=== PATIENT | male | born 1960 | race Caucasian/White ===

== ENCOUNTER → 2023-01-11 | Outpatient (CLI) | payer OTHER, SELFPAY ==
[2023-01-11 10:18] LABS: Bacteria 0 SEEN /hpf (None Seen); Mucous, Urine 0 SEEN /hpf (<or=2+); Red Blood Cells-Urine 0 SEEN /hpf (0-5); White Blood Cells 0 SEEN /hpf (0-5)
[2023-01-11 12:16] LABS: Absolute Neutrophil Count 5.3 X10^3/uL (2.0-7.7); Basophil# 0.15 X10^3/uL; Eosinophil# 0.15 X10^3/uL; Hematocrit 44.3 % (40-54); Hemoglobin 15.2 g/dL (13.0-16.5); Lymphocyte % 12.2 % (19-41); Mean Corp Hgb Conc 34.3 g/dL (32-36); Mean Corpuscular Hgb 36.2 pg (27.0-32.0); Mean Corpuscular Volume 105.5 fL (80-94); Mean Platelet Vol. 10.6 fl (6.2-12.0); Monocyte# 0.78 X10^3/uL; Monocyte% 10.6 % (0-10); NRBC Flagged by Analyzer 0 % (0-5); Neutrophil # 5.29 X10^3/uL (2.7-7.7); Neutrophil % 71.6 % (47-70); Platelet Count 273 K/mm3 (150-450); RBC Distribution Width SD 58.9 fl (35.1-43.9); White Blood Count 7.4 K/mm3 (4.4-11.0)
[2023-01-11 12:22] LABS: Color, Urine Brown (Yellow); Glucose, Dipstick Normal (Normal); Ketone-Dipstick 15 mg/dl (Negative); Leukocyte Esterase-Dipstick 25 /ul (Negative); Nitrite-Dipstick Positive (Negative); Occult Blood-Urine 25 /ul (Negative); Protein-Dipstick 30 mg/dl (Negative); Specific Gravity, Urine 1.015 (1.002-1.030); Urine Clarity Sl. Cloudy (Clear); Urine Urobilinogen 12 mg/dl (Normal); Urine pH 6.5 (5.0 - 8.0)
[2023-01-11 12:25] LABS: International Normalized Ratio 1.1; Prothrombin Time (Protime)PT. 14.3 SECONDS (11.7-14.9)
[2023-01-11 12:27] LABS: Partial Thromboplast Time 33.9 Seconds (24.1-36.2); Urine Bilirubin Dipstick 6 mg/dL (Negative)
[2023-01-11 12:35] LABS: Coarse Granular Cast 0-5 SEEN /lpf (0-5 /lpf); Hemoglobin A1c 4.6 % (3.8-5.6)
[2023-01-11 12:36] LABS: Amorphous Sediment 1+; Renal Epithelial Cells 0-5 SEEN /hpf (0-5); Squamous Epithelial Cells - UA 0-5 SEEN /hpf (0-5)
[2023-01-11 13:45] LABS: ALB/GLOB Ratio 0.5 RATIO (0.9-2.4); AST(SGOT) 177 U/L (15-37); Alanine Aminotransfer ALT/SGPT 123 U/L (16-61); Albumin, Serum 2.1 g/dL (3.2-5.0); Alkaline Phosphatase 265 U/L (45-117); Anion Gap 9 (5-15); BUN 9 mg/dL (7-18); BUN/Creat Ratio 10.2 RATIO (10-20); Calcium,Total 8.3 mg/dL (8.5-10.1); Chloride 106 mmol/L (98-107); Cholesterol 182 mg/dL (200); Creatinine, Serum 0.89 mg/dL (0.70-1.30); EST Glomerular Filtration Rate 93 mL/min (>60); Est Glom Filt Rate - Afr Amer 112 mL/min (>60); Globulin 3.9 g/dL (2.2-4.2); Glucose 104 mg/dL (74-106); High Density Lipoprotein 10 mg/dL; Potassium 3.5 mmol/L (3.5-5.1); Sodium Level 135 mmol/L (136-145); Thyroid Stim Hormone (TSH) 2.75 uIU/mL (0.358-3.74); Triglycerides 544 mg/dL
== END | disposition home or self-care (01) ==
LOC: MTLAB 10:07
PROVIDERS: PCP Family Medicine; Referring Provider Family Medicine; Visit Provider Family Medicine
DX: R17 Unspecified jaundice (principal); R82.998 Other abnormal findings in urine; R23.3 Spontaneous ecchymoses
CPT/HCPCS: 36415; 80053; 80061; 81001; 83036; 84443; 85025; 85610; 85730; 87086; 87088

== ENCOUNTER → 2023-01-17 | Outpatient (CLI) | payer OTHER, SELFPAY ==
--- NOTE | 2023-01-17 08:35 | US_ITS ---
STUDY: ABDOMINAL ULTRASOUND - RIGHT UPPER QUADRANT REASON FOR VISIT: Male, 62 years old New onset jaundice, dark urine, easy bleeding, and alcohol abuse TECHNIQUE: Ultrasound evaluation of the right upper quadrant was performed with real-time and static lipscomb-scale imaging. TECHNICAL QUALITY: Adequate. COMPARISON: None. FINDINGS: Liver: The liver is enlarged and measures 22.9 cm. There is increased echogenicity consistent with fatty infiltration. The bile ducts are within normal limits. There is hepatic color flow. The direction of portal flow is hepatopetal. There is no demonstrated mass lesion. Gallbladder: Normal distended gallbladder. The gallbladder wall is thickened and measures 7.0 mm. Findings suggestive of adenomyomatosis of the gallbladder wall. There is a negative sonographic Osman''s sign. There is no pericholecystic fluid. There is a solitary echogenic gallstone within the neck of the gallbladder. It measures 1.1 cm x 1.3 cm x 0.6 cm. Common Bile Duct (C.B.D.): The common bile duct measures 5.2 mm. Pancreas: There is nonvisualization of the pancreas due to overlying bowel gas. There is normal echogenicity of the pancreas. There is no demonstrated pancreatic mass or cyst. Right Kidney: Normal size of the right kidney. The right kidney measures 11.5 cm x 5.3 cm x 4.2 cm. Normal renal cortex. The right cortex measures 1.1 cm. There is no demonstrated renal mass or cyst. There is no right hydronephrosis. US/Abdomen Limited IMPRESSION: Hepatomegaly. Fatty infiltration of the liver. Solitary gallstone in the neck of the gallbladder with a thickened gallbladder wall and adenomyomatosis. Electronically Signed: Dyllan Goyal MD at 14:38 EDT ,
[2023-01-17 11:30] LABS: International Normalized Ratio 1.1; Prothrombin Time (Protime)PT. 14.4 SECONDS (11.7-14.9)
== END | disposition home or self-care (01) ==
PROVIDERS: PCP Family Medicine; Referring Provider Family Medicine; Visit Provider Family Medicine
DX: R23.3 Spontaneous ecchymoses (principal); R17 Unspecified jaundice
CPT/HCPCS: 36415; 76705; 85610

== ENCOUNTER 2023-01-30 09:13 | Inpatient (IN) | payer OTHER, SELFPAY ==
[2023-01-30 09:14] VITALS: BP 151/90; PULSE 99; RESP 14; TEMP 36.6; O2SAT 100; BMI 30.7
--- NOTE | 2023-01-30 09:29 | US_ITS ---
STUDY: ABDOMINAL ULTRASOUND - RIGHT UPPER QUADRANT REASON FOR VISIT: Male, 62 years old jaundice TECHNIQUE: Ultrasound evaluation of the right upper quadrant was performed with real-time and static lipscomb-scale imaging. TECHNICAL QUALITY: Adequate. COMPARISON: None. FINDINGS: Liver: The liver is enlarged and measures 21.4 cm. There is increased echogenicity consistent with fatty infiltration. The bile ducts are within normal limits. There is hepatic color flow. The direction of portal flow is hepatopetal. There is no demonstrated mass lesion. Gallbladder: Normal distended gallbladder. The gallbladder wall is thickened and measures 5.2 mm. There is a negative sonographic Osman''s sign. There is no pericholecystic fluid. There is a solitary echogenic gallstone within the neck of the gallbladder. Common Bile Duct (C.B.D.): The common bile duct measures 8.7 mm. Pancreas: There is nonvisualization of the pancreas due to overlying bowel gas. Right Kidney: Normal size of the right kidney. The right kidney measures 11 cm x 5.1 cm by 4.2 cm. Normal renal cortex. The right cortex measures 1.0 cm. There is no demonstrated renal mass or cyst. There is no right hydronephrosis. US/Gallbladder IMPRESSION: Hepatomegaly and fatty infiltration of the liver. Solitary gallstone in the neck of the gallbladder. Thickened gallbladder wall. Electronically Signed: Dyllan Goyal MD at 11:55 EDT ,
--- NOTE | 2023-01-30 09:30 | EX.ED.DYSGE1 ---
HPI History of Present Illness Chief Complaint: Abd Pain Informant: patient Narrative Narrative: Patient presents at the urging of his PCP for evaluation of gallbladder disease. Patient states about a month ago he started noticing decreased energy and jaundice. He was seen by his PCP earlier in the month and had lab work which revealed a significantly elevated bilirubin level. An ultrasound revealed a stone in the neck of the gallbladder and adenomyomatosis of the gallbladder wall. Patient has been referred to surgery but has not yet been seen. He states that his PCP called this morning and told him he states to come to the emergency room because he needs to have his gallbladder taken out. Patient denies any abdominal pain. He denies nausea or vomiting. He states that over the past week he has started noticing some itching. [facility] Medical History (Updated 01/30/23 @ 14:[address] Ida Pizarro MD) Hypertension Home Medications gabapentin 600 mg tablet 600 mg PO TID NEUROPATHY 01/30/23 [History Last Taken 01/30/23] Allergy/AdvReac Type Severity Reaction Status Date / Time No Known Allergies Allergy Verified 01/30/23 09:15 Surgical History (Updated 01/30/23 @ 09:[address] Ida Pizarro MD) History of knee replacement Previous back surgery Social History Smoking Status: Never smoker ROS ROS ED Constitutional Constitutional ED: Denies chills or fever(s) Eyes Eyes: Denies change in vision or discharge from eye(s) ENT ENT ED: Denies discharge from eye(s), rhinorrhea or sore throat Cardiovascular Cardiovascular: Denies chest pain or palpitations Respiratory/Chest Respiratory/Chest: Denies cough or dyspnea Gastrointestinal Gastrointestinal: Denies abdominal pain, nausea or vomiting Genitourinary Genitourinary ED: Denies dysuria Musculoskeletal Musculoskeletal: Denies back pain or extremity pain Integumentary Reports Abrasions and other Details: Pruritus ; Denies rash Neurologic Neurologic: Denies headache(s) or weakness Psychiatric Psychiatric: Denies anxiety or depression Allergic/Immunologic Allergic/Immunologic ED: Denies lip swelling or urticaria EXAM Physical Exam Const Vital Signs: 01/30/23 09:14 01/30/23 12:12 Temperature 97.8 F Temperature Source Temporal Pulse Rate 99 92 Respiratory Rate 14 Blood Pressure 151/90 H 158/97 H Blood Pressure Mean 110 117 Pulse Ox 100 Oxygen Delivery Method Room Air Positive well nourished and well developed General Appearance ED: well developed HEENT Reports normocephalic and head/scalp atraumatic Eyes PERRL and EOMs intact bilaterally Eyes Narrative: Scleral icterus Neck supple Chest Wall inspection of chest normal and palpation of chest normal Resp normal respiratory effort and clear to auscultation bilaterally Cardio regular rate and regular rhythm GI GI Narrative: Abdomen soft and nontender. Ventral hernia palpated with no tenderness. Palpation: soft Back/Spine no CVA tenderness Extremity normal to inspection Neuro oriented x3 and no sensory deficits noted Sensorium / Orientation: alert Motor Exam: strength 5/5 throughout Psych mental status grossly normal Skin Skin Narrative: Superficial abrasions noted to the bilateral forearms from scratching. No sign of secondary infection. Mild jaundice noted. MDM MDM MDM Narrative Medical decision making narrative: Patient's lab work and ultrasound from earlier this month is reviewed. Repeat labs obtained at this time along with repeat ultrasound of the right upper quadrant. History & Record Review Discussion w/independent historian: Patient Additional record(s) reviewed:: Prior labs Lab Data Attestation: I reviewed the patient's lab results. Labs: Laboratory Results - last 24 hr 01/30/23 01/30/23 09:43 11:55 WBC 11.0 RBC 4.12 L Hgb 14.7 Hct 43.7 MCV 106.1 H MCH 35.7 H MCHC 33.6 RDW Std Deviation 59.6 H RDW Coeff of Aidan 15.0 H Plt Count 393 MPV 9.4 Immature Gran % (Auto) 2.600 H Neut % (Auto) 72.2 H Lymph % (Auto) 9.7 L [place] % (Auto) 11.9 H Eos % (Auto) 1.8 Baso % (Auto) 1.8 H Absolute Neuts (auto) 7.9 H Absolute Lymphs (auto) 1.06 Nucleated RBC % 0 Sodium 137 Potassium 3.7 Chloride 107 Carbon Dioxide 25.0 Anion Gap 5 BUN 5 L Creatinine 0.86 Estim Creat Clear Calc 96.07 Est GFR (MDRD) Af Amer 116 Est GFR (MDRD) Non-Af 96 BUN/Creatinine Ratio 5.8 L Glucose 104 Calcium 8.3 L Total Bilirubin 19.30 H* Direct Bilirubin 15.18 H AST 135 H ALT 91 H Alkaline Phosphatase 304 H Total Protein 6.0 L Albumin 1.6 L Globulin 4.4 H Lipase 26 Urine Color Sammie Urine Clarity Clear Urine pH 7.0 Ur Specific [place] 1.015 Urine Protein 15 H Urine Glucose (UA) Normal Urine Ketones Negative Urine Occult Blood Negative Urine Nitrite Negative Urine Bilirubin 6 H Urine Urobilinogen 8 H Ur Leukocyte Esterase 25 H Urine RBC 0 SEEN Urine WBC 0-5 SEEN Ur Squamous Epith Cells 0 SEEN Urine Bacteria 1+ Urine Mucus 0 SEEN Radiography Diagnostic Testing: Clinical Impression(s) from Imaging Studies Gallbladder Ultrasound 01/30/23 09:29 IMPRESSION: Hepatomegaly and fatty infiltration of the liver. Solitary gallstone in the neck of the gallbladder. Thickened gallbladder wall. Electronically Signed: Dyllan Goyal MD at 11:55 EDT , Abdomen/Pelvis CT 01/30/23 12:02 IMPRESSION: Hepatomegaly and diffuse fatty infiltration of the liver. Solitary gallstone with thickened gallbladder wall and small amount of pericholecystic fluid. Dilated common bile duct. Small umbilical hernia containing mesenteric fat. Inflammatory changes are seen in the ascending colon and proximal transverse colon with increased markings in the surrounding peritoneal fat in the right pararenal space. Sigmoid diverticulosis with mild inflammatory changes. Electronically Signed: Dyllan Goyal MD at 12:56 EDT , ADDENDUM: 01/30/23 1308 IMPRESSION: undefined ADDENDUM: 01/30/23 1404 IMPRESSION: undefined Treatment and Re-Evaluation :: BC is normal with a white count of 11 and hemoglobin of 14.7. No left shift noted. Chemistry studies largely unremarkable, however LFTs are abnormal. Total bili is 19.3, down from 24 earlier this month. AST is 135 and ALT is 91. These again are slightly improved when compared to prior. Alk phos is 304. Lipase is normal at 26. Urinalysis reveals urine urobilinogen, but no evidence of infection. Right upper quadrant ultrasound is obtained that shows solitary gallstone in the neck of the gallbladder. Slightly thickened gallbladder wall noted. No pericholecystic fluid. Case was discussed with surgery and they recommended a CT of the abdomen and pelvis to evaluate the pancreas. Initial CT reported solitary gallstone and a small amount of pericholecystic fluid. Dilated common bile duct noted. There is an addendum that was then performed that states there is a 2 x 2.7 cm hypodense mass in the pancreas. Correlation with ERCP recommended. I spoke with Dr. Rangel and he evaluated the patient's imaging. I will discuss case with hospitalist for admission and abdominal MRI. He will then need an ERCP. This has been discussed with the patient at bedside. Discharge Plan Triage Chief Complaint: Abd Pain ED Provider: Ida Pizarro Dx/Rx/DC Orders Clinical Impression: Hyperbilirubinemia Prescriptions: No Action gabapentin 600 mg tablet 600 mg PO TID Primary Care Provider: Melyssa Hollingsworth Referrals: Melyssa Hollingsworth, DO [Primary Care Provider] - Disposition Disposition: Acute Care Hospital [facility]
[2023-01-30 09:48] LABS: Absolute Lymphocyte Count 1.06 X10^3/uL (0.83-4.51); Absolute Neutrophil Count 7.9 X10^3/uL (2.0-7.7); Basophil% 1.8 % (0-1); Eosinophils% 1.8 % (0-5); Hematocrit 43.7 % (40-54); Hemoglobin 14.7 g/dL (13.0-16.5); Lymphocyte # 1.06 X10^3/ul (0.83-4.51); Lymphocyte % 9.7 % (19-41); Mean Corp Hgb Conc 33.6 g/dL (32-36); Mean Corpuscular Hgb 35.7 pg (27.0-32.0); Mean Corpuscular Volume 106.1 fL (80-94); Mean Platelet Vol. 9.4 fl (6.2-12.0); Monocyte# 1.31 X10^3/uL; Monocyte% 11.9 % (0-10); NRBC Flagged by Analyzer 0 % (0-5); Neutrophil # 7.93 X10^3/uL (2.7-7.7); Neutrophil % 72.2 % (47-70); Platelet Count 393 K/mm3 (150-450); RBC Distribution Width SD 59.6 fl (35.1-43.9); Red Blood Count 4.12 M/mm3 (4.6-6.2)
[2023-01-30 10:08] LABS: AST(SGOT) 135 U/L (15-37); Alanine Aminotransfer ALT/SGPT 91 U/L (16-61); Albumin, Serum 1.6 g/dL (3.2-5.0); Alkaline Phosphatase 304 U/L (45-117); Anion Gap 5 (5-15); BUN 5 mg/dL (7-18); BUN/Creat Ratio 5.8 RATIO (10-20); Bilirubin, Direct 15.18 mg/dL (0.00-0.30); Calcium,Total 8.3 mg/dL (8.5-10.1); Chloride 107 mmol/L (98-107); Creatinine, Serum 0.86 mg/dL (0.70-1.30); EST Glomerular Filtration Rate 96 mL/min (>60); Est Glom Filt Rate - Afr Amer 116 mL/min (>60); Estimated Creatinine Clearance 96.07 ml/min; Globulin 4.4 g/dL (2.2-4.2); Glucose 104 mg/dL (74-106); Lipase 26 U/L (13-75); Potassium 3.7 mmol/L (3.5-5.1); Sodium Level 137 mmol/L (136-145)
[2023-01-30] MEDS: 0.9% Normal Saline (1000mL) 1,000 ML 150 ML IV (10:15)
--- NOTE | 2023-01-30 12:02 | CT_ITS ---
STUDY: CT ABDOMEN AND PELVIS WITH CONTRAST REASON FOR EXAM: Male, 62 years old. abn labs, jaundice RADIATION DOSAGE (If Supplied By Facility): CTDIvol = ( 17.84 ) mGy, DLP = ( 1220.26 ) mGycm TECHNIQUE: Transaxial images were obtained from the dome of the diaphragm to the symphysis pubis without oral contrast. IV 100mL Isovue-300 was administered. Sagittal and coronal images were reconstructed. Individualized dose optimization techniques were used for this CT. COMPARISON: None. FINDINGS: The visualized lung bases are unremarkable. Coronary artery calcification. There is decreased attenuation of the liver consistent with steatosis. Hepatomegaly. There is a solitary gallstone. Gallbladder wall thickening. Small amount of pericholecystic fluid. The common bile duct is dilated measuring 21.5 mm. Normal spleen. Normal pancreas. Normal bilateral adrenal glands. Normal right kidney. Normal left kidney. Normal visualized stomach. Normal small intestine. There is evidence of a thickening of the ascending colon and proximal transverse colon. Colitis should be ruled out. Increased markings are seen in the right lower quadrant as well as thickening of the right pararenal space. Sigmoid diverticulosis. Mural thickening of the sigmoid colon. Mild inflammatory changes in the sigmoid mesentery. The appendix is visualized and appears normal. Normal abdominal aorta. Normal inferior vena cava. Normal retroperitoneum. Normal urinary bladder. Small umbilical hernia containing mesenteric fat from the anterior mesentery. Small bilateral inguinal hernias containing fat. Normal osseous structures. CT/Abdomen/Pelvis W IV Cont ONLY IMPRESSION: Hepatomegaly and diffuse fatty infiltration of the liver. Solitary gallstone with thickened gallbladder wall and small amount of pericholecystic fluid. Dilated common bile duct. Small umbilical hernia containing mesenteric fat. Inflammatory changes are seen in the ascending colon and proximal transverse colon with increased markings in the surrounding peritoneal fat in the right pararenal space. Sigmoid diverticulosis with mild inflammatory changes. Electronically Signed: Dyllan Goyal MD at 12:56 EDT ,
[2023-01-30 12:12] VITALS: BP 158/97; PULSE 92
[2023-01-30 12:29] LABS: Mucous, Urine 0 SEEN /hpf (<or=2+); Red Blood Cells-Urine 0 SEEN /hpf (0-5); Squamous Epithelial Cells - UA 0 SEEN /hpf (0-5)
[2023-01-30 12:39] LABS: Color, Urine Amber (Yellow); Glucose, Dipstick Normal (Normal); Ketone-Dipstick Negative (Negative); Leukocyte Esterase-Dipstick 25 /ul (Negative); Nitrite-Dipstick Negative (Negative); Occult Blood-Urine Negative /ul (Negative); Protein-Dipstick 15 mg/dl (Negative); Specific Gravity, Urine 1.015 (1.002-1.030); Urine Clarity Clear (Clear); Urine Urobilinogen 8 mg/dl (Normal)
[2023-01-30 12:47] LABS: Urine Bilirubin Dipstick 6 mg/dL (Negative)
[2023-01-30 13:21] LABS: Bacteria 1+ /hpf (None Seen); White Blood Cells 0-5 SEEN /hpf (0-5)
[2023-01-30] MEDS: LORazepam 2 MG/ML Syringe 1 MG IV (14:31)
[2023-01-30 14:32] VITALS: BP 133/89; PULSE 101; RESP 18; TEMP 37; O2SAT 97
--- NOTE | 2023-01-30 14:32 | MRI_ITS ---
EXAM: MR ABDOMEN WITHOUT INTRAVENOUS CONTRAST, MRCP PROTOCOL CLINICAL INDICATION: hyperbilirubinemia, leg swelling, jaundice TECHNIQUE: Multiplanar and multisequence MR images of the abdomen without intravenous contrast obtained with MRCP sequence. Three-dimensional post-processing reconstructions were performed. This report was created using [employer] report generation technology. COMPARISON: CT and ultrasound from today FINDINGS: LOWER THORAX: Unremarkable. No pleural effusion. LIVER: Diffusely diminished density throughout the liver compatible hepatic steatosis. GALLBLADDER AND BILE DUCTS: The gallbladder is not well-distended but there is relative wall thickening throughout the gallbladder. A gallstone is seen within the lumen of the gallbladder. There is slight pericholecystic fluid and induration. No intra- or extrahepatic biliary ductal dilation. No choledochal filling defect. PANCREAS: T2 bright round cystic lesion of the inferior pancreatic head on image 22 of series 3 measures 2.0 x 2.1 cm and correlates hypodense lesion on recent CT. Limited evaluation given lack of IV contrast. There appears to be communication with a small ductal branch (image 22 series 12). No pancreatic duct dilation. SPLEEN: Borderline splenomegaly. ADRENALS: Unremarkable. No nodules. KIDNEYS AND URETERS: Simple cyst of the upper right kidney. No required imaging follow-up needed given high likelihood of benign nature. Normal renal size and position. No hydronephrosis. INTRAPERITONEAL SPACE: Trace perihepatic ascites. VASCULATURE: Unremarkable. Abdominal aorta is non-dilated. LYMPH NODES: No enlarged lymph nodes. MRI/MRCP Abdomen without Contrast IMPRESSION: 1. Gallbladder wall thickening, cholelithiasis and pericholecystic inflammation/edema suggesting acute cholecystitis. 2. No choledocholithiasis. 3. 2.0 x 2.1 cm inferior pancreatic head cyst, correlating to CT findings. Limited evaluation given lack of IV contrast. Recommend a contrast-enhanced, pancreas-protocol abdominal CT or MR in 6 months or endoscopic ultrasound with fine needle aspiration, according to ACR guidelines. 4. Trace perihepatic ascites. 5. Hepatic steatosis. Electronically Signed: Jamal Thao MD ([place]) at 16:40 EDT Reading Location ID and State: / [place] , Service support ,
--- NOTE | 2023-01-30 14:33 | PCM.HP.STD ---
HPI - General General Date of Admission: 01/30/23 Date of Service: 01/30/23 Chief Complaint: Painless jaundice/pruritus HPI Narrative LAM SANCHEZ, is a 62 M who presented to the emergency department at [facility] on 01/30/2023 after being told by his primary care physician to be evaluated for gallbladder disease. Patient reports that about a month ago he started noticing some decreased energy and extreme fatigue along with jaundice. He also reported some lower extremity swelling has been persistent since that point in time. He states his appetite has been okay but he has had a 20 pound weight loss as well. He was seen by his outpatient primary care provider earlier this month and had lab work which revealed significant hyperbilirubinemia and mild transaminitis. An ultrasound was performed and revealed a stone in the neck of the gallbladder as well as adenomyomatosis of the gallbladder wall and the patient was referred to surgery to see Dr. Hernandez however Dr. Hernandez has been out of town he has not yet had an appointment. Patient reported that his primary care physician called this morning and told him to come to the emergency department because he had to have his gallbladder taken out. Patient has not had any abdominal pain, nausea, or vomiting. He only reports mild fatigue, lower extremity swelling, itching, and painless jaundice. Patient has remote history of alcohol abuse and states he drank heavily in his 30s to about 41 but does not drink much at all anymore. He states that he has remote history of tobacco abuse as well but quit 30 years ago. He denies any other substance abuse and reports the only medications he takes is gabapentin for his back and he was utilizing IM injections of testosterone for ED. Vital signs on presentation were overall unremarkable. CBC shows macrocytosis but was otherwise unremarkable. His chemistry panel showed normal electrolytes with normal renal function however his total bilirubin was 19.3 with a direct bilirubin of 15.18. AST was 135 and ALT was 91. His alk phos is 304. His UA is not suggestive of infection. No gallbladder ultrasound reiterates the presence of a stone in the gallbladder neck and a CT of the abdomen pelvis shows a pancreatic mass that is hypodense at 2 x 2.7 cm. [facility] Medical History (Updated 01/30/23 @ 15:[address] Faith Paulino, DO) Chronic low back pain Erectile dysfunction Hypertension Lower extremity neuropathy Osteoarthritis Ventral hernia Home Medications gabapentin 600 mg tablet 600 mg PO TID NEUROPATHY 01/30/23 [History Last Taken 01/30/23] Allergy/AdvReac Type Severity Reaction Status Date / Time No Known Allergies Allergy Verified 01/30/23 09:15 no significant family history Surgical History History of knee replacement Previous back surgery Social History (Updated 01/30/23 @ 15:[address] Faith Paulino DO) Smoking Status: Former smoker how long ago did patient quit smoking: Quit 30 years ago alcohol intake: former details: Patient reports he drank heavily until about 41 years of age substance use type: does not use ROS Constitutional Constitutional: Reports change in weight, fatigue and weakness; Denies anorexia, chills, fever(s), malaise, night sweats or other Eyes Eyes: Reports change in eye color; Denies blurry vision, change in vision, discharge from eye(s), double vision, erythema, eye pain, loss of vision or other ENT HEENT: Denies abnormal hearing, dysphagia, ear pain, epistaxis, headache(s), hearing loss, nasal congestion, nasal discharge, post nasal drip, sinus pressure, sore throat or other Cardiovascular Cardiovascular: Denies chest pain, claudication, dyspnea on exertion, edema, lightheadedness, orthopnea, palpitations, paroxysmal nocturnal dyspnea, rapid heart rate, syncope or other Respiratory/Chest Respiratory/Chest: Denies cough, dyspnea, excessive phlegm production, hemoptysis, productive cough, shortness of breath at rest, shortness of breath with exertion, wheezing or other Gastrointestinal Gastrointestinal: Denies abdominal pain, coffee ground emesis, constipation, diarrhea, dyspepsia, hematemesis, hematochezia, loose stools, melena, nausea, vomiting or other Genitourinary Genitourinary: Reports other Details: Dark-colored urine ; Denies burning urination, difficulty urinating, dysuria, hematuria, nocturia, urinary frequency, urinary hesitancy, urinary incontinence or urinary urgency Musculoskeletal Musculoskeletal: Reports back pain and joint pain Neurologic Neurologic: Denies abnormal gait, abnormal speech, confusion, disequilibrium, dizziness, focal weakness, headache(s), numbness, paresthesias, seizure-like activity, seizures, syncope, tingling, tremor(s) or other Hematologic/Lymphatic Hematologic/Lymphatic: Reports easy bruising; Denies anemia, easy bleeding, lymphadenopathy or other Allergic/Immunologic Allergic/Immunologic: Reports other Details: Diffuse itching ; Denies rhinitis, hives, eczemia or asthma Vital Signs Vital Signs Vital Signs: 01/30/23 09:14 01/30/23 12:12 Temperature 97.8 F Temperature Source Temporal Pulse Rate 99 92 Respiratory Rate 14 Blood Pressure 151/90 H 158/97 H Blood Pressure Mean 110 117 Pulse Ox 100 Oxygen Delivery Method Room Air Weight Weight: 99.79 kg Body Mass Index (BMI) 30.7 Physical Exam Const alert, oriented x3, no apparent distress and well nourished Constitutional Narrative: Obese, upper middle-aged, white male, sitting up in bed, mother at bedside, appears comfortable and nontoxic, no signs of distress whatsoever General Appearance: cooperative HEENT normocephalic, head/scalp atraumatic, hearing grossly normal bilaterally and moist oral mucous membranes HEENT Narrative: Mallampati is 2, no thrush Eyes PERRL, EOMs intact bilaterally and conjunctivae normal Eyes Narrative: Significant scleral icterus Neck no lymphadenopathy and supple Neck Narrative: Trachea pain, no thyroid enlargement Resp normal respiratory effort, no retractions, no use of accessory muscles and clear to auscultation bilaterally Auscultation: Negative for rales, rhonchi or wheezes Cardio regular rate, regular rhythm, S1 normal heart sound, S2 normal heart sound, no murmurs, no rub, no gallops and no clicks GI normal to inspection, nondistended, normoactive bowel sounds, soft to palpation and non-tender Extremity Extremity Narrative: Bilateral lower extremity pitting edema up to just above the knees-approximately 1-2+, no clubbing or sign Skin No no rashes or lesions noted, No no wounds, skin turgor normal, No no jaundice, no petechiae and no mottling Skin Narrative: Scattered bruising, few healing wounds on lower extremities with no signs of infection, severe jaundice Neuro oriented x3, CN's II-XII intact bilaterally, moves all extremities and no focal motor deficits Speech: speech normal Psych Psych Narrative: Very anxious, interacts appropriately, eye contact is good Mood & Affect: anxious Results Lab / Micro Data Attestation: I reviewed the patient's lab results. 01/30/23 09:43 01/30/23 09:43 Labs: Laboratory Results - last 24 hr 01/30/23 09:43: WBC 11.0, RBC 4.12 L, Hgb 14.7, Hct 43.7, MCV 106.1 H, MCH 35.7 H, MCHC 33.6, RDW Std Deviation 59.6 H, RDW Coeff of Aidan 15.0 H, Plt Count 393, MPV 9.4, Immature Gran % (Auto) 2.600 H, Neut % (Auto) 72.2 H, Lymph % (Auto) 9.7 L, Cooper % (Auto) 11.9 H, Eos % (Auto) 1.8, Baso % (Auto) 1.8 H, Absolute Neuts (auto) 7.9 H, Absolute Lymphs (auto) 1.06, Nucleated RBC % 0, Sodium 137, Potassium 3.7, Chloride 107, Carbon Dioxide 25.0, Anion Gap 5, BUN 5 L, Creatinine 0.86, Estim Creat Clear Calc 96.07, Est GFR (MDRD) Af Amer 116, Est GFR (MDRD) Non-Af 96, BUN/Creatinine Ratio 5.8 L, Glucose 104, Calcium 8.3 L, Total Bilirubin 19.30 H*, Direct Bilirubin 15.18 H, AST 135 H, ALT 91 H, Alkaline Phosphatase 304 H, Total Protein 6.0 L, Albumin 1.6 L, Globulin 4.4 H, Lipase 26 01/30/23 11:55: Urine Color Sammie, Urine Clarity Clear, Urine pH 7.0, Ur Specific Sterling 1.015, Urine Protein 15 H, Urine Glucose (UA) Normal, Urine Ketones Negative, Urine Occult Blood Negative, Urine Nitrite Negative, Urine Bilirubin 6 H, Urine Urobilinogen 8 H, Ur Leukocyte Esterase 25 H, Urine RBC 0 SEEN, Urine WBC 0-5 SEEN, Ur Squamous Epith Cells 0 SEEN, Urine Bacteria 1+, Urine Mucus 0 SEEN Radiology Impression Gallbladder Ultrasound 01/30/23 09:29 IMPRESSION: Hepatomegaly and fatty infiltration of the liver. Solitary gallstone in the neck of the gallbladder. Thickened gallbladder wall. Electronically Signed: Dyllan Goyal MD at 11:55 EDT , Abdomen/Pelvis CT 01/30/23 12:02 IMPRESSION: Hepatomegaly and diffuse fatty infiltration of the liver. Solitary gallstone with thickened gallbladder wall and small amount of pericholecystic fluid. Dilated common bile duct. Small umbilical hernia containing mesenteric fat. Inflammatory changes are seen in the ascending colon and proximal transverse colon with increased markings in the surrounding peritoneal fat in the right pararenal space. Sigmoid diverticulosis with mild inflammatory changes. Electronically Signed: Dyllan Goyal MD at 12:56 EDT , ADDENDUM: 01/30/23 1308 IMPRESSION: undefined ADDENDUM: 01/30/23 1404 IMPRESSION: undefined Assessment & Plan Assessment/Plan (1) Hyperbilirubinemia: (2) Transaminitis: (3) Cholelithiasis: (4) Pancreatic mass: (5) Painless jaundice: (6) Pruritus: (7) Lower extremity edema: PLAN: Plan Hyperbilirubinemia/transaminitis -Patient with painless jaundice and pruritus along with a 20 pound unintentional weight loss - abdominal ultrasound does show hepatomegaly with fatty infiltration of the liver as well as a solitary gallstone in the neck of the gallbladder with a thickened gallbladder wall but patient is asymptomatic so a highly doubt that this is the etiology for his above symptoms -CT of the abdomen pelvis shows a 2 cm x 2.7 cm hypodense mass in the pancreas as well as inflammatory changes in the ascending, proximal transverse: And sigmoid diverticulosis. -We will start low-dose Zoloft 25 mg daily for pruritus -Rifaximin 550 twice daily for pruritus -Cholestyramine at at bedtime for pruritus -As needed Benadryl for pruritus -MRCP ordered and is pending -Most likely will need ERCP -GI consultation--> Case discussed extensively with Dr. Rangel Pancreatic mass -CA 19-9 is pending -MRCP pending Lower extremity edema-bilateral -Check Dopplers -With the above I am concerned that he may have DVTs -If positive will start heparin drip Cholelithiasis -I doubt this is the etiology of the above findings -Patient is not having any abdominal pain, nausea, or vomiting -Tolerates p.o. intake without difficulty Ventral hernia -No current issues -Outpatient follow-up if needed History of hypertension -Patient is on no chronic medication -As needed hydralazine for systolic greater than 160 -Monitor Neuropathy secondary to chronic low back pain -We will hold gabapentin for now Erectile dysfunction -Patient has been getting IM injections of testosterone Remote history of alcohol and tobacco abuse -Encouraged ongoing cessation DVT prophylaxis -Lovenox 40 daily for now and await lower extremity Dopplers CODE STATUS -Full code Charges/Coding Visit Charges Inpatient E&M: 13558 Init Hosp L2
--- NOTE | 2023-01-30 14:55 | VDLE_ITS ---
Reason For Study: swelling RIGHT LEFT GSV is normal. GSV is normal. CFV is compressible, spontaneous, phasic, CFV is compressible, spontaneous, phasic, competent and demonstrates normal competent, and demonstrates normal augmentation. augmentation. FV is compressible, spontaneous, phasic, FV is compressible, spontaneous, phasic, competent and demonstrates normal competent and demonstrates normal augmentation. augmentation. POP V is compressible, spontaneous, phasic, POP V is compressible, spontaneous, phasic, competent and demonstrates normal competent and demonstrates normal augmentation. augmentation. T/P Trunk is compressible. T/P Trunk is compressible. PTV is compressible. PTV is compressible. RT PerV is compressible. LT PerV is compressible. Procedure This is a venous duplex using B-mode, color flow and spectral Doppler. Exam performed portable in patient room. The exam was diagnostic. A preliminary report was called and/or faxed to [place] RN and charge out clerk. VL/Venous Duplex US - Chase Extrem Interpretation Summary Deep veins of the bilateral lower extremities are patent and compressible segme ntally. There is no evidence of bilateral lower extremity deep vein thrombosis. The bilateral great saphenous veins appear patent and compressible segmentally. Ordering Physician: Faith Paulino Performed By: Avtar Hernandez, RVT
[2023-01-30 16:52] VITALS: BMI 31.4
[2023-01-30 17:15] VITALS: BP 150/87; PULSE 98; RESP 18; TEMP 36.4; O2SAT 100
[2023-01-30] MEDS: 0.9% Normal Saline (1000mL) 1,000 ML 75 ML IV (17:19)
[2023-01-30] MEDS: DiphenhydrAMINE 50 MG/ML Syringe 25 MG IV (17:33)
[2023-01-30] MEDS: 0.9% Saline Lock 10 ML Syringe IV (17:35)
[2023-01-30] MEDS: rifAXIMin 550 MG Tablet PO (21:20)
[2023-01-30] MEDS: Zolpidem Tartrate 5 MG Tablet PO (21:20)
[2023-01-30 21:23] VITALS: BP 142/95; PULSE 99; RESP 19; TEMP 36.9; O2SAT 97
[2023-01-30] MEDS: Cholestyramine/Sucrose 4 GM/PACKET PO (22:37)
[2023-01-30 22:54] VITALS: O2SAT 97
--- NOTE | 2023-01-30 23:00 | CON.PCM.GI_ITS ---
HPI Consult Data Date of Consult: 01/30/23 HPI Narrative Reason for Consultation: Obstructive jaundice HPI Narrative: LAM SANCHEZ, 62 M who presented to the emergency department at [facility] on 01/30/2023 after being told by his primary care physician to be evaluated for gallbladder disease. Patient reports that about a month ago he started noticing some decreased energy and extreme fatigue along with jaundice. He also reported some lower extremity swelling has been persistent since that point in time. He states his appetite has been okay but he has had a 20 pound weight loss as well. He was seen by his outpatient primary care provider earlier this month and had lab work which revealed significant hyperbilirubinemia and mild transaminitis. An ultrasound was performed and revealed a stone in the neck of the gallbladder as well as adenomyomatosis of the gallbladder wall and the patient was referred to surgery to see Dr. Hernandez however Dr. Hernandez has been out of town he has not yet had an appointment. Patient reported that his primary care physician called this morning and told him to come to the emergency department because he had to have his gallbladder taken out. Patient has not had any abdominal pain, nausea, or vomiting. He only reports mild fatigue, lower extremity swelling, itching, and painless jaundice. Patient has remote history of alcohol abuse and states he drank heavily in his 30s to about 41 but does not drink anymore. He states that he has remote history of tobacco abuse as well but quit 30 years ago. He denies any other substance abuse and reports the only medications he takes is gabapentin for his back and he was utilizing IM injections of testosterone for ED. Vital signs on presentation were overall unremarkable. CBC shows macrocytosis but was otherwise unremarkable. His chemistry panel showed normal electrolytes with normal renal function however his total bilirubin was 19.3 with a direct bilirubin of 15.18. AST was 135 and ALT was 91. His alk phos is 304. His UA is not suggestive of infection. No gallbladder ultrasound reiterates the presence of a stone in the gallbladder neck and a CT of the abdomen pelvis shows a pancreatic mass that is hypodense at 2 x 2.7 cm. [facility] Medical History (Updated 01/30/23 @ 15:[address] Faith Paulino, DO) Chronic low back pain Erectile dysfunction Hypertension Lower extremity neuropathy Osteoarthritis Ventral hernia Home Medications gabapentin 600 mg tablet 600 mg PO TID NEUROPATHY 01/30/23 [History Last Taken 01/30/23] Allergy/AdvReac Type Severity Reaction Status Date / Time No Known Allergies Allergy Verified 01/30/23 09:15 Family History no significant family his Surgical History History of knee replacement Previous back surgery Social History (Updated 01/30/23 @ 15:[address] Faith Paulino DO) Smoking Status: Former smoker how long ago did patient quit smoking: Quit 30 years ago alcohol intake: former details: Patient reports he drank heavily until about 41 years of age substance use type: does not use ROS Constitutional Constitutional: Reports change in weight, fatigue and weakness; Denies anorexia, chills, fever(s), malaise, night sweats or other Eyes Eyes: Reports change in eye color; Denies blurry vision, change in vision, discharge from eye(s), double vision, erythema, eye pain, loss of vision or other ENT HEENT: Denies abnormal hearing, dysphagia, ear pain, epistaxis, headache(s), hearing loss, nasal congestion, nasal discharge, post nasal drip, sinus pressure, sore throat or other Cardiovascular Cardiovascular: Denies chest pain, claudication, dyspnea on exertion, edema, lightheadedness, orthopnea, palpitations, paroxysmal nocturnal dyspnea, rapid heart rate, syncope or other Respiratory/Chest Respiratory/Chest: Denies cough, dyspnea, excessive phlegm production, hemoptysis, productive cough, shortness of breath at rest, shortness of breath with exertion, wheezing or other Gastrointestinal Gastrointestinal: Denies abdominal pain, coffee ground emesis, constipation, diarrhea, dyspepsia, hematemesis, hematochezia, loose stools, melena, nausea, vomiting or other Genitourinary Genitourinary: Reports other Details: Dark-colored urine ; Denies burning urination, difficulty urinating, dysuria, hematuria, nocturia, u rinary frequency, urinary hesitancy, urinary incontinence or urinary urgency Musculoskeletal Musculoskeletal: Reports back pain and joint pain Neurologic Neurologic: Denies abnormal gait, abnormal speech, confusion, disequilibrium, dizziness, focal weakness, headache(s), numbness, paresthesias, seizure-like activity, seizures, syncope, tingling, tremor(s) or other Hematologic/Lymphatic Hematologic/Lymphatic: Reports easy bruising; Denies anemia, easy bleeding, lymphadenopathy or other Allergic/Immunologic Allergic/Immunologic: Reports other Details: Diffuse itching ; Denies rhinitis, hives, eczemia or asthma Physical Exam Const Constitutional Narrative: Jaundiced. Afebrile. HEENT head/scalp atraumatic Eyes Eyes Narrative: Icterus Neuro Sensorium / Orientation: awake and alert Psych Mood & Affect: anxious Lab / Micro Data 01/31/23 05:03 01/31/23 05:03 Labs: Laboratory Results - last 24 hr 01/31/23 05:03: WBC 9.1, RBC 4.07 L, Hgb 14.8, Hct 43.3, MCV 106.4 H, MCH 36.4 H , MCHC 34.2, RDW Std Deviation 59.8 H, RDW Coeff of Aidan 15.1 H, Plt Count 410, MPV 9.4, Immature Gran % (Auto) 2.200 H, Neut % (Auto) 66.6, Lymph % (Auto) 16.5 L, Broome % (Auto) 10.5 H, Eos % (Auto) 2.6, Baso % (Auto) 1.6 H, Absolute Neuts (auto) 6.1, Absolute Lymphs (auto) 1.50, Nucleated RBC % 0, Sodium 138 01/31/23 05:03: Sodium Cancelled, Potassium 3.8 01/31/23 05:03: Potassium Cancelled, Chloride 109 H 01/31/23 05:03: Chloride Cancelled, Carbon Dioxide 23.0 01/31/23 05:03: Carbon Dioxide Cancelled, Anion Gap 6 01/31/23 05:03: Anion Gap Cancelled, BUN 7 01/31/23 05:03: BUN Cancelled, Creatinine 0.83 01/31/23 05:03: Creatinine Cancelled, Estim Creat Clear Calc 99.54 01/31/23 05:03: Estim Creat Clear Calc Cancelled, Est GFR (MDRD) Af Amer 120 01/31/23 05:03: Est GFR (MDRD) Af Amer Cancelled, Est GFR (MDRD) Non-Af 99 01/31/23 05:03: Est GFR (MDRD) Non-Af Cancelled, BUN/Creatinine Ratio 8.4 L 01/31/23 05:03: BUN/Creatinine Ratio Cancelled, Glucose 81 01/31/23 05:03: Glucose Cancelled, Calcium 7.9 L 01/31/23 05:03: Calcium Cancelled, Phosphorus 1.9 L, Magnesium 2.2, Total Bilirubin 19.90 H*, AST 146 H, ALT 91 H, Alkaline Phosphatase 284 H, Total Protein 6.1 L, Albumin 1.6 L, Globulin 4.5 H, Albumin/Globulin Ratio 0.4 L, TSH 6.55 H Radiology Impression MRCP 01/30/23 14:32 IMPRESSION: 1. Gallbladder wall thickening, cholelithiasis and pericholecystic inflammation/edema suggesting acute cholecystitis. 2. No choledocholithiasis. 3. 2.0 x 2.1 cm inferior pancreatic head cyst, correlating to CT findings. Limited evaluation given lack of IV contrast. Recommend a contrast-enhanced, pancreas-protocol abdominal CT or MR in 6 months or endoscopic ultrasound with fine needle aspiration, according to ACR guidelines. 4. Trace perihepatic ascites. 5. Hepatic steatosis. Electronically Signed: Jamal Thao MD ([place]) at 16:40 EDT Reading Location ID and State: [address] [place] [address] , Service support , Assessment & Plan Assessment/Plan (1) Hyperbilirubinemia: (2) Transaminitis: (3) Cholelithiasis: (4) Pancreatic mass: (5) Painless jaundice: (6) Pruritus: (7) Lower extremity edema: PLAN: Plan Hyperbilirubinemia/transaminitis -Patient with painless jaundice and pruritus along with a 20 pound unintentional weight loss - abdominal ultrasound does show hepatomegaly with fatty infiltration of the liver as well as a solitary gallstone in the neck of the gallbladder with a thickened gallbladder wall but patient is asymptomatic so a highly doubt that this is the etiology for his above symptoms -CT of the abdomen pelvis shows a 2 cm x 2.7 cm hypodense mass in the pancreas as well as inflammatory changes in the ascending, proximal transverse: And sigmoid diverticulosis. -We will start low-dose Zoloft 25 mg daily for pruritus -Rifaximin 550 twice daily for pruritus -Cholestyramine at at bedtime for pruritus -As needed Benadryl for pruritus -MRCP ordered and is pending -Most likely will need ERCP Pancreatic mass -CA 19-9 is pending -MRCP recommended ERCP. Charges/Coding Visit Charges Inpatient E&M: 94300 Init Hosp L3
[2023-01-31] VITALS (9 sets, daily range): BP systolic 147–157; BP diastolic 84–103; PULSE 83–97; RESP 16–18; TEMP 36.2–36.9; O2SAT 94–100; BMI 31.4
[2023-01-31] MEDS: 0.9% Normal Saline (1000mL) 1,000 ML 75 ML IV (04:57)
[2023-01-31 05:12] LABS: Absolute Neutrophil Count 6.1 X10^3/uL (2.0-7.7); Basophil# 0.15 X10^3/uL; Basophil% 1.6 % (0-1); Eosinophil# 0.24 X10^3/uL; Eosinophils% 2.6 % (0-5); Hematocrit 43.3 % (40-54); Hemoglobin 14.8 g/dL (13.0-16.5); Lymphocyte % 16.5 % (19-41); Mean Corp Hgb Conc 34.2 g/dL (32-36); Mean Corpuscular Hgb 36.4 pg (27.0-32.0); Mean Corpuscular Volume 106.4 fL (80-94); Mean Platelet Vol. 9.4 fl (6.2-12.0); Monocyte# 0.96 X10^3/uL; Monocyte% 10.5 % (0-10); NRBC Flagged by Analyzer 0 % (0-5); Neutrophil # 6.06 X10^3/uL (2.7-7.7); Neutrophil % 66.6 % (47-70); Platelet Count 410 K/mm3 (150-450); RBC Distribution Width CV 15.1 % (11.6-14.6); RBC Distribution Width SD 59.8 fl (35.1-43.9); Red Blood Count 4.07 M/mm3 (4.6-6.2); White Blood Count 9.1 K/mm3 (4.4-11.0)
[2023-01-31] MEDS: DiphenhydrAMINE 50 MG/ML Syringe 25 MG IV ×2 (05:26→07:54)
[2023-01-31 06:19] LABS: ALB/GLOB Ratio 0.4 RATIO (0.9-2.4); AST(SGOT) 146 U/L (15-37); Alanine Aminotransfer ALT/SGPT 91 U/L (16-61); Albumin, Serum 1.6 g/dL (3.2-5.0); Alkaline Phosphatase 284 U/L (45-117); Anion Gap 6 (5-15); BUN 7 mg/dL (7-18); BUN/Creat Ratio 8.4 RATIO (10-20); Calcium,Total 7.9 mg/dL (8.5-10.1); Chloride 109 mmol/L (98-107); Creatinine, Serum 0.83 mg/dL (0.70-1.30); EST Glomerular Filtration Rate 99 mL/min (>60); Est Glom Filt Rate - Afr Amer 120 mL/min (>60); Estimated Creatinine Clearance 99.54 ml/min; Globulin 4.5 g/dL (2.2-4.2); Glucose 81 mg/dL (74-106); Magnesium 2.2 mg/dL (1.6-2.6); Phosphorus 1.9 mg/dL (2.5-4.9); Potassium 3.8 mmol/L (3.5-5.1); Protein, Total 6.1 g/dL (6.4-8.2); Sodium Level 138 mmol/L (136-145); Thyroid Stim Hormone (TSH) 6.55 uIU/mL (0.358-3.74)
[2023-01-31] MEDS: 0.9% Saline Lock 10 ML Syringe IV (07:54)
--- NOTE | 2023-01-31 08:33 | PN.HOSP_ITS ---
Subjective Subjective Complains of pruritus not affected well with the diphenhydramine. Also goes off on concerns that he has over his insurance as he currently has care source and could no longer go to [facility] because of that. Was asking whether or not any of the providers are within his network, explains his discussed in regards to my not knowing the actual time of his ERCP, also expressing his discussed about the fact that he has not eaten yet today as he is waiting on his ERCP. He expressed that he does not like the ambiguity in regards to what the underlying potential diagnosis is and why we do not have a formal plan for what is going to be done next. Objective Data Objective Data Vital Signs: Vital Signs Temp Pulse Resp BP Pulse Ox O2 Del Method 36.6 C 85 16 151/89 H 96 Room Air 01/31/23 04:57 01/31/23 04:57 01/31/23 04:57 01/31/23 04:57 01/31/23 07:10 01/31/23 07:59 Oxygen Delivery Method Room Air Weight: 102.058 kg Body Mass Index (BMI) 31.4 Intake & Output: Intake and Output for Last 24 Hours 01/29/23 01/30/23 01/31/23 23:59 23:59 23:59 Intake Total 1000 / 1000 872.5 / 872.5 Balance 1000 / 1000 872.5 / 872.5 Lab / Micro Data 01/31/23 05:03 01/31/23 05:03 Labs: Laboratory Results - last 24 hr 01/30/23 09:43: WBC 11.0, RBC 4.12 L, Hgb 14.7, Hct 43.7, MCV 106.1 H, MCH 35.7 H, MCHC 33.6, RDW Std Deviation 59.6 H, RDW Coeff of Aidan 15.0 H, Plt Count 393, MPV 9.4, Immature Gran % (Auto) 2.600 H, Neut % (Auto) 72.2 H, Lymph % (Auto) 9.7 L, [place] % (Auto) 11.9 H, Eos % (Auto) 1.8, Baso % (Auto) 1.8 H, Absolute Neuts (auto) 7.9 H, Absolute Lymphs (auto) 1.06, Nucleated RBC % 0, Sodium 137, Potassium 3.7, Chloride 107, Carbon Dioxide 25.0, Anion Gap 5, BUN 5 L, Creatinine 0.86, Estim Creat Clear Calc 96.07, Est GFR (MDRD) Af Amer 116, Est GFR (MDRD) Non-Af 96, BUN/Creatinine Ratio 5.8 L, Glucose 104, Calcium 8.3 L, Total Bilirubin 19.30 H*, Direct Bilirubin 15.18 H, AST 135 H, ALT 91 H, Alkaline Phosphatase 304 H, Total Protein 6.0 L, Albumin 1.6 L, Globulin 4.4 H, Lipase 26 01/30/23 11:55: Urine Color Sammie, Urine Clarity Clear, Urine pH 7.0, Ur Specific [place] 1.015, Urine Protein 15 H, Urine Glucose (UA) Normal, Urine Ketones Negative, Urine Occult Blood Negative, Urine Nitrite Negative, Urine Bilirubin 6 H, Urine Urobilinogen 8 H, Ur Leukocyte Esterase 25 H, Urine RBC 0 SEEN, Urine WBC 0-5 SEEN, Ur Squamous Epith Cells 0 SEEN, Urine Bacteria 1+, Urine Mucus 0 SEEN 01/31/23 05:03: WBC 9.1, RBC 4.07 L, Hgb 14.8, Hct 43.3, MCV 106.4 H, MCH 36.4 H , MCHC 34.2, RDW Std Deviation 59.8 H, RDW Coeff of Aidan 15.1 H, Plt Count 410, MPV 9.4, Immature Gran % (Auto) 2.200 H, Neut % (Auto) 66.6, Lymph % (Auto) 16.5 L, [place] % (Auto) 10.5 H, Eos % (Auto) 2.6, Baso % (Auto) 1.6 H, Absolute Neuts (auto) 6.1, Absolute Lymphs (auto) 1.50, Nucleated RBC % 0, Sodium 138 01/31/23 05:03: Sodium Cancelled, Potassium 3.8 01/31/23 05:03: Potassium Cancelled, Chloride 109 H 01/31/23 05:03: Chloride Cancelled, Carbon Dioxide 23.0 01/31/23 05:03: Carbon Dioxide Cancelled, Anion Gap 6 01/31/23 05:03: Anion Gap Cancelled, BUN 7 01/31/23 05:03: BUN Cancelled, Creatinine 0.83 01/31/23 05:03: Creatinine Cancelled, Estim Creat Clear Calc 99.54 01/31/23 05:03: Estim Creat Clear Calc Cancelled, Est GFR (MDRD) Af Amer 120 01/31/23 05:03: Est GFR (MDRD) Af Amer Cancelled, Est GFR (MDRD) Non-Af 99 01/31/23 05:03: Est GFR (MDRD) Non-Af Cancelled, BUN/Creatinine Ratio 8.4 L 01/31/23 05:03: BUN/Creatinine Ratio Cancelled, Glucose 81 01/31/23 05:03: Glucose Cancelled, Calcium 7.9 L 01/31/23 05:03: Calcium Cancelled, Phosphorus 1.9 L, Magnesium 2.2, Total Bilirubin 19.90 H*, AST 146 H, ALT 91 H, Alkaline Phosphatase 284 H, Total Protein 6.1 L, Albumin 1.6 L, Globulin 4.5 H, Albumin/Globulin Ratio 0.4 L, TSH 6.55 H Radiography Diagnostic Testing: Radiology Impression Gallbladder Ultrasound 01/30/23 09:29 IMPRESSION: Hepatomegaly and fatty infiltration of the liver. Solitary gallstone in the neck of the gallbladder. Thickened gallbladder wall. Electronically Signed: Dyllan Goyal MD at 11:55 EDT , Abdomen/Pelvis CT 01/30/23 12:02 IMPRESSION: Hepatomegaly and diffuse fatty infiltration of the liver. Solitary gallstone with thickened gallbladder wall and small amount of pericholecystic fluid. Dilated common bile duct. Small umbilical hernia containing mesenteric fat. Inflammatory changes are seen in the ascending colon and proximal transverse colon with increased markings in the surrounding peritoneal fat in the right pararenal space. Sigmoid diverticulosis with mild inflammatory changes. Electronically Signed: Dyllan Goyal MD at 12:56 EDT , ADDENDUM: 01/30/23 1308 IMPRESSION: undefined ADDENDUM: 01/30/23 1404 IMPRESSION: undefined MRCP 01/30/23 14:32 IMPRESSION: 1. Gallbladder wall thickening, cholelithiasis and pericholecystic inflammation/edema suggesting acute cholecystitis. 2. No choledocholithiasis. 3. 2.0 x 2.1 cm inferior pancreatic head cyst, correlating to CT findings. Limited evaluation given lack of IV contrast. Recommend a contrast-enhanced, pancreas-protocol abdominal CT or MR in 6 months or endoscopic ultrasound with fine needle aspiration, according to ACR guidelines. 4. Trace perihepatic ascites. 5. Hepatic steatosis. Electronically Signed: Jamal Thao MD ([place]) at 16:40 EDT Reading Location ID and State: / [place] , Service support , Physical Exam Const Constitutional Narrative: Jaundiced. Afebrile. HEENT head/scalp atraumatic Eyes Eyes Narrative: Icterus Neuro Sensorium / Orientation: awake and alert Psych Mood & Affect: anxious Assessment & Plan Assessment/Plan (1) Pancreatic mass: PLAN: MRCP: 2x2.1 cm inferior pancreatic head cyst. GB wall thickening, cholelithiasis and pericholecystic inflammation/edema suggesting acute cholecystitis CT a/p: Hepatomegaly and diffuse fatty infiltration of the liver. Solitary GS with thickened gallbladder wall and small amount pericholecystic fluid. Dilated CBD. Inflammatory changes seen in the ascending colon and proximal transverse colon with increased markings in the surrounding peritoneal fat in the right pararenal space. GI on consult. ERCP planned Consider GS consult. CA 19-9 (2) Hyperbilirubinemia: PLAN: Ongoing Likely obstructive from pancreatic mass or choledocholithiasis ERCP planned. on cholestyramine Increase diphenhydramine from 25-50 every 6 hours as needed. (3) Lower extremity edema: PLAN: Duplex ordered PLAN: Plan Chronic conditions: * Ventral hernia: -No current issues-Outpatient follow-up if needed * hypertension-Patient is on no chronic medication-As needed hydralazine for systolic greater than 160-Monitor * Neuropathy secondary to chronic low back pain-We will hold gabapentin for now * Erectile dysfunction-Patient has been getting IM injections of testosterone * Remote history of alcohol and tobacco abuse-Encouraged ongoing cessation DVT prophylaxis-LMWH CODE STATUS-Full code Greater than 55 minutes of which greater than 50% of time was discussing the patient and managing expectations regards to testing but also listening and trying to help alleviate some of his concerns regards to the specialists were involved in his care that his concern was whether or not they would be in network, also listening to him listen to him expressed discussed over myriad of things including the fact that we do not have a specific time for his ERCP, that the testing will be determined by what some of the other studies show before we make further determination with a neck step will be and also expressing that he is medically not ready for discharge. Charges/Coding Visit Charges Inpatient E&M: 61298 Subs Hosp L3
[2023-01-31] MEDS: Lactated Ringers 1,000 ML 15 ML IV ×2 (13:50→15:30)
--- NOTE | 2023-01-31 14:30 | TISS_PTH ---
PATIENT: LAM SANCHEZ LOC: [facility] U#:[id number] AGE/SX: 62/M ROOM: [facility] RE01/30/[address]: Dr. Oswald Lance DO : 1960 BED: 1 DIS: 02/01/2023 SPEC #: [id number] RECD: 01/31/23 17:01 STATUS: NEWTON MULLEN #: [id number] CASSIDY: 01/31/23 14:[address]: Margarito Rangel DEPT: SURGICAL PATHOLOGY RECD BY: Beba Hyatt ENTERED: 02/01/23 08:01 SP TYPE: Tissue Bx SAWYER DR: DO Dr. Faith Garcia DO Kristin M Wenger, DO Tissues: Bile duct, NOS Procedures: Surgery Specimen Level III HEADER OPERATION: ERCP with Spy, dilation, stent placement, brushings, biopsy PRE-OP DIAGNOSIS: Hyperbilirubinemia, transaminitis, cholelithiasis, pancreatic mass TISSUE SUBMITTED: Biliary stricture biopsy - Spy Bite MICROSCOPIC DIAGNOSIS Biliary stricture, biopsy: No evidence of malignancy. See comment. AM:ginger 02/04/2023 COMMENT The specimen contains fibrous tissue and benign glandular epithelium. Focal minimal acute inflammation is present. Clinical correlation is suggested. Please correlate with corresponding cytology specimen [id number]. MICROSCOPIC DESCRIPTION Slides are reviewed. GROSS DESCRIPTION Received in fixative is one container labeled with the patient's name and designated biliary stricture biopsy - Spy bite. The specimen consists of two irregular fragments of underwood soft tissue that in aggregate measure 0.5 x 0.1 x <0.1 cm. The specimen is totally submitted in one cassette. / PHILLIP:ginger 02/01/2023 TC:5 CPT: 47703
--- NOTE | 2023-01-31 14:30 | BRUS_PTH ---
PATIENT: LAM SANCHEZ LOC: [facility] U#:[id number] AGE/SX: 62/M ROOM: [facility] RE01/30/[address]: Dr. Oswald Lance DO : 1960 BED: 1 DIS: 02/01/2023 SPEC #: [id number] RECD: 02/01/23 07:45 STATUS: NEWTON MULLEN #: [id number] CASSIDY: 01/31/23 14:[address]: Margarito Rangel DEPT: CYTOLOGY RECD BY: Beba Hyatt ENTERED: 02/01/23 07:47 SP TYPE: BRUSHING SAWYER DR: DO Dr. Faith Garcia DO Kristin M Wenger, DO Tissues: A - Biliary tract, NOS B - Biliary tract, NOS Procedures: Surgery Specimen Level IV Cytology Other HEADER OPERATION: ERCP with spy, dilation, stent placement, brushings, biopsy PRE-OP DIAGNOSIS: Hyperbilirubinemia, transaminitis, cholelithiasis, pancreatic mass TISSUE SUBMITTED: A - Biliary stricture brush tip, B - Biliary stricture brushings DIAGNOSIS CYTOLOGY A. Biliary stricture brush (cytospin and cell block): Negative for malignant cells. B. Biliary stricture brushings (smears): Negative for malignant cells. AM:ginger 02/04/2023 COMMENT Please correlate with corresponding surgical specimen [id number]. CYTOLOGY STUDY Slides are reviewed. CYTOLOGY GROSS A - Received is a metallic endoscopic cytobrush with adherent minute fragments of underwood-red tissue brush in 2 ml of clear red fluid and labeled with the patient's name and and designated per the requisition as brush tip. The material is dislodged from the brush and submitted for cytology preparation including cell block. B - Received are three smears labeled with the patient's name and designated per the requisition as biliary stricture brushings. Submitted for staining. / ginger 02/01/2023 TC:5 CPT: 24283, 02317, 53149
--- NOTE | 2023-01-31 15:30 | RAD_ITS ---
ERCP INDICATION: Abdominal pain TECHNIQUE: ERCP was performed in usual fashion by psychiatric arnp utilizing 109 seconds of fluoroscopic time FINDINGS:. 14 fluoroscopic guided images were obtained in the anterior projection during the procedure to document findings and procedures performed during the study.. For more complete information recommend correlation with psychiatric arnp procedural notes RAD/ERCP Biliary Only IMPRESSION: Fluoroscopic guided ERCP Electronically Signed: Norman Iyer MD at 17:27 EDT ,
--- NOTE | 2023-01-31 16:32 | CASEMGMT ---
RN CM NOTE: RN CM to room to complete initial assessment. Pt out of room at this time. Jenn LINNN RN CM
--- NOTE | 2023-01-31 16:54 | OP.ERCP_ITS ---
Patient Name: Og Starr Procedure Date: 01/31/2023 2:52 PM Date of : 1960 Age: 62 Procedure: ERCP Indications: Common bile duct stricture, Abnormal abdominal CT, Abnormal MRCP, Jaundice Providers: Margarito Rangel DO Medicines: Monitored Anesthesia Care Patient Profile: This is a 62 year old male. Refer to note in patient chart for documentation of history and physical. Patient has symptoms of chronic jaundice. This patient has no history of previous ERCP. Complications: No immediate complications. Procedure: Pre-Anesthesia Assessment: - Prior to the procedure, a History and Physical was performed, and patient medications and allergies were reviewed. The patient is competent. The risks and benefits of the procedure and the sedation options and risks were discussed with the patient. All questions were answered and informed consent was obtained. Patient identification and proposed procedure were verified by the physician in the pre-procedure area. Mental Status Examination: alert and oriented. Airway Examination: normal oropharyngeal airway and neck mobility. Respiratory Examination: clear to auscultation. CV Examination: normal. Prophylactic Antibiotics: The patient does not require prophylactic antibiotics. Prior Anticoagulants: The patient has taken no anticoagulant or antiplatelet agents. ASA Grade Assessment: III - A patient with severe systemic disease. After reviewing the risks and benefits, the patient was deemed in satisfactory condition to undergo the procedure. The anesthesia plan was to use monitored anesthesia care (MAC). Immediately prior to administration of medications, the patient was re-assessed for adequacy to receive sedatives. The heart rate, respiratory rate, oxygen saturations, blood pressure, adequacy of pulmonary ventilation, and response to care were monitored throughout the procedure. The physical status of the patient was re-assessed after the procedure. After obtaining informed consent, the scope was passed under direct vision. Throughout the procedure, the patient's blood pressure, pulse, and oxygen saturations were monitored continuously. The Duodenoscope was introduced through the mouth, and advanced to the duodenum and used to inject contrast into the bile duct. The ERCP was accomplished without difficulty. The patient tolerated the procedure well. Scope In: 3:17:05 PM Scope Out: 4:31:08 PM Total Procedure Duration Time 1 hour 14 minutes 3 seconds Findings: The finish specialist film was normal. The esophagus was successfully intubated under direct vision. The scope was advanced to a normal major papilla in the descending duodenum without detailed examination of the pharynx, larynx and associated structures, and upper GI tract. The upper GI tract was grossly normal. The bile duct was deeply cannulated with the short-nosed traction sphincterotome. Contrast was injected. I personally interpreted the bile duct images. There was brisk flow of contrast through the ducts. Image quality was excellent. Contrast extended to the entire biliary tree. Opacification of the entire opacified area was successful. The maximum diameter of the ducts was 6 mm. The lower third of the main bile duct contained a single localized stenosis 3 mm in length. The entire biliary tree except for the cystic duct and gallbladder and main bile duct were diffusely dilated, secondary to a stricture. The largest diameter was 7 mm. Placement of a 0.025 inch straight standard wire into the biliary tree was attempted. This passed successfully. A 5 mm biliary sphincterotomy was made with a braided traction (standard) sphincterotome using ERBE electrocautery. The sphincterotomy oozed blood. To discover objects, the biliary tree was swept with a 12 mm balloon starting at the bifurcation. Sludge was swept from the duct. All stones were removed. Dilation of the lower third of the main bile duct with 8-10 Fr catheter dilator was successful. The bile duct was explored endoscopically using the SpyGlass direct visualization system. The SpyScope was advanced to the upper third of the main bile duct. Visibility with the scope was good. The lower third of the main bile duct contained a single segmental stenosis 3 mm in length. The lumen of the lower third of the main bile duct was severely narrowed. The bile duct was explored endoscopically using the cholangioscope. The lower third of the main bile duct contained a single segmental stenosis 5 mm in length. The lower third of the main bile duct was biopsied with a cold forceps for histology. Cells for cytology were obtained by brushing in the lower third of the main bile duct. One 10 Fr by 5 cm temporary stent was placed 5 cm into the common bile duct. Bile flowed through the stent. The stent was in good position. Impression: - Severely narrowed lumen in the lower third of the main bile duct visualized via SpyGlass. - A single localized biliary stricture was found in the lower third of the main bile duct. The stricture was indeterminate. - A single segmental biliary stricture was found in the lower third of the main bile duct. The stricture was indeterminate. - A single segmental biliary stricture was found in the lower third of the main bile duct. The stricture was indeterminate. - The entire main bile duct was dilated, secondary to a stricture. - Choledocholithiasis was found. Complete removal was accomplished by biliary sphincterotomy and balloon extraction. - A biliary sphincterotomy was performed. - The biliary tree was swept. - The lower third of the main bile duct was successfully dilated. - Biopsy was performed in the lower third of the main duct. - Cells for cytology obtained in the lower third of the main duct. - One temporary stent was placed into the common bile duct. Procedure Code(s): --- Professional --- 32382, Endoscopic retrograde cholangiopancreatography (ERCP); with placement of endoscopic stent into biliary or pancreatic duct, including pre- and post-dilation and guide wire passage, when performed, including sphincterotomy, when performed, each stent 38641, 51, Endoscopic retrograde cholangiopancreatography (ERCP); with removal of calculi/debris from biliary/pancreatic duct(s) 53573, 59, Endoscopic retrograde cholangiopancreatography (ERCP); with biopsy, single or multiple 00589, Endoscopic cannulation of papilla with direct visualization of pancreatic/common bile duct(s) (List separately in addition to code(s) for primary procedure) 70575, 26, Endoscopic catheterization of the biliary ductal system, radiological supervision and interpretation CPT copyright 2021 [employer]. All rights reserved. The codes documented in this report are preliminary and upon artistic associate review may be revised to meet current compliance requirements. Margarito Rangel DO 01/31/2023 4:53:08 PM This report has been signed electronically. Number of Addenda: 0 Note Initiated On: 01/31/2023 2:52 PM
--- NOTE | 2023-01-31 16:54 | OP.CCLET_ITS ---
01/31/2023 Melyssa Hollingsworth Do Re : ERCP procedure for Og Starr Dear Edel This procedure was performed on January. My impressions and recommendations are as follows: Impressions : - Severely narrowed lumen in the lower third of the main bile duct visualized via SpyGlass. - A single localized biliary stricture was found in the lower third of the main bile duct. The stricture was indeterminate. - A single segmental biliary stricture was found in the lower third of the main bile duct. The stricture was indeterminate. - A single segmental biliary stricture was found in the lower third of the main bile duct. The stricture was indeterminate. - The entire main bile duct was dilated, secondary to a stricture. - Choledocholithiasis was found. Complete removal was accomplished by biliary sphincterotomy and balloon extraction. - A biliary sphincterotomy was performed. - The biliary tree was swept. - The lower third of the main bile duct was successfully dilated. - Biopsy was performed in the lower third of the main duct. - Cells for cytology obtained in the lower third of the main duct. - One temporary stent was placed into the common bile duct. Recommendations : My findings are described in the full procedure note, which is enclosed. If I can be of further assistance, please feel free to contact me at . Sincerely, Margarito Rangel DO 01/31/2023 4:53:08 PM This report has been signed electronically.
[2023-01-31] MEDS: Lactated Ringers 1,000 ML 250 ML IV ×2 (18:31→22:31)
[2023-01-31] MEDS: Enoxaparin 40 MG/0.4 ML Syringe SC (18:32)
[2023-01-31] MEDS: Zolpidem Tartrate 5 MG Tablet PO (20:48)
[2023-01-31] MEDS: Cholestyramine/Sucrose 4 GM/PACKET PO (20:49)
[2023-01-31] MEDS: rifAXIMin 550 MG Tablet PO (20:49)
[2023-01-31] MEDS: Mag Hydrox/Al Hydrox/Simeth 30 ML UDC PO (21:22)
[2023-02-01 02:30] VITALS: BP 143/91; PULSE 100; RESP 16; TEMP 36.6; O2SAT 92
--- NOTE | 2023-02-01 03:45 | NURSING ---
pt refusing fluids at this time. states I came in worse then I was. My stomach is worse and I just keep peeing.
[2023-02-01 04:07] LABS: Carbohydrate AG 19-9 50 U/mL (0-35)
[2023-02-01 05:14] LABS: Absolute Lymphocyte Count 0.38 X10^3/uL (0.83-4.51); Absolute Neutrophil Count 6.4 X10^3/uL (2.0-7.7); Basophil# 0.03 X10^3/uL; Basophil% 0.4 % (0-1); Hematocrit 42.8 % (40-54); Hemoglobin 14.7 g/dL (13.0-16.5); Lymphocyte # 0.38 X10^3/ul (0.83-4.51); Lymphocyte % 5.2 % (19-41); Mean Corp Hgb Conc 34.3 g/dL (32-36); Mean Corpuscular Hgb 36.8 pg (27.0-32.0); Mean Corpuscular Volume 107.3 fL (80-94); Mean Platelet Vol. 9.1 fl (6.2-12.0); Monocyte# 0.29 X10^3/uL; NRBC Flagged by Analyzer 0 % (0-5); Neutrophil # 6.42 X10^3/uL (2.7-7.7); Neutrophil % 88.5 % (47-70); POSITIVE DIFFERENTIAL YES; Platelet Count 405 K/mm3 (150-450); RBC Distribution Width CV 14.7 % (11.6-14.6); RBC Distribution Width SD 59.2 fl (35.1-43.9); Red Blood Count 3.99 M/mm3 (4.6-6.2); White Blood Count 7.3 K/mm3 (4.4-11.0)
[2023-02-01 05:21] LABS: Differential Indicated SCAN CRITERIA MET
[2023-02-01 05:51] LABS: ALB/GLOB Ratio 0.4 RATIO (0.9-2.4); AST(SGOT) 137 U/L (15-37); Alanine Aminotransfer ALT/SGPT 88 U/L (16-61); Albumin, Serum 1.6 g/dL (3.2-5.0); Alkaline Phosphatase 284 U/L (45-117); Anion Gap 4 (5-15); BUN 8 mg/dL (7-18); BUN/Creat Ratio 10.2 RATIO (10-20); Calcium,Total 8.2 mg/dL (8.5-10.1); Chloride 108 mmol/L (98-107); Creatinine, Serum 0.79 mg/dL (0.70-1.30); EST Glomerular Filtration Rate 106 mL/min (>60); Est Glom Filt Rate - Afr Amer 128 mL/min (>60); Estimated Creatinine Clearance 104.58 ml/min; Globulin 4.3 g/dL (2.2-4.2); Glucose 140 mg/dL (74-106); Potassium 4.7 mmol/L (3.5-5.1); Protein, Total 5.9 g/dL (6.4-8.2); Sodium Level 136 mmol/L (136-145)
[2023-02-01 06:15] LABS: Differential Comment SCANNED
[2023-02-01 07:25] VITALS: O2SAT 95
--- NOTE | 2023-02-01 08:49 | PN.HOSP_ITS ---
Reason for Visit Reason for Visit: Diagnoses Other disorders of bilirubin metabolism (01/30/23) Calculus of gallbladder without cholecystitis without obstruction (01/30/23) Other specified diseases of pancreas (01/30/23) Pruritus, unspecified (01/30/23) Unspecified jaundice (01/30/23) Localized edema (01/30/23) Elevation of levels of liver transaminase levels (01/30/23) Subjective Subjective No pain. Feels well. Wants go home. Objective Data Objective Data Vital Signs: Vital Signs Temp Pulse Resp BP Pulse Ox O2 Del Method 36.6 C 100 16 143/91 H 95 Room Air 02/01/23 02:30 02/01/23 02:30 02/01/23 02:30 02/01/23 02:30 02/01/23 07:25 02/01/23 07:25 Oxygen Delivery Method Room Air Weight: 102.058 kg Body Mass Index (BMI) 31.4 Intake & Output: Intake and Output for Last 24 Hours 01/30/23 01/31/23 02/01/23 23:59 23:59 23:59 Intake Total 1000 / 1000 3992.5 / 3992.5 1999 Balance 1000 / 1000 3992.5 / 3992.5 1999 Lab / Micro Data 02/01/23 04:45 02/01/23 04:45 Labs: Laboratory Results - last 24 hr 01/31/23 05:03: CA 19-9 Antigen 50 H 02/01/23 04:45: WBC 7.3, RBC 3.99 L, Hgb 14.7, Hct 42.8, MCV 107.3 H, MCH 36.8 H , MCHC 34.3, RDW Std Deviation 59.2 H, RDW Coeff of Aidan 14.7 H, Plt Count 405, MPV 9.1, Immature Gran % (Auto) 1.900 H, Neut % (Auto) 88.5 H, Lymph % (Auto) 5.2 L, [place] % (Auto) 4.0, Eos % (Auto) 0.0, Baso % (Auto) 0.4, Absolute Neuts (auto) 6.4, Absolute Lymphs (auto) 0.38 L, Nucleated RBC % 0, Differential Comment SCANNED, Sodium 136, Potassium 4.7, Chloride 108 H, Carbon Dioxide 24.0, Anion Gap 4 L, BUN 8, Creatinine 0.79, Estim Creat Clear Calc 104.58, Est GFR (MDRD) Af Amer 128, Est GFR (MDRD) Non-Af 106, BUN/Creatinine Ratio 10.2, Glucose 140 H, Calcium 8.2 L, Total Bilirubin 17.30 H*, AST 137 H, ALT 88 H, Alkaline Phosphatase 284 H, Total Protein 5.9 L, Albumin 1.6 L, Globulin 4.3 H, Albumin/Globulin Ratio 0.4 L Radiography Diagnostic Testing: Radiology Impression ERCP X-Ray 01/31/23 15:30 IMPRESSION: Fluoroscopic guided ERCP Electronically Signed: Norman Iyer MD at 17:27 EDT , Physical Exam Const alert and no apparent distress HEENT head/scalp atraumatic and moist oral mucous membranes Skin Skin Narrative: Jaundiced Assessment & Plan Assessment/Plan (1) Pancreatic mass: PLAN: MRCP: 2x2.1 cm inferior pancreatic head cyst. GB wall thickening, cholelithiasis and pericholecystic inflammation/edema suggesting acute c holecystitis CT a/p: Hepatomegaly and diffuse fatty infiltration of the liver. Solitary GS with thickened gallbladder wall and small amount pericholecystic fluid. Dilated CBD. Inflammatory changes seen in the ascending colon and proximal transverse colon with increased showed strictures and choledocholithiasis CA 19-9 ZACK Reyes Friend, pt will need outpt EUS w biopsy. (2) Hyperbilirubinemia: PLAN: Improving post ERCP Obstructive from biliary strictures and choledocholithiasis on cholestyramine Diphenhydramine from 50 every 6 hours as needed. Noted cholecystitis on CT and MRCP. CS general surgery for evaluation. ZACK Worley. Will discharge patient with Augmentin in case there is acute cholecystitis. Patient insist on going home and will have patient follow-up with general surgery as outpatient. (3) Lower extremity edema: PLAN: Duplex ordered PLAN: Plan Chronic conditions: * Ventral hernia: -No current issues-Outpatient follow-up if needed * hypertension-Patient is on no chronic medication-As needed hydralazine for systolic greater than 160-Monitor * Neuropathy secondary to chronic low back pain-We will hold gabapentin for now * Erectile dysfunction-Patient has been getting IM injections of testosterone * Remote history of alcohol and tobacco abuse-Encouraged ongoing cessation DVT prophylaxis-LMWH CODE STATUS-Full code Patient insist on going home as he has many things to do and he has sickly relatives including his mother and sister whom he takes care of.
--- NOTE | 2023-02-01 09:35 | PCM.DC.SUM ---
Providers Date of Admission: 01/30/23 Primary Care Physician: Melyssa Hollingsworth, Consultations 01/30/23 18:39 Consult: Gastroenterology Routine Consulting Provider: T[facility] Reason for Consult: painless jaundice EMERGENT Consult: No Notified: Yes Date Notified: 01/30/23 Time Notified: 18:39 Method of Notification: Verbal 02/01/23 08:59 Consult: General Surgery Routine Consulting Provider: Vanna Worley Reason for Consult: possible cholecystitis EMERGENT Consult: No Notified: Yes Date Notified: 02/01/23 Time Notified: 08:59 Method of Notification: Verbal Reason For Visit: HYPERBILIRUBINRMIA Diagnosis Discharge Diagnosis (1) Pancreatic mass: Status: Acute Code(s): K86.89 - Other specified diseases of pancreas Plan: MRCP: 2x2.1 cm inferior pancreatic head cyst. GB wall thickening, cholelithiasis and pericholecystic inflammation/edema suggesting acute cholecystitis CT a/p: Hepatomegaly and diffuse fatty infiltration of the liver. Solitary GS with thickened gallbladder wall and small amount pericholecystic fluid. Dilated CBD. Inflammatory changes seen in the ascending colon and proximal transverse colon with increased showed strictures and choledocholithiasis CA 19-9 ZACK Rangel, pt will need outpt EUS w biopsy. (2) Hyperbilirubinemia: Status: Acute Code(s): E80.6 - Other disorders of bilirubin metabolism Plan: Improving post ERCP Obstructive from biliary strictures and choledocholithiasis on cholestyramine Diphenhydramine from 50 every 6 hours as needed. Noted cholecystitis on CT and MRCP. CS general surgery for evaluation. ZACK Worley. Will discharge patient with Augmentin in case there is acute cholecystitis. Patient insist on going home and will have patient follow-up with general surgery as outpatient. (3) Lower extremity edema: Status: Acute Code(s): R60.0 - Localized edema Plan: Duplex ordered Plan Chronic conditions: Ventral hernia: -No current issues-Outpatient follow-up if needed hypertension-Patient is on no chronic medication-As needed hydralazine for systolic greater than 160-Monitor Neuropathy secondary to chronic low back pain-We will hold gabapentin for now Erectile dysfunction-Patient has been getting IM injections of testosterone Remote history of alcohol and tobacco abuse-Encouraged ongoing cessation DVT prophylaxis-LMWH CODE STATUS-Full code Patient insist on going home as he has many things to do and he has sickly relatives including his mother and sister whom he takes care of. Medications at Discharge Home Medications gabapentin 600 mg tablet 600 mg PO TID NEUROPATHY 01/30/23 cholestyramine (with sugar) 4 gram powder for susp in a packet 4 g PO DAILY@1999 #60 ea 02/01/23 diphenhydramine HCl 25 mg capsule 25 mg PO Q6H PRN itching #30 caps 02/01/23 Hospital Course Operations None Procedures - (ERCP) Summary of Care Provided Minutes Spent on Discharge: 32 Hospital Course: Patient presents with obstructive jaundice. Patient CAT scan is concerning for a pancreatic mass. MRCP showed a possible pancreatic cyst but difficult to ascertain given the absence of contrast. Patient's bilirubin was 24. Patient underwent ERCP that showed biliary strictures as well as choledocholithiasis. CAT scan MRI also was concerning for possible cholecystitis. Patient had significant pruritus when he presented given his very high bilirubin. Bilirubin is since improved. Patient is adamant about going home as he has things to attend to at home as well as care for family members. I did reach out to general surgery to see him but since patient was insistent on leaving I will have the patient follow-up as outpatient for concern for cholecystitis. Patient follow-up with general surgery as he will require an endoscopic ultrasound with biopsy of the pancreatic mass. Weight / BMI Weight Weight: 102.058 kg Body Mass Index (BMI) 31.4 ABG / Lab / Microbiology Data 02/01/23 04:45 02/01/23 04:45 Laboratory: Laboratory Results - last 24 hr 01/31/23 05:03: CA 19-9 Antigen 50 H 02/01/23 04:45: WBC 7.3, RBC 3.99 L, Hgb 14.7, Hct 42.8, MCV 107.3 H, MCH 36.8 H, MCHC 34.3, RDW Std Deviation 59.2 H, RDW Coeff of Aidan 14.7 H, Plt Count 405, MPV 9.1, Immature Gran % (Auto) 1.900 H, Neut % (Auto) 88.5 H, Lymph % (Auto) 5.2 L, Blair % (Auto) 4.0, Eos % (Auto) 0.0, Baso % (Auto) 0.4, Absolute Neuts (auto) 6.4, Absolute Lymphs (auto) 0.38 L, Nucleated RBC % 0, Differential Comment SCANNED, Sodium 136, Potassium 4.7, Chloride 108 H, Carbon Dioxide 24.0, Anion Gap 4 L, BUN 8, Creatinine 0.79, Estim Creat Clear Calc 104.58, Est GFR (MDRD) Af Amer 128, Est GFR (MDRD) Non-Af 106, BUN/Creatinine Ratio 10.2, Glucose 140 H, Calcium 8.2 L, Total Bilirubin 17.30 H*, AST 137 H, ALT 88 H, Alkaline Phosphatase 284 H, Total Protein 5.9 L, Albumin 1.6 L, Globulin 4.3 H, Albumin/Globulin Ratio 0.4 L Radiography Diagnostic Testing: Radiology Impression ERCP X-Ray 01/31/23 15:30 IMPRESSION: Fluoroscopic guided ERCP Electronically Signed: Norman Iyer MD at 17:27 EDT Reading Location ID and State: [facility] / [place] Tel , Service support , D/C Instructions Discharge Diet: No restrictions Call your doctor if you observe: - (Abdominal pain. Increasing jaundice (yellowing of the skin)) Meaningful Use Info Meaningful Use Diagnoses (Choose all that apply): None applicable Discharge Plan Admission Admit Date/Time: 01/30/23 14:23 Primary Reason for Your Visit: Jaundice Attending Provider: Oswald Lance Primary Care Provider: Melyssa Hollingsworth Consulting Providers: Faith Paulino; Vanna Worley Instructions Additional Instructions / Restrictions: You had jaundice due to strictures in your bile duct as well as stones. Dr. Rangel was able to fix that with the procedure on the . You have something on your pancreas that could be a cyst but also could be a mass. Strongly recommend that he follow-up with Dr. Rangel to have a ultrasound and biopsy performed of that. Also concerning that you may have inflammation of your gallbladder. I have you on antibiotics to take for that and I recommend that you follow-up with general surgery to see about having that removed at a later point. Discharge Orders/Prescriptions Prescriptions: New cholestyramine (with sugar) 4 gram Powder In Packet 4 g PO DAILY@1999 Qty: 60 0RF diphenhydramine HCl 25 mg capsule 25 mg PO Q6H PRN (Reason: itching) Qty: 30 0RF Continued gabapentin 600 mg tablet 600 mg PO TID Referrals / Follow Up: [facility] [Provider Group] - Within 1 Month Melyssa Hollingsworth DO [Primary Care Provider] - Within 2 Weeks Vanna Worley MD [Med Staff - Active Staff] - Within 1 Month Disposition Disposition (needs filled in before D/C Order can be placed): Home, Self Care Charges/Coding Visit Charges Inpatient E&M: 87676 Disch Hosp >30min
[2023-02-01 10:00] VITALS: BP 136/91; PULSE 105; RESP 18; TEMP 36.3; O2SAT 96
[2023-02-01] MEDS: Methylprednisolone Sod Succ 40 MG/ML VIAL IV (10:20)
[2023-02-01] MEDS: Sertraline 50 MG Tablet 25 MG PO (10:20)
--- NOTE | 2023-02-01 10:20 | CASEMGMT ---
RN?CM?EXTRACTOR OPERATOR HELPER?CM?to room to meet with patient for initial transition planning/care coordination?assessment.?RN?CM?introduced self and role at [facility].? Pt voices understanding and consents to?assessment?at this time.? Pt sitting on edge of bed in no distress at this time.? Pt is A/O at this time and answers all questions appropriately.?? Care providers, pharmacy, and demographics verified/updated at this time. PCP: Dr Hollingsworth Specialists: none Preferred Pharmacy: [facility], [place] Insurance: [employer] Living Will/HPOA:?States has LW and HCPOA and states LW was just brought in yesterday to be placed in his chart. JAMMIE HINOJOSA found LW on pt's chart to verify and noted it has not been signed by pt nor notarized. Pt made aware. He states he does have completed one that is signed, but states he must have copied the incomplete one. He states can bring in signed/notorized documents at a later time. He is aware HCPOA is not on file and states he can also bring this in. He states his sister, Angely, is his HCPAO. LNOK: sister/HCPOA, Angely. Mother, Fannie. Pt states he has a 32-yr-old dtr, but he is not in contact w/her. Living Arrangements: Pt lives alone in 2-story home w/3-4 steps to enter. Denies difficulty w/stairs. Independent w/ADL's and IADL's and manages his own medications. Transportation:?Pt states drives self and states no transportation concerns at this time.? DME: ? Denies using any DME and denies needs.? HHC/SNF: No hx of either. No needs identified. Pt wishes to return home and states has no concerns with going home. Pt voices no concerns/needs at this time. PLAN:??Home Jenn BSN?RN?CM
[2023-02-01] MEDS: 0.9% Saline Lock 10 ML Syringe IV (10:21)
[2023-02-01] MEDS: rifAXIMin 550 MG Tablet PO (10:23)
== END 2023-02-01 10:45 | disposition home or self-care (01) | DRG 445 ==
LOC: ED 14:16 → PCU 15:05
PROVIDERS: Internal Medicine Gastroenterology; Admitting Provider Internal Medicine; Emergency Provider Emergency Medicine; PCP Family Medicine
PROC: 0FC98ZZ Extirpation of Matter from Common Bile Duct, Via Natural or Artificial Opening Endoscopic (ICD-10-PCS; CPT 43260; principal; 2023-01-31 14:10)
DX: K80.63 Calculus of gallbladder and bile duct with acute cholecystitis with obstruction (principal); K86.2 Cyst of pancreas; I10 Essential (primary) hypertension; F10.11 Alcohol abuse, in remission; M54.50 Low back pain, unspecified; K43.9 Ventral hernia without obstruction or gangrene; G62.9 Polyneuropathy, unspecified; R63.4 Abnormal weight loss; E66.9 Obesity, unspecified; G89.29 Other chronic pain; R60.0 Localized edema; N52.9 Male erectile dysfunction, unspecified; Z79.899 Other long term (current) drug therapy; Z87.891 Personal history of nicotine dependence; Z68.30 Body mass index [BMI] 30.0-30.9, adult
CPT/HCPCS: 36415; 74177; 74181; 74328; 76000; 76705; 80048; 80053; 80076; 81001; 83690; 83735; 84100; 84443; 85025; 86301; 88161; 88304; 88305; 93005; 93970; 94668; 99284; J7030; J7120; Q9967; A4216; C1726; J2405

== ENCOUNTER 2024-05-11 14:03 | Emergency (ER) | payer OTHER, SELFPAY ==
--- NOTE | 2024-05-11 08:05 | RAD_ITS ---
STUDY: X-RAY - LUMBAR SPINE REASON FOR EXAM: Male, 64 years old. Pain radiating to left knee TECHNIQUE: 5 view(s) of the lumbar spine were obtained. COMPARISON: None FINDINGS: Normal lumbar lordosis. There is a levoscoliosis of the lumbar spine. There is multilevel endplate spondylosis of the lumbar vertebrae. There is multi-level degenerative disc disease with multi-level disc space narrowing. There is no demonstrated fracture. The soft tissue structures are unremarkable. RAD/L/S Spine Min 4 Views IMPRESSION: Scoliosis and degenerative change. Electronically Signed: Jaden Bundy MD at 19:54 EST ,
[2024-05-11 14:04] VITALS: BP 168/97; PULSE 110; RESP 18; TEMP 36.1; O2SAT 98
[2024-05-11 18:03] VITALS: BP 139/78
[2024-05-11] MEDS: Ketorolac 30 MG/ML Syringe IM (18:04)
--- NOTE | 2024-05-11 18:22 | EX.ED.DYSGE1 ---
HPI History of Present Illness Chief Complaint: Back Narrative Narrative: Patient is a 64-year-old male past medical history of pancreatic mass and jaundice status post stent placement, hernia, previous herniated disc several years ago who presents to the emergency department with a chief complaint of low back pain radiating down to his left knee. He states that about 4 days ago he was woken up in the middle the night with this pain. He states that he thought things would improve however they have not therefore he came here for the valuation management. Patient states that he called his primary care physician and they could not get him until July to be seen and therefore he came here for further evaluation management. Patient denies any trauma or injuries. Denies bending over picking anything up heavy. Patient states that has been urinating normally for himself and having normal bowel movements. Patient states that he does not have a history of IV drug use, denies any alcohol use. [facility] Medical History Lower extremity neuropathy Chronic low back pain Osteoarthritis Erectile dysfunction Ventral hernia Hypertension Home Medications ?Medication ?Instructions ?Recorded ?Last Taken ?Type gabapentin 600 mg tablet 600 mg PO TID NEUROPATHY 01/30/23 01/30/23 History cholestyramine (with sugar) 4 gram 4 g PO DAILY@1999 #60 ea 02/01/23 Unknown Rx powder for susp in a packet diphenhydramine HCl 25 mg capsule 25 mg PO Q6H PRN itching #30 caps 02/01/23 Unknown Rx lidocaine 5 % topical patch 1 patch topical DAILY #15 ea 05/11/24 Unknown Rx methylprednisolone 4 mg tablets in See Rx Instructions PO .COMPLEX 05/11/24 Unknown Rx a dose pack #21 tabs ondansetron 4 mg disintegrating 4 mg PO Q6H PRN nausea and 05/11/24 Unknown Rx tablet vomiting #30 tabs oxycodone-acetaminophen 5 mg-325 1 tab PO Q6H PRN pain 3 days #12 05/11/24 Unknown Rx mg tablet (Endocet) tabs Allergy/AdvReac Type Severity Reaction Status Date / Time No Known Allergies Allergy Verified 05/11/24 14:04 Surgical History History of knee replacement Previous back surgery Social History Smoking Status: Former smoker how long ago did patient quit smoking: Quit 30 years ago alcohol intake: former details: Patient reports he drank heavily until about 41 years of age substance use type: does not use ROS ROS ED ROS Narrative Constitutional: Denies any fevers, chills, headaches malaise, dizziness Eyes: Denies change in vision double vision blurry vision Cardiovascular: Denies chest pain palpitations Respiratory: Denies coughing wheezing shortness of breath Abdomen: Denies abdominal pain nausea vomiting diarrhea : Denies any urinary symptoms Neurological: Complains of shooting pain down his left leg into his knee as noted above denies numbness, weakness, tingling Musculoskeletal: Complains of back pain as noted above Skin: Denies rashes lesions EXAM Physical Exam Narrative Exam Narrative: General: Patient lying in bed rest comfortably did not appear to be in acute distress Head: Atraumatic, normocephalic Eyes: PERRL bilaterally, EOMI biotic no conjunctival injection noted Neck: Soft, supple, trach midline Cardiovascular: Patient tachycardic with a regular rate no murmurs gallops or rubs are noted Respiratory: Clear to auscultation bilaterally Abdomen: Soft, nondistended, nontender to palpation, bowel sounds present x 4 Musculoskeletal: No tenderness palpation midline of the thoracolumbar spine Extremities: +5/5 strength noted in the bilateral upper and lower extremities, DP pulses +2/4 in the bilateral lower extremities, no pedal edema noted on exam Neurological: Patient follow commands knew he was at [facility] year is 2024. Sensation grossly intact no saddle anesthesia noted Skin: Warm, dry, intact no rashes or lesions noted Const Vital Signs: 05/11/24 14:04 05/11/24 18:03 Temperature 97 F L Temperature Source Temporal Pulse Rate 110 H Respiratory Rate 18 Blood Pressure 168/97 H 139/78 H Blood Pressure Mean 120 98 Pulse Ox 98 Oxygen Delivery Method Room Air MDM MDM MDM Narrative Medical decision making narrative: Patient is a 64-year-old male who presents to the emergency department with a chief complaint of low back pain rating down his left leg into his knee. On the differential diagnosis includes but not limited to L4-L5 herniated disc, compression fracture, musculoskeletal strain. Once workup is obtained reviewed he will be reevaluated. Patient's x-ray lumbar spine reviewed and showed scoliosis and degenerative changes noted. Patient states that the Toradol helped with his pain. He was requesting more pain medication but states that he gets sick on Tylenol therefore he refuses. He states that he is taken Percocet in the past and notified him that it has Tylenol in it and he states that he tolerated this in the past. Patient was unable to be given narcotics as he was driving home tonight. Patient will be given prescriptions for cyclobenzaprine, Lidoderm patch, Percocet Zofran, Medrol Dosepak. He is encouraged to follow-up with his family physician in the outpatient setting and return with worsening symptoms or concerns. He is agreeable this plan he would like to go home at this point time all question concerns answered is discharged home in stable condition. Radiography Diagnostic Testing: Clinical Impression(s) from Imaging Studies Lumbar Spine X-Ray 05/11/24 08:05 IMPRESSION: Scoliosis and degenerative change. Electronically Signed: Jaden Bundy MD at 19:54 EST , Discharge Plan Triage Chief Complaint: Back ED Provider: Will Sr Dx/Rx/DC Orders Clinical Impression: Low back pain Prescriptions: New oxycodone-acetaminophen [Endocet] 5-325 mg tablet 1 tab PO Q6H PRN (Reason: pain) 3 Days Qty: 12 0RF ondansetron 4 mg tablet,disintegrating 4 mg PO Q6H PRN (Reason: nausea and vomiting) Qty: 30 0RF lidocaine 5 % adhesive patch,medicated 1 patch topical DAILY Qty: 15 0RF Rx Instructions: leave on most painful area for up to 12 hrs methylprednisolone 4 mg tablets,dose pack See Rx Instructions .ROUTE .COMPLEX Qty: 21 0RF Rx Instructions: for 6 days No Action gabapentin 600 mg tablet 600 mg PO TID cholestyramine (with sugar) 4 gram Powder In Packet 4 g PO DAILY@2000 Qty: 60 0RF diphenhydramine HCl 25 mg capsule 25 mg PO Q6H PRN (Reason: itching) Qty: 30 0RF Primary Care Provider: Bonilla Ryan Referrals: Bonilla Ryan MD [Primary Care Provider] - Activity Restrictions/Additional Instructions: Follow-up with your doctor in the outpatient setting. Used ibuprofen for mild to moderate pain and use the Percocet for severe pain. Use the other prescription as prescribed. Return with worsening symptoms or other concerns. Do not operate anything under the influence of these narcotics. Print Language: Italian Disposition Disposition: Home, Self Care
[2024-05-11 19:12] VITALS: BMI 31.6
== END 2024-05-11 21:02 | disposition home or self-care (01) ==
PROVIDERS: Emergency Provider Emergency Medicine; PCP Family Medicine; Visit Provider Emergency Medicine
DX: M54.50 Low back pain, unspecified (principal); Z87.891 Personal history of nicotine dependence
CPT/HCPCS: 72110; 96372; 99282

== ENCOUNTER 2024-09-01 10:00 | Outpatient (RCR) | payer OTHER, SELFPAY ==
--- NOTE | 2024-08-21 10:01 | HP.PTEVAL_ITS ---
Patient's Visit Information Visit Information Visit Information: LAM SANCHEZ is a 64 year old M referred to Physical Therapy by Dr. Sage Flores MD with a diagnosis of back and hip pain. Date of Evaluation: 08/21/24 Physical Therapist: SHANTA Calderon Visit Plan Frequency: 2x /Week Duration: 4 Weeks Plan: 2X/ week for 4 weeks for HEP for LE hip flexibility within pain tolerance, LTR, Core stability, L ankle DF strength, gait training with HEP HEP: LTR, SLR, Bridges Subjective Subjective: This started 6 months ago (he has B hip bone on bone but the R is painful but the L is worse). Pt needs an MRI but has to do PT. He needs a hip replacement but can not have it for 3 months due to having injections. He is getting tired of the pain because he has been dealing with it for 6 months. He feels like he has ruptured a disc as he has done that twice before. Pt can not walk unless he takes Tramadol and Gabapentin and that is starting to not work because he has been taking it for a year. He does work out but he does upper body only. He is able to sleep ok. If he moves wrong he might wake right up. He has pain on the upper thighs, groin, and side of his hips. Stairs: up and down with hand rail Pain back pain: Pain Intensity (Out of 10): 2 Pain Intensity Range: 5 Comment: with walking and meds R hip pain: Pain Intensity (Out of 10): 5 Comment: with meds L hip pain: Pain Intensity (Out of 10): 1 Comment: with meds Objective Objective: Gait: He walks with decrease stance time on the L and decreased stride length with WBOS and decreased trunk movement with gait and flexed posture. He almost has to drag his L LE and his speed of gait is decreased Pt is unable to raise his L foot into DF and has limited DF on the R LTR: increase tightness B Trunk AROM: flexion 75%, Ext 25%, Rot B 50%, SB B 50% Prone lying.. ADRIANA some tightness in his back LE MMT: R hip flex 15.9 and L 17.1 R knee ext 27.5 and L 28.2 R knee flex 15.2 and L 14.4 R hip abd 4-/5 and L 4-/5 Increase pain with R>L hip IR and ER and some pain with hip flexion Tight piriformis length B and decreased Quad flexibility Pt is able to bridge with decrease ROM and some increase pain and L HS cramping Balance/Special Test Scores Lower Extremity Functional Score: 26 Goals Goal 1:: I HEP Goal Time Frame: 4-6 Weeks Goal 2:: Decrease hip and back pain by 20% Goal Time Frame: 4-6 Weeks Goal 3:: Be able to walk with increase stride length and more equal stance time Goal Time Frame: 4-6 Weeks Rehabilitation Potential Rehabilitation Potential: Fair Anticipated Interventions Patient/Client Instruction: Educate patient on: Condition and Plan of Care For the Purpose of:: To decrease pain, To increase ROM, To improve nutrient delivery to tissue, To improve muscle performance and motor function, To improve ability to perform ADL's, To increase tolerance to activity/condition/position, To improve performance and independence with ADL's, To improve ability of physical actions for home/community/work/leisure, To improve gait and locomotor functions, To improve health of tissue, To decrease soft tissue restriction and To increase flexibility/ROM Therapeutic Exercise to Include: Strength training, Postural training, Flexibilty training, Gait and locomotor training, Neuromotor development, Passive ROM, Active ROM, Dynamic Lumbar Stabilization and Scapular Strength/Stabilization For the Purpose of:: To decrease pain, To increase ROM, To improve nutrient delivery to tissue, To improve muscle performance and motor function, To improve ability to perform ADL's, To increase tolerance to activity/condition/position, To improve performance and independence with ADL's, To decrease level of supervision to perform tasks, To improve ability of physical actions for home/community/work/leisure, To improve gait and locomotor functions, To improve health of tissue, To decrease soft tissue restriction, To increase flexibility/ROM, To improve endurance, To improve balance and To improve safety with gait Functional Training to Include: Gait training For the Purpose of:: To improve gait and locomotor functions Manual Therapy Techniques to Include: Passive ROM For the Purpose of:: To improve nutrient delivery to tissue, To improve muscle performance and motor function, To improve ability to perform ADL's, To improve health of tissue and To increase flexibility/ROM Text: Thank you for the opportunity to evaluate your patient. For Medicare and Medicare HMO plans, please review the plan of care and approve it. It will need to be FAXED BACK to us at [phone] for Medicare purposes. For Medicare only, by signing this I certify the plan of care. Please let me know if there are questions or concerns regarding this plan of care. Physician Signature: Dat e:
--- NOTE | 2024-09-01 10:31 | HP.PTDCSUM ---
Discharge Summary D/C summary: It has been my pleasure to treat LAM SANCHEZ referred by Dr. Sage Flores MD, with the diagnosis of back and hip pain for a total of 5 visit(s). Discharge Date: 09/01/24 Please see the following information for a summary of their discharge status. Subjective Subjective: Pt reports that he is in a lot of pain today and he said that the stretching (piriformis stretch) really flared him up. He is worse walking the last few times he has been here. He sees his Dr astrid. He does exercise on his own but has to be careful not to flare his hips up so he works out doing upper body. Even walking into the gym hurts. He reports that even his calves are tight. He wants to be able to walk normal again. Pain back pain: Pain Intensity (Out of 10): 3 R hip pain: Pain Intensity (Out of 10): 3 L hip pain: Pain Intensity (Out of 10): 6 Overall Improvement % Improvement: 0 Objective Objective/Function: Pt still walks with WBOS and shorter stride. Decrease stance time on the L LE today. He is walking very slow and stiff today. Goals Goal 1:: I HEP Goal Progress: Goal Met Goal 2:: Decrease hip and back pain by 20% Goal Progress: Not Progressing Goal 3:: Be able to walk with increase stride length and more equal stance time Goal Progress: Not Progressing Plan Plan: DC PT back to . as pt is not getting any better and actually feeling worse since starting PT. Pt is very frustrated as he feels he is not getting anywhere D/C Information Discharge Comments: DC PT back to d/c sentence: If there are questions or concerns regarding this patient's physical therapy, please feel free to call me at [phone]. Thank you for the referral of this patient. Sincerely, Marry Stapleton, MPT Balance/Gait/Functional tests Balance/Special Test Scores Lower Extremity Functional Score: 27 Improvement % Improvement: 0
--- NOTE | 2024-09-01 10:34 | HP.PTREVAL ---
Re-Evaluation Intro: Dr. Sage Flores MD, It has been my pleasure to treat LAM SANCHEZ over the last 5 visits for back and hip pain. Please see the progress note below for an update on the physical therapy plan of care! Subjective Subjective: Pt reports that he is in a lot of pain today and he said that the stretching (piriformis stretch) really flared him up. He is worse walking the last few times he has been here. He sees his Dr astrid. He does exercise on his own but has to be careful not to flare his hips up so he works out doing upper body. Even walking into the gym hurts. He reports that even his calves are tight. He wants to be able to walk normal again. Objective Objective/Function: Pt still walks with WBOS and shorter stride. Decrease stance time on the L LE today. He is walking very slow and stiff today. Plan Plan Plan: DC PT back to as pt is not getting any better and actually feeling worse since starting PT. Pt is very frustrated as he feels he is not getting anywhere Balance/Gait/Functional tests Balance/Special Test Scores Lower Extremity Functional Score: 27 Goals Goals Goal 1:: I HEP Goal Time Frame: 4-6 Weeks Goal Progress: Goal Met Goal 2:: Decrease hip and back pain by 20% Goal Time Frame: 4-6 Weeks Goal Progress: Not Progressing Goal 3:: Be able to walk with increase stride length and more equal stance time Goal Time Frame: 4-6 Weeks Goal Progress: Not Progressing Anticipated Interventions Anticipated Interventions Patient/Client Instruction: Educate patient on: Condition and Plan of Care For the Purpose of:: To decrease pain, To increase ROM, To improve nutrient delivery to tissue, To improve muscle performance and motor function, To improve ability to perform ADL's, To increase tolerance to activity/condition/position, To improve performance and independence with ADL's, To improve ability of physical actions for home/community/work/leisure, To improve gait and locomotor functions, To improve health of tissue, To decrease soft tissue restriction and To increase flexibility/ROM Therapeutic Exercise to Include: Strength training, Postural training, Flexibilty training, Gait and locomotor training, Neuromotor development, Passive ROM, Active ROM, Dynamic Lumbar Stabilization and Scapular Strength/Stabilization For the Purpose of:: To decrease pain, To increase ROM, To improve nutrient delivery to tissue, To improve muscle performance and motor function, To improve ability to perform ADL's, To increase tolerance to activity/condition/position, To improve performance and independence with ADL's, To decrease level of supervision to perform tasks, To improve ability of physical actions for home/community/work/leisure, To improve gait and locomotor functions, To improve health of tissue, To decrease soft tissue restriction, To increase flexibility/ROM, To improve endurance, To improve balance and To improve safety with gait Functional Training to Include: Gait training For the Purpose of:: To improve gait and locomotor functions Manual Therapy Techniques to Include: Passive ROM For the Purpose of:: To improve nutrient delivery to tissue, To improve muscle performance and motor function, To improve ability to perform ADL's, To improve health of tissue and To increase flexibility/ROM Re-Evaluation Ending Re-evaluation ending: Please do not hesitate to contact me at [phone] by phone or if you have questions or concerns regarding this new plan of care! Sincerely, Marry Stapleton, MPT
== END 2024-09-01 19:00 | disposition home or self-care (01) ==
LOC: PT 10:00
PROVIDERS: PCP Family Medicine; Referring Provider Anesthesiology Pain Medicine; Visit Provider Anesthesiology Pain Medicine
DX: M54.9 Dorsalgia, unspecified (principal); M25.559 Pain in unspecified hip
CPT/HCPCS: 97110; 97162; 97530

== ENCOUNTER → 2024-10-03 | Outpatient (CLI) | payer OTHER, SELFPAY ==
--- NOTE | 2024-10-03 09:15 | MRI_ITS ---
PROCEDURE: SPINE LUMBAR (ROUTINE) 10/03/2024 REASON FOR EXAM: PAIN TECHNIQUE: Multiplanar and multisequence images were obtained without IV contrast administration. FINDINGS: Normal lumbar vertebral body height. Normal conus. No compression deformity. No marrow edema. L1-2 demonstrates facet degeneration on both sides without spinal stenosis. At L2-3, degenerative disc space narrowing is seen with a minimal degree of canal narrowing and no nerve root impingement. At L3-4, there is a small central protrusion on axial image 17 with a mild degree of spinal stenosis but no nerve root compression. At L4-5, I suspect there could be a postsurgical defect present. Please correlate clinically. There is a left paracentral protrusion which could abut the left L5 nerve root sleeve as it exits the thecal sac. Correlate for left L5 radiculopathy. At L5-S1 there is a questionable surgical defect on the left side without recurrent central stenosis or foraminal impingement. MRI/Spine Lumbar (Routine) IMPRESSION: 1. Mild canal narrowing at L3-4 from small central protrusion. 2. Left paracentral protrusion at L4-5 with left lateral recess narrowing. Cor relate for left L5 radiculopathy. Reading Location: [facility]
== END | disposition home or self-care (01) ==
PROVIDERS: PCP Family Medicine; Referring Provider Student in an Organized Health Care Education/Training Program; Visit Provider Student in an Organized Health Care Education/Training Program
DX: M51.26 Other intervertebral disc displacement, lumbar region (principal); M48.061 Spinal stenosis, lumbar region without neurogenic claudication
CPT/HCPCS: 72148

== ENCOUNTER → 2024-11-25 | Outpatient (CLI) | payer OTHER, SELFPAY ==
[2024-11-25 13:00] LABS: Barbiturate Urine NEGATIVE (< 200 ng/mL); Benzodiazepine Urine NEGATIVE (< 200 ng/mL); PCP Urine NEGATIVE (< 25 ng/mL); THC Urine PRESUMPTIVE POSITIVE (< 50 ng/mL)
== END | disposition home or self-care (01) ==
LOC: LAB 11:40
PROVIDERS: PCP Family Medicine; Referring Provider Anesthesiology Pain Medicine; Visit Provider Anesthesiology Pain Medicine
DX: F11.20 Opioid dependence, uncomplicated (principal)
CPT/HCPCS: 80307

== ENCOUNTER → 2025-01-20 | Outpatient (CLI) | payer OTHER, SELFPAY ==
--- NOTE | 2025-01-20 15:20 | MRI_ITS ---
PROCEDURE: SPINE CERVICAL (ROUTINE) 01/20/2025 REASON FOR EXAM: CERVICAL MYELOPATHY TECHNIQUE: Procedure Code: MRISPC Modality: MR Procedure: SPINE CERVICAL (ROUTINE) Multiplanar and multisequence images were obtained without IV contrast administration. COMPARISON: None. FINDINGS: Vertebrae: Cervical vertebral body heights are preserved. Bone marrow signal is unremarkable. Alignment: Normal. No spondylolisthesis. Spinal Cord: Cervical spinal cord is of normal size and signal intensities. Structures at the foramen magnum are unremarkable. C2-3: Facet joint arthropathy. No foraminal or canal stenosis. C3-4: Retrolisthesis by 1 mm. Disc desiccation. Disc osteophyte complex. Uncovertebral hypertrophy. Facet joint arthropathy. Severe bilateral foramina stenosis. Moderate canal stenosis. C4-5: Disc desiccation. Disc osteophyte complex. Uncovertebral hypertrophy. Facet joint arthropathy. Severe bilateral foramina stenosis. Moderate canal stenosis. C5-6: Disc desiccation. Disc osteophyte complex. Uncovertebral hypertrophy. Facet joint arthropathy. Severe bilateral foramina stenosis. Moderate canal stenosis. C6-7: Disc desiccation. Disc osteophyte complex. Uncovertebral hypertrophy. Facet joint arthropathy. Severe bilateral foramina stenosis. Severe canal stenosis. C7-T1: Unremarkable MRI/Spine Cervical (Routine) IMPRESSION: Multilevel degenerate changes, predominantly at C6-C7 where there is severe can al stenosis and severe bilateral foramina stenosis. Moderate canal stenosis and severe bilateral foramina stenosis at C3-C4, C4-C5 and C5-C6. Reading Location: [id number]
== END | disposition home or self-care (01) ==
PROVIDERS: PCP Family Medicine; Referring Provider Orthopaedic Surgery Orthopaedic Surgery of the Spine; Visit Provider Orthopaedic Surgery Orthopaedic Surgery of the Spine
DX: G95.9 Disease of spinal cord, unspecified (principal)
CPT/HCPCS: 72141

== ENCOUNTER → 2025-03-02 | Outpatient (CLI) | payer OTHER, SELFPAY ==
--- NOTE | 2025-03-02 09:28 | CT_ITS ---
PROCEDURE: EXTREMITY LOWER WITHOUT CONTRA 03/02/2025 REASON FOR EXAM: TEMPLATING FOR LEFT LEISA TECHNIQUE: Procedure Code: CTELWO Modality: CT Procedure: EXTREMITY LOWER WITHOUT CONTRA Coronal and Sagittal reconstruction series were provided. CONTRAST: None One or more dose reduction techniques were used (e.g., Automated exposure control, adjustment of the mA and/or kV according to patient size, use of iterative reconstruction technique). RADIATION DOSE SUMMARY: DLP: 967 mGycm COMPARISON: None FINDINGS: There is severe osteoarthritis of the left hip with flattening of the joint space, subcortical cyst formation, and marginal osteophytes. There is no acute fracture or dislocation. Adjacent soft tissues are unremarkable. There is no mass or adenopathy. Vascular calcifications are noted. There is a 3 cm uncomplicated fat containing anterior abdominal wall hernia at the level of the umbilicus. CT/Extremity Lower without Contra IMPRESSION: There is severe osteoarthritis of the left hip with flattening of the joint spa ce, subcortical cyst formation, and marginal osteophytes. There is a 3 cm uncomplicated fat containing anterior abdominal wall hernia at the level of the umbilicus. Reading Location: [facility]
== END | disposition home or self-care (01) ==
PROVIDERS: PCP Family Medicine; Referring Provider Orthopaedic Surgery; Visit Provider Orthopaedic Surgery
DX: M16.12 Unilateral primary osteoarthritis, left hip (principal)
CPT/HCPCS: 73700

== ENCOUNTER 2025-03-30 05:58 | Day surgery (SDC) | payer OTHER, SELFPAY ==
--- NOTE | 2025-03-18 09:24 | EKG12_ITS ---
Test Reason : PRE OP Blood Pressure : */* mmHG Vent. Rate : 73 BPM Atrial Rate : 73 BPM P-R Int : 186 ms QRS Dur : 82 ms QT Int : 356 ms P-R-T Axes : 54 39 40 degrees QTcB Int : 392 ms Normal sinus rhythm Normal ECG Confirmed by MANFRED LUA, EMLISSA ([id number]), food expeditor BETSY NORWOOD ([id number]) on 03/18/2025 2:16:24 PM Referred By: Víctor Sherwood Confirmed By: MELISSA SHEARER MD
[2025-03-18 10:06] LABS: Hematocrit 44.3 % (40-54); Hemoglobin 15.2 g/dL (13.0-16.5); Immature Granulocytes Count 0.010 X10^3/uL (0.0-0.0); Mean Corp Hgb Conc 34.3 g/dL (32-36); Mean Corpuscular Volume 91.2 fL (80-94); Mean Platelet Vol. 9.1 fl (6.2-12.0); NRBC Flagged by Analyzer 0 % (0-5); Platelet Count 313 K/mm3 (150-450); RBC Distribution Width CV 12.8 % (11.6-14.6); RBC Distribution Width SD 42.6 fl (35.1-43.9); Red Blood Count 4.86 M/mm3 (4.6-6.2); White Blood Count 6.8 K/mm3 (4.4-11.0)
[2025-03-18 10:15] LABS: Prothrombin Time (Protime)PT. 14.5 SECONDS (11.7-14.9)
[2025-03-18 10:16] LABS: Partial Thromboplast Time 31.5 Seconds (24.1-36.2)
[2025-03-18 11:02] LABS: Anion Gap 11 (5-15); BUN 13 mg/dL (4-19); BUN/Creat Ratio 13.3 RATIO (10-20); Calcium,Total 9.2 mg/dL (7.6-11.0); Carbon Dioxide 22.1 mmol/L (21.0-32.0); Chloride 103 mmol/L (98-108); Glucose 96 mg/dL (70-99); Magnesium 1.9 mg/dL (1.5-2.2); Potassium 4.2 mmol/L (3.3-5.1)
[2025-03-30] VITALS (12 sets, daily range): BP systolic 115–146; BP diastolic 61–98; PULSE 63–100; RESP 16–18; TEMP 36.1–36.9; O2SAT 97–100; BMI 28.3
--- OUTSIDE RECORDS SUMMARY | 2025-03-30 06:01 | XMS RPT_ITS | CCD ---
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 Ida Pizarro Emergency Provider Dr. Faith Paulino Admit Provider Dr. Faith Paulino Attending Provider Dr. Faith Paulino Other Provider Dr. Oswald Lance Other Provider Claire, Dr. Pimentel Attending Provider Dr. Oswald Lance [facility] Other Provider Symone Estrada MD Unavailable Symone Estrada MD Primary Care Provider SYMONE ESTRADA Attending Unavailable SYMONE ESTRADA Primary Care Unavailable SYMONE ESTRADA Primary Care Unavailable KRISTEN SETH Attending Unavailable SYMONE ESTRADA Primary Care Unavailable KRISTEN SETH Referring Unavailable SYMONE ESTRADA Primary Care Unavailable ELLEN NORIEGA Attending Unavailable KRISTEN SETH Referring Unavailable SYMONE ESTRADA Primary Care Unavailable ELLEN NORIEGA Referring Unavailable SYMONE ESTRADA Primary Care Unavailable Bonilla Ryan MD Primary Care Provider Bonilla Ryan MD Referring Provider Zoraida nKox Attending Provider Melissa LUA, Dr. Good Attending Provider Dr. Víctor Sherwood DO Attending Provider Sandra LUA, Dr. Cazares Attending Provider Sandra LUA, Dr. Cazares Referring Provider Zoraida Knox Referring Provider Connor LUA, Chalon Primary Care Provider Connor LUA, Chalon Referring Provider Melissa LUA, Dr. Good Attending Provider Zoraida Knox Attending Provider Connor LUA, Chalon Primary Care Provider Connor LUA, Chalon Referring Provider [phone]([facility])[phone] Kaela DIALLO, Dr. Renee Attending Provider Sandra LUA, Dr. Cazares Attending Provider Sandra LUA, Dr. Cazares Referring Provider Dany LUA, Dr. De Jesus Attending Provider Connor LUA, Chalon Primary Care Physician Sandra LUA, Dr. Cazares Attending Physician Connor LUA, Chaljessica Referring Provider Dany LUA, Dr. De Jesus Attending Physician Dany LUA, Dr. De Jesus Referring Provider Zoraida Knox Attending Physician Melissa LUA, Dr. Good Attending Physician Dr. Víctor Sherwood DO Attending Physician Connor, Chalon Primary Care Unavailable Florentino Torres Attending Unavailable Connor, Chalon Primary Care Unavailable Connor, Chalon Referring Unavailable Víctor Sherwood Attending Unavailable Connor, Chalon Primary Care Unavailable Connor, Chalon Referring Unavailable Víctor Sherwood Attending Unavailable Connor, Chalon Primary Care Unavailable Connor, Chalon Referring Unavailable NellyZoraida Attending Unavailable Connor, Chalon Primary Care Unavailable Florentino Torres Attending Unavailable Connor, Chalon Primary Care Unavailable Connor, Chalon Referring Unavailable Nelly, Zoraida Attending Unavailable Connor, Chalon Primary Care Unavailable MelissaFlorentino shelton Attending Unavailable Connor, Chalon Primary Care Unavailable Connor, Chalon Referring Unavailable Borruso, Víctor Attending Unavailable Connor, Chalon Primary Care Unavailable Connor, Chalon Referring Unavailable Saenz, Neal Attending Unavailable Connor, Chalon Primary Care Unavailable Saenz, Neal Referring Unavailable Saenz, Neal Attending Unavailable Connor, Chalon Primary Care Unavailable Borruso, Víctor Referring Unavailable Borruso, Víctor Attending Unavailable Connor, Chalon Primary Care Unavailable Basali, Ayman Referring Unavailable Basali, Ayman Attending Unavailable Connor, Chalon Primary Care Unavailable Borruso, Víctor Attending Unavailable Connor, Chalon Primary Care Unavailable Sr, Will Attending Unavailable Connor, Chalon Primary Care Unavailable Nelly, Zoraida Referring Unavailable Nelly, Zoraida Attending Unavailable Connor, Chalon Primary Care Unavailable Borruso, Víctor Referring Unavailable Borruso, Víctor Attending Unavailable Connor, Chalon Attending Unavailable Connor, Chalon Primary Care Unavailable Connor, Chalon Referring Unavailable Connor, Chalon Primary Care Unavailable Basali, Ayman Referring Unavailable Basali, Ayman Attending Unavailable Allergies Allergy Classification Reported Allergen(s) Allergy Type Date of Onset Reaction(s) Facility (1 source) Acetaminophen / HYDROcodone; Translations: [HYDROCODONE-ACETA MINOPHEN] Drug Allergy 09-20-2015 [facility] Repository (8 sources) Acetaminophen Drug Allergy 09-09-2024 [facility] (1 source) Acetaminophen Drug Allergy 03-16-2025 [facility] Repository Medications Current Medications Medication Drug Class(es) Dates Sig (Normalized) Sig (Original) Creatine Monohydrate 5,000 mg powder in packet (8 sources) Start: 07-13-2024 Start: 07-13-2024 Creatine Monoh ydrate 5,000 mg powder in packet Active mg PO July 13, 2024 12:00am gabapentin 600 mg oral tablet (16 sources) Anti-epileptic Agent Start: 02-22-2025 take 1 tablet by mouth three times daily Start: 02-01-2025 End: 02-22-2025 take 1 tablet by mouth three times daily Gabapentin 600 mg tablet Discontinued 600 mg PO THREE TIMES A DAY 90 0 February 01, 2025 12:00am February 22, 2025 12:26pm Start: 01-30-2023 End: 09-09-2024 take 1 tablet by mouth three times daily Gabapentin 600 mg tablet Discontinued 600 mg PO THREE TIMES A DAY January 30, 2023 12:00am September 09, 2024 10:28am NEUROPATHY Testosterone 25 mg pellet (8 sources) Start: 07-13-2024 Start: 07-13-2024 Testosterone 2 5 mg pellet Active mg IMPLANT July 13, 2024 12:00am Completed/Discontinued Medications Medication Drug Class(es) Dates Sig (Normalized) Sig (Original) acetaminophen 325 mg / HYDROcodone bitartrate 7.5 mg oral tablet (5 sources) Opioid Agonist Start: 5 End: 5 Hydrocodone-Acetamino phen 7.5-325 mg tablet Discontinued 1 {tbl} PO TWICE A DAY 0 December 31, 2024 12:00am February 15, 2025 9:49am acetaminophen 325 mg / oxyCODONE hydrochloride 5 mg oral tablet (8 sources) Opioid Agonist Start: 5 End: 5 Oxycodone-Acetaminoph en (Endocet) 5-325 mg tablet Discontinued 1 {tbl} PO EVERY 6 HOURS as needed for pain 12 3 0 May 11, 2024 July 13, 2024 10:40am Low back pain Low back pain, unspecified amoxicillin 875 mg / clavulanate 125 mg oral tablet (8 sources) Penicillin-class Antibacterial Start: 3 End: 3 Amoxicillin-Pot Clavulanate 875-125 mg tablet Discontinued 1 {tbl} PO Q12H 14 0 February 01, 2023 12:00am February 18, 2023 9:25am 168 hr buprenorphine 0.005 mg/hr transdermal system (4 sources) Partial Opioid Agonist Start: 5 End: 5 apply 5 ug transdermal route every week Buprenorphine 5 mcg/hour patch weekly Discontinued 1 NMA TD EVERY WEEK February 01, 2025 12:00am February 15, 2025 9:49am cholestyramine resin 4000 mg powder for oral suspension (9 sources) Bile Acid Sequestrant Start: 3 End: 5 Cholestyramine (With Sugar) 4 gram Powder In Packet Discontinued 4 g PO DAILY@1999 60 0 February 01, 2023 12:00am July 13, 2024 10:39am diphenhydrAMINE hydrochloride 25 mg oral capsule (9 sources) Histamine-1 Receptor Antagonist Start: 3 End: 5 take 1 capsule by mouth every six hours as needed Diphenhydramine Hcl 25 mg capsule Discontinued 25 mg PO EVERY 6 HOURS as needed for itching 30 0 February 01, 2023 9:41am July 13, 2024 10:39am iohexol (OMNIPaque) 300 mg iodine/mL solution (1 source) Start: 3 End: 3 iohexol (OMNIPaque) 300 mg iodine/mL solution lidocaine 0.05 mg/mg medicated patch (8 sources) Antiarrhythmic, Amide Local Anesthetic Start: 5 End: Lidocaine 5 % adhesive patch,medicated Discontinued 1 NMA TOPICAL DAILY 15 May 11, 2024 1:00am July 13, 2024 10:39am leave on most painful area for up to 12 hrs methylPREDNISolone 4 mg oral tablet (8 sources) Corticosteroid Start: 5 End: 5 Methylprednisolone 4 mg tablets,dose pack Discontinued 0 PO .COMPLEX 21 May 11, 2024 1:00am July 13, 2024 10:39am for 6 days ondansetron 4 mg disintegrating oral tablet (8 sources) Serotonin-3 Receptor Antagonist Start: 5 End: 5 take 1 tablet by mouth every six hours as needed for nausea and vomiting Ondansetron 4 mg tablet,disintegrating Discontinued 4 mg PO EVERY 6 HOURS as needed for nausea and vomiting 30 May 11, 2024 1:00am July 13, 2024 10:40am traMADol hydrochloride 50 mg oral tablet (8 sources) Opioid Agonist Start: 5 End: 5 take 1 tablet by mouth twice daily as needed Tramadol 50 mg tablet Discontinued 50 mg PO TWICE A DAY as needed July 13, 2024 12:00am December 31, 2024 9:32am traZODone hydrochloride 100 mg oral tablet (16 sources) Serotonin Reuptake Inhibitor Start: 5 End: 5 take 1 tablet by mouth once daily Trazodone 100 mg tablet Discontinued 100 mg PO daily August 05, 2024 12:00am February 15, 2025 9:49am Problems Active Problems Problem Classification Problem Date Documented Date Episodic/Chronic Abdominal hernia (4 sources) Hernia of anterior abdominal wall; Translations: [Ventral hernia without obstruction or gangrene] Onset: 3 03-08-2023 Episodic Alcohol-related disorders (4 sources) History of alcohol abuse; Translations: [Alcohol abuse, in remission] Onset: 3 03-08-2023 Chronic Biliary tract disease (9 sources) Biliary stricture; Translations: [Obstruction of bile duct] Onset: 3 04-12-2023 Chronic Biliary tract disease (12 sources) Biliary calculus; Translations: [Calculus of gallbladder without cholecystitis without obstruction] Onset: 3 01-30-2023 Episodic Essential hypertension (4 sources) Essential hypertension; Translations: [Essential (primary) hypertension] Onset: 3 03-08-2023 Chronic Osteoarthritis (20 sources) Arthritis; Translations: [Unspecified osteoarthritis, unspecified site] Onset: 3 05-03-2023 Chronic Other inflammatory condition of skin (10 sources) Pruritus, unspecified; Translations: [Pruritus] 01-30-2023 Episodic Other liver diseases (15 sources) Jaundice; Translations: [Unspecified jaundice] Onset: 3 01-30-2023 Episodic Comment on above: This is a 62-year-ol d male with a complaint of cholelithiasis and gallbladder wall thickening but also has been found to have significant hyperbilirubinemia (ranging between 17 and 19) that is primarily direct and the likely explanation for his presentation of jaundice. Additionally he is noted to have a cystic lesion in the head of the pancreas adjacent to the second portion of the duodenum. Mr. Sanchez confesses that he knows he was supposed to follow-up for an endoscopic ultrasound biopsy, but has not been able to find in network provider to do this procedure. He remains adamant that he does not want any out of pocket costs as he has already met his deductible. He reports that he has spoken with his PCP, Dr. Hollingsworth, who continues to try to find a provider that might be able to help with continuing this work-up. I have stressed to Mr. Sanchez that this work-up is essential to better understanding his primary problem as I do not believe cholecystitis or gallbladder dysfunction is the primary cause of his presentation. I have shared with him both his laboratories as well as tried to walk him through his CT imaging so that he has a better understanding of his present problem. While he seems to express better understanding of this problem at the conclusion of this discussion, he reiterated that he is not interested in any increased [id number]-cu-heaadg costs.I remain concerned for possible pancreatic mass to include IPMN versus simple cyst of the pancreas with biliary cancer versus possible chronic hepatitis. Therefore, I am very much in agreement with pursuing both liver biopsy as well as potential EUS with FNA. I do also note the presence of a thickened transverse colon (which I showed to the patient) and at some point would recommend pursuing a up-to-date colonoscopy as he has not had a recent endoscopic exam (he estimates it has been 10 years). I have reached out to patient's primary care provider, who is out of office but have discussed these concerns directly with covering physician, Dr. Luz. I have offered assistance to Mr. Avilez should he find that he is not making progress with this work-up in the next couple of weeks. Other liver diseases (10 sources) Enzyme level - finding; Translations: [Elevated transaminase measurement] 01-30-2023 Episodic Other liver diseases (5 sources) Liver mass; Translations: [Hepatomegaly, not elsewhere classified] Onset: 3 02-28-2023 Episodic Other liver diseases (4 sources) Large liver; Translations: [Hepatomegaly, not elsewhere classified] Onset: 3 02-27-2023 Episodic Other liver diseases (4 sources) Scleral icterus; Translations: [Unspecified jaundice] Onset: 3 02-27-2023 Episodic Other liver diseases (2 sources) Abnormal levels of other serum enzymes; Translations: [Abnormal levels of other serum enzymes] Onset: 3 Episodic Other liver diseases (2 sources) Hepatomegaly, not elsewhere classified; Translations: [Hepatomegaly, not elsewhere classified] Onset: 3 Episodic Other nervous system disorders (4 sources) Mononeuropathy; Translations: [Mononeuropathy, unspecified] Onset: 3 03-08-2023 Chronic Other nervous system disorders (14 sources) Cervical myelopathy; Translations: [Disease of spinal cord, unspecified] 12-31-2024 Chronic Other nervous system disorders (1 source) Disease of spinal cord, unspecified; Translations: [Disease of spinal cord, unspecified] Onset: 5 Chronic Other non-traumatic joint disorders (15 sources) Hip pain; Translations: [Pain in right hip] 08-05-2024 Episodic Other nutritional; endocrine; and metabolic disorders (9 sources) Hyperbilirubinemia; Translations: [Other disorders of bilirubin metabolism] 01-30-2023 Chronic Other nutritional; endocrine; and metabolic disorders (1 source) Other disorders of bilirubin metabolism; Translations: [Jaundice, unspecified, not of ] 02-01-2023 Chronic Other nutritional; endocrine; and metabolic disorders (10 sources) Body mass index 30+ - obesity; Translations: [Obesity, unspecified] 12-31-2024 Chronic Pancreatic disorders (not diabetes) (20 sources) Mass of pancreas; Translations: [Other specified diseases of pancreas] Onset: 3 01-30-2023 Episodic Residual codes; unclassified (9 sources) Edema of lower extremity; Translations: [Localized edema] 01-30-2023 Episodic Residual codes; unclassified (1 source) Localized edema; Translations: [Edema] 02-01-2023 Episodic Screening and history of mental health and substance abuse codes (4 sources) Tobacco use and exposure - finding; Translations: [Personal history of nicotine dependence] Onset: 3 03-08-2023 Episodic Spondylosis; intervertebral disc disorders; other back problems (17 sources) Degeneration of lumbar intervertebral disc; Translations: [Degenerative disc disease, lumbar] Onset: 5 07-13-2024 Chronic Substance-related disorders (1 source) Opioid dependence, uncomplicated; Translations: [Opioid dependence, uncomplicated] Onset: 5 Chronic Unclassified (4 sources) Spinal stenosis of lumbar region with neurogenic claudication; Translations: [M48.062 - Spinal stenosis, lumbar region with neurogenic claudication] Unclassified (1 source) Low back pain, unspecified; Translations: [Low back pain, unspecified] Onset: Past or Other Problems Problem Classification Problem Date Documented Da te Episodic/Chronic Other liver diseases (5 sources) Unspecified jaundice; Translations: [Jaundice, unspecified, not of ] Onset: 02-27-2023 02-01-2023 Episodic Other non-traumatic joint disorders (1 source) Pain in right hip; Translations: [Pain in right hip] Onset: 08-05-2024 Episodic Other non-traumatic joint disorders (1 source) Pain in left hip; Translations: [Pain in left hip] Onset: 08-05-2024 Episodic Spondylosis; intervertebral disc disorders; other back problems (20 sources) Low back pain; Translations: [Low back pain] Onset: 06-01-2024 05-19-2024 Episodic Unclassified (4 sources) Onset: 02-28-2023 Resolved: 04-12-2023 02-28-2023 Results Test Name Value Interpretation Reference Range Facility Extremity Lower without Cont raon 03-02-2025 Extremity Lower without Contra [facility] [address] [place] [address] [id number] Extremity Lower without Contra MR#: [id number] Acct: [id number] Name: LAM SANCHEZ Rep #: [id number] : 1960 M 64 From: Davon White MD PCP: Dr. Bonilla Ryan MD Status: REG CLI Study: Extremity Lower without Contra Date of Exam: Exam# [id number] Ordering Dr: Víctor Sherwood DO PROCEDURE: EXTREMITY LOWER WITHOUT CONTRA 03/02/2025 REASON FOR EXAM: TEMPLATING FOR LEFT LEISA TECHNIQUE: Procedure Code: CTELWO Modality: CT Procedure: EXTREMITY LOWER WITHOUT CONTRA Coronal and Sagittal reconstruction series were provided. CONTRAST: None One or more dose reduction techniques were used (e.g., Automated exposure control, adjustment of the mA and/or kV according to patient size, use of iterative reconstruction technique). RADIATION DOSE SUMMARY: DLP: 967 mGycm COMPARISON: None FINDINGS: There is severe osteoarthritis of the left hip with flattening of the joint space, subcortical cyst formation, and marginal osteophytes. There is no acute fracture or dislocation. Adjacent soft tissues are unremarkable. There is no mass or adenopathy. Vascular calcifications are noted. There is a 3 cm uncomplicated fat containing anterior abdominal wall hernia at the level of the umbilicus. CT/Extremity Lower without Contra IMPRESSION: There is severe osteoarthritis of the left hip with flattening of the joint space, subcortical cyst formation, and marginal osteophytes. There is a 3 cm uncomplicated fat containing anterior abdominal wall hernia at the level of the umbilicus. Reading Location: [facility] CC: Dr. Bonilla Ryan MD; Dr. Víctor Sherwood DO Clinical Biochemical Geneticist: Signed Normal [facility] Orthopedic Visit Reporton Orthopedic Visit Report [facility] [address] [place] [address] OFFICE VISIT Date of Service: 02/15/25 MR#: [id number] Acct: [id number] Name: LAM SANCHEZ Rep #: [id number] : 1960 Provider: Dr. Víctor morrison DO Age/Sex: 64/M [place] [facility] [place] Status: Signed Intake Vital Signs 02/01/25 09:17 02/15/25 09:48 Height 5 ft 10 in 5 ft 10 in Weight: 210 lb 210 lb BMI 30.1 30.1 Intake Visit Reasons: LEFT HIP Chief Complaint: left hip Accompanied by: Mother Is patient in pain?: Yes (left hip ) Pain scale (1-10): 6 Allergies acetaminophen (From Tylenol) Allergy (Severe, Verified 02/15/25 09:49) Nausea Medications ???Medication ???Instructions ???Recorded ???Confirmed ???Type creatine monohydrate 5,000 mg oral mg PO 07/13/24 02/15/25 History powder packet testosterone 25 mg implant pellet mg implant 07/13/24 02/15/25 Hist ory gabapentin 600 mg tablet 600 mg PO TID #90 tabs 02/01/25 Rx PFSH Medical History DISH (diffuse idiopathic skeletal hyperostosis) Cervical myelopathy Obesity (BMI 30-39.9) Lower extremity neuropathy Chronic low back pain Osteoarthritis Erectile dysfunction Ventral hernia Hypertension Surgical History History of knee replacement Previous back surgery Social History Smoking Status: Former smoker how long ago did patient quit smoking: Quit 30 years ago alcohol intake: former details: Patient reports he drank heavily until about 41 years of age substance use type: does not use HPI LEFT HIP Details: This documentation accurately reflects the service provided and the decisions made by me, Dr. Víctor Sherwood, DO 02/15/25 08. Part of today???s visit was documented by Mara Parks RN, acting as scribe. LAM SANCHEZ is a 64 year old M here today for left hip pain. He complains of left hip pain that radiates down the lateral thigh to the knee. The hip pain also radiates into the groin. He states the pain is a constant 6/10. He has been seeing Dr. Flores in pain management. He had an injection in his low back three weeks ago he states it helped his pain for 3 days. He has had an injection in the groin he reports long ago and it did not provide any relief. progressively getting worse and he would like to discuss surgery for a hip replacement. 09/09/2024 visit:64 year old M here today for Bilateral hip pain. His left really is not giving him much problem his right is giving him more of an issue. The pain is mostly posterior lateral radiates into the glue and low back, he is starting to have occasional lesser degree groin pain. patient would like to get an MRI done on both hips, to see what the next step is. The right hip is a constant pain. He states that the pain is so bad, he is unable to walk. He did have an injection into both hips by Dr. Flores, and this did not provide him with even temporary relief of his symptoms. He did do physical therapy which made his pain worse. Patient did not have the lumbar spine MRI that was ordered by Cindy Villegas he says it was denied by insurance because he did not do physical therapy he has subsequently done physical therapy and it has not improved his symptoms. He has had x-rays of his lumbar spine demonstrating multilevel degenerative disc disease and severe lumbar spondylosis with symptoms radiating to his feet. Plan:Patient is here today for bilateral hip pain. His pain is mostly posterior lateral glutes and PSIS area and paraspinal musculature I believe this is most likely coming from his back. He does have x-rays demonstrating left hip arthrosis more significant but it is not really bothering him he has only mild right hip arthrosis on x-rays. His pain is not typical for true hip pathology although he does get some pain with hip range of motion it is not in the groin. He does have radiating pain and numbness however this is chronic and he does have a history of prior back surgeries. He does have significant lumbar spondylosis on imaging he does have decreased reflexes bilaterally Achilles and patellar he has good lower extremity strength. Patient would like an MRI of his hip I will go ahead and order this although I feel most likely his pain is coming from his lumbar spine and I will go ahead and reorder this as well as it was previously denied as he had not completed physical therapy but has subsequently completed and failed physical therapy of note patient did have injections in his hip with Dr. Flores and did not even get transient relief which again would point that the hip sockets are not the source of his pain. Patient had had a trial and failure of physical meteorologist (more content not included)... Normal [facility] Cerv Spine 4 or 5 Viewson Cerv Spine 4 or 5 Views [facility] [address] [place], [place] [id number] Cerv Spine 4 or 5 Views MR#: [id number] Acct: [id number] Name: LAM SANCHEZ Rep #: [id number] : 1960 M 64 From: Lam Quiroz MD PCP: Dr. Bonilla Ryan MD Status: DEP AMB Study: Cerv Spine 4 or 5 Views Date of Exam: 02/01/25 Exam# [id number] Ordering Dr: Zoraida Villegas PROCEDURE: CERV SPINE 4 OR 5 VIEWS 02/01/2025 REASON FOR EXAM: PAIN TECHNIQUE: [facility] Procedure: CERV SPINE 4 OR 5 VIEWS COMPARISON: Cervical spine MRI, 01/20/2025. FINDINGS: There is no evidence of fracture or subluxation. There is degenerative disc disease, C3-4 through C7-T1 with narrowing of the intervertebral disc spaces and marginal osteophytes. There is multilevel facet arthropathy. There is degenerative grade 1 anterolisthesis of C2 on C3, which increases in flexion, degenerative grade 1 retrolisthesis of C3 on C4, which decreases in flexion, and degenerative grade 1 anterolisthesis of C7 on T1, which is stable in flexion. RAD/Cerv Spine 4 or 5 Views IMPRESSION: Multilevel degenerative disc disease as described. There is multilevel spondylolisthesis with evidence of instability in flexion and extension. Reading Location: [place] [address] CC: DAVID Montero; Dr. Bonilla Ryan MD Clinical Biochemical Geneticist: Signed Normal [facility] Orthopedic Visit Reporton Orthopedic Visit Report [facility] [address] [place] [address] OFFICE VISIT Date of Service: 02/01/25 MR#: [id number] Acct: [id number] Name: LAM SANCHEZ Rep #: [id number] : 1960 Provider: DAVID Montero Age/Sex: 64/M [place] [facility] [place] Status: Signed Intake Vital Signs 09/09/24 10:25 02/01/25 09:17 Height 5 ft 10 in 5 ft 10 in Weight: 210 lb BMI 30.1 Intake Visit Reasons: LUMBAR SPINE Chief Complaint: Cervical spine MRI review Accompanied by: Mother Is patient in pain?: Yes Pain scale (1-10): 5 Allergies acetaminophen (From Tylenol) Allergy (Severe, Verified 02/01/25 09:21) Nausea Medications ???Medication ???Instructions ???Recorded ???Confirmed ???Type creatine monohydrate 5,000 mg oral mg PO 07/13/24 02/01/25 History powder packet testosterone 25 mg implant pellet mg implant 07/13/24 02/01/25 Hist ory trazodone 100 mg tablet 100 mg PO QDAY 08/05/24 02/01/25 H istory hydrocodone 7.5 mg-acetaminophen 1 tab PO BID 12/31/24 02/01/25 His tory 325 mg tablet buprenorphine 5 mcg/hour weekly 1 patch transdermal QWEEK 02/01/25 02/01/25 History transdermal patch gabapentin 600 mg tablet 600 mg PO TID #90 tabs 02/01/25 Rx Have you fallen in the past year?: No PFSH Medical History DISH (diffuse idiopathic skeletal hyperostosis) Cervical myelopathy Obesity (BMI 30-39.9) Lower extremity neuropathy Chronic low back pain Osteoarthritis Erectile dysfunction Ventral hernia Hypertension Surgical History History of knee replacement Previous back surgery Social History Smoking Status: Former smoker how long ago did patient quit smoking: Quit 30 years ago alcohol intake: former details: Patient reports he drank heavily until about 41 years of age substance use type: does not use HPI LUMBAR SPINE Details: This documentation accurately reflects the service provided and the decisions made by me, DAVID Montero 02/01/25 0917. Part of today???s visit was documented by Jae Mercado MA, acting as scribe. LAM SANCHEZ is a 64 year old M here today for cervical spine MRI review. Patient states that his pain is a 5 today. He would like to go over the MRI to discus what the next step would be. Patient states that he has tried injections in his back. He states that the injections didn't work for him. His last injection was about a couple months ago. Patient states that the injection lasted 1 day. He states that Dr. Flores wants to do more injections on him, but he doesn't think that the insurance will cover it. Patient states that he has tried physical therapy. He states that he did 6 weeks of physical therapy at [facility]. Patient states that the physical therapy didn't work for him. He states that the physical therapy made his pain worse. Patient states that he is taking pain medication. He states that the pain medication hasn't really been taking the edge off. The patient says he has no neck pain and says that he has no pain that extends down the arms. Says that he has noticed some mild right sided weakness. He does not feel like his balance is all too off. He denies any dexterity issues in his hands. For his low back pain and leg pain the patient says that he is on a pain patch as well as hydrocodone???acetaminoph en. Patient says that he was also taking gabapentin however he ended up taking 4- 600 mg pills at 1 time which he said did make the symptoms better. Patient says that he is out of his gabapentin. HPI from 12/31/24: LAM SANCHEZ is a 64 year old M here today for continued low back pain. He states that he has been having pain for 9 months and is ready for something to be done about it. He has had 2 previous surgeries on his lower back. He states that he has done PT and has had injections with Dr. Flores. He states that he had injection in his groin that didn't give him any relief and one in his lower back. The injection in his lower back only gave him 1 day of relief then the pain returned. He has had x-rays and an MRI of the lumbar spine. He states that his low back pain is equal on both side and at times will radiate into his hips, groin and anterior legs. He also has numbness in the last 3 toes of his left foot. Patient is very upset that nothing has been done for his lower back and wants something done nehemiah. Patient is on hydrocodone-acetaminophen 7.5-325 but notes that it does not touch his pain. He reports increased numbness into the left foot. He denies dexterity issues. He does have significant weakness in his right arm. He reports issues with his balance that he notices mor (more content not included)... Normal [facility] Magnetic resonance imaging r eportOrdered By: Herber Phelan on 01-20-2025 Study report [facility] Imaging Services [address] [place], [place] [id number] Spine Cervical (Routine) MR#: [id number] Acct: [id number] Name: LAM SANCHEZ Rep #: [id number] : 1960 M 64 From: Gabriel Phelan MD PCP: Dr. Bonilla Ryan MD Status: REG CL I Study:Spine Cervical (Routine) Date of Exam: 01/20/25 Exam# [id number] Ordering Dr: Anjali Saenz MD PROCEDURE: SPINE CERVICAL (ROUTINE) 01/20/2025 REASON FOR EXAM: CERVICAL MYELOPATHY TECHNIQUE: Procedure Code: MRISPC Modality: MR Procedure: SPINE CERVICAL (ROUTINE) Multiplanar and multisequence images were obtained without IV contrast administration. COMPARISON: None. FINDINGS: Vertebrae: Cervical vertebral body heights are preserved. Bone marrow signal is unremarkable. Alignment: Normal. No spondylolisthesis. Spinal Cord: Cervical spinal cord is of normal size and signal intensities. Structures at the foramen magnum are unremarkable. C2-3: Facet joint arthropathy. No foraminal or canal stenosis. C3-4: Retrolisthesis by 1 mm. Disc desiccation. Disc osteophyte complex. Uncovertebral hypertrophy. Facet joint arthropathy. Severe bilateral foramina stenosis. Moderate canal stenosis. C4-5: Disc desiccation. Disc osteophyte complex. Uncovertebral hypertrophy. Facet joint arthropathy. Severe bilateral foramina stenosis. Moderate canal stenosis. C5-6: Disc desiccation. Disc osteophyte complex. Uncovertebral hypertrophy. Facet joint arthropathy. Severe bilateral foramina stenosis. Moderate canal stenosis. C6-7: Disc desiccation. Disc osteophyte complex. Uncovertebral hypertrophy. Facet joint arthropathy. Severe bilateral foramina stenosis. Severe canal stenosis. C7-T1: Unremarkable MRI/Spine Cervical (Routine) IMPRESSION: Multilevel degenerate changes, predominantly at C6-C7 where there is severe canal stenosis and severe bilateral foramina stenosis. Moderate canal stenosis and severe bilateral foramina stenosis at C3-C4, C4-C5 and C5-C6. Reading Location: [facility] CC: Dr. Bonilla Ryan MD; Dr. Neal Saenz MD ~ Clinical Biochemical Geneticist: Signed [facility] Spine Cervical (Routine)on 0 01-20-2025 Spine Cervical (Routine) [facility] Imaging Services [address] [place] [id number] Spine Cervical (Routine) MR#: [id number] Acct: [id number] Name: LAM SANCHEZ Rep #: [id number] : 1960 M 64 From: Herber Phelan MD PCP: Dr. Bonilla Ryan MD Status: REG CLI Study: Spine Cervical (Routine) Date of Exam: Exam# [id number] Ordering Dr: Neal Saenz MD PROCEDURE: SPINE CERVICAL (ROUTINE) 01/20/2025 REASON FOR EXAM: CERVICAL MYELOPATHY TECHNIQUE: [facility] [place] Modality: MR Procedure: SPINE CERVICAL (ROUTINE) Multiplanar and multisequence images were obtained without IV contrast administration. COMPARISON: None. FINDINGS: Vertebrae: Cervical vertebral body heights are preserved. Bone marrow signal is unremarkable. Alignment: Normal. No spondylolisthesis. Spinal Cord: Cervical spinal cord is of normal size and signal intensities. Structures at the foramen magnum are unremarkable. C2-3: Facet joint arthropathy. No foraminal or canal stenosis. C3-4: Retrolisthesis by 1 mm. Disc desiccation. Disc osteophyte complex. Uncovertebral hypertrophy. Facet joint arthropathy. Severe bilateral foramina stenosis. Moderate canal stenosis. C4-5: Disc desiccation. Disc osteophyte complex. Uncovertebral hypertrophy. Facet joint arthropathy. Severe bilateral foramina stenosis. Moderate canal stenosis. C5-6: Disc desiccation. Disc osteophyte complex. Uncovertebral hypertrophy. Facet joint arthropathy. Severe bilateral foramina stenosis. Moderate canal stenosis. C6-7: Disc desiccation. Disc osteophyte complex. Uncovertebral hypertrophy. Facet joint arthropathy. Severe bilateral foramina stenosis. Severe canal stenosis. C7-T1: Unremarkable MRI/Spine Cervical (Routine) IMPRESSION: Multilevel degenerate changes, predominantly at C6-C7 where there is severe canal stenosis and severe bilateral foramina stenosis. Moderate canal stenosis and severe bilateral foramina stenosis at C3-C4, C4-C5 and C5-C6. Reading Location: [facility] CC: Dr. Bonilla Ryan MD; Dr. eNal Saenz MD Clinical Biochemical Geneticist: Signed Normal [facility] Orthopedic Visit Reporton Orthopedic Visit Report [facility] [address] [place] [address] OFFICE VISIT Date of Service: 12/31/24 MR#: [id number] Acct: [id number] Name: LAM SANCHEZ Rep #: [id number] : 1960 Provider: Dr. Neal Saenz MD Age/Sex: 64/M [place] [facility] [place] Status: Signed Intake Vital Signs 09/09/24 10:25 Height 5 ft 10 in Intake Visit Reasons: LUMBAR SPINE Allergies acetaminophen (From Tylenol) Allergy (Severe, Verified 12/31/24 09:31) Nausea Medications ???Medication ???Instructions ???Recorded ???Confirmed ???Type creatine monohydrate 5,000 mg oral mg PO 07/13/24 12/31/24 History powder packet testosterone 25 mg implant pellet mg implant 07/13/24 12/31/24 Hist ory trazodone 100 mg tablet 100 mg PO QDAY 08/05/24 12/31/24 H istory hydrocodone 7.5 mg-acetaminophen 1 tab PO BID 12/31/24 12/31/24 His tory 325 mg tablet PFSH Medical History (Updated 12/31/24 @ 10:15 by Mara Parks, JAMMIE) DISH (diffuse idiopathic skeletal hyperostosis) Cervical myelopathy Obesity (BMI 30-39.9) Lower extremity neuropathy Chronic low back pain Osteoarthritis Erectile dysfunction Ventral hernia Hypertension Surgical History History of knee replacement Previous back surgery Social History Smoking Status: Former smoker how long ago did patient quit smoking: Quit 30 years ago alcohol intake: former details: Patient reports he drank heavily until about 41 years of age substance use type: does not use HPI LUMBAR SPINE Details: This documentation accurately reflects the service provided and the decisions made by me, Dr. Neal Saenz MD 12/31/24927. Part of today???s visit was documented by Jyothi ABBASI and Mara Parks RN, acting as scribe. LAM SANCHEZ is a 64 year old M here today for continued low back pain. He states that he has been having pain for 9 months and is ready for something to be done about it. He has had 2 previous surgeries on his lower back. He states that he has done PT and has had injections with Dr. Flores. He states that he had injection in his groin that didn't give him any relief and one in his lower back. The injection in his lower back only gave him 1 day of relief then the pain returned. He has had x-rays and an MRI of the lumbar spine. He states that his low back pain is equal on both side and at times will radiate into his hips, groin and anterior legs. He also has numbness in the last 3 toes of his left foot. Patient is very upset that nothing has been done for his lower back and wants something done nehemiah. Patient is on hydrocodone-acetaminophen 7.5-325 but notes that it does not touch his pain. He reports increased numbness into the left foot. He denies dexterity issues. He does have significant weakness in his right arm. He reports issues with his balance that he notices more when his eyes are closed. He states in the morning the pain is horrible and he is very stiff and it takes him twenty minutes to get out of bed. The pain is worse when he bends forward. He used a walker a few weeks ago due to the pain. He denies diabetes. He denies previous strokes. The patient is a 64-year-old male presenting with severe pain and functional limitations due to multiple musculoskeletal issues, including hip and back problems. The patient reports severe osteoarthritis in the left hip, causing significant groin pain and stiffness, particularly when weight-bearing or standing up. The condition has been progressively worsening, and although hip replacement has been suggested, the patient feels other issues are more pressing. The patient has a history of degenerative disc disease with two previous lumbar surgeries approximately 37 years ago for ruptured discs at L2. He experiences chronic back pain, numbness in the toes, and balance issues, which have not improved with physical therapy or epidural injections. The patient also has degenerative scoliosis and diffuse idiopathic skeletal hyperostosis (DISH), contributing to his back pain and limited mobility. Despite various interventions, including physical therapy and injections, his symptoms persist. Additionally, cervical spinal stenosis with spinal cord compression has been identified, which is causing weakness in the right arm and significant balance issues. The patient is concerned about the progression of these symptoms and the potential impact on his mobility. Peripheral neuropathy is also present, with numbness primarily in the feet, further complicating his balance and mobility. - Musculoskeletal: Reports severe pain in the left hip, chronic back pain, and stiffness. Denies improvement with physical therapy or injections. - N (more content not included)... Normal [facility] L3410.9992on 12-03-2024 [facility] Misc. COMMENT Normal . [facility] Comment on above: Order Comment: [id number] MEDTOX RT Result Comment: Test Ordered: [id number] Amphetamines Screen, Urine Negative ng/mL UI Reference Range: Yiuzrr=279 Amphetamine test includes Amphetamine and Methamphetamine. Barbiturates Negative ng/mL UI Reference Range: Nlyvfi=554 Benzodiazepines Negative ng/mL UI Reference Range: Nrpxdf=139 Cocaine (Metab.), Urine Negative ng/mL UI Reference Range: Higcmz=688 Opiates Negative ng/mL UI Reference Range: Wkjjoq=662 Opiate test includes Codeine, Morphine, Hydromorphone, Hydrocodone. 6-Acetylmorphine, Urine Negative ng/mL UI Reference Range: Cutoff=10 Oxycodone/Oxymorphone, Urine Negative ng/mL UI Reference Range: Taydco=618 Test includes Oxycodone and Oxymorphone PCP, Urine Negative ng/mL UI Reference Range: Cutoff=25 Methadone Screen, Urine Negative ng/mL UI Reference Range: Gldgzf=135 Propoxyphene, Urine Negative ng/mL UI Reference Range: Zwmjwn=752 Fentanyl, Urine Negative ng/mL UI Reference Range: Cutoff=2.0 Test includes Fentanyl and Norfentanyl This test was developed and its performance characteristics determined by [facility]. It has not been cleared or approved by the Food and Drug Administration. Tramadol Note: ng/mL UI See Final Results Reference Range: Nksbuk=518 Tramadol Positive [A ] UI Reference Range: Qgcntv=087 Tramadol Conf, MS, UR >[address] ng/mL UI Reference Range: Kjglcc=675 Buprenorphine, Urine Negative ng/mL UI Reference Range: Cutoff=10 Creatinine, Urine 207.5 mg/dL UI Reference Range: 20.0-300.0 pH, Urine 5.2 UI Reference Range: 4.5-8.9 Performed at: UI - [facility] [place] [address] [facility], [place], [place] [id number] [employer] [place]: Beverly Arnett PhD, Phone: [phone] Performed at: [address] [id number] [employer] [place]: Missael Romero PhD, Phone: [phone] Performed By: #### L 3410.9992, L505.5000 #### [facility] [address] [facility] [id number] Amphetamine detection with 1 000 ng/mL as cutoffOrdered By: Sage Flores on 11-25-2024 Amphetamines Screen method >1000 ng/mL Ql (U) Negative < 200 ng/mL [facility] No Panel InformationOrdered By: Sage Flores on 11-25-2024 Urine Buprenorphine Qualitative Negative < 200 ng/mL [facility] Urine Oxycodone Screen Negative < 100 ng/mL [facility] Quantitative urine opiates m easurementOrdered By: Sage Flores on 11-25-2024 Opiates Ql (U) Negative < 300 ng/mL [facility] Screening urine fentanyl gege surementOrdered By: Sage Flores on 11-25-2024 fentaNYL Screen Ql (U) Negative [facility] Urine Drug Screen (VISTA)on 11-25-2024 AMPHETAMINES Negative Normal <1000 ng/mL [facility] Comment on above: Order Comment: MEDTO X MEDTOX Performed By: #### L 3410.9992, L505.5000 #### [facility] [address] [place], [place], [id number] BARBITIURATES Negative Normal < 200 ng/mL [facility] Comment on above: Order Comment: MEDTO X MEDTOX Performed By: #### L 3410.9992, L505.5000 #### [facility] [address], [place], [id number] BENZODIAZIPINE Negative Normal < 200 ng/mL [facility] Comment on above: Order Comment: MEDTO X MEDTOX Performed By: #### L 3410.9992, L505.5000 #### [facility] [address] [place], [address] BUP Ur Drug Scr Negative Normal < 200 ng/mL [facility] Comment on above: Order Comment: MEDTO X MEDTOX Performed By: #### L 3410.9992, L505.5000 #### [facility] [address] [place], [address] COCAINE Negative Normal < 300 ng/mL [facility] Comment on above: Order Comment: MEDTO X MEDTOX Performed By: #### L 3410.9992, L505.5000 #### [facility] [address] [place], [address] Fentanyl Negative Normal [facility] Comment on above: Order Comment: MEDTO X MEDTOX Performed By: #### L 3410.9992, L505.5000 #### [facility] [address] [place], [address] METHADONE Negative Normal < 300 ng/mL [facility] Comment on above: Order Comment: MEDTO X MEDTOX Performed By: #### L 3410.9992, L505.5000 #### [facility] [address] [place], [address] OPIATES Negative Normal < 300 ng/mL [facility] Comment on above: Order Comment: MEDTO X MEDTOX Performed By: #### L 3410.9992, L505.5000 #### [facility] [address] [place], [address] OXYCODONE Negative Normal < 100 ng/mL [facility] Comment on above: Order Comment: MEDTO X MEDTOX Performed By: #### L 3410.9992, L505.5000 #### [facility] [address] [place], [address] PCP Negative Normal < 25 ng/mL [facility] Comment on above: Order Comment: MEDTO X MEDTOX Performed By: #### L 3410.9992, L505.5000 #### [facility] [address] [place], [address] THC Positive Normal < 50 ng/mL [facility] Comment on above: Order Comment: MEDTO X MEDTOX Result Comment: If c onfirmation testing is needed, a separate order will be required to send out testing to the reference laboratory. Performed By: #### L 3410.9992, L505.5000 #### [facility] [address] [place], [address] Urine benzodiazepine levelOr dered By: Sage Flores on 11-25-2024 Benzodiazepines Ql (U) Negative < 200 ng/mL [facility] Urine cocaine levelOrdered B y: Sage Flores on 11-25-2024 Cocaine Ql (U) Negative < 300 ng/mL [facility] Urine exqwb-1-nyyuezcxbahmnl abinol (THC) measurementOrdered By: Sage Flores on 11-25-2024 Cannabinoids Screen Ql (U) Positive < 50 ng/mL [facility] Comment on above: If confirmation test ing is needed, a separate order will be required to send out testing to the reference laboratory. Urine phencyclidine (PCP) de tectionOrdered By: Sage Flores on 11-25-2024 Phencyclidine Ql (U) Negative < 25 ng/mL [facility] Magnetic resonance imaging r eportOrdered By: Stephen Urrutia on 10-03-2024 Study report [facility] [address] [place] [place] [address] Spine Lumbar (Routine) MR#: [id number] Acct: [id number] Name: LAM SANCHEZ Rep #: [id number] : 1960 M 64 From: Shoshana Urrutia MD PCP: Dr. Bonilla Ryan MD Status: REG CL I Study:Spine Lumbar (Routine) Date of Exam: 10/03/24 Exam# [id number] Ordering Dr: Deep Villegas PA PROCEDURE: SPINE LUMBAR (ROUTINE) 10/03/2024 REASON FOR EXAM: PAIN TECHNIQUE: Multiplanar and multisequence images were obtained without IV contrast administration. FINDINGS: Normal lumbar vertebral body height. Normal conus. No compression deformity. No marrow edema. L1-2 demonstrates facet degeneration on both sides without spinal stenosis. At L2-3, degenerative disc space narrowing is seen with a minimal degree of canal narrowing and no nerve root impingement. At L3-4, there is a small central protrusion on axial image 17 with a mild degree of spinal stenosis but no nerve root compression. At L4-5, I suspect there could be a postsurgical defect present. Please correlate clinically. There is a left paracentral protrusion which could abut the left L5 nerve root sleeve as it exits the thecalsac. Correlate for left L5 radiculopathy. At L5-S1 there is a questionable surgical defect on the left side without recurrent central stenosis or foraminal impingement. MRI/Spine Lumbar (Routine) IMPRESSION: 1. Mild canal narrowing at L3-4 from small central protrusion. 2. Left paracentral protrusion at L4-5 with left lateral recess narrowing. Correlate for left L5 radiculopathy. Reading Location[facility] CC: DAVID Montero; Dr. 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 Geneticist: Signed [facility] Spine Lumbar (Routine)on Spine Lumbar (Routine) [facility] [address] [place], [place] [id number] Spine Lumbar (Routine) MR#: [id number] Acct: [id number] Name: LAM SANCHEZ Rep #: [id number] : 1960 M 64 From: Stephen Urrutia MD PCP: Dr. Bonilla Ryan MD Status: REG CLI Study: Spine Lumbar (Routine) Date of Exam: 10/03/24 Exam# [id number] Ordering Dr: Zoraida Villegas PROCEDURE: SPINE LUMBAR (ROUTINE) 10/03/2024 REASON FOR EXAM: PAIN TECHNIQUE: Multiplanar and multisequence images were obtained without IV contrast administration. FINDINGS: Normal lumbar vertebral body height. Normal conus. No compression deformity. No marrow edema. L1-2 demonstrates facet degeneration on both sides without spinal stenosis. At L2-3, degenerative disc space narrowing is seen with a minimal degree of canal narrowing and no nerve root impingement. At L3-4, there is a small central protrusion on axial image 17 with a mild degree of spinal stenosis but no nerve root compression. At L4-5, I suspect there could be a postsurgical defect present. Please correlate clinically. There is a left paracentral protrusion which could abut the left L5 nerve root sleeve as it exits the thecal sac. Correlate for left L5 radiculopathy. At L5-S1 there is a questionable surgical defect on the left side without recurrent central stenosis or foraminal impingement. MRI/Spine Lumbar (Routine) IMPRESSION: 1. Mild canal narrowing at L3-4 from small central protrusion. 2. Left paracentral protrusion at L4-5 with left lateral recess narrowing. Correlate for left L5 radiculopathy. Reading Location: [facility] CC: DAVID Montero; Dr. Bonilla Ryan MD Clinical Biochemical Geneticist: Signed Normal [facility] Orthopedic Visit Reporton Orthopedic Visit Report [facility] [address] [place] [address] OFFICE VISIT Date of Service: 09/09/24 MR#: [id number] Acct: [id number] Name: LAM SANCHEZ Rep #: [id number] : 1960 Provider: Dr. Víctor morrison DO Age/Sex: 64/M [place] [facility] [place] Status: Signed Intake Vital Signs 08/05/24 08:58 09/02/24 11:44 09/09/24 10:25 Height 5 ft 10 in 5 ft 10 in 5 ft 10 in Weight: 230 lb 230 lb BMI 33.0 33.0 Intake Visit Reasons: BILATERAL HIPS Chief Complaint: BL hip pain Accompanied by: Mother Is patient in pain?: Yes Pain scale (1-10): 5 Allergies acetaminophen (From Tylenol) Allergy (Severe, Verified 09/09/24 10:27) Nausea Medications ???Medication ???Instructions ???Recorded ???Confirmed ???Type creatine monohydrate 5,000 mg oral mg PO 07/13/24 09/09/24 History powder packet testosterone 25 mg implant pellet mg implant 07/13/24 09/09/24 Hist ory tramadol 50 mg tablet 50 mg PO BID PRN 07/13/24 09/09/24 History trazodone 100 mg tablet 100 mg PO QDAY 08/05/24 09/09/24 H istory Have you fallen in the past year?: No PFSH Medical History Lower extremity neuropathy Chronic low back pain Osteoarthritis Erectile dysfunction Ventral hernia Hypertension Surgical History History of knee replacement Previous back surgery Social History Smoking Status: Former smoker how long ago did patient quit smoking: Quit 30 years ago alcohol intake: former details: Patient reports he drank heavily until about 41 years of age substance use type: does not use HPI BILATERAL HIPS Details: This documentation accurately reflects the service provided and the decisions made by me, Dr. Víctor Sherwood, DO 09/09/2415. Part of today???s visit was documented by Jae Mercado MA, acting as scribe. LAM SANCHEZ is a 64 year old M here today for Bilateral hip pain. His left really is not giving him much problem his right is giving him more of an issue. The pain is mostly posterior lateral radiates into the glue and low back, he is starting to have occasional lesser degree groin pain. patient would like to get an MRI done on both hips, to see what the next step is. The right hip is a constant pain. He states that the pain is so bad, he is unable to walk. He did have an injection into both hips by Dr. Flores, and this did not provide him with even temporary relief of his symptoms. He did do physical therapy which made his pain worse. Patient did not have the lumbar spine MRI that was ordered by Cindy Villegas he says it was denied by insurance because he did not do physical therapy he has subsequently done physical therapy and it has not improved his symptoms. He has had x-rays of his lumbar spine demonstrating multilevel degenerative disc disease and severe lumbar spondylosis with symptoms radiating to his feet. 08/05/2024 visit: LAM SANCHEZ is a 64 year old M with medical history significant for but not limited to lumbar stenosis with neurogenic claudication awaiting MRI , pancreatic mass, cholelithiasis, transaminitis, hyperbilirubinemia, on gabapentin, tramadol, trazodone here today for Bilateral hip pain right worse then left. This has been going on since May 2024. He went to the ER 05/11/2024, they did xrays on his back. He got a shot in the butt to help the pain. Patient states he has an appointment tomorrow with Dr. Flores to do an epidural. Denies any hip surgery or prior physical therapy for her back or hips. he does have pain mostly on the lateral side of his hip into the groin as well also radiating into the gluteal low back. Patient has had numbness and tingling going down the legs and the feet and the toes. Sometimes his toes turn purple and then they go away. The hips hurt worse when walking. Pain has progressively gotten worse. History of bilateral TKA. Patient complains of pain that goes down into the feet. Numbness/tingling in the legs. Patient has had 2 prior back surgeries. . Plan:Obtained and reviewed hip imaging with the patient today I think he does have some confusion about his medical treatment. I explained to him the MRI that was ordered was an MRI of his lumbar spine by Cindy Villegas. explained that the left hip does show significant arthritis however his right hip does not and it is right hip that is the most symptomatic. He does have significant lumbar spondylosis and MRI was recommended recently ordered for his radicular symptoms , unfortunately was denied since he not do physical therapy. I do recommend he does physical therapy for his back and hips; if after therapy he is not much improved would r (more content not included)... Normal [facility] PT D/C Summary (1)on 025 PT D/C Summary (1) [facility] Physical Therapy [facility] [address] [place] [address]. [address] [place] [address] / REHABILITATION SERVICES DISCHARGE SUMMARY MR#: [id number] Acct: [id number] Name: LAM SANCHEZ Rep #: [id number] : 1960 64 From: Marry WOMACK Referring Dr.: Dr. Sage Flores MD Status: REG RCR [facility] JUST FOR ME SELF PAY INSURANCE Discharge Summary D/C summary: It has been my pleasure to treat LAM SANCHEZ referred by Dr. Sage Flores MD, with the diagnosis of back and hip pain for a total of 5 visit(s). Discharge Date: 09/01/24 Please see the following information for a summary of their discharge status. Subjective Subjective: Pt reports that he is in a lot of pain today and he said that the stretching (piriformis stretch) really flared him up. He is worse walking the last few times he has been here. He sees his Dr resendiz. He does exercise on his own but has to be careful not to flare his hips up so he works out doing upper body. Even walking into the gym hurts. He reports that even his calves are tight. He wants to be able to walk normal again. Pain back pain: Pain Intensity (Out of 10): 3 R hip pain: Pain Intensity (Out of 10): 3 L hip pain: Pain Intensity (Out of 10): 6 Overall Improvement % Improvement: 0 Objective Objective/Function: Pt still walks with WBOS and shorter stride. Decrease stance time on the L LE today. He is walking very slow and stiff today. Goals Goal 1:: I HEP Goal Progress: Goal Met Goal 2:: Decrease hip and back pain by 20% Goal Progress: Not Progressing Goal 3:: Be able to walk with increase stride length and more equal stance time Goal Progress: Not Progressing Plan Plan: DC PT back to as pt is not getting any better and actually feeling worse since starting PT. Pt is very frustrated as he feels he is not getting anywhere D/C Information Discharge Comments: DC PT back to d/c sentence: If there are questions or concerns regarding this patient's physical therapy, please feel free to call me at [phone]. Thank you for the referral of this patient. Sincerely, Marry Stoner, MPT Balance/Gait/Functional tests Balance/Special Test Scores Lower Extremity Functional Score: 27 Improvement % Improvement: 0 09/01/24 1031 CC: Dr. Sage Flores MD; Dr. Bonilla Ryan MD Signed Normal [facility] Re-Evaluation - PT (1)on Re-Evaluation - PT (1) [facility] Physical Therapy [facility] [address] [place] [address] / REEVALUATION / MEDICARE RECERTIFICATION PHYSICAL THERAPY MR#: [id number] Acct: [id number] Name: LAM SANCHEZ Rep #: [id number] : 1960 64 From: Marry WOMACK Referring Dr.: Dr. Sage Flores MD Status:REG RCR Insurance: [facility] JUST FOR ME SELF PAY INSURANCE Re-Evaluation Intro: Dr. Sage Flores MD, It has been my pleasure to treat LAM SANCHEZ over the last 5 visits for back and hip pain. Please see the progress note below for an update on the physical therapy plan of care! Subjective Subjective: Pt reports that he is in a lot of pain today and he said that the stretching (piriformis stretch) really flared him up. He is worse walking the last few times he has been here. He sees his Dr astrid. He does exercise on his own but has to be careful not to flare his hips up so he works out doing upper body. Even walking into the gym hurts. He reports that even his calves are tight. He wants to be able to walk normal again. Objective Objective/Function: Pt still walks with WBOS and shorter stride. Decrease stance time on the L LE today. He is walking very slow and stiff today. Plan Plan Plan: DC PT back to as pt is not getting any better and actually feeling worse since starting PT. Pt is very frustrated as he feels he is not getting anywhere Balance/Gait/Functional tests Balance/Special Test Scores Lower Extremity Functional Score: 27 Goals Goals Goal 1:: I HEP Goal Time Frame: 4-6 Weeks Goal Progress: Goal Met Goal 2:: Decrease hip and back pain by 20% Goal Time Frame: 4-6 Weeks Goal Progress: Not Progressing Goal 3:: Be able to walk with increase stride length and more equal stance time Goal Time Frame: 4-6 Weeks Goal Progress: Not Progressing Anticipated Interventions Anticipated Interventions Patient/Client Instruction: Educate patient on: Condition and Plan of Care For the Purpose of:: To decrease pain, To increase ROM, To improve nutrient delivery to tissue, To improve muscle performance and motor function, To improve ability to perform ADL's, To increase tolerance to activity/condition/positi on, To improve performance and independence with ADL's, To improve ability of physical actions for home/community/work/leisu re, To improve gait and locomotor functions, To improve health of tissue, To decrease soft tissue restriction and To increase flexibility/ROM Therapeutic Exercise to Include: Strength training, Postural training, Flexibilty training, Gait and locomotor training, Neuromotor development, Passive ROM, Active ROM, Dynamic Lumbar Stabilization and Scapular Strength/Stabilization For the Purpose of:: To decrease pain, To increase ROM, To improve nutrient delivery to tissue, To improve muscle performance and motor function, To improve ability to perform ADL's, To increase tolerance to activity/condition/positi on, To improve performance and independence with ADL's, To decrease level of supervision to perform tasks, To improve ability of physical actions for home/community/work/leisu re, To improve gait and locomotor functions, To improve health of tissue, To decrease soft tissue restriction, To increase flexibility/ROM, To improve endurance, To improve balance and To improve safety with gait Functional Training to Include: Gait training For the Purpose of:: To improve gait and locomotor functions Manual Therapy Techniques to Include: Passive ROM For the Purpose of:: To improve nutrient delivery to tissue, To improve muscle performance and motor function, To improve ability to perform ADL's, To improve health of tissue and To increase flexi bility/ROM Re-Evaluation Ending Re-evaluation ending: Please do not hesitate to contact me at [phone] by phone or if you have questions or concerns regarding this new plan of care! Sincerely, Marry Stapleton, SHANTA 09/01/24 1034 CC: Dr. Sage Flores MD; Dr. Bonilla Ryan MD Signed For Medicare only, by signing this I certify the plan of care. ___ Physicians Signature Date Normal [facility] Inital Evaluation (1) - PTon 08-21-2024 Inital Evaluation (1) - PT [facility] Physical Therapy [facility] [address] [place] [address] / REHABILITATION SERVICES INITIAL EVALUATION MR#: [id number] Acct: [id number] Name: LAM SANCHEZ Rep #: [id number] : 1960 64 From: Marry WOMACK Referring Dr.: Dr. Sage Flores MD Status: REG R Insurance: [facility] JUST FOR ME SELF PAY INSURANCE Patient's Visit Information Visit Information Visit Information: LAM SANCHEZ is a 64 year old M referred to Physical Therapy by Dr. Sage Flores MD with a diagnosis of back and hip pain. Date of Evaluation: 08/21/24 Physical Therapist: SHANTA Calderon Visit Plan Frequency: 2x /Week Duration: 4 Weeks Plan: 2X/ week for 4 weeks for HEP for LE hip flexibility within pain tolerance, LTR, Core stability, L ankle DF strength, gait training with HEP HEP: LTR, SLR, Bridges Subjective Subjective: This started 6 months ago (he has B hip bone on bone but the R is painful but the L is worse). Pt needs an MRI but has to do PT. He needs a hip replacement but can not have it for 3 months due to having injections. He is getting tired of the pain because he has been dealing with it for 6 months. He feels like he has ruptured a disc as he has done that twice before. Pt can not walk unless he takes Tramadol and Gabapentin and that is starting to not work because he has been taking it for a year. He does work out but he does upper body only. He is able to sleep ok. If he moves wrong he might wake right up. He has pain on the upper thighs, groin, and side of his hips. Stairs: up and down with hand rail Pain back pain: Pain Intensity (Out of 10): 2 Pain Intensity Range: 5 Comment: with walking and meds R hip pain: Pain Intensity (Out of 10): 5 Comment: with meds L hip pain: Pain Intensity (Out of 10): 1 Comment: with meds Objective Objective: Gait: He walks with decrease stance time on the L and decreased stride length with WBOS and decreased trunk movement with gait and flexed posture. He almost has to drag his L LE and his speed of gait is decreased Pt is unable to raise his L foot into DF and has limited DF on the R LTR: increase tightness B Trunk AROM: flexion 75%, Ext 25%, Rot B 50%, SB B 50% Prone lying.. ADRIANA some tightness in his back LE MMT: R hip flex 15.9 and L 17.1 R knee ext 27.5 and L 28.2 R knee flex 15.2 and L 14.4 R hip abd 4-/5 and L 4-/5 Increase pain with R>L hip IR and ER and some pain with hip flexion Tight piriformis length B and decreased Quad flexibility Pt is able to bridge with decrease ROM and some increase pain and L HS cramping Balance/Special Test Scores Lower Extremity Functional Score: 26 Goals Goal 1:: I HEP Goal Time Frame: 4-6 Weeks Goal 2:: Decrease hip and back pain by 20% Goal Time Frame: 4-6 Weeks Goal 3:: Be able to walk with increase stride length and more equal stance time Goal Time Frame: 4-6 Weeks Rehabilitation Potential Rehabilitation Potential: Fair Anticipated Interventions Patient/Client Instruction: Educate patient on: Condition and Plan of Care For the Purpose of:: To decrease pain, To increase ROM, To improve nutrient delivery to tissue, To improve muscle performance and motor function, To improve ability to perform ADL's, To increase tolerance to activity/condition/positi on, To improve performance and independence with ADL's, To improve ability of physical actions for home/community/work/leisu re, To improve gait and locomotor functions, To improve health of tissue, To decrease soft tissue restriction and To increase flexibility/ROM Therapeutic Exercise to Include: Strength training, Postural training, Flexibilty training, Gait and locomotor training, Neuromotor development, Passive ROM, Active ROM, Dynamic Lumbar Stabilization and Scapular Strength/Stabilization For the Purpose of:: To decrease pain, To increase ROM, To improve nutrient delivery to tissue, To improve muscle performance and motor function, To improve ability to perform ADL's, To increase tolerance to activity/condition/positi on, To improve performance and independence with ADL's, To decrease level of supervision to perform tasks, To improve ability of physical actions for home/community/work/leisu re, To improve gait and locomotor functions, To improve health of tissue, To decrease soft tissue restriction, To increase flexibility/ROM, To improve endurance, To improve balance and To improve safety with gait Functional Training to Include: Gait training For the Purpose of:: To improve gait and locomotor functions Manual Therapy Techniques to Include: Passive ROM For the Purpose of:: To improve nutrient delivery to tissue, To improve muscle performance and motor function, To improve ability to perform ADL's, To improve health of tissue and To increase flexibility/ROM Text: Than (more content not included)... Normal [facility] Hips B/L min 2 views w/ Pelv bhupinder 08-05-2024 Hips B/L min 2 views w/ Pelvis [facility] [address] [place], [place] [address] Hips B/L min 2 views w/ Pelvis MR#: [id number] Acct: [id number] Name: LAM SANCHEZ Rep #: [id number] : 1960 M 64 From: Nithin Hou MD PCP: Dr. Bonilla Ryan MD Status: DEP AMB Study: Hips B/L min 2 views w/ Pelvis Date of Exam: 0 08/05/24 Exam# [id number] Ordering Dr: Víctor Sherwood DO EXAM: XR Bilateral Hips With Pelvis When Performed, 2 or 3 Views CLINICAL INDICATION: BL HIP PAIN, CHRONIC TECHNIQUE: Three or four views of the bilateral hips with pelvis when performed. COMPARISON: No relevant prior studies available. FINDINGS: BONES/JOINTS: Mild right and moderate left degenerative changes of the hip joints. No acute fracture. No dislocation. SOFT TISSUES: Unremarkable. RAD/Hips B/L min 2 views w/ Pelvis IMPRESSION: Degenerative changes as above. Reading Location: [facility] CC: Dr. Bonilla Ryan MD; Dr. Víctor Sherwood DO Clinical Biochemical Geneticist: Signed Normal [facility] Orthopedic Visit Reporton Orthopedic Visit Report [facility] [address] [place] [address] [address] [place] [address] OFFICE VISIT Date of Service: 08/05/24 MR#: [id number] Acct: [id number] Name: LAM SANCHEZ Rep #: [id number] : 1960 Provider: Dr. Víctor morrison DO Age/Sex: 64/M [place] [facility] Status: Signed Intake Vital Signs 07/13/24 10:37 08/04/24 15:10 08/05/24 08:58 Height 5 ft 10 in 5 ft 10 in 5 ft 10 in Weight: 241 lb 8 oz 230 lb BMI 34.6 33.0 Intake Visit Reasons: BL HIP Chief Complaint: BL hip pain Accompanied by: Mother Is patient in pain?: Yes Pain scale (1-10): 5 Allergies acetaminophen (From Tylenol) Allergy (Severe, Verified 08/05/24 09:03) Nausea Medications ???Medication ???Instructions ???Recorded ???Confirmed ???Type gabapentin 600 mg tablet 600 mg PO TID NEUROPATHY 01/30/23 08/05/24 History creatine monohydrate 5,000 mg oral mg PO 07/13/24 08/05/24 History powder packet testosterone 25 mg implant pellet mg implant 07/13/24 08/05/24 Hist ory tramadol 50 mg tablet 50 mg PO BID PRN 07/13/24 08/05/24 History trazodone 100 mg tablet 100 mg PO QDAY 08/05/24 08/05/24 H istory Have you fallen in the past year?: No PFSH Medical History Lower extremity neuropathy Chronic low back pain Osteoarthritis Erectile dysfunction Ventral hernia Hypertension Surgical History History of knee replacement Previous back surgery Social History Smoking Status: Former smoker how long ago did patient quit smoking: Quit 30 years ago alcohol intake: former details: Patient reports he drank heavily until about 41 years of age substance use type: does not use HPI BL HIP Details: This documentation accurately reflects the service provided and the decisions made by me, Dr. Víctor Sherwood, DO 08/05/24 0758. Part of today???s visit was documented by Jae Izquierdo MA, acting as scribe. LAM SANCHEZ is a 64 year old M with a medical history of known lumbar stenosis with neurogenic claudication currently waiting on MRI of lumbar spine ,on gabapentin tramadol and trazodone here today for Bilateral hip pain, right worse then left. This has been going on since May 2024. He went to the ER 05/11/2024, they did xrays on his back. He got a shot in the butt to help the pain. Patient states he has an appointment tomorrow with Dr. Flores to do an epidural. Denies any hip surgery or prior physical therapy for her back or hips. he does have pain mostly on the lateral side of his hip into the groin as well also radiating into the gluteal low back. Patient has had numbness and tingling going down the legs and the feet and the toes. Sometimes his toes turn purple and then they go away. The hips hurt worse when walking. Pain has progressively gotten worse. History of bilateral TKA. Patient complains of pain that goes down into the feet. Numbness/tingling in the legs. Patient has had 2 prior back surgeries. . Ortho Exam General General: Yes no acute distress and Yes well groomed Neurologic: Yes alert and Yes oriented x3 Right Hip Skin: Yes CDI, No Ecchymosis, No soft tissue swelling and No Erythema Special Tests: No iliopsoas snap and No IT band snap HIP: tenderness in gluteus medius + seated root IR 5 with lateral sided hip pain no groin pain ER 20 with lateral sided hip pain no groin pain pain in the glute up to the lumbar spine Left Hip Skin/Wound: Yes CDI, No Ecchymosis, No soft tissue swelling and No Erythema Hip: Absent eccymosis, soft tissue swelling or erythema Homans Sign: No HIP: tenderness in gluteus medius + seated root IR 5 with lateral sided hip pain no groin pain ER 20 with lateral sided hip pain no groin pain pain in the glute up to the lumbar spine Supplemental Info 08/05/2024 x-ray bilateral hips: Left hip does show severe superior joint space narrowing there is mild subchondral cystic changes of the femoral head and mild subchondral sclerosis. The right hip shows only mild joint space narrowing of note there is degenerative changes noted of the lower lumbar spine. 07/13/2024 x-ray lumbar spine: Multilevel endplate spondylosis multilevel degenerative disc disease with multilevel disc space narrowing. Coding Level of Care Code Off vis,est,level 3 Diagnoses Lumbar stenosis with neurogenic claudication M48.062 Primary osteoarthritis of left hip M16.12 Osteoarthritis type: primary Right hip pain M25.551 Assessment and Plan Assessment and Plan (1) Lumbar stenosis with neurogenic claudication: Status: Acute (2) Degenerative joint disease of left hip: Status: Acute Qualifiers: Osteoar (more content not included)... Normal [facility] L/S Spine Bending Flex/Emerado 07-13-2024 L/S Spine Bending Flex/Ext [facility] [address] [place] [address] L/S Spine Bending Flex/Ext MR#: [id number] Acct: [id number] Name: LAM SANCHEZ Rep #: [id number] : 1960 M 64 From: Nithin Phillips MD PCP: Dr. Bonilla Ryan MD Status: DEP AMB Study: L/S Spine Bending Flex/Ext Date of Exam: 07/13 Exam# [id number] Ordering Dr: Zoraida Villegas PROCEDURE: L/S SPINE BENDING FLEX/EXT ([id number]), 07/13/2024 REASON FOR EXAM: Chronic pain TECHNIQUE: Lateral views of the lumbar spine were obtained in flexion and extension. COMPARISON: None FINDINGS: Fracture/dislocation: None visible on single projection. Vertebral body heights: Preserved. Alignment: Note evaluation is limited in the absence of an AP view. Suspect trace likely degenerative anterolisthesis at L5-S1. Trace likely degenerative retrolisthesis at L2-L3. No abnormal motion with flexion or extension, however decreased motion is noted. Disc spaces: Variable disc height loss up to moderate from L3-S1 with osteophytes with an including possible ankylosis anteriorly. Facets: Facet arthropathy greatest from L3-S1. Soft tissues: Atherosclerosis Foreign bodies: None visible. Bone mineralization: Grossly unremarkable. RAD/L/S Spine Bending Flex/Ext IMPRESSION: 1. No visible acute abnormality in the absence of an AP view. 2. Multilevel spondylosis as above greatest from L3-S1. 3. Additional description as above. Reading Location: [id number] CC: DAVID Montero; Dr. Bonilla Ryan MD Clinical Biochemical Geneticist: Signed Normal [facility] Orthopedic Visit Reporton Orthopedic Visit Report [facility] [address] [place] [address] OFFICE VISIT Date of Service: 07/13/24 MR#: [id number] Acct: [id number] Name: LAM SANCHEZ Rep #: [id number] : 1960 Provider: DAVID Montero Age/Sex: 64/M [place] [facility] Status: Signed Intake Vital Signs 05/11/24 14:04 07/13/24 10:37 Height 5 ft 10 in 5 ft 10 in Weight: 241 lb 8 oz BMI 34.6 Intake Visit Reasons: LUMBAR SPINE Chief Complaint: Lumbar spine pain Accompanied by: Mother Is patient in pain?: Yes Pain scale (1-10): 4 Allergies No Known Allergies Allergy (Verified 07/13/24 10:38) Medications ???Medication ???Instructions ???Recorded ???Confirmed ???Type gabapentin 600 mg tablet 600 mg PO TID NEUROPATHY 01/30/23 07/13/24 History creatine monohydrate 5,000 mg oral mg PO 07/13/24 07/13/24 History powder packet testosterone 25 mg implant pellet mg implant 07/13/24 07/13/24 Hist ory tramadol 50 mg tablet 50 mg PO BID PRN 07/13/24 07/13/24 History trazodone 100 mg tablet 100 mg PO QHS 07/13/24 07/13/24 Hi story Have you fallen in the past year?: No PFSH Medical History Lower extremity neuropathy Chronic low back pain Osteoarthritis Erectile dysfunction Ventral hernia Hypertension Surgical History History of knee replacement Previous back surgery Social History Smoking Status: Former smoker how long ago did patient quit smoking: Quit 30 years ago alcohol intake: former details: Patient reports he drank heavily until about 41 years of age substance use type: does not use HPI LUMBAR SPINE Details: This documentation accurately reflects the service provided and the decisions made by me, DAVID Montero 07/13/24 1037. Part of today???s visit was documented by Jae Izquierdo MA, acting as scribe. LAM SANCHEZ is a 64 year old M here today for lumbar spine pain. This started on . Went to the ER 05/11/2024. They took xrays of the back. Dr. Ryan stated the xrays showed scar tissue and arthritis. Says that the pain extends down both legs with pain in the hips and anterior thighs he also reports that he gets numb feet bilaterally and swollen ankles. Says that walking increases the pain and he can only walk about 200 to 300 feet before he needs to sit down and lean forward which relieves his pain. He says that he relies on a shopping cart to lean on when grocery shopping. Patient denies physical therapy on the back. He got shots in his back 37 years ago at [facility]. Heat and ice doesn't work. He sates that walking is the worst. It hurts so bad that the pain goes down to the hips and then to the groin, and then goes all the way down to the knees. He sometimes gets numbness in his feet. The pain is mainly above L4. Patient has to take a sleeping pill to get to bed because the pain is so bad. He would like to have an MRI done. Discectomy in the past at [facility] from L4-S1 which is about 37 years ago. He has been taking tramadol from Dr. Ryan for his back pain. He has continued to workout since the onset of his symptoms however he primarily only works out his upper arm since that he has the low back pain. No diabetes, no heart or lung issues, no blood thinners. Ortho Exam General General: Yes no acute distress Neurologic: Yes alert and Yes oriented x3 Spine SPINE TESTING CERVICAL THORACIC LUMBAR Musculoskeletal Strength 0=absent - 5=normal Details: Neurological exam of the lower extremities shows 5x5 power. Normal sensations across all dermatomes. No hyperreflexia. No midline or paraspinal tenderness. Internal and external rotation range of motion of the left hip causes significant pain. Physical examination of the back shows a well- healed midline incision. Coding Level of Care Code Off vis,new,level 4 Diagnoses Lumbar stenosis with neurogenic claudication M48.062 Degeneration of intervertebral disc of lumbar region with discogenic back pain and lower extremity pain M51.362 Disc-related pain type: discogenic back pain and lower extremity pain Primary osteoarthritis of left hip M16.12 Osteoarthritis type: primary Assessment and Plan Assessment and Plan (1) Lumbar stenosis with neurogenic claudication: Status: Acute (2) Degenerative disc disease, lumbar: Qualifiers: Disc-related pain type: discogenic back pain and lower extremity pain Qualified Code(s): M51.362 - Other intervertebral disc degeneration, lumbar region with discogenic back pain and lower extremity pain (3) Osteoarthritis of left hip: Qualifiers: Osteoarthritis type: primary Qualified Cod (more content not included)... Normal [facility] Emergency Department Summary on 05-11-2024 Emergency Department Summary [facility] Medical Records Department [address] [place] [id number] Emergency Department Summary 05/11/24 MR#: [id number] Acct: [id number] Name: LAM SANCHEZ Rep #: [id number] : 1960 64 From: Will Sr DO PCP: Dr. Bonilla Ryan MD Status:REG ER Location: ED HPI History of Present Illness Chief Complaint: Back Narrative Narrative: Patient is a 64-year-old male past medical history of pancreatic mass and jaundice status post stent placement, hernia, previous herniated disc several years ago who presents to the emergency department with a chief complaint of low back pain radiating down to his left knee. He states that about 4 days ago he was woken up in the middle the night with this pain. He states that he thought things would improve however they have not therefore he came here for the valuation management. Patient states that he called his primary care physician and they could not get him until July to be seen and therefore he came here for further evaluation management. Patient denies any trauma or injuries. Denies bending over picking anything up heavy. Patient states that has been urinating normally for himself and having normal bowel movements. Patient states that he does not have a history of IV drug use, denies any alcohol use. [facility] Medical History Lower extremity neuropathy Chronic low back pain Osteoarthritis Erectile dysfunction Ventral hernia Hypertension Home Medications ???Medication ???Instructions ???Recorded ???Last Taken ???Type gabapentin 600 mg tablet 600 mg PO TID NEUROPATHY 01/30/23 01/30/23 History cholestyramine (with sugar) 4 gram 4 g PO DAILY@1999 #60 ea 02/01/23 Unknown Rx powder for susp in a packet diphenhydramine HCl 25 mg capsule 25 mg PO Q6H PRN itching #30 caps 02/01/23 Unknown Rx lidocaine 5 % topical patch 1 patch topical DAILY #15 ea 05/11/24 Unknown Rx methylprednisolone 4 mg tablets in See Rx Instructions PO .COMPLEX 05/11/24 Unknown Rx a dose pack #21 tabs ondansetron 4 mg disintegrating 4 mg PO Q6H PRN nausea and 05/11/24 Unknown Rx tablet vomiting #30 tabs oxycodone-acetaminophen 5 mg-325 1 tab PO Q6H PRN pain 3 days #12 05/11/24 Unknown Rx mg tablet (Endocet) tabs Allergy/AdvReac Type Severity Reaction Status Date / Time No Known Allergies Allergy Verified 05/11/24 14:04 Surgical History History of knee replacement Previous back surgery Social History Smoking Status: Former smoker how long ago did patient quit smoking: Quit 30 years ago alcohol intake: former details: Patient reports he drank heavily until about 41 years of age substance use type: does not use ROS ROS ED ROS Narrative Constitutional: Denies any fevers, chills, headaches malaise, dizziness Eyes: Denies change in vision double vision blurry vision Cardiovascular: Denies chest pain palpitations Respiratory: Denies coughing wheezing shortness of breath Abdomen: Denies abdominal pain nausea vomiting diarrhea : Denies any urinary symptoms Neurological: Complains of shooting pain down his left leg into his knee as noted above denies numbness, weakness, tingling Musculoskeletal: Complains of back pain as noted above Skin: Denies rashes lesions EXAM Physical Exam Narrative Exam Narrative: General: Patient lying in bed rest comfortably did not appear to be in acute distress Head: Atraumatic, normocephalic Eyes: PERRL bilaterally, EOMI biotic no conjunctival injection noted Neck: Soft, supple, trach midline Cardiovascular: Patient tachycardic with a regular rate no murmurs gallops or rubs are noted Respiratory: Clear to auscultation bilaterally Abdomen: Soft, nondistended, nontender to palpation, bowel sounds present x 4 Musculoskeletal: No tenderness palpation midline of the thoracolumbar spine Extremities: +5/5 strength noted in the bilateral upper and lower extremities, DP pulses +2/4 in the bilateral lower extremities, no pedal edema noted on exam Neurological: Patient follow commands knew he was at [facility] year is 2024. Sensation grossly intact no saddle anesthesia noted Skin: Warm, dry, intact no rashes or lesions noted Const Vital Signs: 05/11/24 14:04 05/11/24 18:03 Temperature 97 F L Temperature Source Temporal Pulse Rate 110 H Respiratory Rate 18 Blood Pressure 168/97 H 139/78 H Blood Pressure Mean 120 98 Pulse Ox 98 Oxygen Delivery Method Room Air MDM MDM MDM Narrative Medical decision making narrative: Patient is a 64-year-old male who presents to the emergency department with a chief complaint of low back pain rating down his left leg into his knee. O (more content not included)... Normal [facility] L/S Spine Min 4 Viewson L/S Spine Min 4 Views [facility] [address] [place], [place] [address] (564) L/S Spine Min 4 Views MR#: [id number] Acct: [id number] Name: LAURALAM QUESADA Rep #: [id number] : 1960 M 64 From: Jaden Bundy MD PCP: Dr. Bonilla Ryan MD Status: REG ER Study: L/S Spine Min 4 Views Date of Exam: 05/11/24 Exam# [id number] Ordering Dr: Will Sr DO [id number] STUDY: X-RAY - LUMBAR SPINE REASON FOR EXAM: Male, 64 years old. Pain radiating to left knee TECHNIQUE: 5 view(s) of the lumbar spine were obtained. COMPARISON: None FINDINGS: Normal lumbar lordosis. There is a levoscoliosis of the lumbar spine. There is multilevel endplate spondylosis of the lumbar vertebrae. There is multi-level degenerative disc disease with multi-level disc space narrowing. There is no demonstrated fracture. The soft tissue structures are unremarkable. RAD/L/S Spine Min 4 Views IMPRESSION: Scoliosis and degenerative change. Electronically Signed: Jaden Bundy MD at 19:54 EST , CC: Dr. Bonilla Ryan MD; Dr. Will Sr DO Clinical Biochemical Geneticist: Signed Normal [facility] Amylaseon 05-03-2023 Amylase (Body fld) [Catalytic activity/Vol] >6000 Normal Not established. [facility] Comment on above: Order Comment: The p erformance characteristics of this test have been validated on peritoneal/ascites,pleural, pericardial, drain, and liver/pancreatic cyst fluid by the [facility] laboratory. This test has not been approved by the FDA; however, such approval is not necessary. Performed By: #### 1 795-4 #### KANDACE Newell ([id number]) [facility] ([facility]) [address] [place] [address] Amylase (Body fld) [Catalyti c activity/Vol]on 05-03-2023 The performance characteristics of this test have been validated on peritoneal/ascites,pleura l, pericardial, drain, and liver/pancreatic cyst fluid by the performing [facility] laboratory. This test has not been approved by the FDA; however, such approval is not necessary. [facility] Amylase, Fluidon 05-03-2023 Amylase (Body fld) [Catalytic activity/Vol] U/L Not established. U/L [facility] Carcinoembryonic Agon 2022 Carcinoembryonic Ag (Body fld) [Mass/Vol] 488.0 ug/L [facility] Comment on above: Order Comment: The p erformance characteristics of this test have been validated on peritoneal/ascites,pleural,pericardial, and liver/pancreatic cyst fluid by the performing [facility] laboratory. This test has not been approved by the FDA; however, such approval is not necessary. CEA testing is performed by chemiluminescent immunoassay using the [employer]. Values obtained with different analytic methods cannot be used interchangeably. Performed By: #### 1 2515-3 #### KANDACE Newell ([id number]) [facility] ([facility]) [address] [place] [address] Carcinoembryonic Ag (Body fl d) [Mass/Vol]on 05-03-2023 The performance characteristics of this test have been validated on peritoneal/ascites,pleura l,pericardial, and liver/pancreatic cyst fluid by the performing [facility] laboratory. This test has not been approved by the FDA; however, such approval is not necessary. CEA testing is performed by chemiluminescent immunoassay using the Siem[employer]ell[employer]. Values obtained with different analytic methods cannot be used interchangeably. [facility] Carcinoembryonic Antigen, Fl uidon 05-03-2023 Carcinoembryonic Ag (Body fld) [Mass/Vol] 488.0 ug/L [facility] ENDOSCOPIC ULTRASOUND (UPPER )on 05-03-2023 ENDOSCOPIC ULTRASOUND (UPPER) Table formatting from the original result was not included. [facility] ERCPon 12-29-2023 ERCP Table formatting fro m the original result was not included. [facility] ERCP Study observation Idalmis lerma 05-03-2023 Table formatting fro m the original result was not included. Impression Moderately redundant overlying duodenal folds. Complete biliary sphincterotomy was performed. Multiple sweeps were performed in the common bile duct. No stones or sludge. No evidence of stricture. Cystic duct was patent, stone in GB was seen. Findings The major papilla was lytton. The major papilla had a normal appearance, but moderately redundant overlying duodenal folds. The common bile duct was cannulated using a traction sphincterotome with guidewire. Contrast was injected. Complete 7 mm biliary sphincterotomy was performed using a sphincterotome. No bleeding was noted at the procedure site. Multiple sweeps were performed in the common bile duct. No stones, sludge or stricture was noted. Cystic duct was patent with stone noted in GB lumen. Recommendation Follow up with primary binder operator Evaluation for cholecystectomy. - Patient has a contact number available for emergencies. The signs and symptoms of potential delayed complications were discussed with the patient. Return to normal activities tomorrow. Written discharge instructions were provided to the patient. - Resume previous diet. - Continue present medications. - The findings and recommendations were discussed with the patient. Indication Jaundice Staff Staff Role Ellen Noriega MD Proceduralist Medications See Anesthesia Record. Preprocedure A history and physical has been performed, and patient medication allergies have been reviewed. The patient's tolerance of previous anesthesia has been reviewed. The risks and benefits of the procedure and the sedation options and risks were discussed with the patient. All questions were answered and informed consent obtained. Rectal Indomethacin was not administered. Details of the Procedure The patient underwent general anesthesia, which was administered by an anesthesia professional. The patient's blood pressure, heart rate, level of consciousness, oxygen, respirations, ECG and ETCO2 were monitored throughout the procedure. The scope was introduced through the mouth and advanced to the second part of the duodenum. The patient experienced no blood loss. The procedure was not difficult. The patient tolerated the procedure well. There were no apparent adverse events. Events Procedure Events Event Event Time ENDO SCOPE IN TIME 05/03/2023 3:15 PM ENDO SCOPE OUT TIME 05/03/2023 3:46 PM Specimens ID Type Source Tests Collected by Time 1 : Uncinate Process Non-Gynecologic Cytology PANCREAS CYST FINE NEEDLE ASPIRATION CYTOLOGY CONSULTATION (NON-GYNECOLOGIC) Ellen Noriega MD 05/03/2023 1525 A : Uncinate Process Liver/Pancreatic Cyst Cyst, Pancreas AMYLASE, FLUID, CARCINOEMBRYONIC ANTIGEN, FLUID, GLUCOSE, FLUID Ellen Noriega MD 05/03/2023 1536 Procedure Location [facility] [address] [facility] [id number] Referring Provider Kristen Seth [place] [address] [address] Department Of Surgery-[place] [address] Procedure Provider Ellen Noriega MD [facility] Work Phone: [facility] Work Phone: These images are not reportable by radiology and will not be interpreted by Radiologists. IMAGING Endoscopic Ultrasound (Upper ) w FNAon 05-03-2023 Table formatting fro m the original result was not included. Impression EGD: The esophagus, stomach and duodenum appeared normal. Prior reported biliary stent was not visualized. EUS: The gallbladder was visualized. The gallbladder contained large stone. Mild wall thickness was noted. The bile duct appeared normal. Stent was not seen. The pancreatic parenchyma was visualized in the entire pancreas. The parenchyma had generalized hyperechoic strands and scattered lobularity. One cyst measuring 18 mm x 12 mm with well-defined and smooth margins. Fine needle aspiration passes were taken. A sample of clear and thick-appearing aspirate was obtained. The sample was sent for fluid analysis (CEA, glucose and amylase) as well as cytology analysis. The parenchyma was visualized in the left lobe of the liver. Findings EGD: The esophagus, stomach and duodenum appeared normal. Prior reported biliary stent was not visualized. EUS: The gallbladder was visualized. The gallbladder contained large stone. Mild wall thickness was noted. The bile duct appeared normal. Stent was not seen. The pancreatic parenchyma was visualized in the entire pancreas. The parenchyma had generalized hyperechoic strands and scattered lobularity.The pancreatic duct measured 3 mm at the head and 2 mm at the body. One cyst measuring 18 mm x 12 mm with well-defined and smooth margins. Fine needle aspiration passes were taken with a 22 gauge needle using a transduodenal approach. A sample of clear and thick-appearing aspirate was obtained. The sample was sent for fluid analysis and cytology analysis. The parenchyma was visualized in the left lobe of the liver. Recommendation Await pathology results Proceed with ERCP. Indication Jaundice, Biliary stricture, Mass of head of pancreas Staff Staff Role Ellen Noriega MD Proceduralist Medications See Anesthesia Record. Preprocedure A history and physical has been performed, and patient medication allergies have been reviewed. The patient's tolerance of previous anesthesia has been reviewed. The risks and benefits of the procedure and the sedation options and risks were discussed with the patient. All questions were answered and informed consent obtained. Details of the Procedure The patient underwent general anesthesia, which was administered by an anesthesia professional. The patient's blood pressure, heart rate, level of consciousness, oxygen, respirations, ECG and ETCO2 were monitored throughout the procedure. The gastroscope and linear scope were introduced through the mouth and advanced to the second part of the duodenum. Retroflexion was performed in the cardia. The patient experienced no blood loss. The procedure was not difficult. The patient tolerated the procedure well. There were no apparent adverse events. Events Procedure Events Event Event Time ENDO SCOPE IN TIME 05/03/2023 3:15 PM ENDO SCOPE OUT TIME 05/03/2023 3:46 PM Specimens ID Type Source Tests Collected by Time 1 : Uncinate Process Non-Gynecologic Cytology PANCREAS CYST FINE NEEDLE ASPIRATION CYTOLOGY CONSULTATION (NON-GYNECOLOGIC) Ellen Noriega MD 05/03/2023 1525 A : Uncinate Process Liver/Pancreatic Cyst Cyst, Pancreas AMYLASE, FLUID, CARCINOEMBRYONIC ANTIGEN, FLUID, GLUCOSE, FLUID Ellen Noriega MD 05/03/2023 1536 Procedure Location [address] [address] Referring Provider Kristen Seth Pa-c [address] [address] Department Of Surgery-[place] [address] Procedure Provider Ellen Noriega MD [facility] Work Phone: [facility] Work Phone: [place] [facility] ERCPon 05-03-2023 [place] [facility] ERCP These images are not reportable by radiology and will not be interpreted by Radiologists. Normal [facility] Glucoseon 05-03-2023 Glucose (Body fld) [Mass/Vol] <10 Normal Not established [facility] Comment on above: Order Comment: The p erformance characteristics of this test have been validated on peritoneal/ascites, pleural, pericardial, drain, dialysate and liver/pancreatic cyst fluid by the performing [facility]. This test has not been approved by the FDA; however, such approval is not necessary. Performed By: #### 2 344-0 #### KANDACE Newell ([id number]) [facility] ([facility]) [address] [place] [address] Glucose (Body fld) [Mass/Vol ]on 05-03-2023 The performance characteristics of this test have been validated on peritoneal/ascites, pleural, pericardial, drain, dialysate and liver/pancreatic cyst fluid by the performing [facility]. This test has not been approved by the FDA; however, such approval is not necessary. 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 Received: 05/03/2023 1627 Pathologist: Marielena Yates DO Specimen: PANCREAS CYST FINE NEEDLE ASPIRATION, Uncinate Process Path report.final diagnosis SEE COMMENT A. PANCREAS CYST FINE NEEDLE ASPIRATION - Uncinate Process Nondiagnostic specimen due to insufficient cellularity The specimen consists of debris only Laboratory comment SEE COMMENT Slide(s) initially screened by LETITIA Zavala at [address] [id number] By the signature on this report, the individual or group listed as making the Final Interpretation/Diagnosis certifies that they have reviewed this case. Path report.gross observation SEE COMMENT A. PANCREAS CYST FINE NEEDLE ASPIRATION. Received 30 ml colorless clear needle rinse in Cytolyt with particles. The specimen has been sent for cytological analysis to the cytology department at [facility]. Cellblock not processed due to QNS. Laboratory comment SEE COMMENT [id number] Only (No Block) A1-1Pap Stain NGYN ThinPrep Normal [facility] Alpha 1 antitrypsinon 2022 Alpha 1 antitrypsin Nephelometry [Mass/Vol] 189 mg/dL Normal 84-218 [facility] Comment on above: Performed By: #### 2 4323-8 #### REBECA DIAMOND ([id number]) [facility] ([facility]) [address] [place] [address] Cancer Ag 19-9on 04-12-2023 Cancer Ag 19-9 Qn 19.35 [arb'U]/mL Normal <35.00 U [facility] Comment on above: Order Comment: CA 19 -9 testing is performed by chemiluminescent immunoassay using the [employer]. Values obtained with different analytic methods cannot be used interchangeably. Serum CA 19-9 measurement is indicated for the serial measurement of CA 19-9 to aid in the management of patients diagnosed with cancers of the exocrine pancreas. This assay is not intended for screening or diagnosis of cancer in the general population. The results must not be used as the sole means for clinical diagnosis or patient management decisions. Patients known to be genotypically negative for the Jose blood group antigens will be unable to produce CA 19-9 antigen, even in malignant tissue. Phenotyping for the presence of the Jose antigen may be insufficient to detect true Jose antigen negative individuals. The results must not be used as the sole means for clinical diagnosis or patient management decisions. Performed By: #### 2 4108-3 #### KANDACE Newell ([id number]) [facility] ([facility]) [address] [place] [address] Ceruloplasminon 04-12-2023 Ceruloplasmin [Mass/Vol] 33.0 mg/dL Normal 20.0-60.0 [facility] Comment on above: Performed By: #### 2 4323-8 #### REBECA DIAMOND ([id number]) [facility] ([facility]) [address] [place] [address] Ferritinon 04-12-2023 Ferritin [Mass/Vol] 73 ng/mL Normal 20-300 [facility] Comment on above: Performed By: #### 2 4323-8 #### REBECA DIAMOND ([id number]) [facility] ([facility]) [address] [place] [address] Hepatic function 2000 panelo n 04-12-2023 Albumin BCP dye [Mass/Vol] 4.2 g/dL Normal 3.4-5.0 [facility] Comment on above: Performed By: #### 2 4323-8 #### REBECA DIAMOND ([id number]) [facility] ([facility]) [address] [place] [address] ALP [Catalytic activity/Vol] 112 U/L Normal 33-136 [facility] Comment on above: Performed By: #### 2 4323-8 #### REBECA DIAMOND ([id number]) [facility] ([facility]) [address] [place] [address] ALT With P-5'-P [Catalytic activity/Vol] 38 U/L Normal 10-52 [facility] Comment on above: Result Comment: Estefani ents treated with Sulfasalazine may generate falsely decreased results for ALT. Performed By: #### 2 4323-8 #### REBECA DIAMOND ([id number]) [facility] ([facility]) [address] [place] [address] AST With P-5'-P [Catalytic activity/Vol] 31 U/L Normal 9-39 [facility] Comment on above: Performed By: #### 2 4323-8 #### REBECA DIAMOND ([id number]) [facility]) [address] [place] [address] Bilirubin [Mass/Vol] 0.9 mg/dL Normal 0.0-1.2 [facility] Comment on above: Performed By: #### 2 4323-8 #### REBECA DIAMOND ([id number]) [facility] ([facility]) [address] [place] [address] Bilirubin.direct [Mass/Vol] 0.2 mg/dL Normal 0.0-0.3 [facility] Comment on above: Performed By: #### 2 4323-8 #### REBECA DIAMOND ([id number]) [facility] ([facility]) [address] [place] [address] Protein [Mass/Vol] 7.6 g/dL Normal 6.4-8.2 [facility] Comment on above: Performed By: #### 2 4323-8 #### REBECA DIAMOND ([id number]) [facility] ([facility]) [address] [place] [address] Hepatitis A virus Abon 04-12 HAV Ab IA Ql (S) Reactive Abnormal Nonreactive [facility] Comment on above: Order Comment: Bioti n interference may cause falsely elevated results. Patients taking a Biotin dose of up to 5 mg/day should refrain from taking Biotin for 24 hours before sample collection. Providers may contact their local laboratory for further information. Performed By: #### 1 3951-9 #### KANDACE Newell ([id number]) [facility] ([facility]) [address] [place], [place] [id number] Hepatitis B virus core Abon 04-12-2023 HBV core Ab Ql (S) Non-Reactive Normal Nonreactive [facility] Comment on above: Order Comment: Resul ts from patients taking biotin supplements or receiving high-dose biotin therapy should be interpreted with caution due to possible interference with this test. Providers may contact their local laboratory for further information. Performed By: #### 1 6933-4 #### KANDACE Newell ([id number]) [facility] ([facility]) [id number] [place] [address] Hepatitis B virus surface Ab on 04-12-2023 HBV surface Ab Qn (S) <3.1 Normal <10.0 [facility] Comment on above: Result Comment: Inte rpretive Criteria: <10 mIU/mL Nonreactive >=10 mIU/mL Reactive Biotin interference may cause falsely decreased results. Patients taking a Biotin dose of up to 5 mg/day should refrain from taking Biotin for 24 hours before sample collection. Providers may contact their local laboratory for further information. Performed By: #### 1 6935-9 #### KANDACE Newell ([id number]) [facility] ([facility]) [address] [place] [address] Hepatitis B virus surface Ag on 04-12-2023 HBV surface Ag IA Ql Non-Reactive Normal Nonreactive [facility] Comment on above: Result Comment: Biot in interference may cause falsely decreased results. Patients taking a Biotin dose of up to 5 mg/day should refrain from taking Biotin for 24 hours before sample collection. Providers may contact their local laboratory for further information. Performed By: #### 5 196-1 #### KANDACE Newell ([id number]) [facility] ([facility]) [address] [place] [address] Hepatitis C virus Abon 04-12 HCV Ab Ql (S) Non-Reactive Normal Nonreactive [facility] Comment on above: Result Comment: Resu lts from patients taking biotin supplements or receiving high-dose biotin therapy should be interpreted with caution due to possible interference with this test. Providers may contact their local laboratory for further information. Performed By: #### 1 6128-1 #### KANDACE Newell ([id number]) [facility] ([facility]) [address] [place] [address] Iron and Iron binding capaci ty panelon 04-12-2023 Iron [Mass/Vol] 69 ug/dL Normal 35-150 [facility] Comment on above: Performed By: #### 2 4323-8 #### REBECA DIAMOND ([id number]) [facility]) [address] [place] [address] Iron binding capacity [Mass/Vol] 353 ug/dL Normal 240-445 [facility] Comment on above: Performed By: #### 2 4323-8 #### REBECA DIAMOND ([id number]) [facility]) [address] [place] [address] Iron binding capacity.unsaturated [Mass/Vol] 284 ug/dL Normal 110-370 [facility] Comment on above: Performed By: #### 2 4323-8 #### REBECA DIAMOND ([id number]) [facility]) [address] [place] [address] Iron saturation [Mass fraction] 20 % Low 25-45 [facility] Comment on above: Performed By: #### 2 4323-8 #### REBECA DIAMOND ([id number]) [facility]) [address] [place] [address] Mitochondria Abon 04-12-2023 Mitochondria Ab IF Ql (S) Negative Normal Negative [facility] Comment on above: Performed By: #### 2 4323-8 #### REBECA DIAMOND ([id number]) [facility] ([place]) [address] [place] [address] Smooth muscle Abon Smooth muscle Ab IF Ql (S) Negative Normal Negative [facility] Comment on above: Performed By: #### 2 4323-8 #### REBECA DIAMOND ([id number]) [facility]) [address] [place] [address] Tissue transglutaminase Ab.I gAon 04-12-2023 tTG IgA IA Qn (S) <1.0 Normal <15.0 [facility] Comment on above: Result Comment: Genevieve ac disease is unlikely. False negative Tissue Transglutaminase Antibody, IgA results can occur in approximately 10% of patients with celiac disease, patients already adhering to a gluten-free diet, or patients with IgA deficiency. Performed By: #### 2 4323-8 #### REBECA DIAMOND ([id number]) [facility]) [address] [place] [address] CBC W Auto Differential pane l (Bld)on 02-28-2023 Basophils (Bld) [#/Vol] 0.14 x10*3/uL High 0.00-0.10 [facility] Comment on above: Performed By: #### 5 7021-8 #### REBECA DIAMOND ([id number]) [facility]) [address] [place] [address] Basophils/100 WBC (Bld) 1.5 % Normal 0.0-2.0 [facility] Comment on above: Performed By: #### 5 7021-8 #### REBECA DIAMOND ([id number]) [facility]) [address] [place] [address] Eosinophils (Bld) [#/Vol] 0.39 x10*3/uL Normal 0.00-0.70 [facility] Comment on above: Performed By: #### 5 7021-8 #### REBECA DIAMOND ([id number]) [facility] ([facility]) [address] [place] [address] Eosinophils/100 WBC (Bld) 4.2 % Normal 0.0-6.0 [facility] Comment on above: Performed By: #### 5 7021-8 #### REBECA DIAMOND ([id number]) [facility] ([facility]) [address] [place] [address] Erythrocyte distribution width (RBC) [Ratio] 13.2 % Normal 11.5-14.5 [facility] Comment on above: Performed By: #### 5 7021-8 #### REBECA DIAMOND ([id number]) [facility] ([facility]) [address] [place] [address] Hematocrit (Bld) [Volume fraction] 43.1 % Normal 41.0-52.0 [facility] Comment on above: Performed By: #### 5 7021-8 #### REBECA DIAMOND ([id number]) [facility]) [address] [place] [address] Hemoglobin (Bld) [Mass/Vol] 15.3 g/dL Normal 13.5-17.5 [facility] Comment on above: Performed By: #### 5 7021-8 #### REBECA DIAMOND ([id number]) [facility]) [address] [place] [address] Immature granulocytes (Bld) [#/Vol] 0.03 x10*3/uL Normal 0.00-0.70 [facility] Comment on above: Performed By: #### 5 7021-8 #### REBECA Sanchez'SUZI ([id number]) [facility]) [address] [place] [address] Immature granulocytes/100 WBC (Bld) 0.3 % Normal 0.0-0.9 [facility] Comment on above: Result Comment: Yanely ture Granulocyte Count (IG) includes promyelocytes, myelocytes and metamyelocytes but does not include bands. Percent differential counts (%) should be interpreted in the context of the absolute cell counts (cells/UL). Performed By: #### 5 7021-8 #### REBECA DIAMOND ([id number]) [facility]) [address] [place] [address] Lymphocytes (Bld) [#/Vol] 2.17 x10*3/uL Normal 1.20-4.80 [facility] Comment on above: Performed By: #### 5 7021-8 #### REBECA DIAMOND ([id number]) [facility]) [address] [place] [address] Lymphocytes/100 WBC (Bld) 23.3 % Normal 13.0-44.0 [facility] Comment on above: Performed By: #### 5 7021-8 #### REBECA DIAMOND ([id number]) [facility]) [address] [place] [address] MCH (RBC) [Entitic mass] 35.2 pg High 26.0-34.0 [facility] Comment on above: Performed By: #### 5 7021-8 #### REBECA DIAMOND ([id number]) [facility]) [address] [place] [address] MCHC (RBC) [Mass/Vol] 35.5 g/dL Normal 32.0-36.0 [facility] Comment on above: Performed By: #### 5 7021-8 #### REBECA DIAMOND ([id number]) [facility] ([place]) [address] [place] [address] MCV (RBC) [Entitic vol] 99 fL Normal 80-100 [facility] Comment on above: Performed By: #### 5 7021-8 #### REBECA DIAMOND ([id number]) [facility] ([place]) [address] [place] [address] Monocytes (Bld) [#/Vol] 0.73 x10*3/uL Normal 0.10-1.00 [facility] Comment on above: Performed By: #### 5 7021-8 #### REBECA DIAMOND ([id number]) [facility] ([facility]) [address] [place] [address] Monocytes/100 WBC (Bld) 7.8 % Normal 2.0-10.0 [facility] Comment on above: Performed By: #### 5 7021-8 #### REBECA DIAMOND ([id number]) [facility] ([facility]) [address] [place] [address] Neutrophils (Bld) [#/Vol] 5.84 x10*3/uL Normal 1.20-7.70 [facility] Comment on above: Result Comment: Perc ent differential counts (%) should be interpreted in the context of the absolute cell counts (cells/uL). Performed By: #### 5 7021-8 #### REBECA DIAMOND ([id number]) [facility] ([facility]) [address] [place] [address] Neutrophils/100 WBC (Bld) 62.9 % Normal 40.0-80.0 [facility] Comment on above: Performed By: #### 5 7021-8 #### REBECA DIAMOND ([id number]) [facility] ([facility]) [address] [place] [address] Nucleated RBC/100 WBC (Bld) [Ratio] 0.0 /100 WBCs Normal 0.0-0.0 [facility] Comment on above: Performed By: #### 5 7021-8 #### REBECA DIAMOND ([id number]) [facility]) [address] [place] [address] Platelet mean volume (Bld) [Entitic vol] 9.0 fL Normal 7.5-11.5 [facility] Comment on above: Performed By: #### 5 7021-8 #### REBECA DIAMOND ([id number]) [facility]) [address] [place] [address] Platelets (Bld) [#/Vol] 445 x10*3/uL Normal 150-450 [facility] Comment on above: Performed By: #### 5 7021-8 #### REBECA DIMAOND ([id number]) [facility]) [address] [place] [address] RBC (Bld) [#/Vol] 4.35 x10*6/uL Low 4.50-5.90 [facility] Comment on above: Performed By: #### 5 7021-8 #### REBECA DIAMOND ([id number]) [facility]) [address] [place] [address] WBC (Bld) [#/Vol] 9.3 x10*3/uL Normal 4.4-11.3 [facility] Comment on above: Performed By: #### 5 7021-8 #### REBECA DIAMOND ([id number]) [facility] ([place]) [address] [place] [address] Basophils (Bld) [#/Vol] 0.14 10*3/uL High [facility] Basophils/100 WBC (Bld) 1.5 % 0.0 - 2.0 % [facility] Eosinophils (Bld) [#/Vol] 0.39 10*3/uL [facility] Eosinophils/100 WBC (Bld) 4.2 % 0.0 - 6.0 % [facility] Erythrocyte distribution width (RBC) [Ratio] 13.2 % 11.5 - 14.5 % [facility] Hematocrit (Bld) [Volume fraction] 43.1 % 41.0 - 52.0 % [facility] Hemoglobin (Bld) [Mass/Vol] 15.3 g/dL 13.5 - 17.5 g/dL [facility] Immature granulocytes (Bld) [#/Vol] 0.03 10*3/uL [facility] Immature granulocytes/100 WBC (Bld) 0.3 % 0.0 - 0.9 % [facility] Comment on above: Immature Granulocyte Count (IG) includes promyelocytes, myelocytes and metamyelocytes but does not include bands. Percent differential counts (%) should be interpreted in the context of the absolute cell counts (cells/UL). Interpretation and review of laboratory results Abnormal [facility] Lymphocytes (Bld) [#/Vol] 2.17 10*3/uL [facility] Lymphocytes/100 WBC (Bld) 23.3 % 13.0 - 44.0 % [facility] MCH (RBC) [Entitic mass] 35.2 pg High 26.0 - 34.0 pg [facility] MCHC (RBC) [Mass/Vol] 35.5 g/dL 32.0 - 36.0 g/dL [facility] MCV (RBC) [Entitic vol] 99 fL 80 - 100 fL [facility] Monocytes (Bld) [#/Vol] 0.73 10*3/uL [facility] Monocytes/100 WBC (Bld) 7.8 % 2.0 - 10.0 % [facility] Neutrophils (Bld) [#/Vol] 5.84 10*3/uL [facility] Comment on above: Percent differential counts (%) should be interpreted in the context of the absolute cell counts (cells/uL). Neutrophils/100 WBC (Bld) 62.9 % 40.0 - 80.0 % [facility] Nucleated RBC/100 WBC (Bld) [Ratio] 0.0 % [facility] Platelet mean volume (Bld) [Entitic vol] 9.0 fL 7.5 - 11.5 fL [facility] Platelets (Bld) [#/Vol] 445 10*3/uL [facility] RBC (Bld) [#/Vol] 4.35 10*6/uL Low [facility] WBC (Bld) [#/Vol] 9.3 10*3/uL [facility] Cancer Ag 19-9on 02-28-2023 Cancer Ag 19-9 Qn 25.54 [arb'U]/mL Normal <35.00 U [facility] Comment on above: Order Comment: CA 19 -9 testing is performed by chemiluminescent immunoassay using the Siemens Correlix. Values obtained with different analytic methods cannot be used interchangeably. Serum CA 19-9 measurement is indicated for the serial measurement of CA 19-9 to aid in the management of patients diagnosed with cancers of the exocrine pancreas. This assay is not intended for screening or diagnosis of cancer in the general population. The results must not be used as the sole means for clinical diagnosis or patient management decisions. Patients known to be genotypically negative for the Jose blood group antigens will be unable to produce CA 19-9 antigen, even in malignant tissue. Phenotyping for the presence of the Jose antigen may be insufficient to detect true Jose antigen negative individuals. The results must not be used as the sole means for clinical diagnosis or patient management decisions. Performed By: #### 2 4108-3 #### KANDACE Newell ([id number]) [facility] ([facility]) [address] [place] [address] Cancer Ag 19-9 Qnon 02-29-20 Interpretation and review of laboratory results Normal [facility] CA 19-9 testing is performed by chemiluminescent immunoassay using the [employer]. Values obtained with different analytic methods cannot be used interchangeably. Serum CA 19-9 measurement is indicated for the serial measurement of CA 19-9 to aid in the management of patients diagnosed with cancers of the exocrine pancreas. This assay is not intended for screening or diagnosis of cancer in the general population. The results must not be used as the sole means for clinical diagnosis or patient management decisions. Patients known to be genotypically negative for the Jose blood group antigens will be unable to produce CA 19-9 antigen, even in malignant tissue. Phenotyping for the presence of the Jose antigen may be insufficient to detect true Jose antigen negative individuals. The results must not be used as the sole means for clinical diagnosis or patient management decisions. [facility] Cancer Antigen 19-9on 2022 Cancer Ag 19-9 Qn 25.54 [arb'U]/mL NINF - 35.00 U/mL [facility] Coagulation tissue factor in ducedon 02-28-2023 PT Coag (PPP) [Time] 12.7 s Normal 9.8-12.8 [facility] Comment on above: Performed By: #### 5 902-2 #### KANDACE Newell ([id number]) [facility] ([facility]) [address] [place] [address] Comprehensive metabolic 2000 panelon 02-28-2023 Albumin BCP dye [Mass/Vol] 3.9 g/dL Normal 3.4-5.0 [facility] Comment on above: Performed By: #### 2 4323-8 #### REBECA DIAMOND ([id number]) [facility] ([facility]) [address] [place] [address] ALP [Catalytic activity/Vol] 149 U/L High 33-136 [facility] Comment on above: Performed By: #### 2 4323-8 #### REBECA DIAMOND ([id number]) [facility] ([facility]) [address] [place] [address] ALT With P-5'-P [Catalytic activity/Vol] 109 U/L High 10-52 [facility] Comment on above: Result Comment: Estefani ents treated with Sulfasalazine may generate falsely decreased results for ALT. Performed By: #### 2 4323-8 #### REBECA Sanchez'SUZI ([id number]) [facility] ([facility]) [address] [place] [address] Anion gap [Moles/Vol] 15 mmol/L Normal 10-20 [facility] Comment on above: Performed By: #### 2 4323-8 #### REBECA Sanchez'SUZI ([id number]) [facility] ([place]) [address] [place] [address] AST With P-5'-P [Catalytic activity/Vol] 110 U/L High 9-39 [facility] Comment on above: Performed By: #### 2 4323-8 #### REBECA Sanchez'SUZI ([id number]) [facility] ([facility]) [address] [place] [address] Bilirubin [Mass/Vol] 4.6 mg/dL High 0.0-1.2 [facility] Comment on above: Performed By: #### 2 4323-8 #### REBECA Sanchez'SUZI ([id number]) [facility]) [address] [place] [address] Calcium [Mass/Vol] 9.5 mg/dL Normal 8.6-10.3 [facility] Comment on above: Performed By: #### 2 4323-8 #### REBECA Sanchez'SUZI ([id number]) [facility]) [address] [place] [address] Chloride [Moles/Vol] 106 mmol/L Normal 98-107 [facility] Comment on above: Performed By: #### 2 4323-8 #### REBECA DonaldsonSUZI ([id number]) [facility] ([facility]) [address] [place] [address] CO2 [Moles/Vol] 21 mmol/L Normal 21-32 [facility] Comment on above: Performed By: #### 2 4323-8 #### REBECA Sanchez'SUZI ([id number]) [facility] ([facility]) [address] [place] [address] Creatinine [Mass/Vol] 0.76 mg/dL Normal 0.50-1.30 [facility] Comment on above: Performed By: #### 2 4323-8 #### REBECA Sanchez'SUZI ([id number]) [facility] ([facility]) [address] [place] [address] GFR/1.73 sq M.predicted MDRD (S/P/Bld) [Vol rate/Area] mL/min/{1.73_m2} Normal >60 [facility] Comment on above: Result Comment: Calc ulations of estimated GFR are performed using the 2020 CKD-EPI Study Refit equation without the race variable for the IDMS-Traceable creatinine methods. https://jasn.asnjournals.org/content/early//ASN.48961 03772 Performed By: #### 2 4323-8 #### REBECA Sanchez'SUZI ([id number]) [facility] ([facility]) [address] [place] [address] Glucose [Mass/Vol] 104 mg/dL High 74-99 [facility] Comment on above: Performed By: #### 2 4323-8 #### REBECA Sanchez'SUZI ([id number]) [facility]) [address] [place] [address] Potassium [Moles/Vol] 4.0 mmol/L Normal 3.5-5.3 [facility] Comment on above: Performed By: #### 2 4323-8 #### REBECA DIAMOND ([id number]) [facility] ([facility]) [address] [place] [address] Protein [Mass/Vol] 7.8 g/dL Normal 6.4-8.2 [facility] Comment on above: Performed By: #### 2 4323-8 #### REBECA DIAMOND ([id number]) [facility] ([facility]) [address] [place] [address] Sodium [Moles/Vol] 138 mmol/L Normal 136-145 [facility] Comment on above: Performed By: #### 2 4323-8 #### REBECA DIAMOND ([id number]) [facility] ([facility]) [address] [place] [address] Urea nitrogen [Mass/Vol] 15 mg/dL Normal 6-23 [facility] Comment on above: Performed By: #### 2 4323-8 #### REBECA DIAMOND ([id number]) [facility] ([facility]) [address] [place] [address] Albumin BCP dye [Mass/Vol] 3.9 g/dL 3.4 - 5.0 g/dL [facility] ALP [Catalytic activity/Vol] 149 U/L High 33 - 136 U/L [facility] ALT With P-5'-P [Catalytic activity/Vol] 109 U/L High 10 - 52 U/L [facility] Comment on above: Patients treated wit h Sulfasalazine may generate falsely decreased results for ALT. Anion gap [Moles/Vol] 15 mmol/L 10 - 2 0 mmol/L [facility] AST With P-5'-P [Catalytic activity/Vol] 110 U/L High 9 - 39 U/L [facility] Bilirubin [Mass/Vol] 4.6 mg/dL High 0.0 - 1 .2 mg/dL [facility] Calcium [Mass/Vol] 9.5 mg/dL 8.6 - 10. 3 mg/dL [facility] Chloride [Moles/Vol] 106 mmol/L 98 - 10 7 mmol/L [facility] CO2 [Moles/Vol] 21 mmol/L 21 - 32 mmol/L [facility] Creatinine [Mass/Vol] 0.76 mg/dL 0.50 - 1.30 mg/dL [facility] GFR/1.73 sq M.predicted MDRD (S/P/Bld) [Vol rate/Area] - PINF [facility] Comment on above: Calculations of cha mated GFR are performed using the 2020 CKD-EPI Study Refit equation without the race variable for the IDMS-Traceable creatinine methods. https://jasn.asnjournals.org/content/early/ASN.41700 46481 Glucose [Mass/Vol] 104 mg/dL High 74 - 99 mg/dL [facility] Interpretation and review of laboratory results Abnormal [facility] Potassium [Moles/Vol] 4.0 mmol/L 3.5 - 5.3 mmol/L [facility] Protein [Mass/Vol] 7.8 g/dL 6.4 - 8.2 g/dL [facility] Sodium [Moles/Vol] 138 mmol/L 136 - 145 mmol/L [facility] Urea nitrogen [Mass/Vol] 15 mg/dL 6 - 23 mg/dL [facility] PT Coag (PPP) [Time]on 02-28 INR Coag (PPP) [Relative time] 1.1 Normal 0.9-1.1 [facility] Comment on above: Performed By: #### 5 902-2 #### KANDACE Newell ([id number]) [facility] ([facility]) [address] [place] [address] INR Coag (PPP) [Relative time] 1.1 {INR} 0.9 - 1.1 [facility] Interpretation and review of laboratory results Normal [facility] Protime-INRon 02-28-2023 PT Coag (PPP) [Time] 12.7 s [facility] Absolute lymphocyte countOrd ered By: Oswald Lance on 02-01-2023 Lymphocytes Auto (Unsp spec) [#/Vol] 0.38 10*3/uL 0.83-4.51 [facility] Basophil percentageOrdered B y: Oswald Lance on 02-01-2023 Basophils/100 WBC (Bld) 0.4 % 0-1 [facility] Bilirubin [Mass/Vol] 17.30 mg/dL 0.20-1.00 [facility] Comment on above: Critical Result(s) C alled at: 05:50:09 02/01/2023 by: Nhan Meza. OLAF MACK (RN) (PCU) Results read back by same. For patients on eltrombopag therapy, use of Dimension [place] TBIL is not recommended. Chloride [Moles/Vol] 108 mmol/L 98-107 [facility] System Eosinophils/100 WBC (Bld) 0.0 % 0-5 [facility] Glucose [Mass/Vol] 140 mg/dL 74-106 [facility] Comment on above: Fasting Glucose resu lt greater than or equal to 126 mg/dL suggests DIABETES MELLITUS per A.D.A. criteria. Neutrophils (Bld) [#/Vol] 6.4 10*3/uL 2.0-7.7 [facility] Neutrophils/100 WBC (Bld) 88.5 % 47-70 [facility] Potassium [Moles/Vol] 4.7 mmol/L 3.5-5.1 [facility] Protein [Mass/Vol] 5.9 g/dL 6.4-8.2 [facility] Comment on above: Moderate Icterus, Re sult may be falsely decreased. Sodium [Moles/Vol] 136 mmol/L 136-145 [facility] WBC (Bld) [#/Vol] 7.3 10*3/uL 4.4-11.0 [facility] Blood erythrocytes count (nu mber/volume)Ordered By: Oswald Lance on 02-01-2023 RBC (Bld) [#/Vol] 3.99 10*6/uL 4.6-6.2 [facility] Blood hemoglobin measurement (mass/volume)Ordered By: Oswald Lance on 02-01-2023 Hemoglobin (Bld) [Mass/Vol] 14.7 g/dL 13.0-16.5 [facility] Blood lymphocytes/100 leukoc ytesOrdered By: Oswald Lance on 02-01-2023 Lymphocytes/100 WBC (Bld) 5.2 % 19-41 [facility] Blood manual differential co mment interpretation (narrative result)Ordered By: Oswald Lance on 02-01-2023 Manual differential comment Lopez (Bld) [Interp] SCANNED [facility] Comment on above: LYMPHOPENIA NOTED Blood monocytes/100 leukocyt esOrdered By: Oswald Lance on 02-01-2023 Monocytes/100 WBC (Bld) 4.0 % 0-10 [facility] Blood platelet mean volumeOr dered By: Oswald Lance on 02-01-2023 Platelet mean volume (Bld) [Entitic vol] 9.1 fL 6.2-12.0 [facility] Determination of erythrocyte mean corpuscular volume (MCV)Ordered By: Oswald Lance on 02-01-2023 MCV (RBC) [Entitic vol] 107.3 fL 80-94 [facility] Hematocrit Auto (Bld) [Volum e fraction]Ordered By: Oswald Lance on 02-01-2023 Hematocrit (Bld) [Volume fraction] 42.8 % 40-54 [facility] Laboratory - Chemistry and C hemistry - challengeOrdered By: Oswald Lance on 02-01-2023 ALP [Catalytic activity/Vol] 284 U/L 45-117 [facility] ALT [Catalytic activity/Vol] 88 U/L 16-61 [facility] CO2 [Moles/Vol] 24.0 mmol/L 21.0-32.0 [facility] Globulin (S) [Mass/Vol] 4.3 g/dL 2.2-4.2 [facility] Urea nitrogen/Creatinine [Mass ratio] 10.2 mg/mg 10-20 [facility] Laboratory - Hematology and Cell countsOrdered By: Oswald Lance on 02-01-2023 Erythrocyte distribution width (RBC) [Entitic vol] 59.2 fL 35.1-43.9 [facility] Erythrocyte distribution width (RBC) [Ratio] 14.7 % 11.6-14.6 [facility] Immature granulocytes/100 WBC (Bld) 1.900 % 0.0-0.9 [facility] Comment on above: IG% - Immature Granu locytes (promyelocytes, myelocytes and metamyelocytes) > 1% indicates that a LEFT SHIFT is Present. MCH (RBC) [Entitic mass] 36.8 pg 27.0-32.0 [facility] Nucleated RBC/100 WBC (Bld) [Ratio] 0 % 0-5 [facility] MCHC Auto (RBC) [Mass/Vol]Or dered By: Oswald Lance on 02-01-2023 MCHC (RBC) [Mass/Vol] 34.3 g/dL 32-36 [facility] No Panel InformationOrdered By: Oswald Lance on 02-01-2023 Estimated Creatinine Clearance Calc 104.58 ml/min [facility] Estimated GFR (MDRD) Amer 128 mL/min >60 [facility] Comment on above: GFR Calc Estimated GFR (MDRD) Non-Af Amer 106 mL/min >60 [facility] Comment on above: Non- GFR Calc Platelets bldOrdered By: Moraima Lance on 02-01-2023 Platelets (Bld) [#/Vol] 405 10*3/uL 150-450 [facility] Serum or plasma albumin david urement (mass/volume)Ordered By: Oswald Lance on 02-01-2023 Albumin [Mass/Vol] 1.6 g/dL 3.2-5.0 [facility] Serum or plasma albumin/glob ulin mass ratioOrdered By: Oswald Lance on 02-01-2023 Albumin/Globulin [Mass ratio] 0.4 {ratio} 0.9-2.4 [facility] Serum or plasma calcium david urement (mass/volume)Ordered By: Oswald Lance on 02-01-2023 Calcium [Mass/Vol] 8.2 mg/dL 8.5-10.1 [facility] Serum or plasma creatinine m easurement (mass/volume)Ordered By: Oswald Lance on 02-01-2023 Creatinine [Mass/Vol] 0.79 mg/dL 0.70-1.30 [facility] Comment on above: Moderate Icterus, Re sult may be falsely decreased.The validity of the calculated GFR & GFRAA in patients over 70 years has not been determined. Clinical correlation is essential. Serum or plasma urea nitroge n measurement (mass/volume)Ordered By: Oswald Lance on 02-01-2023 Urea nitrogen [Mass/Vol] 8 mg/dL 7-18 [facility] Thin prep Papanicolaou smear with manual screeningOrdered By: Oswald Lance on 02-01-2023 Thin prep Papanicolaou smear with manual screening 137 U/L 15-37 [facility] Thin prep Papanicolaou smear with manual screening 4 5-15 [facility] Basophil percentageOrdered B y: Faith Paulino on 01-31-2023 Basophil percentage 1.9 mg/dL 2.5-4.9 [facility] Laboratory - Chemistry and C hemistry - challengeOrdered By: Faith Paulino on 01-31-2023 Magnesium [Mass/Vol] 2.2 mg/dL 1.6-2.6 [facility] No Panel InformationOrdered By: Faith Paulino on 01-31-2023 CA 19-9 Antigen 50 U/mL 0-35 [facility] Comment on above: [employer] El ectrochemiluminescence Immunoassay(ECLIA)Values obtained with different assay methods or kits cannotbe used interchangeably. Results cannot be interpreted asabsolute evidence of the presence or absence of malignantdisease.Performed at: [facility] [address] [id number] Director: Missael Romero PhD, Phone: [phone] Thyroid Stimulating Hormone (TSH) 6.55 uIU/mL 0.358-3.74 [facility] Basophil percentageOrdered B y: Ida Pizarro on 01-30-2023 Basophil percentage 0-5 SEEN /hpf 0-5 [facility] Bilirubin Test strip Ql (U)O rdered By: Ida Pizarro on 01-30-2023 Bilirubin Ql (U) 6 mg/dL Negative [facility] Comment on above: COLOR OF URINE MAY A FFECT DIPSTICK RESULTS. Direct bilirubinOrdered By: Ida Pizarro on 01-30-2023 Bilirubin.direct [Mass/Vol] 15.18 mg/dL 0.00-0.30 [facility] Ketones Test strip Ql (U)Ord ered By: Ida Pizarro on 01-30-2023 Ketones Ql (U) Negative Negative [facility] Laboratory - Chemistry and C hemistry - challengeOrdered By: Ida Pizarro on 01-30-2023 Lipase [Catalytic activity/Vol] 26 U/L 13-75 [facility] Comment on above: Please note:LIPASE r evised reference range effective 22. New Lipase methodology. Expected to produce lower values than the previous assay method. NEW Reference Range: 13 - 75 U/L Mucus LM Ql (Urine sed)Order ed By: Ida Pizarro on 01-30-2023 Mucus Ql (Urine sed) 0 SEEN /hpf [facility] Nitrite Test strip Ql (U)Ord ered By: Ida Pizarro on 01-30-2023 Nitrite Ql (U) Negative Negative [facility] Protein Test strip Ql (U)Ord ered By: Ida Pizarro on 01-30-2023 Protein Ql (U) 15 mg/dl Negative [facility] Squamous epithelial cells de tection in urine sediment by light microscopyOrdered By: Ida Pizarro on 01-30-2023 Epithelial cells.squamous LM Ql (Urine sed) 0 SEEN /hpf 0-5 [facility] Urine blood detectionOrdered By: Ida Pizarro on 01-30-2023 RBC Ql (U) Negative Negative [facility] RBC Ql (U) 0 SEEN /hpf 0-5 [facility] Urine clarityOrdered By: Lsahae Pizarro on 01-30-2023 Clarity (U) Clear Clear [facility] Urine color determinationOrd ered By: Ida Pizarro on 01-30-2023 Color (U) Sammie Yellow [facility] Urine glucose detectionOrder ed By: Ida Pizarro on 01-30-2023 Glucose Ql (U) Normal mg/dl Normal [facility] Urine leukocyte esterase det ection by dipstickOrdered By: Ida Pizarro on 01-30-2023 Leukocyte esterase Test strip Ql (U) 25 /ul Negative [facility] Urine pHOrdered By: Ida Pizarro on 01-30-2023 pH (U) 7.0 [pH] 5.0 - 8.0 [facility] Urine sediment bacteria coun t by microscopy (number/high power field)Ordered By: Ida Pizarro on 01-30-2023 Bacteria LM.HPF (Urine sed) [#/Area] 1 /[HPF] None Seen [facility] Urine specific gravity measu rementOrdered By: Ida Pizarro on 01-30-2023 Specific gravity (U) [Rel density] 1.015 1.002-1.030 [facility] Urobilinogen Auto test strip Ql (U)Ordered By: Iad Pizarro on 01-30-2023 Urobilinogen Ql (U) 8 mg/dl Normal [facility] INR in Blood by Coagulation assayOrdered By: Melyssa Hollingsworth on 01-17-2023 INR Coag (Bld) [Relative time] 1.1 {INR} [facility] Laboratory - CoagulationOrde red By: Melyssa Hollingsworth on 01-17-2023 PT Coag (PPP) [Time] 14.4 s 11.7-14.9 [facility] Absolute lymphocyte countOrd ered By: Melyssa Hollingsworth on 01-11-2023 Lymphocytes Auto (Unsp spec) [#/Vol] 0.90 10*3/uL 0.83-4.51 [facility] Amorphous sediment detection in urine sediment by light microscopyOrdered By: Melyssa Hollingsworth on 01-11-2023 Amorphous sediment LM Ql (Urine sed) 1+ [facility] Basophil percentageOrdered B y: Melyssa Hollingsworth on 01-11-2023 Basophil percentage 0 SEEN /hpf 0-5 [facility] Basophils/100 WBC (Bld) 2.0 % 0-1 [facility] Bilirubin [Mass/Vol] 24.80 mg/dL 0.20-1.00 [facility] Comment on above: For patients on eltr ombopag therapy, use of Dimension [place] TBIL is not recommended. Chloride [Moles/Vol] 106 mmol/L 98-107 [facility] Cholesterol [Mass/Vol] 182 mg/dL <200 [facility] Comment on above: Moderate Icterus, Re sult may be falsely decreased. <200 mg/dL Desirable 200-240 mg/dL Borderline >240 mg/dL High Risk Eosinophils/100 WBC (Bld) 2.0 % 0-5 [facility] Glucose [Mass/Vol] 104 mg/dL 74-106 [facility] Comment on above: Fasting Glucose resu lt from 100 to 125 mg/dL suggests IMPAIRED HOMEOSTASIS per A.D.A. criteria. Neutrophils (Bld) [#/Vol] 5.3 10*3/uL 2.0-7.7 [facility] Neutrophils/100 WBC (Bld) 71.6 % 47-70 [facility] Potassium [Moles/Vol] 3.5 mmol/L 3.5-5.1 [facility] Protein [Mass/Vol] 6.0 g/dL 6.4-8.2 [facility] Comment on above: Moderate Icterus, Re sult may be falsely decreased. Sodium [Moles/Vol] 135 mmol/L 136-145 [facility] Comment on above: Critical Result(s) C alled at: 13:44:33 01/11/2023 by: Sarai Monroe to Sophy Mckeon. Results read back by same. Triglyceride [Mass/Vol] 544 mg/dL <199 [facility] Comment on above: The drugs N-Acetylcy steine and Metamizole may falsely depress this assay. Moderate Icterus, Result may be falsely increased. TRIGLYCERIDE IS GREATER THAN 400 mg/dL. LDL RESULT IS INVALID AND WILL NOT BE REPORTED.Serum Triglycerides Reference Interval Normal <150 mg/dL Borderline high 150 - 199 mg/dL High 200 - 499 mg/dL Very High > or = 500 mg/dL WBC (Bld) [#/Vol] 7.4 10*3/uL 4.4-11.0 [facility] Bilirubin Test strip Ql (U)O rdered By: Melyssa Hollingsworth on 01-11-2023 Bilirubin Ql (U) 6 mg/dL Negative [facility] Comment on above: COLOR OF URINE MAY A FFECT DIPSTICK RESULTS. Blood erythrocytes count (nu mber/volume)Ordered By: Melyssa Hollingsworth on 01-11-2023 RBC (Bld) [#/Vol] 4.20 10*6/uL 4.6-6.2 [facility] Blood hemoglobin measurement (mass/volume)Ordered By: Melyssa Hollingsworth on 01-11-2023 Hemoglobin (Bld) [Mass/Vol] 15.2 g/dL 13.0-16.5 [facility] Blood lymphocytes/100 leukoc ytesOrdered By: Melyssa Hollingsworth on 01-11-2023 Lymphocytes/100 WBC (Bld) 12.2 % 19-41 [facility] Blood monocytes/100 leukocyt esOrdered By: Melyssa Hollingsworth on 01-11-2023 Monocytes/100 WBC (Bld) 10.6 % 0-10 [facility] Blood platelet mean volumeOr dered By: Melyssa Hollingsworth on 01-11-2023 Platelet mean volume (Bld) [Entitic vol] 10.6 fL 6.2-12.0 [facility] Culture, urineOrdered By: Huber Hollingsworth on 01-11-2023 Bacteria identified Cx Nom (U) GPC Poss Enterococcus sp [facility] Determination of erythrocyte mean corpuscular volume (MCV)Ordered By: Melyssa Hollingsworth on 01-11-2023 MCV (RBC) [Entitic vol] 105.5 fL 80-94 [facility] Hematocrit Auto (Bld) [Volum e fraction]Ordered By: Melyssa Hollingsworth on 01-11-2023 Hematocrit (Bld) [Volume fraction] 44.3 % 40-54 [facility] INR in Blood by Coagulation assayOrdered By: Melyssa Hollingsworth on 01-11-2023 INR Coag (Bld) [Relative time] 1.1 {INR} [facility] Ketones Test strip Ql (U)Ord ered By: Melyssa Hollingsworth on 01-11-2023 Ketones Ql (U) 15 mg/dl Negative [facility] Laboratory - Chemistry and C hemistry - challengeOrdered By: Melyssa Hollingsworth on 01-11-2023 ALP [Catalytic activity/Vol] 265 U/L 45-117 [facility] ALT [Catalytic activity/Vol] 123 U/L 16-61 [facility] CO2 [Moles/Vol] 20.0 mmol/L 21.0-32.0 [facility] Globulin (S) [Mass/Vol] 3.9 g/dL 2.2-4.2 [facility] Urea nitrogen/Creatinine [Mass ratio] 10.2 mg/mg 10-20 [facility] Laboratory - CoagulationOrde red By: Melyssa Hollingsworth on 01-11-2023 aPTT Coag (Bld) [Time] 33.9 s 24.1-36.2 [facility] PT Coag (PPP) [Time] 14.3 s 11.7-14.9 [facility] Laboratory - Hematology and Cell countsOrdered By: Melyssa Hollingsworth on 01-11-2023 Erythrocyte distribution width (RBC) [Entitic vol] 58.9 fL 35.1-43.9 [facility] Erythrocyte distribution width (RBC) [Ratio] 15.0 % 11.6-14.6 [facility] Immature granulocytes/100 WBC (Bld) 1.600 % 0.0-0.9 [facility] Comment on above: IG% - Immature Granu locytes (promyelocytes, myelocytes and metamyelocytes) > 1% indicates that a LEFT SHIFT is Present. MCH (RBC) [Entitic mass] 36.2 pg 27.0-32.0 [facility] Nucleated RBC/100 WBC (Bld) [Ratio] 0 % 0-5 [facility] MCHC Auto (RBC) [Mass/Vol]Or dered By: Melyssa Hollingsworth on 01-11-2023 MCHC (RBC) [Mass/Vol] 34.3 g/dL 32-36 [facility] Mucus LM Ql (Urine sed)Order ed By: Melyssa Hollingsworth on 01-11-2023 Mucus Ql (Urine sed) 0 SEEN /hpf [facility] Nitrite Test strip Ql (U)Ord ered By: Melyssa Hollingsworth on 01-11-2023 Nitrite Ql (U) Positive Negative [facility] No Panel InformationOrdered By: Melyssa Hollingsworth on 01-11-2023 Estimated GFR (MDRD) Amer 112 mL/min >60 [facility] Comment on above: GFR Calc Estimated GFR (MDRD) Non-Af Amer 93 mL/min >60 [facility] Comment on above: Non- GFR Calc Thyroid Stimulating Hormone (TSH) 2.75 uIU/mL 0.358-3.74 [facility] Platelets bldOrdered By: Nicole Hollingsworth on 01-11-2023 Platelets (Bld) [#/Vol] 273 10*3/uL 150-450 [facility] Protein Test strip Ql (U)Ord ered By: Melyssa Hollingsworth on 01-11-2023 Protein Ql (U) 30 mg/dl Negative [facility] Serum or plasma albumin david urement (mass/volume)Ordered By: Melyssa Hollingsworth on 01-11-2023 Albumin [Mass/Vol] 2.1 g/dL 3.2-5.0 [facility] Serum or plasma albumin/glob ulin mass ratioOrdered By: Melyssa Hollingsworth on 01-11-2023 Albumin/Globulin [Mass ratio] 0.5 {ratio} 0.9-2.4 [facility] Serum or plasma calcium david urement (mass/volume)Ordered By: Melyssa Hollingsworth on 01-11-2023 Calcium [Mass/Vol] 8.3 mg/dL 8.5-10.1 [facility] Serum or plasma cholesterol in HDL measurement (mass/volume)Ordered By: Melyssa Hollingsworth on 01-11-2023 Cholesterol in HDL [Mass/Vol] 10 mg/dL >40 [facility] Comment on above: The drugs N-Acetylcy steine and Metamizole may falsely depress this assay. Reference Range HDL <40 mg/dL Low HDL Cholesterol HDL >or= 60 mg/dL High HDL Cholesterol Serum or plasma cholesterol in VLDL measurement (mass/volume)Ordered By: Melyssa Hollingsworth on 01-11-2023 Cholesterol in VLDL [Mass/Vol] TNP [facility] Comment on above: Test not performed Serum or plasma creatinine m easurement (mass/volume)Ordered By: Melyssa Hollingsworth on 01-11-2023 Creatinine [Mass/Vol] 0.89 mg/dL 0.70-1.30 [facility] Comment on above: Moderate Icterus, Re sult may be falsely decreased.The validity of the calculated GFR & GFRAA in patients over 70 years has not been determined. Clinical correlation is essential. Serum or plasma low density lipoprotein (LDL) cholesterol measurement (mass/volume)Ordered By: Melyssa Hollingsworth on 01-11-2023 Cholesterol in LDL [Mass/Vol] TNP [facility] Comment on above: Test not performed Serum or plasma urea nitroge n measurement (mass/volume)Ordered By: Melyssa Hollingsworth on 01-11-2023 Urea nitrogen [Mass/Vol] 9 mg/dL 7-18 [facility] Squamous epithelial cells de tection in urine sediment by light microscopyOrdered By: Melyssa Hollingsworth on 01-11-2023 Epithelial cells.squamous LM Ql (Urine sed) 0-5 SEEN /hpf 0-5 [facility] Thin prep Papanicolaou smear with manual screeningOrdered By: Melyssa Hollingsworth on 01-11-2023 Thin prep Papanicolaou smear with manual screening 177 U/L 15-37 [facility] Thin prep Papanicolaou smear with manual screening 9 5-15 [facility] Urine blood detectionOrdered By: Melyssa Hollingsworth on 01-11-2023 RBC Ql (U) 25 /ul Negative [facility] RBC Ql (U) 0 SEEN /hpf 0-5 [facility] Urine clarityOrdered By: Nicole Hollingsworth on 01-11-2023 Clarity (U) Sl. Cloudy Clear [facility] Urine coarse granular cast d etectionOrdered By: Melyssa Hollingsworth on 01-11-2023 Coarse Granular Casts LM Ql (Urine sed) 0-5 SEEN /lpf 0-5 /lpf [facility] Urine color determinationOrd ered By: Melyssa Hollingsworth on 01-11-2023 Color (U) Brown Yellow [facility] Urine glucose detectionOrder ed By: Melyssa Hollingsworth on 01-11-2023 Glucose Ql (U) Normal mg/dl Normal [facility] Urine leukocyte esterase det ection by dipstickOrdered By: Melyssa Hollingsworth on 01-11-2023 Leukocyte esterase Test strip Ql (U) 25 /ul Negative [facility] Urine pHOrdered By: Melyssa Hollingsworth on 01-11-2023 pH (U) 6.5 [pH] 5.0 - 8.0 [facility] Urine sediment bacteria coun t by microscopy (number/high power field)Ordered By: Melyssa Hollingsworth on 01-11-2023 Bacteria LM.HPF (Urine sed) [#/Area] 0 /[HPF] None Seen [facility] Urine sediment renal epithel ial cell count by microscopy (number/high power field)Ordered By: Melyssa Hollingsworth on 01-11-2023 Epithelial cells.renal LM.HPF (Urine sed) [#/Area] 0 /[HPF] 0-5 [facility] Urine specific gravity measu rementOrdered By: Melyssa Hollingsworth on 01-11-2023 Specific gravity (U) [Rel density] 1.015 1.002-1.030 [facility] Urobilinogen Auto test strip Ql (U)Ordered By: Melyssa Hollingsworth on 01-11-2023 Urobilinogen Ql (U) 12 mg/dl Normal [facility] Whole blood hemoglobin A1c/t otal hemoglobin ratio (mass fraction)Ordered By: Melyssa Hollingsworth on 01-11-2023 HbA1c (Bld) [Mass fraction] 4.6 % 3.8-5.6 [facility] Comment on above: Normal < 5.7 % Predi abetic 5.7 - 6.4 % Diabetic >or= 6.5 % Please note range changes. CNCOon 03-17-2020 CNCO Letter Text Normal [facility] CNPNon 03-17-2020 CNPN Telephone ([id number]) ----- LAM SANCHEZ ([id number]) 1960 M Date Time Provider Department 03/17/20 MARIO CUEVAS HWW1 During your visit today, we recorded the following information about you: Monse Pickett 03/17/2020 1:21 PM Signed No Show Documentation Lam Sanchez no showed for an appointment on 03/17/2020 with Mario Cuevas MD at [facility]. He was scheduled for an established patient appointment. I called to speak with the patient regarding his missed appointment, but had to leaved a voicemail. No show determined to be fault of patient: Yes This is the patients first no show in the last 12 months. Letter mailed : Yes Is this the Third or Fourth No Show? No Monse Pickett March 17, 2020 1:04 PM Allergies As of Date: 03/17/2020 Noted Allergy Reaction HYDROCODONE-ACETAMINOPHEN 09/20/2015 8 - GI Upset Date Reviewed: 12/28/2019 Reviewed by: Cindy Delarosa ([facility]) - Fully Assessed Reason for Visit: Missed Appointment [1304] Cmt: No Show Prescriptions as of 03/17/2020 Sig: ASPIRIN 81 MG TABLET,DELAYED * Take 1 tablet by mouth twice * Patient not taking: Reported on 12/28/2019 DIPHENHYDRAMINE 25 MG CAPSULE Take 50 mg by mouth at bedtim* Problem List As Of Date 03/17/2020 Noted Resolved Family hx of alcoholism [Z81.1] 05/02/2016 Family history of coronary arteriosclerosis [Z8*05/02/2016 Primary osteoarthritis of left knee [M17.12] 05/02/2016 Alcoholism (HCC) [F10.20] 08/27/2016 Malaise and fatigue [R53.81, R53.83] 08/27/2016 Fatty (change of) liver, not elsewhere classifi*10/04/2015 Obesity, Class I, BMI 30-34.9 [E66.9] 02/17/2019 Former smoker [Z87.891] 02/17/2019 Wears dentures [Z97.2] 02/17/2019 History of alcohol abuse [F10.11] 02/17/2019 Bilateral primary osteoarthritis of knee [M17.0]03/18/2019 Encounter Status:Closed by MONSE PICKETT on 03/17/20 [facility] CNPMaryjo 12-29-2019 CNPN Telephone ([id number]) ----- LAM SANCHEZ ([id number]) 1960 M Date Time Provider Department 12/29/19 [facility] During your visit today, we recorded the following information about you: Regi Munguia 01/08/2020 9:08 AM Addendum Referral entered into [facility] Confirmation #[id number] Per Pain Management patient declined to schedule. Allergies As of Date: 12/29/2019 Noted Allergy Reaction HYDROCODONE-ACETAMINOPHEN 09/20/2015 8 - GI Upset Date Reviewed: 12/28/2019 Reviewed by: Cindy Delarosa ([facility]) - Fully Assessed Reason for Visit: Internal Referrals/resources [908] Cmt: Pain Management - [facility] - Declined to Schedule Reason For Visit History Recorded Prescriptions as of 12/29/2019 Sig: ASPIRIN 81 MG TABLET,DELAYED * Take 1 tablet by mouth twice * Patient not taking: Reported on 12/28/2019 DIPHENHYDRAMINE 25 MG CAPSULE Take 50 mg by mouth at bedtim* Problem List As Of Date 12/29/2019 Noted Resolved Family hx of alcoholism [Z81.1] 05/02/2016 Family history of coronary arteriosclerosis [Z8*05/02/2016 Primary osteoarthritis of left knee [M17.12] 05/02/2016 Alcoholism (HCC) [F10.20] 08/27/2016 Malaise and fatigue [R53.81, R53.83] 08/27/2016 Fatty (change of) liver, not elsewhere classifi*10/04/2015 Obesity, Class I, BMI 30-34.9 [E66.9] 02/17/2019 Former smoker [Z87.891] 02/17/2019 Wears dentures [Z97.2] 02/17/2019 History of alcohol abuse [F10.11] 02/17/2019 Bilateral primary osteoarthritis of knee [M17.0]03/18/2019 Encounter Status:Closed by REGI MUNGUIA on 12/29/19 [facility] Jorge 12-28-2019 CNOV Office Visit (INTBMG ) ----- LAM SANCHEZ ([id number]) 1960 M Date Time Provider Department 12/28/19 11:40 AM YOBANI ORTIZ During your visit today, we recorded the following information about you: Temperature Pulse Respiration Blood pressure 97.8 degrees 98/minute 12/minute 152/90 Weight Height 102.2 kg 1.803 m Yobani Ortiz MD 12/28/2019 11:57 AM Signed Lam Sanchez returns for the medically necessary reevaluation of the following concern(s): Hip pain - noting bilateral with inability to sleep. Tylenol with no benefit. Feels effecting quality of life. Did take an individual at gym gabapentin 600 mg x 1 dose with a benefit. Requesting gabapentin this AM. Hx of alcohol abuse in past. PAST MEDICAL HISTORY Diagnosis Date - History of meniscal tear Left Knee - Lumbar herniated disc - Osteoarthritis PAST SURGICAL HISTORY Procedure Laterality Date - PAST SURGICAL HISTORY OF Left 2014 L Knee - PAST SURGICAL HISTORY OF Left Early L Knee - PAST SURGICAL HISTORY OF 1985 and 1987 Lumbar Disc Repair No Fusion - PAST SURGICAL HISTORY OF L hand surgery - PAST SURGICAL HISTORY OF Bilateral 03/18/2019 B Knee Sx Social History Tobacco Use - Smoking status: Former Smoker Types: Cigarettes - Smokeless tobacco: Never Used - Tobacco comment: Substance Use Topics - Alcohol use: Not Currently Comment: Off for 3 years - Drug use: No Current Outpatient Medications on File Prior to Visit Medication Sig - aspirin, enteric coated (ASPIRIN, ENTERIC COATED) 81 mg EC tablet Take 1 tablet by mouth twice daily for 21 days. (Patient not taking: Reported on 12/28/2019 ) - diphenhydrAMINE (SLEEP AID, DIPHENHYDRAMINE,) 25 mg capsule Take 50 mg by mouth at bedtime as needed for Sedation (prn for sleep). No current facility-administered medications on file prior to visit. Review of Systems Constitutional: Negative for chills, diaphoresis, fever, malaise/fatigue and weight loss. Eyes: Negative for blurred vision, double vision and photophobia. Respiratory: Negative for cough, sputum production and shortness of breath. Cardiovascular: Negative for chest pain, palpitations and leg swelling. Gastrointestinal: Negative for abdominal pain, constipation, diarrhea, nausea and vomiting. Musculoskeletal: Positive for back pain and joint pain. Skin: Negative for itching and rash. Neurological: Negative for dizziness and weakness. Psychiatric/Behavioral: Positive for substance abuse. BP 152/90 (BP Site: Right Arm, BP Position: Sitting, BP Cuff Size: Large Adult) Pulse 98 Temp 36.6 ?C (97.8 ?F) (Temporal) Resp 12 Ht 180.3 cm (5' 11) Wt 102.2 kg (225 lb 6.4 oz) SpO2 97% BMI 31.44 kg/m? Physical Exam Constitutional: He is well-developed, well-nourished, and in no distress. No distress. HENT: Head: Normocephalic and atraumatic. Right Ear: External ear normal. Left Ear: External ear normal. Nose: Nose normal. Eyes: Pupils are equal, round, and reactive to light. Conjunctivae and EOM are normal. Right eye exhibits no discharge. Left eye exhibits no discharge. No scleral icterus. Neck: Normal range of motion. Neck supple. Pulmonary/Chest: Effort normal. No respiratory distress. Neurological: Gait normal. Skin: Skin is warm and dry. He is not diaphoretic. No cyanosis. No pallor. Nails show no clubbing. Psychiatric: Mood, memory, affect and judgment normal. Nursing note and vitals reviewed. ASSESSMENT/PLAN: 1. Other chronic pain - ICD9: 338.29, ICD10: G89.29 (primary diagnosis) Hx noted. Concern present given patient took a prescription medication from another individual in past month. Explained not comfortable given this medication has abuse potential along with hx of alcohol use in past. Opinion of pain management recommended at this time. Patient became irate and upset that he was not able to receive medication and cost would be increased for other visit. PDMP website checked and validated. All prescriptions have been APPROPRIATELY filled. No suspicious activity was identified. 12/28/2019 by Yobani Ortiz MD - CONSULT TO PAIN MGT 2. Alcoholism (HCC) - ICD9: 303.90, ICD10: F10.20 Per hx in chart 3. Drug-seeking behavior - ICD9: 305.90, ICD10: Z76.5 Very aggressive with order and patient was rationalizing that gabpentin is not a narcotic. I did explain it is a controlled subastance with potential for abuse and offered alternative way for him to receive. Yobani Ortiz MD Referring Provider: SELF [[id number]] Allergies As of Date: 12/28/2019 Noted Allergy Reaction HYDROCODONE-ACETAMINOPHEN 09/20/2015 8 - GI Upset Date Reviewed: 12/28/2019 Reviewed by: Cindy Delarosa ([facility]) - Fully Assessed Reason for Visit: Left Hip Pain [1555] Cmt: requesting gabapentin 600mg today Primary Visit Diagnosis:Other chronic pain [G89.29] Other Visit Diagnoses:Alcoholism (HCC) [F10.20] Drug-seeking behavior [Z76.5] Order(s):CONSULT TO PAIN MGT [[id number]] Order #: [id number]: 1 FUTURE Prescriptions as of 12/28/2019 Sig: ASPIRIN 81 MG TABLET,DELAYED * Take 1 tablet by mouth twice * Patient not taking: Reported on 12/28/2019 DIPHENHYDRAMINE 25 MG CAPSULE Take 50 mg by mouth at bedtim* Problem List As Of Date 12/28/2019 Noted Resolved Family hx of alcoholism [Z81.1] 05/02/2016 Family history of coronary arteriosclerosis [Z8*05/02/2016 Primary osteoarthritis of left knee [M17.12] 05/02/2016 Alcoholism (HCC) [F10.20] 08/27/2016 Malaise and fatigue [R53.81, R53.83] 08/27/2016 Fatty (change of) liver, not elsewhere classifi*10/04/2015 Obesity, Class I, BMI 30-34.9 [E66.9] 02/17/2019 Former smoker [Z87.891] 02/17/2019 Wears dentures [Z97.2] 02/17/2019 History of alcohol abuse [F10.11] 02/17/2019 Bilateral primary osteoarthritis of knee [M17.0]03/18/2019 Disposition: Return if symptoms worsen or fail to improve. Follow-up and Disposition History Recorded Encounter Status:Closed by YOBANI ORTIZ MD on 12/28/19 [facility] PROGRESSon 12-28-2019 PROGRESS HNO ID: [id number] Author: Yobani Ortiz Service: ? Author Type: Physician Type: Progress Notes Filed: 12/28/2019 11:57 AM Note Text: Lam Sanchez returns for the medically necessary reevaluation of the following concern(s): Hip pain - noting bilateral with inability to sleep. Tylenol with no benefit. Feels effecting quality of life. Did take an individual at gym gabapentin 600 mg x 1 dose with a benefit. Requesting gabapentin this AM. Hx of alcohol abuse in past. PAST MEDICAL HISTORY Diagnosis Date - History of meniscal tear Left Knee - Lumbar herniated disc - Osteoarthritis PAST SURGICAL HISTORY Procedure Laterality Date - PAST SURGICAL HISTORY OF Left 2014 L Knee - PAST SURGICAL HISTORY OF Left Early L Knee - PAST SURGICAL HISTORY OF 1985 and 1987 Lumbar Disc Repair No Fusion - PAST SURGICAL HISTORY OF L hand surgery - PAST SURGICAL HISTORY OF Bilateral 03/18/2019 B Knee Sx Social History Tobacco Use - Smoking status: Former Smoker Types: Cigarettes - Smokeless tobacco: Never Used - Tobacco comment: Substance Use Topics - Alcohol use: Not Currently Comment: Off for 3 years - Drug use: No Current Outpatient Medications on File Prior to Visit Medication Sig - aspirin, enteric coated (ASPIRIN, ENTERIC COATED) 81 mg EC tablet Take 1 tablet by mouth twice daily for 21 days. (Patient not taking: Reported on 12/28/2019 ) - diphenhydrAMINE (SLEEP AID, DIPHENHYDRAMINE,) 25 mg capsule Take 50 mg by mouth at bedtime as needed for Sedation (prn for sleep). No current facility-administered medications on file prior to visit. Review of Systems Constitutional: Negative for chills, diaphoresis, fever, malaise/fatigue and weight loss. Eyes: Negative for blurred vision, double vision and photophobia. Respiratory: Negative for cough, sputum production and shortness of breath. Cardiovascular: Negative for chest pain, palpitations and leg swelling. Gastrointestinal: Negative for abdominal pain, constipation, diarrhea, nausea and vomiting. Musculoskeletal: Positive for back pain and joint pain. Skin: Negative for itching and rash. Neurological: Negative for dizziness and weakness. Psychiatric/Behavioral: Positive for substance abuse. BP 152/90 (BP Site: Right Arm, BP Position: Sitting, BP Cuff Size: Large Adult) Pulse 98 Temp 36.6 ?C (97.8 ?F) (Temporal) Resp 12 Ht 180.3 cm (5' 11) Wt 102.2 kg (225 lb 6.4 oz) SpO2 97% BMI 31.44 kg/m? Physical Exam Constitutional: He is well-developed, well-nourished, and in no distress. No distress. HENT: Head: Normocephalic and atraumatic. Right Ear: External ear normal. Left Ear: External ear normal. Nose: Nose normal. Eyes: Pupils are equal, round, and reactive to light. Conjunctivae and EOM are normal. Right eye exhibits no discharge. Left eye exhibits no discharge. No scleral icterus. Neck: Normal range of motion. Neck supple. Pulmonary/Chest: Effort normal. No respiratory distress. Neurological: Gait normal. Skin: Skin is warm and dry. He is not diaphoretic. No cyanosis. No pallor. Nails show no clubbing. Psychiatric: Mood, memory, affect and judgment normal. Nursing note and vitals reviewed. ASSESSMENT/PLAN: 1. Other chronic pain - ICD9: 338.29, ICD10: G89.29 (primary diagnosis) Hx noted. Concern present given patient took a prescription medication from another individual in past month. Explained not comfortable given this medication has abuse potential along with hx of alcohol use in past. Opinion of pain management recommended at this time. Patient became irate and upset that he was not able to receive medication and cost would be increased for other visit. PDMP website checked and validated. All prescriptions have been APPROPRIATELY filled. No suspicious activity was identified. 12/28/2019 by Yobani Ortiz MD - CONSULT TO PAIN MGT 2. Alcoholism (HCC) - ICD9: 303.90, ICD10: F10.20 Per hx in chart 3. Drug-seeking behavior - ICD9: 305.90, ICD10: Z76.5 Very aggressive with order and patient was rationalizing that gabpentin is not a narcotic. I did explain it is a controlled subastance with potential for abuse and offered alternative way for him to receive. Yobani Ortiz MD Normal [facility] CNOVon 05-14-2019 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 - diphenhydrAMINE (SLEEP AID, DIPHENHYDRAMINE,) 25 mg capsule Take 50 mg by mouth at bedtime as needed for Sedation (prn for sleep). No current facility-administered medications for this visit. Allergies: ALLERGIES Allergen Reactions - Hydrocodone-Acetami* GI Upset Physical Examination: Resp 17 Ht 5' 11 (1.80m) Wt 215 lb (97.5kg) BMI 30.00 kg/(m2). Ortho Exam Normal gait Incisions well healed Moderate effusion ROM 0-120 NVI Images: no images today Procedures [place] Score: see report Assessment and Plan: 1. 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 The risks and complications of these medications were discussed. The patient understands that if they are currently taking a NSAIDs or are prescribed one in the future they should not take Advil, Aleve, ibuprofen, naproxen or other OTC NSAIDs. ? They were also told that if any unusual symptoms develop, that the medication should be stopped immediately and that their primary care physician as well as our office should be notified. If they take this medication care home, they understand the need for medication monitoring through their primary care physician. They are aware of the potential risks and side effects of this medication as well as the expected benefits, and wishes to proceed with its use. FU in 1 year from surgery No follow-ups on file. 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, bilateral [Z96.653] Prescriptions as of 05/14/2019 Sig: ASPIRIN 81 MG TABLET,DELAYED * Take 1 tablet by mouth twice * DIPHENHYDRAMINE 25 MG CAPSULE Take 50 mg by mouth at bedtim* Problem List As Of Date 05/14/2019 Noted Resolved Family hx of alcoholism [Z81.1] 05/02/2016 Family history of coronary arteriosclerosis [Z8*05/02/2016 Primary osteoarthritis of left knee [M17.12] 05/02/2016 Alcoholism (HCC) [F10.20] 08/27/2016 Malaise and fatigue [R53.81, R53.83] 08/27/2016 Fatty (change of) liver, not elsewhere classifi*10/04/2015 Obesity, Class I, BMI 30-34.9 [E66.9] 02/17/2019 Former smoker [Z87.891] 02/17/2019 Wears dentures [Z97.2] 02/17/2019 History of alcohol abuse [F10.11] 02/17/2019 Bilateral primary osteoarthritis of knee [M17.0]03/18/2019 Encounter Status:Closed by MARIO CUEVAS MD on 05/14/19 [facility] PROGRESSon 05-14-2019 PROGRESS HNO ID: [id number] Author: Mario Cuevas Service: ? 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 - diphenhydrAMINE (SLEEP AID, DIPHENHYDRAMINE,) 25 mg capsule Take 50 mg by mouth at bedtime as needed for Sedation (prn for sleep). No current facility-administered medications for this visit. Allergies: ALLERGIES Allergen Reactions - Hydrocodone-Acetami* GI Upset Physical Examination: Resp 17 Ht 5' 11 (1.80m) Wt 215 lb (97.5kg) BMI 30.00 kg/(m2). Ortho Exam Normal gait Incisions well healed Moderate effusion ROM 0-120 NVI Images: no images today Procedures [place] Score: see report Assessment and Plan: 1. 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 The risks and complications of these medications were discussed. The patient understands that if they are currently taking a NSAIDs or are prescribed one in the future they should not take Advil, Aleve, ibuprofen, naproxen or other OTC NSAIDs. ? They were also told that if any unusual symptoms develop, that the medication should be stopped immediately and that their primary care physician as well as our office should be notified. If they take this medication technician terminal and repeater, they understand the need for medication monitoring through their primary care physician. They are aware of the potential risks and side effects of this medication as well as the expected benefits, and wishes to proceed with its use. FU in 1 year from surgery No follow-ups on file. Mario Cuevas MD [facility] CNOVon 04-16-2019 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 - traMADol (ULTRAM) 50 mg tablet 1 to 2 tab(s) every 8 hours as needed for pain. - diphenhydrAMINE (SLEEP AID, DIPHENHYDRAMINE,) 25 mg capsule Take 50 mg by mouth at bedtime as needed for Sedation (prn for sleep). No current facility-administered medications for this visit. Allergies: ALLERGIES Allergen Reactions - Hydrocodone-Acetami* GI Upset Physical Examination: Resp 18 Ht 5' 11 (1.80m) Wt 215 lb (97.5kg) BMI 30.00 kg/(m2). Ortho Exam Ambulating without assistance Right knee ROM 0-100 Left knee ROM 0-110 Mild effusion Incisions well healed Images: 3 views bilateral knees taken today and reviewed by myself shows stable bilateral TKA Procedures [place] Score: see report Assessment and Plan: 1. 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 The risks and complications of these medications were discussed. The patient understands that if they are currently taking a NSAIDs or are prescribed one in the future they should not take Advil, Aleve, ibuprofen, naproxen or other OTC NSAIDs. ? They were also told that if any unusual symptoms develop, that the medication should be stopped immediately and that their primary care physician as well as our office should be notified. If they take this medication care home, they understand the need for medication monitoring through their primary care physician. They are aware of the potential risks and side effects of this medication as well as the expected benefits, and wishes to proceed with its use. FU in 4 weeks No follow-ups on file. 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, bilateral [Z96.653] Order(s):XR KNEE POST OP 3V AP/LAT/MERCHANT LT [[id number]] Order #: [id number] XR KNEE POST OP 3V AP/LAT/MERCHANT RT [[id number]] Order #: [id number] CONSULT TO PHYSICAL THERAPY (AG) [[id number]] Order #: [id number]: 1 traMADol (ULTRAM) 50 mg tablet1 to 2 tab(s) every 8 hours as needed for pain.Disp: 28 tabletRfl: 0 Prescriptions as of 04/16/2019 Sig: ASPIRIN 81 MG TABLET,DELAYED * Take 1 tablet by mouth twice * TRAMADOL 50 MG TABLET 1 to 2 tab(s) every 8 hours a* DIPHENHYDRAMINE 25 MG CAPSULE Take 50 mg by mouth at bedtim* Medication notes this encounter DIPHENHYDRAMINE 25 MG CAPSULE >> Brisa Carrasco, Tech 04/16/2019 11:40 AM >> POORNIMA SERRATO [facility] Apr 16, 2019 11:40 AM Not taking Problem List As Of Date 04/16/2019 Noted Resolved Family hx of alcoholism [Z81.1] 05/02/2016 Family history of coronary arteriosclerosis [Z8*05/02/2016 Primary osteoarthritis of left knee [M17.12] 05/02/2016 Alcoholism (HCC) [F10.20] 08/27/2016 Malaise and fatigue [R53.81, R53.83] 08/27/2016 Fatty (change of) liver, not elsewhere classifi*10/04/2015 Obesity, Class I, BMI 30-34.9 [E66.9] 02/17/2019 Former smoker [Z87.891] 02/17/2019 Wears dentures [Z97.2] 02/17/2019 History of alcohol abuse [F10.11] 02/17/2019 Bilateral primary osteoarthritis of knee [M17.0]03/18/2019 Prescriptions ordered this encounter Disp Refills Start End TRAMADOL 50 MG TABLET 28 t* 0 04/16/2019 04/23/2019 Class: Print RX Si to 2 tab(s) every 8 hours as needed for pain. Encounter Status:Closed by MARIO CUEVAS MD on 04/16/19 [facility] PROGRESSon 04-16-2019 PROGRESS HNO ID: [id number] Author: Mario Cuevas Service: ? 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 - traMADol (ULTRAM) 50 mg tablet 1 to 2 tab(s) every 8 hours as needed for pain. - diphenhydrAMINE (SLEEP AID, DIPHENHYDRAMINE,) 25 mg capsule Take 50 mg by mouth at bedtime as needed for Sedation (prn for sleep). No current facility-administered medications for this visit. Allergies: ALLERGIES Allergen Reactions - Hydrocodone-Acetami* GI Upset Physical Examination: Resp 18 Ht 5' 11 (1.80m) Wt 215 lb (97.5kg) BMI 30.00 kg/(m2). Ortho Exam Ambulating without assistance Right knee ROM 0-100 Left knee ROM 0-110 Mild effusion Incisions well healed Images: 3 views bilateral knees taken today and reviewed by myself shows stable bilateral TKA Procedures [place] Score: see report Assessment and Plan: 1. 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 The risks and complications of these medications were discussed. The patient understands that if they are currently taking a NSAIDs or are prescribed one in the future they should not take Advil, Aleve, ibuprofen, naproxen or other OTC NSAIDs. ? They were also told that if any unusual symptoms develop, that the medication should be stopped immediately and that their primary care physician as well as our office should be notified. If they take this medication care home, they understand the need for medication monitoring through their primary care physician. They are aware of the potential risks and side effects of this medication as well as the expected benefits, and wishes to proceed with its use. FU in 4 weeks No follow-ups on file. Mario Cuevas MD [facility] OBSOLETEon 04-07-2019 OBSOLETE Refill (AGPOB1) ----- LAM SANCHEZ ([id number]) 1960 M Date Time Provider Department 04/07/19 MARIO CUEVAS AGPOB1 During your visit today, we recorded the following information about you: Allergies As of Date: 04/07/2019 Noted Allergy Reaction HYDROCODONE-ACETAMINOPHEN 09/20/2015 8 - GI Upset Date Reviewed: 03/23/2019 Reviewed by: Nitin (Pt) REGINA Edwards - Fully Assessed Reason for Visit: Refill Request [94] Primary Visit Diagnosis:Status post revision of total knee replacement, bilateral [Z96.653] Order(s):oxyCODONE IR (ROXICODONE) 5 mg immediate release tablet1 to 2 by mouth every 6 hours as needed for pain.Disp: 28 tabletRfl: 0 Prescriptions as of 04/07/2019 Sig: OXYCODONE 5 MG TABLET Take 1 tablet by mouth every * OXYCODONE 5 MG TABLET 1 to 2 by mouth every 6 hours* ASPIRIN 81 MG TABLET,DELAYED * Take 1 tablet by mouth twice * DIPHENHYDRAMINE 25 MG CAPSULE Take 50 mg by mouth at bedtim* Problem List As Of Date 04/07/2019 Noted Resolved Family hx of alcoholism [Z81.1] 05/02/2016 Family history of coronary arteriosclerosis [Z8*05/02/2016 Primary osteoarthritis of left knee [M17.12] 05/02/2016 Alcoholism (HCC) [F10.20] 08/27/2016 Malaise and fatigue [R53.81, R53.83] 08/27/2016 Fatty (change of) liver, not elsewhere classifi*10/04/2015 Obesity, Class I, BMI 30-34.9 [E66.9] 02/17/2019 Former smoker [Z87.891] 02/17/2019 Wears dentures [Z97.2] 02/17/2019 History of alcohol abuse [F10.11] 02/17/2019 Bilateral primary osteoarthritis of knee [M17.0]03/18/2019 Prescriptions ordered this encounter Disp Refills Start End OXYCODONE 5 MG TABLET 28 t* 0 04/07/2019 04/14/2019 Class: Print RX Si to 2 by mouth every 6 hours as needed for pain. Encounter Status:Closed by MARIO CUEVAS MD on 04/07/19 [facility] OBSOLETEon 04-06-2019 OBSOLETE Refill ([id number]) ----- LAM SANCHEZ ([id number]) 1960 M Date Time Provider Department 04/06/19 MARIO CUEVAS [id number] During your visit today, we recorded the following information about you: Cindi Raza 04/06/2019 3:17 PM Signed POB will be fine tomorrow if that works. Cindi Raza April 06, 2019 3:17 PM Allergies As of Date: 04/06/2019 Noted Allergy Reaction HYDROCODONE-ACETAMINOPHEN 09/20/2015 8 - GI Upset Date Reviewed: 03/23/2019 Reviewed by: Nitin (Pt) REGINA Edwards - Fully Assessed Reason for Visit: Refill Request [94] Primary Visit Diagnosis:Status post total bilateral knee replacement [Z96.653] Order(s):oxyCODONE IR (ROXICODONE) 5 mg immediate release tabletTake 1 tablet by mouth every 6 hours as needed for up to 7 days. for pain.Disp: 28 tabletRfl: 0 Prescriptions as of 04/06/2019 Sig: OXYCODONE 5 MG TABLET Take 1 tablet by mouth every * ASPIRIN 81 MG TABLET,DELAYED * Take 1 tablet by mouth twice * DIPHENHYDRAMINE 25 MG CAPSULE Take 50 mg by mouth at bedtim* Problem List As Of Date 04/06/2019 Noted Resolved Family hx of alcoholism [Z81.1] 05/02/2016 Family history of coronary arteriosclerosis [Z8*05/02/2016 Primary osteoarthritis of left knee [M17.12] 05/02/2016 Alcoholism (HCC) [F10.20] 08/27/2016 Malaise and fatigue [R53.81, R53.83] 08/27/2016 Fatty (change of) liver, not elsewhere classifi*10/04/2015 Obesity, Class I, BMI 30-34.9 [E66.9] 02/17/2019 Former smoker [Z87.891] 02/17/2019 Wears dentures [Z97.2] 02/17/2019 History of alcohol abuse [F10.11] 02/17/2019 Bilateral primary osteoarthritis of knee [M17.0]03/18/2019 Prescriptions ordered this encounter Disp Refills Start End OXYCODONE 5 MG TABLET 28 t* 0 04/07/2019 04/14/2019 Class: Print RX Route: ORAL Sig: Take 1 tablet by mouth every 6 hours as needed for up to 7 days. for pain. Encounter Status:Closed by CINDI RAZA on 04/07/19 [facility] Rebeca 03-31-2019 CNPN Telephone ([id number]) ----- LAM SANCHEZ ([id number]) 1960 M Date Time Provider Department 03/31/19 MARIO CUEVASPOB1 During your visit today, we recorded the following information about you: Mario Cuevas MD 03/31/2019 10:15 AM Signed PATIENT NAME: Lam Sanchez : 1960 SURGEON: Mario Cuevas MD O/S DATE: CO-SURGEON: ADMIT DATE: PRIMARY DIAGNOSIS: Right Knee DJD SECONDARY DIAGNOSIS: LOCATION: [facility] DISPOSITION: INPATIENT SURGERY DATE: 03/18/19 MSR # PRIMARY INSURANCE: SECONDARY INSURANCE: CPT CODE DESCRIPTION CHARGE 29420 Right Total Knee Arthroplasty Allergies As of Date: 03/31/2019 Noted Allergy Reaction HYDROCODONE-ACETAMINOPHEN 09/20/2015 8 - GI Upset Date Reviewed: 03/23/2019 Reviewed by: Nitin (Pt) REGINA Edwards - Fully Assessed Reason for Visit: Billing [8042] Prescriptions as of 03/31/2019 Sig: ASPIRIN 81 MG TABLET,DELAYED * Take 1 tablet by mouth twice * DIPHENHYDRAMINE 25 MG CAPSULE Take 50 mg by mouth at bedtim* Problem List As Of Date 03/31/2019 Noted Resolved Family hx of alcoholism [Z81.1] 05/02/2016 Family history of coronary arteriosclerosis [Z8*05/02/2016 Primary osteoarthritis of left knee [M17.12] 05/02/2016 Alcoholism (HCC) [F10.20] 08/27/2016 Malaise and fatigue [R53.81, R53.83] 08/27/2016 Fatty (change of) liver, not elsewhere classifi*10/04/2015 Obesity, Class I, BMI 30-34.9 [E66.9] 02/17/2019 Former smoker [Z87.891] 02/17/2019 Wears dentures [Z97.2] 02/17/2019 History of alcohol abuse [F10.11] 02/17/2019 Bilateral primary osteoarthritis of knee [M17.0]03/18/2019 Encounter Status:Closed by MARIO CUEVAS MD on 03/31/19 [facility] ALLIED HEALTHon 03-20-2019 ALLIED HEALTH HNO ID: [id number] Author: Nithin Matos (Chaplain), Student Service: Spiritual Care Author Type: Type: Allied Health Filed: 03/20/2019 4:45 PM Note Text: SPIRITUAL CARE PROGRESS NOTE SERVICE DATE: 03/20/2019 SERVICE TIME: 2:36 To contact the Spiritual Care Department: Please call [phone] SIGNATURE: Chaplain Kristin Integrated Circuits Inspector PATIENT NAME: Lam Sanchez DATE: March 20, 2019 TIME: 4:42 PM PAGER/CONTACT #: [phone] introduced himself to Pt and made S/C available. Pt declined care. [facility] CASE MANAGEMon 03-20-2019 CASE MANAGEM HNO ID: [id number] Author: Alka (Rn) JAMMIE Oreilly Service: Care Management Author Type: Registered Nurse Type: Care Mgt Progress Note Filed: 03/20/2019 3:11 PM Note Text: CARE MANAGEMENT PROGRESS NOTE SERVICE DATE: 03/20/2019 SERVICE TIME: 1120 LOS: 1 day Needs Prior to Discharge: Facility or Agency Choices Met with patient and plan remains for home with home PT [facility] accepted SIGNATURE: Alka Oreilly RN PATIENT NAME: Lam Sanchez DATE: March 20, 2019 TIME: 3:10 PM PAGER/CONTACT #: [phone] [facility] PLAN OF CAREon 03-20-2019 PLAN OF CARE HNO ID: [id number] Author: Janeth Pond ([facility]) Service: Pharmacy Author Type: ? Type: Plan of Care Filed: 03/20/2019 10:49 AM Note Text: MUSEUM PREPARATOR BEDSIDE DELIVERY SURVEY 1. Patient to use [facility] Bedside Delivery - NO prefer own pharmacy Insurance Information as follows: 2. Insurance card on file - YES 3. Credit card for payment - N/A Patient declined per CM Assessment on 03/19 Janeth Pond (Reshipping Clerk) Extension [phone], or [phone] [facility] PROGRESSon 03-20-2019 PROGRESS HNO ID: [id number] Author: Zechariah Gomez Service: Orthopaedic Surgery Author Type: Resident Type: Progress Notes Filed: 03/20/2019 6:20 AM Note Text: ----- Attestation signed by Mario Cuevas at 03/20/2019 9:25 AM Attending Note I evaluated the patient and personally participated in the walker components. I agree with the resident's findings and plan as documented and have discussed the case and management of the patient's care with the resident. Plan of care discussed with: Provider, RN, Patient. Signature: Mario Cuevas MD Date: March 20, 2019 Time: 9:24 AM ----- Orthopaedic Surgery Inpatient Progress Note Assessment and Plan Lam Sanchez is a 58 year old male who is POD #2 status-post bilateral TKA. - Pain control. - Weight-bearing status: WBAT BLE. - DVT PPx: SCDs. ASA 81 mg BID for 21 days total. - Antibiotic PPx: Ancef 2 g Q8H for two doses - complete. - Dressing: Aquacel - maintain for 7 days. - PT/OT: Evaluation AND recommendations - SNF. - Acute blood loss anemia: Asymptomatic - monitor. - Discontinue Trevino catheter today after ambulatory with PT. - Disposition: SNF vs home - PT recommending SNF, but patient adamant on discharge to home today. - Plan of care discussed with patient who is in agreement. Subjective No acute events overnight. Pain well controlled. No fevers, chills, chest pain, or shortness of breath. No new complaints. Physical Examination Vitals BP 116/67 Pulse 78 Temp 36.8 ?C (98.2 ?F) (Oral) Resp 18 Ht 176.5 cm (5' 9.49) Wt 97.5 kg (215 lb) SpO2 98% BMI 31.31 kg/m? General Alert and oriented. No acute distress. Cooperative with interview. Bilateral Lower Extremities Aquacel dressings clean, dry, and intact. SILT Smart/Sa/DP/SP/T. Motor intact EHL/DF/PF. DP/PT pulses palpable; BCR all digits. Labs Recent Labs 03/19/19 0245 NA 138 K 3.9 CHLOR 107 CO2 25 BUN 9 CREAT 0.68 GLUC 117* ANION 10 CA 8.0* WBC 8.67 HB 12.6* HCT 37.6* PLT 259 Imaging No new orthopaedic imaging. Zechariah Gomez MD Orthopaedic Surgery, PGY-3 Pager: [phone] Ortho Pager: [phone] Normal [facility] THERAPY NTon 03-20-2019 THERAPY NT HNO ID: [id number] Author: Marta Hoffman Service: Physical Therapy Author Type: Pick Up Worker Type: Therapy (PT/OT/Speech/Resp) Filed: 03/20/2019 3:51 PM Note Text: ----- Attestation signed by Ludy Hoffman at 03/20/2019 4:11 PM I reviewed and agree with the documentation corresponding to this therapy visit. Patient has progressed toward goals in order to safely return home with assistance from family for stairs and exercises. Patient appropriate for home with home PT when medically appropriate for discharge. SIGNATURE: Ludy Hoffman PT DATE: March 20, 2019 TIME: 4:10 PM ----- Physical Therapy Treatment SERVICE DATE: 03/20/2019 SERVICE TIME: 1345 to 1415 ROOM: [place] [id number] Recommended Discharge Disposition: Home with Home PT and assist as needed from family with exercises and to enter his home/stairs. Anticipated Discharge Needs: Physical Assist at Home Physical Assist at Home for: Shopping;Transportation;L aundry;Cleaning PT Recommendations to Nursing: Ambulate with device;To bathroom;In halls;Transfer to/from chair;OOB for Meals;With assist of 1 person Device: Wheeled Walker PT 6 Clicks Score: 21 Precautions/Activity Restrictions: Total Knee Replacement;Weight Bearing Restrictions Isolation Type: None Extremity With Weight Bearing Restricted: Left Lower Extremity;Right Lower Extremity Left Lower Extremity Weight Bearing Status: WBAT Right Lower Extremity Weight Bearing Status: WBAT ASSESSMENT : Patient Disposition at Start of Session: Seen in therapy department;Family Present(parents) Patient Disposition at End of Session: (returned to room via w/c by electrostatic powder coating technician) Tolerated Full Session Patient progressing toward goals with improvement with control of his legs with bed mobility. Patient met goals for bed mobility and management of stairs. Patient will need assist with his exercises and management of his walker on stairs. Patient and his parents were present and voiced good understanding of exercises, use of cold pack, and safety with mobility. Patient reports that he plans on sleeping in his recliner initially to minimize stairs. Anticipate discharge to home later today. Physical Therapy Problem List: Pain;Safety Deficits;Decreased Activity Tolerance;Decreased Range Of Motion;Decreased Strength;Functional Mobility Impairment;Balance Impaired Patient /Caregiver Goals: Go Home Goals for Plan of Care: Rolling with: Stand By Assistance Transfer supine to/from sit with: Stand By Assistance Transfer sit to/from stand with: Stand By Assistance Ambulate with: Stand By Assistance Distance: 40ft Device: Wheeled Walker Ambulate up and down steps with: Contact Guard Assistance Number of steps: 4 Device: Cane;Crutch(es);Rail Progress Toward Goals: Progressing as expected Rehab Potential: Good PLAN: Treatment Frequency (times per week): BID Current admission Treatment Interventions: Education;Strengthening;F unctional Mobility Training;Balance Training;Neuromuscular Re-education Plan of Care developed with: Patient TREATMENT INTERVENTIONS: Therapy Diagnosis: Difficulty walking-musculoskeletal Interventions Provided: Therapeutic Exercise (38166);Therapeutic Activity (19289);Gait Training (20629) Therapeutic Exercise (00318) Treatment Minutes: 13 1 unit Skilled Intervention(s): Instruction in therapeutic exercise Patient completed bilateral total knee arthroplasty protocol (ankle pump, quad set, gluteal set, heel slide, hip abd/add, straight leg raise, short arc quad, long arc quad) x 12 reps with min amount of assist. Patient demonstrated fair- quad control with exercises. Patient demonstrates 12 to 50 degrees of supine AAROM to both knee. Patient reports no change in pain. Verbal and tactile cuing provided to breathe, greater eccentric quad control, and to maintain proper alignment. Therapeutic Activity (58424) Treatment Minutes: 5 0 units Skilled Intervention(s): Instructed patient in supine to and from sit pushing with upper extremities to sit up from flat bed. Patient completed 2 trials without need to assist with his legs. Reports that he plans on sleeping in a recliner initially. Education with use of cold pack and positioning for pain/edema management. Recommend patient limit sitting/standing with his feet on the floor to increments of 15 minutes to minimize swelling. Gait Training (28175) Treatment Minutes: 12 1 unit Skilled Intervention(s): Instruction in sit to stand technique with proper hand placement and body positioning at edge of bed/chair, Instruction in stand to sit technique with LE's touching chair/bed and reaching back for surface. Instruction in correction of gait deviations. Patient ambulates with wide base of support, cues to just roll walker, look up, increase foot clearance, and to avoid getting too close to front of walker. Instruction in stair negotiation using one rail and straight cane (4 steps) and then one rail (4 steps) with sideway approach with contact guard assist. Patient voiced greater comfort with sideway approach on stairs. Total Timed Code Treatment Minutes: 30 Total Treatment Time (minutes): 30 SUBJECTIVE: Current Hospital Course: Chart reviewed and no significant medical updates relevant to therapy were noted Reason for Physical Therapy Consult : eval and treat Relevant Past Medical History: hx of alchol abuse, obesity, hx lumbar disc repair, hx L knee surgery Patient Report: Voiced no new complaints. Home Environment Patient Lives With: Self/Alone Assistance Available: PRN Entry To Home: With Rail;Stairs Number Of Stairs Into Home: 3 Number Of Stairs To Bed/Bath: 0(patient has arranged first floor set up ) Tub/Shower Type: tub/shower Laundry: basement (can have assistance) Equipment Owned: Cane;Wheeled Walker Prior Functional Level: Within Functional Limits Prior Functional Level Comments: Patient reports independence with ADL/IADL no devices used OBJECTIVE: CURRENT FUNCTIONAL STATUS: Current Functional Mobility Assist Level Additional Information Rolling Supine to Sit Stand By Assistance Sit to Supine Stand By Assistance Scooting Sit to Stand Contact Guard Assistance Stand to Sit Contact Guard Assistance Bed to Chair Contact Guard Assistance Bed To Chair Transfer Type: Stand Pivot Bed To Chair Transfer Equipment: Wheeled Walker Toilet/Commode Gait Stand By Assistance Gait Device: Wheeled Walker Gait Distance (feet): 2 x 20ft Stairs Contact Guard Assistance Stairs Device: Rail Number of Stairs: 8 Curb Step Car Transfer Gait Deviations Right Lower Extremity: Weight bearing decreased;Stance time decreased;Heel strike during initial stance decreased;Push-off during terminal stance decreased;Knee flexion during stance increased;Step length decreased Gait Deviations Left Lower Extremity: Weight bearing decreased;Stance time decreased;Heel strike during initial stance decreased;Push-off during terminal stance decreased;Knee flexion during stance increased;Step length decreased General Gait Deviations: Antalgic gait pattern;Adalgisa decreased;Step length decreased;Flexed trunk posture;Wide base of support;Non-functional gait speed JH-HLM: 6: Walk 10 steps or more Please see discipline specific clinical documentation flowsheet for complete details for this therapy evaluation/treatment. SIGNATURE: Marta Hoffman PTA PATIENT NAME: Lam Sanchez DATE: March 20, 2019 TIME: 2:47 PM Normal [facility] THERAPY NT HNO ID: [id number] Author: Faith Mera/Meera Paulino Service: Occupational Therapy Author Type: Occupational Therapist Type: Therapy (PT/OT/Speech/Resp) Filed: 03/20/2019 3:05 PM Note Text: Occupational Therapy Treatment SERVICE DATE: 03/20/2019 SERVICE TIME: 1306 to 1340 ROOM: [id number] Recommended Discharge Disposition: Home OT Recommended Discharge Disposition Comments: Patient reports strong family/friend support for assistance with IADL Justification For Post Acute Needs: Motivated;Willing to participate;Living the community premorbidly;Anticipate that patient will require daily (5x/wk) skilled therapy in a post-acute facility setting at the time of acute hospital discharge Anticipated Discharge Needs: Physical Assist at Home Physical Assist at Home for: Shopping;Transportation;L aundry;Cleaning OT Recommendations to Nursing: To Bathroom for ADL?s /and or Toileting;OOB for meals;With assist of 1 person Equipment: Wheeled Walker;Grab Bars-Toilet OT 6 Clicks Score: 21 Precautions/Activity Restrictions: Total Knee Replacement;Weight Bearing Restrictions Isolation Type: None Extremity With Weight Bearing Restricted: Left Lower Extremity;Right Lower Extremity Left Lower Extremity Weight Bearing Status: WBAT Right Lower Extremity Weight Bearing Status: WBAT ASSESSMENT: Patient demonstrates good progress towards OT goals completing ADL and associated mobility with supervision to CGA. Patient continues to require assistance for safety with car and tub transfers and would benefit from continued skilled OT services via home health OT to ensure safety in home environment upon discharge to private residence. Patient Disposition at Start of Session: OOB in Chair;Call Menendez in Reach;Family Present Patient Disposition at End of Session: Family Present;Seen in Therapy Department(patient transition to PT ) Tolerated Full Session Occupational Therapy Problem List: Functional Mobility Impairment;Decreased Range Of Motion;Impaired Self Care Patient /Caregiver Goals: Go Home Goals for Plan of Care: Grooming with: Supervision(standing at sink ) Upper Body Bathing with: Supervision Upper Body Dressing with: Independent Lower Body Bathing with: Minimal Assistance Lower Body Dressing with: Modified Independent Toilet Hygiene with: Independent Toilet Transfer with: Stand By Assistance Progress Toward Goals: Progressing as expected Rehab Potential: Excellent PLAN: Treatment Frequency (times per week): 3(1-3x/week ) Current admission Treatment Interventions: Education;Self Care / Home Management;Functional Mobility Training Plan of Care developed with: Patient TREATMENT INTERVENTIONS: Therapy Diagnosis: Reduced mobility-other;Decreased activities of daily living (ADL);Unsteadiness on feet Interventions Provided: Self Penitentiary Management (62371);Therapeutic Activity (50311) Therapeutic Activity (06408) Treatment Minutes: 19 1 unit Skilled Intervention(s): Provided instruction, cuing and facilitation for safe transfer techniques. Provision of verbal cues for walker management in bathroom and hand placement during toilet transfers. Provision of physical demonstration along with step by step verbal instructions for transfer techniques for tub and car transfer. Time provided for patient to demonstrate carryover. Provision of guiding assistance for safety when transferring to shower chair for tub transfer and simulated car transfer. Provision of verbal cues for proper hand placement and management of walker. OT provides Min A lifting assistance to stand from shower chair. OT recommends assistance initially with tub transfers. Self Penitentiary Management (07101) Treatment Minutes: 15 1 unit Skilled Intervention(s): Provided instruction, cuing and facilitation for lower body dressing. Provision of physical demonstration with verbal instructions in use of can pusher, sock aid, and long handled shoe horn for increased independence with LB dressing due to limited ROM following B TKR. Time provided for patient to demonstrate carryover. Provision of verbal cues for proper technique. Provided instruction, cuing and facilitation for bathing. OT educated patient in recommendations for completion of bathing tasks in seated to decrease risk of falls. OT discussed use of long handled sponge for feet/lower legs. 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 Patient is agreeable to OT treatment session despite reported soreness in bilateral hamstrings 07/13. Home Environment Patient Lives With: Self/Alone Assistance Available: PRN Entry To Home: With Rail;Stairs Number Of Stairs Into Home: 3 Number Of Stairs To Bed/Bath: 0(patient has arranged first floor set up ) Tub/Shower Type: tub/shower Laundry: basement (can have assistance) Equipment Owned: Cane;Wheeled Walker Prior Functional Level: Within Functional Limits Prior Functional Level Comments: Patient reports independence with ADL/IADL no devices used OBJECTIVE: Cognition/Communication Deficits Responsiveness: Awake;Alert Follows Commands: 3-step Commands CURRENT FUNCTIONAL STATUS: Current Activities of Daily Living Assist Level Feeding Independent Grooming Supervision Bathing Upper Body Stand By Assistance Bathing Lower Body Contact Guard Assistance Dressing Upper Body Set Up Dressing Lower Body Contact Guard Assistance Toileting Contact Guard Assistance Functional Mobility Assist Level Rolling Supine to Sit Sit to Supine Scooting Sit to Stand Contact Guard Assistance Stand to Sit Contact Guard Assistance Bed to Chair Toilet/Commode Contact Guard Assistance Functional Mobility Stand By Assistance Wheeled Walker Functional Mobility Comments: household distances Tub Transfer: Minimal Assistance Car Transfer: Minimal Assistance Balance: Static Standing Static Standing Balance: Fair- Requires Min A or UE support in order to stand without LOB Please see discipline specific clinical documentation flowsheet for complete details for this therapy evaluation/treatment. SIGNATURE: LEROY Bunch PATIENT NAME: Lam Sanchez DATE: March 20, 2019 TIME: 2:16 PM Normal [facility] THERAPY NT HNO ID: [id number] Author: Marta Hoffman Service: Physical Therapy Author Type: Pick Up Worker Type: Therapy (PT/OT/Speech/Resp) Filed: 03/20/2019 11:43 AM Note Text: ----- Attestation signed by Ludy Hoffman at 03/20/2019 12:15 PM I reviewed and agree with the documentation corresponding to this therapy visit. SIGNATURE: Ludy Hoffman, PT DATE: March 20, 2019 TIME: 12:15 PM ----- Physical Therapy Treatment SERVICE DATE: 03/20/2019 SERVICE TIME: 1010 to 1034 ROOM: [id number] Recommended Discharge Disposition: Subacute/SNF Recommended Discharge Disposition Comments: SNF vs. Home with PT. Patient demonstrates good functional mobiltiy during initially evaluation, but patient reports that he lives alone and has a few stairs to enter the house. Patient will not have someone at home with him all the time. Will attempt stairs during next PT session and see how patient's safety is. Justification For Post Acute Needs: Anticipate that patient will require daily (5x/wk) skilled therapy in a post-acute facility setting at the time of acute hospital discharge;Willing to participate;Medically complex;Motivated;Living the community premorbidly;Good premorbid functional status PT Recommendations to Nursing: Ambulate with device;To bathroom;In halls;Transfer to/from chair;OOB for Meals;With assist of 1 person Device: Wheeled Walker PT 6 Clicks Score: 18 Precautions/Activity Restrictions: Total Knee Replacement;Weight Bearing Restrictions Isolation Type: None Extremity With Weight Bearing Restricted: Left Lower Extremity;Right Lower Extremity Left Lower Extremity Weight Bearing Status: WBAT Right Lower Extremity Weight Bearing Status: WBAT ASSESSMENT : Patient Disposition at Start of Session: Supine in Bed;Call Menendez in Reach Patient Disposition at End of Session: OOB in Chair;Call Menendez in Reach Tolerated Full Session Patient making progress toward goals, met goals for bed mobility this session. Patient requires cues/assist to complete exercises properly, for posture and safety with walker. Anticipate family training in therapy department this afternoon. Physical Therapy Problem List: Pain;Safety Deficits;Decreased Activity Tolerance;Decreased Range Of Motion;Decreased Strength;Functional Mobility Impairment;Balance Impaired Patient /Caregiver Goals: Go Home Goals for Plan of Care: Rolling with: Stand By Assistance Transfer supine to/from sit with: Stand By Assistance Transfer sit to/from stand with: Stand By Assistance Ambulate with: Stand By Assistance Distance: 40ft Device: Wheeled Walker Ambulate up and down steps with: Contact Guard Assistance Number of steps: 4 Device: Cane;Crutch(es);Rail Progress Toward Goals: Progressing as expected Rehab Potential: Good PLAN: Treatment Frequency (times per week): BID Current admission Treatment Interventions: Education;Strengthening;F unctional Mobility Training;Balance Training;Neuromuscular Re-education Plan of Care developed with: Patient TREATMENT INTERVENTIONS: Therapy Diagnosis: Difficulty walking-musculoskeletal Interventions Provided: Therapeutic Exercise (06999);Therapeutic Activity (47274);Gait Training (87968) Therapeutic Exercise (00121) Treatment Minutes: 14 1 unit Skilled Intervention(s): Instruction in therapeutic exercise Patient completed bilateral total knee arthroplasty protocol (ankle pump, quad set, gluteal set, heel slide, hip abd/add, straight leg raise, short arc quad, long arc quad) x 12 reps with min amount of assist. Patient demonstrated fair- quad control with exercises. Patient demonstrates 8 to 48 degrees of supine AAROM to both knee. Patient reports no change in pain. Ice applied to surgical knee and elevated on pillow in recliner chair. Verbal and tactile cuing provided to breathe and for greater eccentric quad control. Therapeutic Activity (87841) Treatment Minutes: 2 0 units Skilled Intervention(s): Instructed patient in supine to and from sit pushing with upper extremities to sit up from flat bed. Patient able to manage control of both legs in/out of bed. Education with use of cold pack and positioning for pain/edema management. Recommend he limit sitting/standing with his feet on the floor to increments of 15 minutes to minimize swelling. Gait Training (76563) Treatment Minutes: 8 1 unit Skilled Intervention(s): Instruction in sit to stand technique with proper hand placement and body positioning at edge of bed/chair, Instruction in stand to sit technique with LE's touching chair/bed and reaching back for surface. Instruction in sequencing, gait pattern and Instruction in correction of gait deviations. Patient ambulates with slow, antalgic, step to pattern. Cues to avoid getting too close to front of walker, more erect posture, just roll walker, and navigate obstacles. Total Timed Code Treatment Minutes: 24 Total Treatment Time (minutes): 24 SUBJECTIVE: Current Hospital Course: Chart reviewed and no significant medical updates relevant to therapy were noted Reason for Physical Therapy Consult : eval and treat Relevant Past Medical History: hx of alchol abuse, obesity, hx lumbar disc repair, hx L knee surgery Patient Report: Voiced no new complaints. Home Environment Patient Lives With: Self/Alone Assistance Available: PRN Entry To Home: With Rail;Stairs Number Of Stairs Into Home: 3 Number Of Stairs To Bed/Bath: 0(patient has arranged first floor set up ) Tub/Shower Type: tub/shower Laundry: basement (can have assistance) Equipment Owned: Cane;Wheeled Walker Prior Functional Level: Within Functional Limits Prior Functional Level Comments: Patient reports independence with ADL/IADL no devices used OBJECTIVE: CURRENT FUNCTIONAL STATUS: Current Functional Mobility Assist Level Additional Information Rolling Supine to Sit Stand By Assistance Sit to Supine Stand By Assistance Scooting Sit to Stand Contact Guard Assistance Stand to Sit Contact Guard Assistance Bed to Chair Contact Guard Assistance Bed To Chair Transfer Type: Stand Pivot Bed To Chair Transfer Equipment: Wheeled Walker Toilet/Commode Gait Contact Guard Assistance Gait Device: Wheeled Walker Gait Distance (feet): 2 x 20ft Stairs Curb Step Car Transfer Gait Deviations Right Lower Extremity: Weight bearing decreased;Stance time decreased;Heel strike during initial stance decreased;Push-off during terminal stance decreased;Knee flexion during stance increased;Step length decreased Gait Deviations Left Lower Extremity: Weight bearing decreased;Stance time decreased;Heel strike during initial stance decreased;Push-off during terminal stance decreased;Knee flexion during stance increased;Step length decreased General Gait Deviations: Antalgic gait pattern;Adalgisa decreased;Step length decreased;Flexed trunk posture;Wide base of support;Non-functional gait speed -M: 6: Walk 10 steps or more Please see discipline specific clinical documentation flowsheet for complete details for this therapy evaluation/treatment. SIGNATURE: Marta Hoffman PTA PATIENT NAME: Lam Sanchez DATE: March 20, 2019 TIME: 11:37 AM Normal [facility] Basic Panelon 03-19-2019 Creatinine [Mass/Vol] 0.68 mg/dL Normal 0.67-1.17 [facility] Comment on above: Performed By: #### P 8 #### [address] [address] Urea nitrogen [Mass/Vol] 9 mg/dL Normal 7-18 [facility] Comment on above: Performed By: #### P 8 #### [address] [address] Anion gap [Moles/Vol] 10 mmol/L Normal 8-16 [facility] Comment on above: Performed By: #### P 8 #### [address] [address] Calcium [Mass/Vol] 8.0 mg/dL Low 8.5-10.1 [facility] Comment on above: Performed By: #### P 8 #### [facility] [address] [place], [place] [address] CO2 [Moles/Vol] 25 mmol/L Normal 21-32 [facility] Comment on above: Performed By: #### P 8 #### [address] [address] Glucose [Mass/Vol] 117 mg/dL High 70-99 [facility] Comment on above: Performed By: #### P 8 #### [address], [place] [address] Chloride [Moles/Vol] 107 mmol/L Normal 98-107 [facility] Comment on above: Performed By: #### P 8 #### [facility] [address] [place], [place] [address] Potassium [Moles/Vol] 3.9 mmol/L Normal 3.5-5.1 [facility] Comment on above: Performed By: #### P 8 #### [facility] [address] [place], [place] [address] Sodium [Moles/Vol] 138 mmol/L Normal 136-145 [facility] Comment on above: Performed By: #### P 8 #### 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 No Advance Directive: Current Advance Directive: Health Care Power of Senior Etl Developer In Chart: Yes Up To Date and Valid: Yes Health Literacy: 1. How often do you need to have someone help you when you read instructions, pamphlets, or other written material from your doctor or pharmacy? Never - 1 2. How confident are you filling out medical forms by yourself? Extremely - 1 If Patient scores > 3 on either question, the following interventions were put into place: Patient did not score > 3 FUNCTIONAL AND COGNITIVE/BEHAVIORAL PRIOR TO ADMISSION: Baseline Mental Status: Alert AND Oriented, Person, Place , Time and Situation Functional Status: Independent Does Patient Currently Receive Any Community Services or Home Care? None Equipment Prior to Admission: Cane - Straight Walker Has the Patient Been in a [facility] Facility in the Past 30 days? No SOCIAL: Living Arrangement: Home Lives With: Alone Financial Resources: Retired Primary Contact: Extended Emergency Contact Information Primary Emergency Contact: DOMINGA SANCHEZ Relation: Parent Supportive: Yes Other Important Patient Contacts: None Caregiver Assessment: Caregiver is ready, willing and able to meet the patient's needs as recommended by the inter-professional team? Yes Patient's transition needs and plan for meeting these needs: home physical therapy Does the patient have an acute stroke diagnosis, or has the patient had a stroke during this admission? No Medication Adherence: I am convinced of the importance of my prescription medication: Agree completely - 0 I worry that my prescription medication will do more harm than good to me Disagree completely - 0 I feel financially burdened by my [id number] expenses for my prescription medication: Disagree completely - 0 Patient is categorized as low risk < 2 Are you interested in bedside delivery of your medications? No Is the Patient Psychosocially Complex? No ASSESSMENT AND PLAN: Medical Needs: 2 or more chronic diseases Psychosocial Needs: None FREEDOM OF CHOICE EXPLAINED: Financial Disclosure Provided Provider List: Home Care POTENTIAL TRANSITION PLANS [facility] Met with patient. Lives alone, has bedroom and bathroom on 1st floor. He has made arrangements with friends and family to assist once home. He has pre-made his meals. Has a wheeled walker and cane. Plan is home with home physical therapy. Provider list provided and financial disclosure discussed. [facility] is agency of choice. SIGNATURE: Alka Oreilly RN PATIENT NAME: Lam Sanchez DATE: March 19, 2019 TIME: 3:06 PM PAGER/CONTACT #: [phone] Normal [facility] Hemogramon 03-19-2019 Erythrocyte distribution width (RBC) [Ratio] 12.2 % Normal 11.6-14.4 [facility] Comment on above: Performed By: #### C BC1 #### [address] [address] Hematocrit (Bld) [Volume fraction] 37.6 % Low 40.1-51.0 [facility] Comment on above: Performed By: #### C BC1 #### [facility] [address] [place] [address] Hemoglobin (Bld) [Mass/Vol] 12.6 g/dL Low 13.7-17.5 [facility] Comment on above: Performed By: #### Irineo BC1 #### [facility] [address] [place] [address] MCH (RBC) [Entitic mass] 31.4 pg Normal 25.7-32.2 [facility] Comment on above: Performed By: #### C BC1 #### [facility] [address] [place] [address] MCHC (RBC) [Mass/Vol] 33.5 % Normal 32.3-36.5 [facility] Comment on above: Performed By: #### Irineo BC1 #### [facility] [address] [place] [address] MCV (RBC) [Entitic vol] 93.8 fL Normal 83.2-95.6 [facility] Comment on above: Performed By: #### C BC1 #### [facility] [address] [place] [address] Platelet mean volume (Bld) [Entitic vol] 9.6 fL Normal 8.7-12.0 [facility] Comment on above: Performed By: #### Irineo BC1 #### [facility] [address] [place] [address] Platelets (Bld) [#/Vol] 259 thou/cmm Normal 141-365 [facility] Comment on above: Performed By: #### C BC1 #### [facility] [address] [place] [address] RBC (Bld) [#/Vol] 4.01 mil/cmm Low 4.63-6.08 [facility] Comment on above: Performed By: #### C BC1 #### [facility] [address] [place] [address] RDW SD 42.3 fl Normal 36.1-45.8 [facility] Comment on above: Performed By: #### Irineo BC1 #### [facility] [address] [place] [address] WBC (Bld) [#/Vol] 8.67 thou/cmm Normal 4.23-9.07 [facility] Comment on above: Performed By: #### C BC1 #### [place] [id number] MDRD GFRon 03-19-2019 GFR/1.73 sq M predicted among non-blacks MDRD (S/P/Bld) [Vol rate/Area] mL/min/{1.73_m2} Normal >60mL/min/1. 73m2 [facility] Comment on above: Result Comment: If t he patient is , multiply the result by 1.210. Performed By: #### G FR #### [place] [id number] NURSING PROGon 03-19-2019 NURSING PROG HNO ID: [id number] Author: Jose Almaraz) JAMMIE Reed Service: Nursing Author Type: Registered Nurse Type: Nursing Progress Note Filed: 03/19/2019 9:54 AM Note Text: Nursing Progress Note Patient Name: Lam Sanchez Patient Location: [place] [id number] 1 Daily Note: Notified TECHNICAL SALES ADVISOR Chava Sorto of Pt reporting lightheadedness/dizziness /nausea and cold sweats and acid reflux and that Pt states his nausea started after taking his morning tramadol/tylenol on an empty stomach. Notified of VS taken and that Pt denies SOB or chest pain. Notified of Mag al and zofran given. Roxana in on the unit and will go see the Pt shortly. No orders received. This note was completed by: Jose Reed RN Normal [facility] PROGRESSon 03-19-2019 PROGRESS HNO ID: [id number] Author: Zechariah Gomez Service: Orthopaedic Surgery Author Type: Resident Type: Progress Notes Filed: 03/19/2019 6:17 AM Note Text: Orthopaedic Surgery Inpatient Progress Note Assessment and Plan Lam Sanchez is a 58 year old male who is POD #1 status-post bilateral TKA. - Pain control. - Weight-bearing status: WBAT BLE. - DVT PPx: SCDs. ASA 81 mg BID for 21 days total. - Antibiotic PPx: Ancef 2 g Q8H for two doses - complete. - Dressing: Aquacel - maintain for 7 days. - PT/OT: Evaluation AND recommendations - pending. - Acute blood loss anemia: Asymptomatic - monitor. - Discontinue Trevino catheter today after ambulatory with PT. - Disposition: Anticipate home with [facility]. - Plan of care discussed with patient who is in agreement. Subjective No acute events overnight. Pain well controlled. No fevers, chills, chest pain, or shortness of breath. No new complaints. Physical Examination Vitals BP 139/74 Pulse 82 Temp 36.7 ?C (98.1 ?F) (Oral) Resp 18 Ht 176.5 cm (5' 9.49) Wt 97.5 kg (215 lb) SpO2 98% BMI 31.31 kg/m? General Alert and oriented. No acute distress. Cooperative with interview. Bilateral Lower Extremities Aquacel dressings clean, dry, and intact. SILT Smart/Sa/DP/SP/T. Motor intact EHL/DF/PF. DP/PT pulses palpable; BCR all digits. Labs Recent Labs 03/19/19 0245 NA 138 K 3.9 CHLOR 107 CO2 25 BUN 9 CREAT 0.68 GLUC 117* ANION 10 CA 8.0* WBC 8.67 HB 12.6* HCT 37.6* PLT 259 Imaging No new orthopaedic imaging. Zechariah Gomez MD Orthopaedic Surgery, PGY-3 Pager: [phone] Ortho Pager: [phone] Normal [facility] THERAPY NTon 03-19-2019 THERAPY NT HNO ID: [id number] Author: Monik Roberts Service: Physical Therapy Author Type: Pick Up Worker Type: Therapy (PT/OT/Speech/Resp) Filed: 03/19/2019 2:50 PM Note Text: ----- Attestation signed by Ludy ChaviraPt) Yasmin at 03/19/2019 3:05 PM I reviewed and agree with the documentation corresponding to this therapy visit. SIGNATURE: Ludy Hoffman PT DATE: March 19, 2019 TIME: 3:05 PM ----- Physical Therapy Treatment SERVICE DATE: 03/19/2019 SERVICE TIME: 1405 to 1430 ROOM: [place] [address] Recommended Discharge Disposition: Subacute/SNF Recommended Discharge Disposition Comments: SNF vs. Home with PT. Patient demonstrates good functional mobiltiy during initially evaluation, but patient reports that he lives alone and has a few stairs to enter the house. Patient will not have someone at home with him all the time. Will attempt stairs during next PT session and see how patient's safety is. Justification For Post Acute Needs: Anticipate that patient will require daily (5x/wk) skilled therapy in a post-acute facility setting at the time of acute hospital discharge;Willing to participate;Medically complex;Motivated;Living the community premorbidly;Good premorbid functional status PT Recommendations to Nursing: Ambulate with device;To bathroom;In halls;Transfer to/from chair;OOB for Meals;With assist of 1 person Device: Wheeled Walker PT 6 Clicks Score: 17 Precautions/Activity Restrictions: Total Knee Replacement;Weight Bearing Restrictions Isolation Type: None Extremity With Weight Bearing Restricted: Left Lower Extremity;Right Lower Extremity Left Lower Extremity Weight Bearing Status: WBAT Right Lower Extremity Weight Bearing Status: WBAT ASSESSMENT : Patient progressing towards goals , patient tolerated increased ambulation distance , with minimal c/o pain Without knee buckling., steady gait , decreased assistance with bed mobility and ambulation . Family training tomorrow to see if patient able to perform steps to enter /exit home SNF vs home pending progress with transfers , and stairs.Barriers to return home steps and lives alone. Patient Disposition at Start of Session: OOB in Chair;Call Menendez in Reach Patient Disposition at End of Session: Supine in Bed;Call Menendez in Reach Tolerated Full Session Physical Therapy Problem List: Pain;Safety Deficits;Decreased Activity Tolerance;Decreased Range Of Motion;Decreased Strength;Functional Mobility Impairment;Balance Impaired Patient /Caregiver Goals: Go Home Goals for Plan of Care: Rolling with: Stand By Assistance Transfer supine to/from sit with: Stand By Assistance Transfer sit to/from stand with: Stand By Assistance Ambulate with: Stand By Assistance Distance: 40ft Device: Wheeled Walker Ambulate up and down steps with: Contact Guard Assistance Number of steps: 4 Device: Cane;Crutch(es);Rail Progress Toward Goals: Progressing as expected Rehab Potential: Good PLAN: Treatment Frequency (times per week): BID Current admission Treatment Interventions: Education;Strengthening;F unctional Mobility Training;Balance Training;Neuromuscular Re-education Plan of Care developed with: Patient TREATMENT INTERVENTIONS: Therapy Diagnosis: Difficulty walking-musculoskeletal Interventions Provided: Therapeutic Exercise (29866);Therapeutic Activity (23987);Gait Training (85271) Therapeutic Exercise (54522) Treatment Minutes: 10 1 unit Skilled Intervention(s): Instruction in therapeutic exercise for ROM and strengthening Patient completed bilateral total knee arthroplasty protocol (ankle pump, quad set, gluteal set, heel slide, hip abd/add, straight leg raise, short arc quad, long arc quad) x 10 - 12 reps with minimal amount of assist. Patient demonstrated fair - quad control with exercises. . Patient reports 0-3/10 pain. Ice applied to surgical knee and elevated on pillow and/or with foot of bed elevated. Therapeutic Activity (10077) Treatment Minutes: 5 0 units Skilled Intervention(s): Instructed patient in sit to supine using safe, effective technique with bed flat with STAND BY Assistance Instruction in sit to and from stand technique with proper hand placement and body positioning at edge of bed/chair with verbal cues for safety and positioning of LOWEREXTREMITY 's Gait Training (19592) Treatment Minutes: 8 1 unit Skilled Intervention(s): Instruction in use of equipment, cues for sequence and pattern with ambulation with wheeled walker , tolerated increased ambulation distance without knee buckling, verbal cues for walker placement and gait sequence. Total Timed Code Treatment Minutes: 23 Total Treatment Time (minutes): 23 SUBJECTIVE: Current Hospital Course: Chart reviewed and no significant medical updates relevant to therapy were noted Reason for Physical Therapy Consult : eval and treat Relevant Past Medical History: hx of alchol abuse, obesity, hx lumbar disc repair, hx L knee surgery Patient Report: patient up in chair and agreeable to PT session , c/o pain 0/10 . Home Environment Patient Lives With: Self/Alone Assistance Available: PRN Entry To Home: With Rail;Stairs Number Of Stairs Into Home: 3 Number Of Stairs To Bed/Bath: 0(patient has arranged first floor set up ) Tub/Shower Type: tub/shower Laundry: basement (can have assistance) Equipment Owned: Cane;Wheeled Walker Prior Functional Level: Within Functional Limits Prior Functional Level Comments: Patient reports independence with ADL/IADL no devices used OBJECTIVE: CURRENT FUNCTIONAL STATUS: Current Functional Mobility Assist Level Additional Information Rolling Supine to Sit Sit to Supine Stand By Assistance Scooting Sit to Stand Minimal Assistance Stand to Sit Minimal Assistance Bed to Chair Toilet/Commode Gait Contact Guard Assistance Gait Device: Wheeled Walker Gait Distance (feet): 20 x2 Stairs Curb Step Car Transfer Gait Deviations Right Lower Extremity: Weight bearing decreased;Stance time decreased;Heel strike during initial stance decreased;Push-off during terminal stance decreased;Knee flexion during stance increased;Step length decreased Gait Deviations Left Lower Extremity: Weight bearing decreased;Stance time decreased;Heel strike during initial stance decreased;Push-off during terminal stance decreased;Knee flexion during stance increased;Step length decreased General Gait Deviations: Adalgisa decreased;Step length decreased;Non-functional gait speed;Wide base of support -M: 7: Walk 25 feet or more Please see discipline specific clinical documentation flowsheet for complete details for this therapy evaluation/treatment. SIGNATURE: Monik Roberts PTA PATIENT NAME: Lam Sanchez DATE: March 19, 2019 TIME: 2:44 PM Normal [facility] THERAPY NT HNO ID: [id number] Author: Ludy Hoffman Service: Physical Therapy Author Type: Physical Therapist Type: Therapy (PT/OT/Speech/Resp) Filed: 03/19/2019 10:34 AM Note Text: Physical Therapy Evaluation SERVICE DATE: 03/19/2019 SERVICE TIME: 917 ds 4811 ROOM: [id number] Recommended Discharge Disposition: Subacute/SNF Recommended Discharge Disposition Comments: SNF vs. Home with PT. Patient demonstrates good functional mobiltiy during initially evaluation, but patient reports that he lives alone and has a few stairs to enter the house. Patient will not have someone at home with him all the time. Will attempt stairs during next PT session and see how patient's safety is. Justification For Post Acute Needs: Anticipate that patient will require daily (5x/wk) skilled therapy in a post-acute facility setting at the time of acute hospital discharge;Willing to participate;Medically complex;Motivated;Living the community premorbidly;Good premorbid functional status PT Recommendations to Nursing: Ambulate with device;To bathroom;In halls;Transfer to/from chair;OOB for Meals;With assist of 1 person Device: Wheeled Walker PT 6 Clicks Score: 16 Precautions/Activity Restrictions: Total Knee Replacement;Weight Bearing Restrictions Extremity With Weight Bearing Restricted: Left Lower Extremity;Right Lower Extremity Left Lower Extremity Weight Bearing Status: WBAT Right Lower Extremity Weight Bearing Status: WBAT ASSESSMENT : This patient was admitted for B TKA, has the past medical history of alcohol abuse, obesity, Spinal surgery, L knee surgery impacting current functional level, as well as the social factors complicating the discharge of lives alone, limited assistance. This patient is below baseline functioning of completely independent with functional mobility and will benefit from continued skilled therapy in the hospital for treatment of the following body systems/impairments: musculoskeletal (gait, transfers, bed mobility, balance, safety and strengthening). Will see how patient progresses during next PT session in order to determine home going. Patient Disposition at Start of Session: Supine in Bed;Call Menendez in Reach Patient Disposition at End of Session: OOB in Chair;Call Menendez in Reach Tolerated Full Session Physical Therapy Problem List: Pain;Safety Deficits;Decreased Activity Tolerance;Decreased Range Of Motion;Decreased Strength;Functional Mobility Impairment;Balance Impaired Patient /Caregiver Goals: Go Home Goals for Plan of Care: Rolling with: Stand By Assistance Transfer supine to/from sit with: Stand By Assistance Transfer sit to/from stand with: Stand By Assistance Ambulate with: Stand By Assistance Distance: 40ft Device: Wheeled Walker Ambulate up and down steps with: Contact Guard Assistance Number of steps: 4 Device: Cane;Crutch(es);Rail Rehab Potential: Good PLAN: Treatment Frequency (times per week): BID Current admission Treatment Interventions: Education;Strengthening;F unctional Mobility Training;Balance Training;Neuromuscular Re-education Plan of Care developed with: Patient TREATMENT INTERVENTIONS: Therapy Diagnosis: Difficulty walking-musculoskeletal Interventions Provided: Evaluation;Therapeutic Activity (90373) $ Evaluation-Low (27306) Billed Units: 1 unit History and examination of body systems see assessment section above. This patient?s clinical presentation is stable. The patient required a low complexity evaluation. Therapeutic Activity (88801) Treatment Minutes: 6 0 units Skilled Intervention(s): Education with WBAT BLE. Instructed patient in supine to sit pushing with upper extremities to sit up, assisted patient with B legs to get off bed, but patient only required little assist and did not complain of much pain when knees were bent. Instruction in sit to stand technique with proper hand placement and body positioning at edge of bed/chair, after pushing up from chair instructed patient to walk legs back in order to get legs under him and then reach for walker in order to push up. Patient able to complete bed to chair safely. Instructed patient to try walking to the door and back and patient able to complete safely. When returning to chair, instruction in stand to sit technique with lower extremities touching chair/bed and reaching back for surface, once hands were on the chair, instructed patient to walk legs out to prevent bend and decrease pain. Total Timed Code Treatment Minutes: 6 Total Treatment Time (minutes): 21 SUBJECTIVE: Current Hospital Course: Chart reviewed; Patient presents to hospital due to B TKA on 03/18/19. Reason for Physical Therapy Consult : eval and treat Relevant Past Medical History: hx of alchol abuse, obesity, hx lumbar disc repair, hx L knee surgery Patient Report: Patient without complaints during PT session. Home Environment Patient Lives With: Self/Alone Assistance Available: PRN Entry To Home: With Rail;Stairs Number Of Stairs Into Home: 3 Number Of Stairs To Bed/Bath: 0(patient has arranged first floor set up ) Tub/Shower Type: tub/shower Laundry: basement (can have assistance) Equipment Owned: Cane;Wheeled Walker Prior Functional Level: Within Functional Limits Prior Functional Level Comments: Patient reports independence with ADL/IADL no devices used OBJECTIVE: Range of Motion: ROM Limitation Comments;WFL Except ROM Limitation Comments: B knee limitations due to apin Strength: Strength Limitation Comments;Right LE Measurement;Left LE Measurement Right Hip Flexion Strength: 3 Right Knee Flexion Strength: 2 Right Knee Extension Strength: 3 Right Ankle Dorsiflexion Strength: 5 Left Hip Flexion Strength: 3 Left Knee Flexion Strength: 3 Left Knee Extension Strength: 2 Left Ankle Dorsiflexion Strength: 5 CURRENT FUNCTIONAL STATUS: Current Functional Mobility Assist Level Additional Information Supine to Sit Minimal Assistance Sit to Supine Minimal Assistance Sit to Stand Minimal Assistance Stand to Sit Minimal Assistance Bed to Chair Minimal Assistance Bed To Chair Transfer Type: (side steps to chair) Bed To Chair Transfer Equipment: Gait Belt;Wheeled Walker Gait Minimal Assistance(LLE buckling, did not continue to attempt) Gait Device: Wheeled Walker Gait Distance (feet): 2x10ft General Gait Deviations: Antalgic gait pattern;Step length decreased;Wide base of support JH-HLM: 6: Walk 10 steps or more Please see discipline specific clinical documentation flowsheet for complete details for this therapy evaluation/treatment. SIGNATURE: Ludy Hoffman PT PATIENT NAME: Lam Sanchez DATE: March 19, 2019 TIME: 10:28 AM Normal [facility] THERAPY NT HNO ID: [id number] Author: Faith Mera/Meera Paulino Service: Occupational Therapy Author Type: Occupational Therapist Type: Therapy (PT/OT/Speech/Resp) Filed: 03/19/2019 1:15 PM Note Text: Occupational Therapy Evaluation SERVICE DATE: 03/19/2019 SERVICE TIME: 30 to 54 ROOM: [place] [address] Recommended Discharge Disposition: Subacute/SNF Justification For Post Acute Needs: Motivated;Willing to participate;Living the community premorbidly;Anticipate that patient will require daily (5x/wk) skilled therapy in a post-acute facility setting at the time of acute hospital discharge OT Recommendations to Nursing: To Bathroom for ADL?s /and or Toileting;OOB for meals;With assist of 1 person Equipment: Wheeled Walker;Grab Bars-Toilet OT 6 Clicks Score: 16 Precautions/Activity Restrictions: Total Knee Replacement;Weight Bearing Restrictions Extremity With Weight Bearing Restricted: Left Lower Extremity;Right Lower Extremity Left Lower Extremity Weight Bearing Status: WBAT Right Lower Extremity Weight Bearing Status: WBAT ASSESSMENT: Patient presents with pain, decreased B knee ROM following B TKR, and decreased activity tolerance limiting safety and independence with ADL and associated mobility/transfers. Patient barriers to home include 3 steps to enter and assistance required for ADL and associated mobility/transfers. Patient presents below his baseline functional level and would benefit from skilled OT services to address deficits to ensure safety and maximize independence with ADL and associated mobility/transfers upon discharge. Patient Disposition at Start of Session: Other: See Comment;Sitting on Edge of Bed(Patient with PT ) Patient Disposition at End of Session: OOB in Chair;Call Menendez in Reach Tolerated Full Session Occupational Therapy Problem List: Pain;Impaired Self Care;Decreased Activity Tolerance;Decreased Range Of Motion;Functional Mobility Impairment;Balance Impaired Patient /Caregiver Goals: Go Home Goals for Plan of Care: Grooming with: Supervision(standing at sink ) Upper Body Bathing with: Supervision Upper Body Dressing with: Independent Lower Body Bathing with: Minimal Assistance Lower Body Dressing with: Modified Independent Toilet Hygiene with: Independent Toilet Transfer with: Stand By Assistance Rehab Potential: Excellent PLAN: Treatment Frequency (times per week): 3(1-3x/week ) Current admission Treatment Interventions: Education;Self Care / Home Management;Functional Mobility Training Plan of Care developed with: Patient TREATMENT INTERVENTIONS: Therapy Diagnosis: Reduced mobility-other;Decreased activities of daily living (ADL);Unsteadiness on feet Interventions Provided: Evaluation;Self Penitentiary Management (85450) $ Evaluation-Low (73214) Billed Units: 1 unit OT Evaluation Low Complexity: Occupational Profile - Brief review of patient's medical record completed (please see current hospital course of evaluation). Occupational Performance - Pt presents with deficits in feeding, grooming, UE bathing/dressing, LE bathing/dressing, functional transfers, functional mobility, decreased safety awareness, decreased insight into deficits Complexity in Clinical Decision Making - The extent of clinical reasoning was low, number of treatment options limited, no need for modifications during the evaluation process, no comorbidities present to affect patient's occupational performance. Self Penitentiary Management (66129) Treatment Minutes: 9 1 unit Skilled Intervention(s): Provision of verbal cues for proper hand and foot placement for safe transfer techniques to prepare for ADL. Provision of verbal cues for use of safe walker management techniques during functional transfers. Provision of increased time to doff/don socks due to limited functional reach to feet following B TKR. Education in use of can pusher and sock aid to complete task due to reported increase in pain. OT educated patient in necessary abilities to return home such and managing home entry and self care tasks. Total Timed Code Treatment Minutes: 9 Total Treatment Time (minutes): 24 SUBJECTIVE: Current Hospital Course: Chart reviewed; Patient is a 58 year old male s/p B KR 03/18/19. 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 Patient is agreeable to OT session. Patient reports B hamstring pain with activity. Home Environment Patient Lives With: Self/Alone Assistance Available: PRN Entry To Home: With Rail;Stairs Number Of Stairs Into Home: 3 Number Of Stairs To Bed/Bath: 0(patient has arranged first floor set up ) Tub/Shower Type: tub/shower Laundry: basement (can have assistance) Equipment Owned: Cane;Wheeled Walker Prior Functional Level: Within Functional Limits Prior Functional Level Comments: Patient reports independence with ADL/IADL no devices used OBJECTIVE: Cognition/Communication Deficits Responsiveness: Awake;Alert Follows Commands: 3-step Commands CURRENT FUNCTIONAL STATUS: Current Activities of Daily Living Assist Level Feeding Independent Grooming Minimal Assistance Bathing Upper Body Stand By Assistance Bathing Lower Body Moderate Assistance Dressing Upper Body Supervision Dressing Lower Body Moderate Assistance Toileting Total Assistance Functional Mobility Assist Level Rolling Supine to Sit Sit to Supine Scooting Sit to Stand Moderate Assistance Stand to Sit Minimal Assistance Bed to Chair Minimal Assistance Stand Pivot Wheeled Walker Toilet/Commode Functional Mobility Minimal Assistance Wheeled Walker Functional Mobility Comments: to bathroom Hand Dominance: Right Range of Motion: WFL Strength: WFL Balance: Static Standing Static Standing Balance: Fair- Requires Min A or UE support in order to stand without LOB Please see discipline specific clinical documentation flowsheet for complete details for this therapy evaluation/treatment. SIGNATURE: MARY Bunch/L PATIENT NAME: Lam Sanchez DATE: March 19, 2019 TIME: 10:15 AM Normal [facility] ABO/Rh Confirmationon 2018 ABO group Nom (Bld) B Normal [facility] Comment on above: Performed By: #### A CAROL #### [facility] [address] [place], [place] [address] RH Type Negative Normal [facility] Comment on above: Performed By: #### A CAROL #### [facility] [address] [place], [place] [address] ANES Kirby 03-18-2019 ANES POST HNO ID: [id number] Author: Mara Esparza Service: Anesthesiology Author Type: Anesthesiologist Type: Anesthesia PostOp Filed: 03/18/2019 5:18 PM Note Text: POST ANESTHESIA EVALUATION NOTE SERVICE DATE: 03/18/2019 SERVICE TIME: 5:18 PM : 1960 Vitals: 03/18/19 1004 03/18/19 1308 03/18/19 1415 03/18/19 1520 Temp: 36 ?C (96.8 ?F) 36.2 ?C (97.2 ?F) 36 ?C (96.8 ?F) (!) 35.9 ?C (96.6 ?F) 03/18/19 1400 03/18/19 1415 03/18/19 1500 03/18/19 1520 BP: 120/88 111/70 129/75 132/67 03/18/19 1400 03/18/19 1415 03/18/19 1500 03/18/19 1520 Pulse: 62 (!) 54 63 60 03/18/19 1400 03/18/19 1415 03/18/19 1500 03/18/19 1520 Resp: 12 16 18 16 03/18/19 1400 03/18/19 1415 03/18/19 1500 03/18/19 1520 SpO2: 97% 97% 97% 100% Validated Vital Signs: Yes POST ANES STATUS: No apparent anesthetic complications. The patient is appropriately hydrated with stable respiratory and cardiovascular status. Patient has safe and adequate airway control. The patient has appropriate pain relief and no significant post operative nausea or vomiting. The patient has achieved baseline mental status. Intra-Operative Events: No Significant Anesthesia Events Further assessment by Anesthesia Service: None Other Remarks: SIGNATURE: Mara Esparza MD PATIENT NAME: Lam Sanchez DATE: March 18, 2019 TIME: 5:18 PM PAGER/CONTACT #: [place] [facility] ANES PREOPon 03-18-2019 ANES PREOP HNO ID: [id number] Author: Mara Esparza Service: Anesthesiology Author Type: Anesthesiologist Type: Anesthesia PreOp Filed: 03/18/2019 10:03 AM Note Text: ANESTHESIOLOGY DAY OF SURGERY NOTE SERVICE DATE: 03/18/2019 SERVICE TIME: 9:40 AM : 1960 Procedure(s) (LRB): ARTHROPLASTY REPLACE JOINT TOTAL KNEE (Bilateral) ARTHROPLASTY REPLACE JOINT TOTAL KNEE 2ND OF BILATERAL (Left) Surgeon(s): Mario Beyer (Res) Ha Estimated body mass index is 31.29 kg/m? as calculated from the following: Height as of 03/05/19: 176.5 cm (5' 9.5). Weight as of 03/05/19: 97.5 kg (215 lb). Most recent hematocrit and potassium results: Hematocrit 45.9 03/05/2019 Potassium 4.3 03/05/2019 ANES DOS/PREOP NOTE: Vitals: There were no vitals filed for this visit. ACTIVE PROBLEM LIST Family Hx of Alcoholism Family History of Coronary Arteriosclerosis Primary Osteoarthritis of Left Knee Alcoholism (Hcc) Malaise and Fatigue Fatty (Change Of) Liver, Not Elsewhere Classified Obesity, Class I, Bmi 30-34.9 Former Smoker Wears Dentures History of Alcohol Abuse PAST MEDICAL HISTORY Diagnosis Date - History of meniscal tear Left Knee - Lumbar herniated disc - Osteoarthritis PAST SURGICAL HISTORY Procedure Laterality Date - PAST SURGICAL HISTORY OF Left 2015 L Knee - PAST SURGICAL HISTORY OF Left Early L Knee - PAST SURGICAL HISTORY OF 1985 and 1987 Lumbar Disc Repair No Fusion - PAST SURGICAL HISTORY OF L hand surgery No family history on file. Social History: Social History Tobacco Use - Smoking status: Former Smoker Types: Cigarettes - Smokeless tobacco: Never Used - Tobacco comment: 1990s Substance Use Topics - Alcohol use: Not Currently Comment: Off for 3 years - Drug use: No No current facility-administered medications on file prior to encounter. diphenhydrAMINE (SLEEP AID, DIPHENHYDRAMINE,) 25 mg capsule, Take 50 mg by mouth at bedtime as needed. No current facility-administered medications for this encounter. Allergies: ALLERGIES Allergen Reactions - Hydrocodone-Acetami* GI Upset DOS EXAM: Adequate NPO status: Yes Anesthetic risks, benefits, alternatives, personnel and consent discussed: Yes Patient agrees to proceed: Yes Previous Anesthesia: No history of adverse event. Airway Assessment: MP 2; Neck ROM: Full ROM without neurologic symptoms; Airway Evaluation: Short Thyromental Distance and Tariq Present Symptoms of Sleep Apnea: Age over 50 (58 year old) and Male gender Dentition: Dentures: both Additional Physical Exam: Lungs: Patient health status unchanged since recent history and physical. See history and physical for exam findings. Cardiac: Patient health status unchanged since recent history and physical. See history and physical for exam findings. Additional Pertinent Findings: N/A Blood Products: Not anticipated for this procedure. Anesthetic Plan: Spinal and Block with Sedation Pain Management Plan: Parenteral or Oral and Peripheral Nerve Block ASA Class: 2 Other Medical Problems: 58M with OA, no other medical issues, h/o discectomies around L2 per patient Chronic Beta Jolynn medication administered within 24 hours: N/A I have interviewed and examined the patient. I have reviewed the medical record and/or the pre-anesthesia evaluation, pertinent labs, and test results. Significant changes in the patient's condition since the History and Physical, not otherwise documented in primary service progress notes: No This contains updated information obtained within 48 hours of Surgery/Procedure. SIGNATURE: Mara Esparza MD PATIENT NAME: Lam Sanchez DATE: March 18, 2019 TIME: 9:40 AM CSN: [id number] Normal [facility] NURSING PROGon 03-18-2019 NURSING PROG HNO ID: [id number] Author: Linsey (Rn) JAMMIE Duong Service: Nursing Author Type: Registered Nurse Type: Nursing Progress Note Filed: 03/19/2019 12:03 AM Note Text: Pt is post-op check void as of 2129, but unable to void despite several attempts; bladder scanned for 590, and nurse noted that order was entered for intermittent trevino cath, with note to leave catheter in if residual per scan was 350+. Inserted coude catheter and paged ortho to clarify order. Pt has also had previous surgeries with difficulty voiding afterward, and has had to be discharged with a trevino before. Difficulty inserting cath despite use of coude, although insertion was successful. - Per Dr. Osman (ortho on-call) okay to leave trevino inserted at this time, will consider further options in AM. Normal [facility] Surgical Tissue Examon 03-18 Surgical Tissue Exam Test performed at [place] [address] NAME: LAM SANCHEZ REQUESTING: MARIO CUEVAS FINAL DIAGNOSIS: A) RIGHT TOTAL KNEE REPLACEMENT - DEGENERATIVE OSTEOARTHRITIS. B) LEFT TOTAL KNEE REPLACEMENT - DEGENERATIVE OSTEOARTHRITIS. OPERATIVE PROCEDURE: Arthroplasty replace joint total knee CLINICAL INFORMATION: Primary osteoarthritis of both knee GROSS DESCRIPTION: A) Right knee bone Received in formalin labeled right knee bone are multiple segments of bone with articulating surfaces aggregating to 10.0 x 11.5 x 1.7 cm. Sections consistent with tibial plateau and femoral condyle are present. The articulating surfaces demonstrate areas of eburnation and osteophyte formation. Upon sectioning, subchondral cysts and necrosis are not present. Also received in the same container are multiple yellow, fatty and white rubbery segments of tissue aggregating to 8.7 x 5.5 x 2.1 cm. [employer] sections are submitted as follows: A1 - soft tissue; A2 - bone following a period of decalcification. B) Left knee bone Received in formalin labeled left knee bone are multiple segments of bone with articulating surfaces aggregating to 14.0 x 8.5 x 2.1 cm. Sections consistent with tibial plateau and femoral condyle are present. The articulating surface demonstrates areas of eburnation and osteophyte formation. Upon sectioning, subchondral cysts and necrosis are not present. Soft tissue is not received with the specimen. [employer] sections are submitted in formalin in one cassette following a period of decalcification. KVB:nila FULLER M.D. (Electronic signature on file) Signed out: 03/25/2019 09:27 PRINTED: 03/25/[address] [facility] Comment on above: Performed By: #### S URG #### [place] [address] Vital Signs Date Time Vital Sign Value Performing Clinician Facility 02-15-2025 09:48-0400 Body height 177.8 cm Bonilla Ryan MD Work Phone: 7([phone] [place] [address] 02-15-2025 09:48-0400 Body mass index (BMI) [Ratio] 30.1 kg/m2 Bonilla Ryan MD Work Phone: 9(909)641-582512 [place] [address] 02-15-2025 09:48-0400 Body weight 95.25 kg Bonilla Ryan MD Work Phone: 7(454)989-817112 [place] [address] 02-01-2025 09:17-0400 Body height 177.8 cm Bonilla Ryan MD Work Phone: 8(785)207-896112 [place] [address] 02-01-2025 09:17-0400 Body mass index (BMI) [Ratio] 30.1 kg/m2 Bonilla Ryan MD Work Phone: 7(082)539-445812 [place] [address] 02-01-2025 09:17-0400 Body weight 95.25 kg Bonilla Ryan MD Work Phone: 5(805)874-600112 [place] [address] 09-09-2024 10:25-0400 Body height 177.8 cm Bonilla Ryan MD Work Phone: 6(162)046-796612 [place] [address] 09-09-2024 10:25-0400 Body mass index (BMI) [Ratio] 33 kg/m2 Bonilla Ryan MD Work Phone: 8(457)940-216312 [place] [address] 09-09-2024 10:25-0400 Body weight 104.32 kg Bonilla Ryan MD Work Phone: 5(424)554-817412 [place] [address] 08-05-2024 08:58-0400 Body mass index (BMI) [Ratio] 33 kg/m2 Bonilla Ryan MD Work Phone: 7(086)859-890312 [place] [address] 08-05-2024 08:58-0400 Body weight 104.32 kg Bonilla Ryan MD Work Phone: 8([phone])492-854912 [place] [address] 07-13-2024 10:37-0400 Body mass index (BMI) [Ratio] 34.6 kg/m2 Bonilla Ryan MD Work Phone: 1([phone])755-533712 [place] [address] 07-13-2024 10:37-0400 Body weight 109.54 kg Bonilla Ryan MD Work Phone: [facility] 05-03-2023 16:30-0500 Body temperature 97.7 [degF] Ellen Noriega MD Work Phone: [facility] 05-03-2023 16:30-0500 Diastolic blood pressure 88 mm[Hg] Ellen Noriega MD Work Phone: [facility] 05-03-2023 16:30-0500 Heart rate 81 /min Ellen Noriega MD Work Phone: [facility] 05-03-2023 16:30-0500 Respiratory rate 13 /min Ellen Noriega MD Work Phone: [facility] 05-03-2023 16:30-0500 SaO2% (BldA) [Mass fraction] 96 % Ellen Noriega MD Work Phone: [facility] 05-03-2023 16:30-0500 Systolic blood pressure 123 mm[Hg] Ellen Noriega MD Work Phone: [facility] 05-03-2023 13:35-0500 Body height 175.2 cm Ellen Noriega MD Work Phone: [facility] 05-03-2023 13:35-0500 Body mass index (BMI) [Ratio] 32.32 kg/m2 Ellen Noriega MD Work Phone: [facility] 05-03-2023 13:35-0500 Body weight 99.2 kg Ellen Noriega MD Work Phone: [facility] 04-12-2023 09:41-0500 Body mass index (BMI) [Ratio] 32.03 kg/m2 Kristen Seth PA-C Work Phone: [facility] 04-12-2023 09:41-0500 Body temperature 97.7 [degF] Kristen Seth PA-C Work Phone: [facility] 04-12-2023 09:41-0500 Body weight 98.3 kg Kristen Seth PA-C Work Phone: [facility] 04-12-2023 09:41-0500 Diastolic blood pressure 97 mm[Hg] Kristen Luciow PA-C Work Phone: [facility] 04-12-2023 09:41-0500 Heart rate 88 /min Kristen Luciow PA-C Work Phone: [facility] 04-12-2023 09:41-0500 Respiratory rate 18 /min Kristen Luciow PA-C Work Phone: [facility] 04-12-2023 09:41-0500 SaO2% (BldA) [Mass fraction] 96 % Kristen Luciow PA-C Work Phone: [facility] 04-12-2023 09:41-0500 Systolic blood pressure 164 mm[Hg] Kristen Seth PA-C Work Phone: [facility] 02-28-2023 14:29-0400 Body height 175.2 cm Symone Estrada MD Work Phone: [facility] 02-28-2023 14:29-0400 Body mass index (BMI) [Ratio] 29.78 kg/m2 Symone Estrada MD Work Phone: [facility] 02-28-2023 14:29-0400 Body temperature 97 [degF] Symone Estrada MD Work Phone: [facility] 02-28-2023 14:29-0400 Body weight 91.4 kg Symone Estrada MD Work Phone: [facility] 02-28-2023 14:29-0400 Diastolic blood pressure 93 mm[Hg] Symone Estrada MD Work Phone: [facility] 02-28-2023 14:29-0400 Heart rate 103 /min Symone Estrada MD Work Phone: [facility] 02-28-2023 14:29-0400 Respiratory rate 20 /min Symone Estrada MD Work Phone: [facility] 02-28-2023 14:29-0400 SaO2% (BldA) [Mass fraction] 98 % Symone Estrada MD Work Phone: [facility] 02-28-2023 14:29-0400 Systolic blood pressure 153 mm[Hg] Symone Estrada MD Work Phone: [facility] 02-01-2023 10:00-0400 Body temperature 97.4 [degF] DO Melyssafacundo Sharpnger Work Phone: [facility] 02-01-2023 10:00-0400 Diastolic blood pressure 91 mm[Hg] DO Melyssa Edel Work Phone: [facility] 02-01-2023 10:00-0400 Heart rate 105 /min DO Melyssa Edel Work Phone: [facility] 02-01-2023 10:00-0400 Respiratory rate 18 /min DO Melyssafacundo Sharpnger Work Phone: [facility] 02-01-2023 10:00-0400 SaO2% (BldA) [Mass fraction] 96 % DO Melyssa Edel Work Phone: [facility] 02-01-2023 10:00-0400 Systolic blood pressure 136 mm[Hg] DO Melyssa Edel Work Phone: [facility] 01-31-2023 02:29-0400 Body height 180.34 cm DO Melyssa Edel Work Phone: [facility] 01-31-2023 02:29-0400 Body mass index (BMI) [Ratio] 31.4 kg/m2 DO Melyssa Edel Work Phone: [facility] 01-31-2023 02:29-0400 Body weight 102.05 kg DO Melyssafacundo Sharpnger Work Phone: [facility] Encounters Encounter Date Encounter Type Care Provider Facility Start: 03-02-2025 End: 03-02-2025 ambulatory Chalon Connor Facility:[facility] Start: 02-15-2025 End: 02-15-[address] Víctor Sherwood DO -[facility] Work Phone: Start: 02-15-2025 End: 02-15-2025 ambulatory Bonilla Ryan MD Work Phone: -[place] [facility] Start: 02-01-2025 End: 02-01-2025 Patient encounter procedure Zoraida HERNANDEZ -[facility] Work Phone: Start: 02-01-2025 End: 02-01-2025 ambulatory Bonilla Ryan MD Work Phone: -[facility] Start: 01-20-2025 End: 01-20-2025 ambulatory Bonilla Ryan MD Work Phone: -[facility] Start: 01-20-2025 End: 01-20-[address] Neal Saenz MD -[facility] Work Phone: Start: 01-20-2025 End: 01-20-2025 ambulatory Chalon Connor Facility:[facility] Start: 12-31-2024 End: 12-31-[address] Neal Saenz MD -[facility] Work Phone: Start: 12-31-2024 End: 12-31-2024 ambulatory Bonilla Ryan MD Work Phone: -[facility] Start: 11-25-2024 End: 11-25-2024 ambulatory Bonilla Ryan MD Work Phone: -Laboratory Start: 11-25-2024 End: 11-25-[address] Sage Flores MD -Laboratory Work Phone: Start: 11-25-2024 End: 11-25-2024 ambulatory Chalon Connor Facility:[facility] Start: 10-03-2024 End: 10-03-2024 ambulatory Bonilla Ryan MD Work Phone: [facility] Work Phone: Start: 10-03-2024 End: 10-03-2024 Patient encounter procedure Zoraida HERNANDEZ -[facility] Work Phone: Start: 10-03-2024 End: 10-03-2024 ambulatory Chalon Connor Facility:[facility] Start: 09-09-2024 End: 09-09-[address] Víctor Sherwood DO [facility] Work Phone: Start: 09-09-2024 End: 09-09-2024 ambulatory Chalon Connor Facility:[facility] Start: 09-01-2024 End: 09-01-2024 glenny Ryan MD Work Phone: [facility] Work Phone: Start: 09-01-2024 End: 09-01-[address] Sage Flores MD -Physical Therapy Work Phone: Start: 08-05-2024 End: 08-05-[address] [facility]: Start: 08-05-2024 End: 08-05-2024 ambulatory Chalon Connor Facility:[facility] Start: 07-13-2024 End: 07-13-2024 Patient encounter [facility] Start: 07-13-2024 End: 07-13-2024 ambulatory Chalon Connor Facility:[facility] Start: 06-06-2024 ambulatory Chalon Connor Facility:[facility] Start: 05-11-2024 End: 05-11-2024 Emergency department patient visit Chalon Connor Facility:[facility] Start: 05-03-2023 End: 05-03-2023 ambulatory [facility] Start: 05-03-2023 End: 05-03-2023 Subsequent hospital visit by physician Mal [facility] Comment on above: Obstruction of bile duct Start: 05-03-2023 End: 05-03-2023 ambulatory ELLEN NORIEGA [facility] Start: 05-03-2023 End: 05-03-2023 Subsequent hospital visit by physician Ellen Noriega MD Work Phone: [facility] Comment on above: Jaundice (Primary Dx ); Mass of head of pancreas; Biliary stricture Start: 04-12-2023 End: 04-13-2023 ambulatory SYMONE Newell BAFelecia [facility] Start: 04-12-2023 End: 04-13-2023 ambulatory KRISTEN SETH [facility] Start: 04-12-2023 End: 04-12-2023 Office outpatient new 60 minutes Kristen Seth PA-C Work Phone: [facility] Comment on above: Jaundice; Mass of head of pancreas; Biliary stricture Start: 02-28-2023 End: 03-01-2023 ambulatory SYMONE Newell [facility] Start: 02-28-2023 End: 02-28-2023 ambulatory [facility] Start: 02-28-2023 End: 02-28-2023 Office outpatient new 60 minutes Symone Estrada MD Work Phone: [facility] Comment on above: Mass of head of panc reas (Primary Dx); Liver mass Start: 02-01-2023 Non-patient / Non-visit DO Kri stin Edel Work Phone: [facility] Work Phone: Start: 01-31-2023 Non-patient / Non-visit DO Kri stin Edel Work Phone: [facility] Start: 01-31-2023 Non-patient / Non-visit DO Kri stin Edel Work Phone: [facility] Work Phone: Start: 01-30-2023 Non-patient / Non-visit DO Kri stin Edel Work Phone: [facility] Start: 01-30-2023 End: 02-01-2023 Evaluation and management of inpatient DO Melyssa Sharpnger Work Phone: [facility]-Progressive Care Unit Work Phone: Start: 01-17-2023 End: 01-17-2023 ambulatory [facility] Work Phone: Start: 01-17-2023 End: 01-17-2023 Patient encounter procedure [facility]-Ultrasound, [facility] Work Phone: Start: 01-11-2023 End: 01-11-2023 ambulatory [facility] Work Phone: Start: 01-11-2023 End: 01-11-2023 Patient encounter procedure [facility]-Laboratory, [place] Work Phone: Start: 01-26-2022 End: 01-26-2022 ambulatory YOBANI ORTIZ Facility:[facility] Procedures Date Procedure Procedure Detail Performing Clinician Start: 02-01-2025 X-ray of cervical spine Bonilla Ryan MD Work Phone: Start: 01-20-2025 MRI of cervical spine Bonilla Ryan MD Work Phone: Start: 11-25-2024 Methadone measurement, urine Bonilla Ryan MD Work Phone: Start: 11-25-2024 Procedure Bonilla Ryan MD Work Phone: Comment on above: Test Ordered: [id number] D64-Qzzczv+S K7Syfomkgdxpdq Screen, Urine Negative ng/mL UI Reference Range: Omgiph=142Xosuswhybeo test includes Amphetamine and Methamphetamine.Barbiturates Negative ng/mL UI Reference Range: Yqmwai=661Hbtgprmdtzrmdus Negative ng/mL UI Reference Range: Ogoxba=738Zwmthxz (Metab.), Urine Negative ng/mL UI Reference Range: Holkct=064Yzafpgt Negative ng/mL UI Reference Range: Pqyqgs=820Qibvnx test includes Codeine, Morphine, Hydromorphone, Hydrocodone.6-Acetylmorphine, Urine Negative ng/mL UI Reference Range: Cutoff=10Oxycodone/Oxymorphone, Urine Negative ng/mL UI Reference Range: Ypndum=977Bsjh includes Oxycodone and OxymorphonePCP, Urine Negative ng/mL UI Reference Range: Cutoff=25Methadone Screen, Urine Negative ng/mL UI Reference Range: Troyer=967Jquaejwrvlmu, Urine Negative ng/mL UI Reference Range: Jcedzb=783Bssyvolr, Urine Negative ng/mL UI Reference Range: Cutoff=2.0Test includes Fentanyl and NorfentanylThis test was developed and its performance characteristicsdetermined by [facility]. It has not been cleared orapproved by the Food and Drug Administration.Tramadol Note: ng/mL UI See Final Results Reference Range: Ihfxjg=083Fqubrtei Positive [A ] UI Reference Range: Kjscls=822Igkatxqh Conf, MS, UR >[address]142 ng/mL UI Reference Range: Wasvrd=680Eakuzmpnzybis, Urine Negative ng/mL UI Reference Range: Cutoff=10Creatinine, Urine 207.5 mg/dL UI Reference Range: 20.0-300.0pH, Urine 5.2 UI Reference Range: 4.5-8.9Performed at: [facility] [address] [place], [place] [id number] Director: Beverly Arnett PhD, Phone: [phone] at: [address] [id number] Director: Missael Romero PhD, Phone: [phone] Start: 10-03-2024 MRI of lumbar spine Bonilla Ryan MD Work Phone: Start: 08-05-2024 Plain x-ray of pelvis and lower extremity Bonilla Ryan MD Work Phone: Start: 07-13-2024 X-ray of lumbosacral spine Bonilla Hernandez Work Phone: Start: 05-03-2023 DISCHARGE PATIENT ELLEN NORIEGA Start: 05-03-2023 FL GI ERCP ELLEN NORIEGA Start: 05-03-2023 ENDOSCOPIC ULTRASOUND (UPPER) ELLEN NORIEGA Start: 05-03-2023 ERCP ELLEN NORIEGA Start: 05-03-2023 AMYLASE, FLUID ELLEN NORIEGA Start: 05-03-2023 CARCINOEMBRYONIC ANTIGEN, FLUID ELLEN ELYRebecca BLACK Start: 05-03-2023 GLUCOSE, FLUID ELLEN GRAVESMER Start: 05-03-2023 CYTOLOGY CONSULTATION (NON-GYNECOLOGIC) ELLEN NORIEGA Start: 05-03-2023 ERCP Study observation Narrative Ellen hazel MD Work Phone: Start: 05-03-2023 Egd intrmural needle aspir/biop altered anatomy Kristen Seth PA-C Work Phone: Start: 05-03-2023 Ercp w/sphincterotomy/papillotomy Kristen Seth PA-C Work Phone: Start: 05-03-2023 Amylase [Enzymatic activity/volume] in Body fluid Ellen Noriega MD Work Phone: Start: 05-03-2023 Assay of amylase Ellen Noriega MD Work Phone: Start: 05-03-2023 Carcinoembryonic Ag [Mass/volume] in Body fluid Ellen Noriega MD Work Phone: Start: 05-03-2023 Glucose [Mass/volume] in Body fluid Ellen Noriega MD Work Phone: Start: 04-12-2023 VNHYJ-6-DVMCEUJSIPW SYMONE ESTRADA Start: 04-12-2023 ANTI-MITOCHONDRIAL ANTIBODY SYMONE ESTRADA Start: 04-12-2023 ANTI-SMOOTH MUSCLE ANTIBODY SYMONE ESTRADA Start: 04-12-2023 CANCER ANTIGEN 19-9 SYMONE ESTRADA Start: 04-12-2023 CERULOPLASMIN SYMONE ESTRADA Start: 04-12-2023 Ferritin [Mass/volume] in Serum or Plasma SYMONE ESTRADA Start: 04-12-2023 Hepatic function 2000 panel - Serum or Plasma SYMONE ESTRADA Start: 04-12-2023 HEPATITIS A ANTIBODY, TOTAL SYMONE ESTRADA Start: 04-12-2023 HEPATITIS B CORE ANTIBODY, TOTAL SYMONE DUMAS Start: 04-12-2023 HEPATITIS B SURFACE ANTIBODY SYMONE ESTRADA Start: 04-12-2023 HEPATITIS B SURFACE ANTIGEN SYMONE ESTRADA Start: 04-12-2023 HEPATITIS C ANTIBODY SYMONE ESTRADA Start: 04-12-2023 IRON AND TIBC SYMONE ESTRADA Start: 04-12-2023 TISSUE TRANSGLUTAMINASE, IGA SYMONE ESTRADA Start: 04-12-2023 ERCP SYMONE ESTRADA Start: 02-28-2023 CANCER ANTIGEN 19-9 SYMONE ESTRADA Start: 02-28-2023 CBC W Auto Differential panel - Blood SYMONE ESTRADA Start: 02-28-2023 Comprehensive metabolic 2000 panel - Serum or Plasma SYMONE TELLEZLYRIC Start: 02-28-2023 PROTIME-INR SYMONE ESTRADA Start: 01-31-2023 End: 01-31-2023 Endoscopic retrograde cholangiopancreatography DO Melyssa Hollingsworth Work Phone: Start: 01-31-2023 Fluoroscopic guidance DO Melyssa Hollingsworth Work Phone: Start: 01-30-2023 Magnetic resonance cholangiopancreatography DO Melyssa Hollingsworth Work Phone: Start: 01-30-2023 Computed tomography of abdomen and pelvis with intravenous contrast DO Melyssa Hollingsworth Work Phone: Start: 01-30-2023 US scan of gallbladder DO Melyssa Hollingsworth Work Phone: Start: 01-17-2023 Ultrasonography of abdomen Start: 01-11-2023 Bacteria identified in Urine by Culture Start: 01-11-2023 Urine culture Plan of Treatment Date Care Activity Detail Author Start: 04-02-2025 ambulatory Ambulatory Facility:[facility] Start: 03-30-2025 ambulatory Ambulatory Facility:[facility] Start: 11-25-2024 Procedure [facility] Start: 07-13-2024 Patient referral [facility] Work Phone: Start: 05-03-2023 End: 05-03-2023 Patient encounter procedure 05/03/2023 2:00 PM EST Appointment [facility] [address] [place] [address] [place] [address] [facility], [place] [address] [facility] Start: 04-10-2023 COVID-19 Vaccine (5 - Moderna series) COVID-19 Vaccine (5 - Moderna series) [facility] Start: 03-21-2023 End: 02-29-2024 Cancer Ag 19-9 [Units/volume] in Serum or Plasma Cancer Antigen 19-9 Lab Routine Mass of head of pancreas Expected: 03/21/2023, Expires: 02/29/2024 [facility] Work Phone: Comment on above: Expected: 03/21/2023 , Expires: 02/29/2024 Start: 03-21-2023 End: 02-29-2024 CBC W Auto Differential panel - Blood CBC and Auto Differential Lab Routine Mass of head of pancreas Expected: 03/21/2023, Expires: 02/29/2024 [facility] Work Phone: Comment on above: Expected: 03/21/2023 , Expires: 02/29/2024 Start: 03-21-2023 End: 02-29-2024 Comprehensive metabolic 2000 panel - Serum or Plasma Comprehensive Metabolic Panel Lab Routine Mass of head of pancreas Expected: 03/21/2023, Expires: 02/29/2024 [facility] Work Phone: Comment on above: Expected: 03/21/2023 , Expires: 02/29/2024 Start: 02-28-2023 End: 02-29-2024 Endoscopic Ultrasound (Upper) Endoscopic Ultrasound (Upper) Endoscopy Routine Mass of head of pancreas Expected: 02/28/2023, Expires: 02/29/2024 [facility] Service Area Work Phone: Comment on above: Expected: 02/28/2023 , Expires: 02/29/2024 Start: 02-28-2023 End: 02-29-2024 Guidance for percutaneous biopsy of Liver IR biopsy abdomen liver Imaging Routine Liver mass Expected: 02/28/2023, Expires: 02/29/2024 [facility] Work Phone: Comment on above: Expected: 02/28/2023 , Expires: 02/29/2024 Start: 02-02-2023 [facility] Start: 02-01-2023 Patient discharge [facility] Start: 02-01-2023 Referral to general surgeon [facility] Start: 01-30-2023 Referral to gastroenterology service [facility] Start: 01-30-2023 Following clinical p athway protocol [facility] Start: 01-30-2023 Ambulation without limitation [facility] Start: 01-30-2023 Assessment of risk o f venous thromboembolism [facility] Start: 01-30-2023 Incentive spirometry [facility] Start: 01-30-2023 Insertion of cathete r into peripheral vein [facility] Start: 01-30-2023 Oxygen therapy [facility] Start: 01-30-2023 Providing care accor ding to standard [facility] Start: 01-30-2023 Referral to service [facility] Start: 01-30-2023 [facility] Start: 01-30-2023 Verification routine [facility] Start: 01-30-2023 Admission procedure [facility] Start: 2021 Hepatitis B Vaccines (1 of 3 - Risk 3-dose series) Hepatitis B Vaccines (1 of 3 - Risk 3-dose series) [facility] Start: 09-01-2019 Zoster Vaccines (2 of 2) Zoste r Vaccines (2 of 2) [facility] Start: 1983 DTaP/Tdap/Td Vaccine s (1 - Tdap) DTaP/Tdap/Td Vaccines (1 - Tdap) [facility] Start: 1980 Hepatitis A Vaccines (1 of 2 - Risk 2-dose series) Hepatitis A Vaccines (1 of 2 - Risk 2-dose series) [facility] Start: 1979 Diabetes mellitus screening Diabetes Screening [facility] Start: 1979 Hepatitis C screening Hepatitis C [facility] Start: 1967 Pneumococcal Vaccine : Pediatrics (0 to 5 Years) and At-Risk Patients (6 to 64 Years) (1 - PCV) Pneumococcal Vaccine: Pediatrics (0 to 5 Years) and At-Risk Patients (6 to 64 Years) (1 - PCV) [facility] Start: 1962 MMR Vaccines (1 of 1 - Standard series) MMR Vaccines (1 of 1 - Standard series) [facility] Start: 1961 HIV screening HIV Screening [facility] Start: 1961 Lipid panel Lipid Panel [facility] Start: 1961 Screening for malign ant neoplasm of colon [facility] Start: 1961 Yearly Adult Physical Yearly Adult P hysical [facility] MR Cervical spine [facility] MR Lower Extremity Joint [facility] MR Lumbar spine [facility] Non-gynecological cy tology method study Cytology Consultation (Non-Gynecologic) Pathology and Cytology Timed Jaundice Mass of head of pancreas Biliary stricture Release Upon Ordering for 1 Occurrences starting 05/03/2023 [facility] Service Area Work Phone: Comment on above: Release Upon Orderin g for 1 Occurrences starting 05/03/2023 Patient referral [facility] Work Phone: Immunizations Immunization Date Immunization Notes Care Provider Anabel tai 02-13-2023 Pfizer COVID-19 vaccine, Fall 2022, 12 years and older, (30mcg/0.3mL) Symone Estrada MD Work Phone: [facility] Work Phone: 01-24-2023 influenza, injectabl e, quadrivalent, preservative free Symone Estrada MD Work Phone: [facility] Work Phone: 05-12-2022 influenza, injectabl e, quadrivalent, preservative free Symone Estrada MD Work Phone: [facility] Work Phone: 05-12-2022 Moderna COVID-19 vaccine, bivalent, blue cap/lipscomb label *Check age/dose* Symone Estrada MD Work Phone: [facility] Work Phone: 01-30-2021 influenza, injectabl e, quadrivalent, preservative free Symone Estrada MD Work Phone: [facility] Work Phone: 02-26-2020 Seasonal, quadrivale nt, recombinant, injectable influenza vaccine, preservative free Symone Estrada MD Work Phone: [facility] Work Phone: 07-07-2019 zoster vaccine recombinant Symone Estrada MD Work Phone: [facility] Work Phone: Payers Date Payer Category Payer Self-pay 2022 Unknown DERREK MYERS MERGED WITH [facility] [employer] [id number] 2022-Present [address] [place] [address] [id number] 2021 Unknown [id number] 1960 Unknown [id number] [id number] 5 1960 Unknown [id number] 2.16.840.1.818757.3.579.2.124 5 1961 Unknown [id number] 2.16.840.1.553336.3.579.2.124 5 1960 Unknown [id number] 2.16.840.1.872891.3.579.2.124 5 1960 Unknown [id number] 2.16.840.1.942490.3.579.2.124 2 1960 Unknown [id number] 2.16.840.1.240444.3.579.2.124 2 Unknown [facility] PACKAGE PLAN [id number] Unknown [id number] [id number] Unknown [id number] 2.16.840.1.628344.3.579.2.462 Unknown [id number] 2.16.840.1.728741.3.579.2.462 Unknown [id number] 2.16.840.1.241222.3.579.2.462 Unknown [id number] 2.16.840.1.821970.3.579.2.462 Unknown [id number] 2.16.840.1.635367.3.579.2.462 Unknown [id number] 2.16.840.1.056098.3.579.2.462 Unknown [id number] 2.16.840.1.286866.3.579.2.462 Unknown [id number] 2.16.840.1.720510.3.579.2.462 Unknown [id number] 2.840.1.482119.3.579.2.462 Unknown [id number] 2.840.1.414503.3.579.2.462 Unknown [id number] 2.840.1.075142.3.579.2.462 Unknown [id number] 2.16.840.1.068365.3.579.2.462 Unknown [id number] 2.840.1.025490.3.579.2.462 Unknown [id number] 2.840.1.025878.3.579.2.462 Unknown [id number] 2.840.1.641211.3.579.2.462 Unknown [id number] 2.16840.1.397514.3.579.2.462 Unknown [id number] 2.840.1.868882.3.579.2.462 Social History Date Type Detail Facility Tobacco smoking status NMIS Unknown if ever smoked [facility] Work Phone: Start: 1960 Sex Assigned At Male [facility] Start: 01-30-2023 Tobacco smoking status NMIS Unknown if ever smoked [facility] Start: 02-28-2023 Tobacco smoking status NHIS Never smoked tobacco [facility] Work Phone: Start: 02-28-2023 Tobacco use and exposure Smokeless tobacco non-user [facility] Work Phone: Start: 02-28-2023 End: 05-03-2023 Alcohol intake Ex-drinker (finding) [facility] Work Phone: Start: 02-28-2023 End: 05-03-2023 History of Social function [facility] Work Phone: Start: 02-28-2023 End: 05-03-2023 Tobacco use panel [facility] Work Phone: Start: 1960 Sex Assigned At Not on file [facility] Work Phone: Start: 02-18-2023 End: 05-03-2023 Exposure to SARS-CoV-2 (event) Not sure [facility] Start: 09-02-2024 Tobacco smoking status NHIS Ex-smoker (finding) [facility] NEGATED: Highlighted rowStart: NINF History of tobacco use Passive smoker [facility] Work Phone: Medical Equipment Procedure Code Equipment Code Equipment Origin al Text Equipment Identifier Dates ERCP (endoscopic retrograde cholangiopancreatog clark) RX STENT/10 X 5CM FDA Start: 01-31-2023 ERCP (endoscopic retrograde cholangiopancreatog clark) RX STENT/10 X 5CM FDA Start: 01-31-2023 ERCP (endoscopic retrograde cholangiopancreatog clark) RX STENT/10 X 5CM FDA Start: 01-31-2023 ERCP (endoscopic retrograde cholangiopancreatog clark) RX STENT/10 X 5CM FDA Start: 01-31-2023 ERCP (endoscopic retrograde cholangiopancreatog clark) RX STENT/10 X 5CM FDA Start: 01-31-2023 ERCP (endoscopic retrograde cholangiopancreatog clark) RX STENT/10 X 5CM FDA Start: 01-31-2023 ERCP (endoscopic retrograde cholangiopancreatog lcark) RX STENT/10 X 5CM FDA Start: 01-31-2023 ERCP (endoscopic retrograde cholangiopancreatog clark) RX STENT/10 X 5CM FDA Start: 01-31-2023 ERCP (endoscopic retrograde cholangiopancreatog clark) RX STENT/10 X 5CM FDA Start: 01-31-2023 Goals Date Patient Goal Desired Activity /State Functional Status Date Assessment Result Facility 02-01-2023 Functional status Ambulates [facility] Work Phone: 01-31-2023 Functional status None [facility] Work Phone: Mental Status Date Assessment Result Facility 01-31-2023 Cognitive function Voice/Name [facility] Work Phone: Clinical Notes 01-30-2023 to 02-15-2025 Note Date & Type Note Facility 02-15-2025 Progress note [facility] 02-01-2025 Progress note [facility] 02-01-2025 Radiology Diagnostic study note [facility] [address] [place], [place] [address] Cerv Spine 4 or 5 Views MR#: [id number] Acct: [id number] Name: LAM SANCHEZ Rep #: [id number] : 1960 M 64 From: Avtar Quiroz MD PCP: Dr. Bonilla Ryan MD Status: DEP AM B Study:Cerv Spine 4 or 5 Views Date of Exam: 02/01/25 Exam# [id number] Ordering Dr: Deep Villegas PROCEDURE: CERV SPINE 4 OR 5 VIEWS 02/01/2025 REASON FOR EXAM: PAIN TECHNIQUE: Procedure Code: RADSPC Modality: DX Procedure: CERV SPINE 4 OR 5 VIEWS COMPARISON: Cervical spine MRI, 01/20/2025. FINDINGS: There is no evidence of fracture or subluxation. There is degenerative disc disease, C3-4 through C7-T1 with narrowing of the intervertebral disc spaces and marginal osteophytes. There is multilevel facet arthropathy. There is degenerative grade 1 anterolisthesis of C2 on C3, which increases in flexion, degenerative grade 1 retrolisthesis of C3 on C4, which decreases in flexion, and degenerative grade 1 anterolisthesis of C7 on T1, which is stable in flexion. RAD/Cerv Spine 4 or 5 Views IMPRESSION: Multilevel degenerative disc disease as described. There is multilevel spondylolisthesis with evidence of instability in flexion and extension. Reading Location: [place] [address] CC: DAVID Montero; Dr. 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 Geneticist: Signed [facility] Work Phone: 12-31-2024 Evaluation note Diagnosis Onset Date Resolution Cervical myelopathy acute 2024 9:06am Degenerative joint disease of left hip acute December 31, 2024 9:06am DISH (diffuse idiopathic skeletal hyperostosis) acute December 31 9:06am Lumbar stenosis with neurogenic claudication acute December 052024 9:06am Obesity (BMI 30-39.9) acute Dec 9:06am Cervical myelopathy acute 2024 8:54am DISH (diffuse idiopathic skeletal hyperostosis) acute February 01, 2025 8:54am [facility] Work Phone: 1(436) 264-934108-28-2025 Evaluation note* Diagnosis Onset Date Resolution Status Admit Date Cervical myelopathy acute 2024 9:06am Degenerative joint disease o f left hip acute December 31 9:06am DISH (diffuse idiopathic skeletal hyperostosis) acute December 312024 9:06am Lumbar stenosis with neurogenic claudication acute December 052024 9:06am Obesity (BMI 30-39.9) acute Dec 9:06am Cervical myelopathy acute 2024 8:54am DISH (diffuse idiopathic skeletal hyperostosis) acute February 01, 2025 8:54am Degenerative joint disease o f left hip acute February 15 9:38am Lumbar stenosis with neurogenic claudication acute February 15, 2025 9:38am [facility] Work Phone: 1(314) 727-999205-07-2025 Evaluation note* Diagnosis Onset Date Resolution Status Admit Date Degenerative joint disease o f left hip acute September 09, 2024 10 :13am Lumbar stenosis with neuroge kathy claudication acute September 09, 2024 10 :13am Right hip pain acute September 09, 2 025 10:13am Cervical myelopathy acute 2024 9:06am Degenerative joint disease o f left hip acute December 31 9:06am DISH (diffuse idiopathic skeletal hyperostosis) acute December 312024 9:06am Lumbar stenosis with neuroge kathy claudication acute December 31 9:06am Obesity (BMI 30-39.9) acute Dec 9:06am [facility] Work Phone: 1(450) 896-160404-29-2025 Discharge summary Author Marry Stapleton [facility] Note Date/Time September 01, 2024 7:0 0pm [facility] Physical [facility] [place] [id number] / REHABILITATION SERVICES DISCHARGE SUMMARY MR#: [id number] Acct: [id number] Name: LAM SANCHEZ Rep #: [id number] : 1960 64 From: Marry Moore Referring Dr.: Dr. Sage Flores MD Status: REG R Insurance: [facility] JUST FOR ME SELF PAY INSURANCE Discharge Summary D/C summary: It has been my pleasure to treat LAM SANCHEZ referred by Dr. Sage Flores MD, with the diagnosis of back and hip pain for a total of 5 visit(s). Discharge Date: 09/01/24 Please see the following information for a summary of their discharge status. Subjective Subjective: Pt reports that he is in a lot of pain today and he said that the stretching (piriformis stretch) really flared him up. He is worse walking the last few times he has been here. He sees his Dr resendiz. He does exercise on his own but has to be careful not to flare his hips up so he works out doing upper body. Even walking into the gym hurts. He reports that even his calves are tight. He wants to be able to walk normal again. Pain back pain: Pain Intensity (Out of 10): 3 R hip pain: Pain Intensity (Out of 10): 3 L hip pain: Pain Intensity (Out of 10): 6 Overall Improvement % Improvement: 0 Objective Objective/Function: Pt still walks with WBOS and shorter stride. Decrease stancetime on the L LE today. He is walking very slow and stiff today. Goals Goal 1:: I HEP Goal Progress: Goal Met Goal 2:: Decrease hip and back pain by 20% Goal Progress: Not Progressing Goal 3:: Be able to walk with increase stride length and more equal stance time Goal Progress: Not Progressing Plan Plan: DC PT back to as pt is not getting any better and actually feeling worse since starting PT. Pt is very frustrated as he feels he is not getting anywhere D/C Information Discharge Comments: DC PT back to d/c sentence: If there are questions or concerns regarding this patient's physical therapy, please feel free to call me at [phone]. Thank you for the referral of thispatient. Sincerely, SHANTA Calderon Balance/Gait/Functional tests Balance/Special Test Scores Lower Extremity Functional Score: 27 Improvement % Improvement: 0 <Electronically signed by Marry Stapleton MPT> 09/01/24 1031 CC: Dr. Sage Flores MD; Dr. Bonilla Ryan MD ~ Signed [facility] Work Phone: 1(340) 960-192004-29-2025 Discharge summary [facility] [place] [address] / REHABILITATION SERVICES DISCHARGE SUMMARY MR#: [id number] Acct: [id number] Name: LAM SANCHEZ Rep #: [id number] : 1960 64 From: Marry Stapleton MP T Referring Dr.: Dr. Sage Flores MD Status: REG RCR Insurance: [employer] JUST FOR ME SELF PAY INSURANCE Discharge Summary D/C summary: It has been my pleasure to treat LAM SANCHEZ referred by Dr. Sage Flores MD, with the diagnosis of back and hip pain for a total of 5 visit(s). Discharge Date: 09/01/24 Please see the following information for a summary of their discharge status. Subjective Subjective: Pt reports that he is in a lot of pain today and he said that the stretching (piriformis stretch) really flared him up. He is worse walking the last few times he has been here. He sees his Dr astrid. He does exercise on his own but has to be careful not to flare his hips up so he works out doing upper body. Even walking into the gym hurts. He reports that even his calves are tight. He wants to be able to walk normal again. Pain back pain: Pain Intensity (Out of 10): 3 R hip pain: Pain Intensity (Out of 10): 3 L hip pain: Pain Intensity (Out of 10): 6 Overall Improvement % Improvement: 0 Objective Objective/Function: Pt still walks with WBOS and shorter stride. Decrease stancetime on the L LE today. He is walking very slow and stiff today. Goals Goal 1:: I HEP Goal Progress: Goal Met Goal 2:: Decrease hip and back pain by 20% Goal Progress: Not Progressing Goal 3:: Be able to walk with increase stride length and more equal stance time Goal Progress: Not Progressing Plan Plan: DC PT back to as pt is not getting any better and actually feeling worse since starting PT. Pt is very frustrated as he feels he is not getting anywhere D/C Information Discharge Comments: DC PT back to d/c sentence: If there are questions or concerns regarding this patient's physical therapy, please feel free to call me at [phone]. Thank you for the referral of thispatient. Sincerely, Marry Stapleton, MPT Balance/Gait/Functional tests Balance/Special Test Scores Lower Extremity Functional Score: 27 Improvement % Improvement: 0 09/01/24 1031 CC: Dr. Sage Flores MD; Dr. Bonilla Ryan MD ~ Signed [facility]04-02-2025 Evaluation note* Diagnosis Onset Date Resolution Status Admit Date Degenerative joint disease o f left hip acute August 05, 2024 8:55am Lumbar stenosis with neuroge kathy claudication acute August 05, 2024 8:55am Right hip pain acute August 05, 2024 8:55am Degenerative joint disease o f left hip acute September 09, 2024 10 :13am Lumbar stenosis with neuroge kathy claudication acute September 09, 2024 10 :13am Right hip pain acute September 09, 2 025 10:13am [facility] Work Phone: 1(763) 625-108503-10-2025 Evaluation note* Diagnosis Onset Date Resolution Status Admit Date Lumbar stenosis with neuroge kathy claudication acute July 13, 2024 10:29am Osteoarthritis of left hip noneactiv e July 13, 2024 10:29am Degenerative disc disease, lumbar noneactive July 13, 2024 10:29am Degenerative joint disease o f left hip acute August 05, 2024 8:55am Lumbar stenosis with neuroge kathy claudication acute August 05, 2024 8:55am Right hip pain acute August 05, 2024 8:55am Degenerative joint disease o f left hip acute September 09, 2024 10 :13am Lumbar stenosis with neuroge kathy claudication acute September 09, 2024 10 :13am Right hip pain acute September 09, 2 025 10:13am [facility] Work Phone: 1(490) 796-591712-29-2023 Hospital Discharge instructions* Discharge Instructions* Ellen Noriega MD - 05/03/2023 4:00 PM EST Patient Instructions after an endoscopy The anesthetics, sedatives or narcotics which were given to you today will be acting in your body for the next 24 hours, so you might feel a little sleepy or groggy. This feeling should slowly wear off. Carefully read and follow the instructions. You received sedation today: - Do not drive or operate any machinery or power tools of any kind. - No alcoholic beverages today, not even beer or wine. - Do not make any important decisions or sign any legal documents. - No over the counter medications that contain alcohol or that may cause drowsiness. - Do not make any important decisions or sign any legal documents. While it is common to experience mild to moderate abdominal distention, gas, or belching after yourprocedure, if any of these symptoms occur following discharge from the GI Lab or within one week ofhaving your procedure, call the [facility] to be advised whether a visit to your nearest Urgent Care or Emergency Department is indicated. Take this paper with you if you go. - If you develop an allergic reaction to the medications that were given during your procedure suchas difficulty breathing, rash, hives, severe nausea, vomiting or lightheadedness.- If you experience chest pain, shortness of breath, severe abdominal pain, fevers and chills. -If you develop signs and symptoms of bleeding such as blood in your spit, if your stools turn black, tarry, or bloody - If you have not urinated within 8 hours following your procedure.- If your IV site becomes painful, red, inflamed, or looks infected. [facility] Work Phone: 1(303) 451-128312-29-2023 Miscellaneous Notes* Perioperative Nursing Note - Fitz Billy RN - 05/03/2023 4:00 PM EST 1600: Received report from Ashley Chapman: Dr. Noriega bedside speaking to patient 1630: Phase 2 care begins 1638: IV removed 1655: Discharge instructions reviewed with pt and family 1720: Dr. Noriega bedside speaking to family 1729: Pt transported to [facility] documented in this [facility] Work Phone: 1(261) 635-868712-29-2023 Note* Perioperative Nursing Note - Fitz Billy RN - 05/03/2023 4:00 PM EST 1600: Received report from Ashley Chapman: Dr. Noriega bedside speaking to patient 1630: Phase 2 care begins 1638: IV removed 1655: Discharge instructions reviewed with pt and family 1720: Dr. Noriega bedside speaking to family 1729: Pt transported to [facility]12-29-2023 History and physical note* Ellen Noriega MD - 05/03/2023 2:00 PM EST History Of Present Illness Lam Sanchez is a 63 y.o. male presenting with pancreatic cyst and biliary stricture. Prior jaundice, s/p ERCP with reported biliary stricture s/p stenting. Work up revealed pancreatic cystic lesion, cholelithiasis. Negative CA 19-9. Has been seen in oncology and surgical oncology forevaluation, referred for EUS and ERCP. Past Medical History Past Medical History: Diagnosis Date Arthritis Cholelithiasis Pancreatic mass Surgical History Past Surgical History: Procedure Laterality Date BACK SURGERY BILE DUCT STENT PLACEMENT TOTAL KNEE ARTHROPLASTY Bilateral Social History He reports that he has never smoked. He has never been exposed to tobacco smoke. He has never used smokeless tobacco. He reports that he does not currently use alcohol. He reports that he does not use drugs. Family History No family history on file. Allergies Patient has no known allergies. Review of Systems Physical Exam Last Recorded Vitals Blood pressure 148/75, pulse 91, temperature 36.8 C (98.2 F), temperature source Temporal, resp. rate 16, height 1.752 m (5' 8.98), weight 99.2 kg (218 lb 11.1 oz), SpO2 96 %. Relevant Results Assessment/Plan Proceed with EUS and ERCP. I spent 5 minutes in the professional and overall care of this patient. Ellen Noriega MD [facility] Work Phone: 1(465) 401-893112-29-2023 History and physical note* Ellen Noriega MD - 05/03/2023 2:00 PM EST History Of Present Illness Lam Sanchez is a 63 y.o. male presenting with pancreatic cyst and biliary stricture. Prior jaundice, s/p ERCP with reported biliary stricture s/p stenting. Work up revealed pancreatic cystic lesion, cholelithiasis. Negative CA 19-9. Has been seen in oncology and surgical oncology forevaluation, referred for EUS and ERCP. Past Medical History Past Medical History: Diagnosis Date Arthritis Cholelithiasis Pancreatic mass Surgical History Past Surgical History: Procedure Laterality Date BACK SURGERY BILE DUCT STENT PLACEMENT TOTAL KNEE ARTHROPLASTY Bilateral Social History He reports that he has never smoked. He has never been exposed to tobacco smoke. He has never used smokeless tobacco. He reports that he does not currently use alcohol. He reports that he does not use drugs. Family History No family history on file. Allergies Patient has no known allergies. Review of Systems Physical Exam Last Recorded Vitals Blood pressure 148/75, pulse 91, temperature 36.8 C (98.2 F), temperature source Temporal, resp. rate 16, height 1.752 m (5' 8.98), weight 99.2 kg (218 lb 11.1 oz), SpO2 96 %. Relevant Results Assessment/Plan Proceed with EUS and ERCP. I spent 5 minutes in the professional and overall care of this patient. Ellen Noriega MD documented in this [facility] Work Phone: 1(371) 294-661112-08-2023 History of Present illness Narrative* Kristen Seth PA-C - 04/12/2023 10:00 AM EST Subjective Mr. Sanchez is a 63-year-old male who is referred by Dr. 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 In January, he developed painless jaundice and increased frequency of bowel movements. He describes his bowel movements at that time as dark, non-bloody and formed. He had also experienced weight loss of approximately 40 pounds. He presented to [facility] at the direction of his PCP on 01/30/23. Blood work was notable for WBC 11K, Hgb 14.7, MCV 106, platelets 393, Cr 0.8, T bili 19.3, ALP 304,AST 135, ALT 91 and lipase 26. Gallbladder US showed hepatomegaly and fatty liver, a solitary gallstone in the GB neck and a thickened GB wall. He had a CT A/P with IV contrast on 01/30/23 that demonstrated hepatomegaly with a steatotic liver, gallbladder wall thickening with a gallstone and pericholecystic fluid, dilated CBD measuring 2.1 cm, a 2.0 cm x 2.7 cm hypodense mass in the pancreas and inflammatory changes to the colon. He had an ERCP with [facility] on 01/31/23 that demonstrated a stricture in the distal CBD with upstream ductal dilatation s/p biliary sphincterotomy, dilation, brushing and placement of a 10 Fr x 5 cm stent. Brushings were negative for malignant cells. He was seen by surgery who declined to proceed with a lap cholecystectomy given the concern for malignancy. He was advised to have a liver biopsy and endoscopic ultrasound with biopsy of the pancreatic head lesion. He was referred to Dr. Symone Estrada who ordered updated blood work notable for down-trending liver enzymes and a normal CA19-9. He also ordered a liver biopsy and EUS which the patient declined to schedule. He was then referred to me. Today, he has no complaints. He denies abdominal pain, poor appetite, early satiety or jaundice. Hehas gained approximately 16 pounds back. He denies a personal history of acute pancreatitis, liver disease or diabetes. He believes his last colonoscopy was 10+ years ago and revealed only a benign polyp. Medical history: HTN. Surgical history: Bilateral knee replacement, back surgeries x 2 for ruptured discs. Family history: Father had bladder cancer. No family history of liver disease, pancreatitis, pancreatic cancer or other GI malignancies. Social history: Former smoker, quit over 30 years ago. Currently abstains from alcohol; admits to prior heavy use for 5+ years, quit approximately 6 months ago. No illicits. Objective BP (!) 164/97 Pulse 88 Temp 36.5 C (97.7 F) Resp 18 Wt 98.3 kg (216 lb 11.4 oz) SpO2 96% BMI 32.03 kg/m Physical Exam General: in no acute distress, comfortable Eyes: no pallor or scleral icterus Ears, nose, throat: no oropharyngeal edema Cardiovascular: normal rate, regular rhythm Respiratory: clear breath sounds, symmetric, no wheezes Gastrointestinal: abdomen soft, non-tender, no masses, +umbilical hernia Musculoskeletal: normal gate, no deformities Integumentary: no concerning lesions, no jaundice Lymphatic: no abnormally palpable lymph nodes Neurologic: no gross deficits Psychiatric: cognition intact, mood appropriate Assessment/Plan Mr. Sanchez is a 63-year-old male who is referred by Dr. 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 PLAN: As above, he presented to [facility] in January with painless jaundice. His work-up demonstrated acute cholecystitis as well as a pancreatic head mass that has the appearance of a cystic lesion (such as a branch duct IPMN) on MRCP. Of note, the MRCP is of poor quality. He underwent ERCP which revealed choledocholithiasis and a biliary stricture with negative brushings. A stent was placed. He was seen by a surgeon who recommended against lap cholecystectomy given concern for malignancy. Further work-up has been delayed by difficulty reaching the patient and his refusal to schedule recommended procedures. After a long discussion, it is clear that he did not comprehend the reasoning behind the recommended work-up and is fully on board after my explanation. Though choledocholithiasis can certainly explain hyperbilirubinemia, the degree of his hyperbilirubinemia is concerning. He has never experienced abdominal pain which is generally inconsistent with acute cholecystitis and choledocholithiasis. This coupled with a significant unintentional weight loss is concerning for malignancy. Therefore, I have ordered and arranged an ERCP for removal of the biliary stent and to evaluate forbiliary stricture. He will also get an EUS to evaluate the pancreatic head cyst with possible FNA. I will cancel the liver biopsy as there is no obvious liver lesion. I have ordered a complete serologic liver work-up to exclude viral hepatitis, autoimmune hepatitis and hereditary liver disease, amongst other etiologies. I will also repeat a hepatic function panel and CA19-9. If the above work-up shows no evidence of malignancy, I would then recommend cholecystectomy. Kristen Seth PA-C [facility] Work Phone: 1([phone]) 154-272310-26-2023 History of Present illness Narrative* Symone Estrada MD - 02/28/2023 3:00 PM EDT Patient ID: Lam Sanchez is a 62 y.o. male from [place], [place]. Referring Physician: No referring provider defined for this encounter. Kandace Hollingsworth Primary Care Provider: Symone Estrada MD Diagnosis: Pancreatic mass Surgeon: None MedOnc: Natalie RadOnc: N/A Current Therapy: Diagnostic Surgery N/a Prior Therapy None Molecular Genetics N/a Sites of Disease Pancreatic head Oncologic Issues Pancreatic mass Hyperbilirubinemia Oncology Narrative; He presented with diarrhea after eating in late 01/2023. Initially thought was a gall bladder problem. He underwent ultrasound of the right upper quadrant January 22, 2023 which showed a distended gallbladder with a solitary gallstone. There was no demonstrated pancreatic mass or cyst at the time. Reportedly his bilirubin was in the teens. Unfortunately the patient's symptoms continued and his liver function tests became elevated and so he underwent an MR CP on January 30, 2023 this revealeda 2 x 2 cm hypodense lesion in the pancreatic head there appears to be communication with a small ductal branch and no pancreatic duct dilation. On January 31, 2023 he underwent ERCP with stent placement. Pathology from brushings was negative. He was referred to medical oncology for EUS and biopsy?? Past Medical History: Lam has no past medical history on file. Surgical History: Lam has no past surgical history on file. Social History: Lam reports that he has never smoked. He has never been exposed to tobacco smoke. He has never used smokeless tobacco. He reports that he does not currently use alcohol. He reports that he does not use drugs. Family History: No family history on file. Family Oncology History: Cancer-related family history is not on file. SUBJECTIVE: History of Present Illness: Lam Sanchez is a 62 y.o. male who was referred by No ref. provider found and presents with Follow-up See oncologic narrative above. His ROS is negative in detail. OBJECTIVE: VS / Pain: BP (!) 153/93 Pulse 103 Temp 36.1 C (97 F) (Core) Resp 20 Ht 1.752 m (5' 8.98) Wt 91.4 kg (201 lb 8 oz) SpO2 98% BMI 29.78 kg/m BSA: 2.11 meters squared Pain Scale: 0 Physical Exam Constitutional: Appearance: Normal appearance. He is normal weight. HENT: Head: Normocephalic. Mouth/Throat: Mouth: Mucous membranes are moist. Pharynx: Oropharynx is clear. Eyes: Extraocular Movements: Extraocular movements intact. Conjunctiva/sclera: Conjunctivae normal. Cardiovascular: Rate and Rhythm: Normal rate. Pulmonary: Effort: Pulmonary effort is normal. Abdominal: General: Abdomen is flat. Palpations: Abdomen is soft. Musculoskeletal: General: Normal range of motion. Skin: General: Skin is warm. Neurological: General: No focal deficit present. Mental Status: Mental status is at baseline. Psychiatric: Mood and Affect: Mood normal. Performance Status: Ecog 0 Diagnostic Results WBC Date/Time Value Ref Range Status 02/28/2023 04:11 PM 9.3 4.4 - 11.3 x10*3/uL Final Hemoglobin Date Value Ref Range Status 02/28/2023 15.3 13.5 - 17.5 g/dL Final MCV Date/Time Value Ref Range Status 02/28/2023 04:11 PM 99 80 - 100 fL Final Platelets Date/Time Value Ref Range Status 02/28/2023 04:11 PM 445 150 - 450 x10*3/uL Final Neutrophils Absolute Date/Time Value Ref Range Status 02/28/2023 04:11 PM 5.84 1.20 - 7.70 x10*3/uL Final Comment: Percent differential counts (%) should be interpreted in the context of the absolute cell counts (cells/uL). Bilirubin, Total Date/Time Value Ref Range Status 02/28/2023 04:11 PM 4.6 (H) 0.0 - 1.2 mg/dL Final AST Date/Time Value Ref Range Status 02/28/2023 04:11 PM 110 (H) 9 - 39 U/L Final ALT Date/Time Value Ref Range Status 02/28/2023 04:11 PM 109 (H) 10 - 52 U/L Final Comment: Patients treated with Sulfasalazine may generate falsely decreased results for ALT. Creatinine Date/Time Value Ref Range Status 02/28/2023 04:11 PM 0.76 0.50 - 1.30 mg/dL Final Urea Nitrogen Date/Time Value Ref Range Status 02/28/2023 04:11 PM 15 6 - 23 mg/dL Final Albumin Date/Time Value Ref Range Status 02/28/2023 04:11 PM 3.9 3.4 - 5.0 g/dL Final Cancer AG 19-9 Date/Time Value Ref Range Status 02/28/2023 04:11 PM 25.54 <35.00 U/mL Final No results found for: CEA Assessment/Plan 62-year-old man with history of cystic pancreatic mass who presented in January with elevated bilirubin and underwent placement of a biliary stent now presents with worsening hyperbilirubinemia. Heis in need of endoscopic evaluation by GI. He needs evaluation of the cystic mass and potential re-s tenting. Plan: Refer to GI for EGD/EUS, Consider referral to cyst clinic for further follow up. Addendum: Of note, pt refused to set up his recommended tests. I tried to contact him but his voice mail is full. Several schedulers were also unable to get him scheduled. Symone Estrada MD documented in this [facility] Work Phone: 1(690) 752-893209-28-2023 Consult note Author Margarito Rangel [facility] January 31, 2023 3:13pm Note Date/Time January 31, 2023 3:14pm [facility] Medical Records Department [address] [place] [address] Consultation - GI 01/30/23 2300 MR#: [id number] Acct: [id number] Name: LAM SANCHEZ Rep #:[id number] : 1960 62 From: Margarito Rangel DO PCP: Melyssa Hollingsworth DO Status:ADM I N Location: [place] [address] HPI Consult Data Date of Consult: 01/30/23 HPI Narrative Reason for Consultation: Obstructive jaundice HPI Narrative: LAM SANCHEZ, 62 M who presented to the emergency department at [facility] on 01/30/2023 after being told by his primary care physician to be evaluated for gallbladder disease. Patient reports that about a month agohe started noticing some decreased energy and extreme fatigue along with jaundice. He also reported some lower extremity swelling has been persistent since that point in time. He states his appetite has been okay but he has had a20 pound weight loss as well. He was seen by his outpatient primary care provider earlier this month and had lab work which revealed significant hyperbilirubinemia and mild transaminitis. An ultrasound was performed and revealed a stone in the neck of the gallbladder as well as adenomyomatosis of the gallbladder wall and the patient was referred to surgery to see Dr. Hernandez however Dr. Hernandez has been out of town he has not yet had an appointment. Patient reported that his primary care physician called this morning and told him to come to the emergency department because he had to have his gallbladder taken out. Patient has not had any abdominal pain, nausea, or vomiting. He only reports mild fatigue, lower extremity swelling, itching, and painless jaundice. Patient has remote history of alcohol abuse and states he drank heavily in his 30s to about 41 but does not drink anymore. He states that he has remote history of tobacco abuse as well but quit 30 years ago. He denies any other substance abuse and reports the only medications he takes is gabapentin for his back and he was utilizing IM injections of testosterone for ED. Vital signs on presentation were overall unremarkable. CBC shows macrocytosis but was otherwise unremarkable. His chemistry panel showed normal electrolytes with normal renal function however his total bilirubin was 19.3 with a direct bilirubin of 15.18. AST was 135 and ALT was 91. His alk phos is 304. His UA is not suggestive of infection. No gallbladder ultrasound reiterates the presence of a stone in the gallbladder neck and a CT of the abdomen pelvis showsa pancreatic mass that is hypodense at 2 x 2.7 cm. [facility] Medical History (Updated 01/30/23 @ 15:[address] Faith Paulino DO) Chronic low back pain Erectile dysfunction Hypertension Lower extremity neuropathy Osteoarthritis Ventral hernia Home Medications gabapentin 600 mg tablet 600 mg PO TID NEUROPATHY 01/30/23 [History Last Taken 01/30/23] Allergy/AdvReac Type Severity Reaction Status Date / Time No Known Allergies Allergy Verified 01/30/23 09:15 Family History no significant family his Surgical History History of knee replacement Previous back surgery Social History (Updated 01/30/23 @ 15:[address] Faith Paulino DO) Smoking Status: Former smoker how long ago did patient quit smoking: Quit 30 years ago alcohol intake: former details: Patient reports he drank heavily until about 41 years of age substance use type: does not use ROS Constitutional Constitutional: Reports change in weight, fatigue and weakness; Denies anorexia,chills, fever(s), malaise, night sweats or other Eyes Eyes: Reports change in eye color; Denies blurry vision, change in vision, discharge from eye(s), double vision, erythema, eye pain, loss of vision or other ENT HEENT: Denies abnormal hearing, dysphagia, ear pain, epistaxis, headache(s), hearing loss, nasal congestion, nasal discharge, post nasal drip, sinus pressure, sore throat or other Cardiovascular Cardiovascular: Denies chest pain, claudication, dyspnea on exertion, edema, lightheadedness, orthopnea, palpitations, paroxysmal nocturnal dyspnea, rapid heart rate, syncope or other Respiratory/Chest Respiratory/Chest: Denies cough, dyspnea, excessive phlegm production, hemoptysis, productive cough, shortness of breath at rest, shortness of breath with exertion, wheezing or other Gastrointestinal Gastrointestinal: Denies abdominal pain, coffee ground emesis, constipation, diarrhea, dyspepsia, hematemesis, hematochezia, loose stools, melena, nausea, vomiting or other Genitourinary Genitourinary: Reports other Details: Dark-colored urine ; Denies burning urination, difficulty urinating, dysuria, hematuria, nocturia, urinary frequency, urinary hesitancy, urinary incontinence or urinary urgency Musculoskeletal Musculoskeletal: Reports back pain and joint pain Neurologic Neurologic: Denies abnormal gait, abnormal speech, confusion, disequilibrium, dizziness, focal weakness, headache(s), numbness, paresthesias, seizure-like activity, seizures, syncope, tingling, tremor(s) or other Hematologic/Lymphatic Hematologic/Lymphatic: Reports easy bruising; Denies anemia, easy bleeding, lymphadenopathy or other Allergic/Immunologic Allergic/Immunologic: Reports other Details: Diffuse itching ; Denies rhinitis, hives, eczemia or asthma Physical Exam Const Constitutional Narrative: Jaundiced. Afebrile. HEENT head/scalp atraumatic Eyes Eyes Narrative: Icterus Neuro Sensorium / Orientation: awake and alert Psych Mood & Affect: anxious Lab / Micro Data 01/31/23 05:03 01/31/23 05:03 Labs: Laboratory Results - last 24 hr 01/31/23 05:03: WBC 9.1, RBC 4.07 L, Hgb 14.8, Hct 43.3, MCV 106.4 H, MCH 36.4 H, MCHC 34.2, RDW Std Deviation 59.8 H, RDW Coeff of Aidan 15.1 H, Plt Count 410, MPV 9.4, Immature Gran % (Auto) 2.200 H, Neut % (Auto) 66.6, Lymph % (Auto) 16.5L, [place] % (Auto) 10.5 H, Eos % (Auto) 2.6, Baso % (Auto) 1.6 H, Absolute Neuts (auto) 6.1, Absolute Lymphs (auto) 1.50, Nucleated RBC % 0, Sodium 138 01/31/23 05:03: Sodium Cancelled, Potassium 3.8 01/31/23 05:03: Potassium Cancelled, Chloride 109 H 01/31/23 05:03: Chloride Cancelled, Carbon Dioxide 23.0 01/31/23 05:03: Carbon Dioxide Cancelled, Anion Gap 6 01/31/23 05:03: Anion Gap Cancelled, BUN 7 01/31/23 05:03: BUN Cancelled, Creatinine 0.83 01/31/23 05:03: Creatinine Cancelled, Estim Creat Clear Calc 99.54 01/31/23 05:03: Estim Creat Clear Calc Cancelled, Est GFR (MDRD) Af Amer 120 01/31/23 05:03: Est GFR (MDRD) Af Amer Cancelled, Est GFR (MDRD) Non-Af 99 01/31/23 05:03: Est GFR (MDRD) Non-Af Cancelled, BUN/Creatinine Ratio 8.4 L 01/31/23 05:03: BUN/Creatinine Ratio Cancelled, Glucose 81 01/31/23 05:03: Glucose Cancelled, Calcium 7.9 L 01/31/23 05:03: Calcium Cancelled, Phosphorus 1.9 L, Magnesium 2.2, Total Bilirubin 19.90 H*, AST 146 H, ALT 91 H, Alkaline Phosphatase 284 H, Total Protein 6.1 L, Albumin 1.6 L, Globulin 4.5 H, Albumin/Globulin Ratio 0.4 L, TSH 6.55 H Radiology Impression MRCP 01/30/23 14:32 IMPRESSION: 1. Gallbladder wall thickening, cholelithiasis and pericholecystic inflammation/edema suggesting acute cholecystitis. 2. No choledocholithiasis. 3. 2.0 x 2.1 cm inferior pancreatic head cyst, correlating to CT findings. Limited evaluation given lack of IV contrast. Recommend a contrast-enhanced, pancreas-protocol abdominal CT or MR in 6 months or endoscopic ultrasound with fine needle aspiration, according to ACR guidelines. 4. Trace perihepatic ascites. 5. Hepatic steatosis. Electronically Signed: Jamal Thao MD ([place]) at 16:40 EDT Reading Location ID and State: [address] [place] [address] , Service support , Assessment & Plan Assessment/Plan (1) Hyperbilirubinemia: (2) Transaminitis: (3) Cholelithiasis: (4) Pancreatic mass: (5) Painless jaundice: (6) Pruritus: (7) Lower extremity edema: PLAN: Plan Hyperbilirubinemia/transaminitis -Patient with painless jaundice and pruritus along with a 20 pound unintentionalweight loss - abdominal ultrasound does show hepatomegaly with fatty infiltration of the liver as well as a solitary gallstone in the neck of the gallbladder with a thickened gallbladder wall but patient is asymptomatic so a highly doubt that this is the etiology for his above symptoms -CT of the abdomen pelvis shows a 2 cm x 2.7 cm hypodense mass in the pancreas as well as inflammatory changes in the ascending, proximal transverse: And sigmoid diverticulosis. -We will start low-dose Zoloft 25 mg daily for pruritus -Rifaximin 550 twice daily for pruritus -Cholestyramine at at bedtime for pruritus -As needed Benadryl for pruritus -MRCP ordered and is pending -Most likely will need ERCP Pancreatic mass -CA 19-9 is pending -MRCP recommended ERCP. Charges/Coding Visit Charges Inpatient E&M: 46425 Init Hosp L3 01/31/23 1513 <Electronically signed by Margarito Rangel DO> Cosigner Signature (if applicable): CC: Dr. Faith Paulino DO; Melyssa Hollingsworth DO~ Signed [facility] Work Phone: 1(839) 332-637809-28-2023 Progress note Author Oswald Lance [facility] January 31, 2023 3:12pm Note Date/Time January 31, 2023 8:43am [facility] Medical Records Department [address] [place] [address] Progress Note - Hospitalist 01/31/23 0833 MR#: [id number] Acct: [id number] Name: LAM SANCHEZ Rep #:[id number] : 1960 62 From: Oswald Lance DO PCP: Melyssa Hollingsworth, DO Status:ADM I N Location: [place] [address] Subjective Subjective Complains of pruritus not affected well with the diphenhydramine. Also goes offon concerns that he has over his insurance as he currently has care source and could no longer go to [facility] because of that. Was asking whether or not any of the providers are within his network, explains his discussed in regards to my not knowing the actual time of his ERCP, also expressing his discussed about the fact that he has not eaten yet today as he is waiting on his ERCP. Heexpressed that he does not like the ambiguity in regards to what the underlying potential diagnosis is and why we do not have a formal plan for what is going shana done next. Objective Data Objective Data Vital Signs: Vital Signs Temp Pulse Resp BP Pulse Ox O2 Del Method 36.6 C 85 16 151/89 H 96 Room Air 01/31/23 04:57 01/31/23 04:57 01/31/23 04:57 01/31/23 04:57 01/31/23 07:10 01/31/23 07:59 Oxygen Delivery Method Room Air Weight: 102.058 kg Body Mass Index (BMI) 31.4 Intake & Output: Intake and Output for Last 24 Hours 01/29/23 01/30/23 01/31/23 23:59 23:59 23:59 Intake Total 1000 / 1000 872.5 / 872.5 Balance 1000 / 1000 872.5 / 872.5 Lab / Micro Data 01/31/23 05:03 01/31/23 05:03 Labs: Laboratory Results - last 24 hr 01/30/23 09:43: WBC 11.0, RBC 4.12 L, Hgb 14.7, Hct 43.7, MCV 106.1 H, MCH 35.7 H, MCHC 33.6, RDW Std Deviation 59.6 H, RDW Coeff of Aidan 15.0 H, Plt Count 393, MPV 9.4, Immature Gran % (Auto) 2.600 H, Neut % (Auto) 72.2 H, Lymph % (Auto) 9.7 L, [place] % (Auto) 11.9 H, Eos % (Auto) 1.8, Baso % (Auto) 1.8 H, Absolute Neuts (auto) 7.9 H, Absolute Lymphs (auto) 1.06, Nucleated RBC % 0, Sodium 137, Potassium 3.7, Chloride 107, Carbon Dioxide 25.0, Anion Gap 5, BUN 5 L, Creatinine 0.86, Estim Creat Clear Calc 96.07, Est GFR (MDRD) Af Amer 116, Est GFR (MDRD) Non-Af 96, BUN/Creatinine Ratio 5.8 L, Glucose 104, Calcium 8.3 L, Total Bilirubin 19.30 H*, Direct Bilirubin 15.18 H, AST 135 H, ALT 91 H, Alkaline Phosphatase 304 H, Total Protein 6.0 L, Albumin 1.6 L, Globulin 4.4 H, Lipase 26 01/30/23 11:55: Urine Color Sammie, Urine Clarity Clear, Urine pH 7.0, Ur Specific [place] 1.015, Urine Protein 15 H, Urine Glucose (UA) Normal, Urine Ketones Negative, Urine Occult Blood Negative, Urine Nitrite Negative, Urine Bilirubin 6 H, Urine Urobilinogen 8 H, Ur Leukocyte Esterase 25 H, Urine RBC 0 SEEN, Urine WBC 0-5 SEEN, Ur Squamous Epith Cells 0 SEEN, Urine Bacteria 1+, Urine Mucus 0 SEEN 01/31/23 05:03: WBC 9.1, RBC 4.07 L, Hgb 14.8, Hct 43.3, MCV 106.4 H, MCH 36.4 H, MCHC 34.2, RDW Std Deviation 59.8 H, RDW Coeff of Aidan 15.1 H, Plt Count 410, MPV 9.4, Immature Gran % (Auto) 2.200 H, Neut % (Auto) 66.6, Lymph % (Auto) 16.5L, [place] % (Auto) 10.5 H, Eos % (Auto) 2.6, Baso % (Auto) 1.6 H, Absolute Neuts (auto) 6.1, Absolute Lymphs (auto) 1.50, Nucleated RBC % 0, Sodium 138 01/31/23 05:03: Sodium Cancelled, Potassium 3.8 01/31/23 05:03: Potassium Cancelled, Chloride 109 H 01/31/23 05:03: Chloride Cancelled, Carbon Dioxide 23.0 01/31/23 05:03: Carbon Dioxide Cancelled, Anion Gap 6 01/31/23 05:03: Anion Gap Cancelled, BUN 7 01/31/23 05:03: BUN Cancelled, Creatinine 0.83 01/31/23 05:03: Creatinine Cancelled, Estim Creat Clear Calc 99.54 01/31/23 05:03: Estim Creat Clear Calc Cancelled, Est GFR (MDRD) Af Amer 120 01/31/23 05:03: Est GFR (MDRD) Af Amer Cancelled, Est GFR (MDRD) Non-Af 99 01/31/23 05:03: Est GFR (MDRD) Non-Af Cancelled, BUN/Creatinine Ratio 8.4 L 01/31/23 05:03: BUN/Creatinine Ratio Cancelled, Glucose 81 01/31/23 05:03: Glucose Cancelled, Calcium 7.9 L 01/31/23 05:03: Calcium Cancelled, Phosphorus 1.9 L, Magnesium 2.2, Total Bilirubin 19.90 H*, AST 146 H, ALT 91 H, Alkaline Phosphatase 284 H, Total Protein 6.1 L, Albumin 1.6 L, Globulin 4.5 H, Albumin/Globulin Ratio 0.4 L, TSH 6.55 H Radiography Diagnostic Testing: Radiology Impression Gallbladder Ultrasound 01/30/23 09:29 IMPRESSION: Hepatomegaly and fatty infiltration of the liver. Solitary gallstone in the neck of the gallbladder. Thickened gallbladder wall. Electronically Signed: Dyllan Goyal MD at 11:55 EDT , Abdomen/Pelvis CT 01/30/23 12:02 IMPRESSION: Hepatomegaly and diffuse fatty infiltration of the liver. Solitary gallstone with thickened gallbladder wall and small amount of pericholecystic fluid. Dilated common bile duct. Small umbilical hernia containing mesenteric fat. Inflammatory changes are seen in the ascending colon and proximal transverse colon with increased markings in the surrounding peritoneal fat in the right pararenal space. Sigmoid diverticulosis with mild inflammatory changes. Electronically Signed: Dyllan Goyal MD at 12:56 EDT , ADDENDUM: 01/30/23 1308 IMPRESSION: undefined ADDENDUM: 01/30/23 1404 IMPRESSION: undefined MRCP 01/30/23 14:32 IMPRESSION: 1. Gallbladder wall thickening, cholelithiasis and pericholecystic inflammation/edema suggesting acute cholecystitis. 2. No choledocholithiasis. 3. 2.0 x 2.1 cm inferior pancreatic head cyst, correlating to CT findings. Limited evaluation given lack of IV contrast. Recommend a contrast-enhanced, pancreas-protocol abdominal CT or MR in 6 months or endoscopic ultrasound with fine needle aspiration, according to ACR guidelines. 4. Trace perihepatic ascites. 5. Hepatic steatosis. Electronically Signed: Jamal Thao MD ([place]) at 16:40 EDT , Physical Exam Const Constitutional Narrative: Jaundiced. Afebrile. HEENT head/scalp atraumatic Eyes Eyes Narrative: Icterus Neuro Sensorium / Orientation: awake and alert Psych Mood & Affect: anxious Assessment & Plan Assessment/Plan (1) Pancreatic mass: PLAN: MRCP: 2x2.1 cm inferior pancreatic head cyst. GB wall thickening, cholelithiasis and pericholecystic inflammation/edema suggesting acute cholecystitis CT a/p: Hepatomegaly and diffuse fatty infiltration of the liver. Solitary GS with thickened gallbladder wall and small amount pericholecystic fluid. Dilated CBD. Inflammatory changes seen in the ascending colon and proximal transverse colon with increased markings in the surrounding peritoneal fat in the right pararenal space. GI on consult. ERCP planned Consider GS consult. CA 19-9 (2) Hyperbilirubinemia: PLAN: Ongoing Likely obstructive from pancreatic mass or choledocholithiasis ERCP planned. on cholestyramine Increase diphenhydramine from 25-50 every 6 hours as needed. (3) Lower extremity edema: PLAN: Duplex ordered PLAN: Plan Chronic conditions: * Ventral hernia: -No current issues-Outpatient follow-up if needed * hypertension-Patient is on no chronic medication-As needed hydralazine for systolic greater than 160-Monitor * Neuropathy secondary to chronic low back pain-We will hold gabapentin for now * Erectile dysfunction-Patient has been getting IM injections of testosterone * Remote history of alcohol and tobacco abuse-Encouraged ongoing cessation DVT prophylaxis-LMWH CODE STATUS-Full code Greater than 55 minutes of which greater than 50% of time was discussing the patient and managing expectations regards to testing but also listening and trying to help alleviate some of his concerns regards to the specialists were involved in his care that his concern was whether or not they would be in network, also listening to him listen to him expressed discussed over myriad of things including the fact that we do not have a specific time for his ERCP, thatthe testing will be determined by what some of the other studies show before we make further determination with a neck step will be and also expressing that he is medically not ready for discharge. Charges/Coding Visit Charges Inpatient E&M: 47590 Subs Hosp L3 01/31/23 1512 <Electronically signed by Oswald Lance DO> Cosigner Signature (if applicable): CC: ~ Signed [facility] Work Phone: 1(190) 901-276209-28-2023 Procedure [facility] 01-31-2023 Procedure [facility]09-28-2023 Discharge summary Author Ida Pizarro [facility] January 31, 2023 9:35am Note Date/Time January 30, 2023 9:32am [facility] Medical Records Department [address] [place] [address] Emergency Department Summary 01/30/23 MR#: [id number] Acct: [id number] Name: LAM SANCHEZ Rep #:[id number] : 1960 62 From: Ida Pizarro MD PCP: Melyssa Hollingsworth DO Status:ADM I N Location: [place] [address] HPI History of Present Illness Chief Complaint: Abd Pain Informant: patient Narrative Narrative: Patient presents at the urging of his PCP for evaluation of gallbladder disease. Patient states about a month ago he started noticing decreased energy and jaundice. He was seen by his PCP earlier in the month and had lab work which revealed a significantly elevated bilirubin level. An ultrasound revealed a stone in the neck of the gallbladder and adenomyomatosis of the gallbladder wall. Patient has been referred to surgery but has not yet been seen. He states that his PCP called this morning and told him he states to come to the emergency room because he needs to have his gallbladder taken out. Patient denies any abdominal pain. He denies nausea or vomiting. He states that over the past week he has started noticing some itching. [facility] Medical History (Updated 01/30/23 @ 14:[address] Ida Pizarro MD) Hypertension Home Medications gabapentin 600 mg tablet 600 mg PO TID NEUROPATHY 01/30/23 [History Last Taken 01/30/23] Allergy/AdvReac Type Severity Reaction Status Date / Time No Known Allergies Allergy Verified 01/30/23 09:15 Surgical History (Updated 01/30/23 @ 09:[address] Ida Pizarro MD) History of knee replacement Previous back surgery Social History Smoking Status: Never smoker ROS ROS ED Constitutional Constitutional ED: Denies chills or fever(s) Eyes Eyes: Denies change in vision or discharge from eye(s) ENT ENT ED: Denies discharge from eye(s), rhinorrhea or sore throat Cardiovascular Cardiovascular: Denies chest pain or palpitations Respiratory/Chest Respiratory/Chest: Denies cough or dyspnea Gastrointestinal Gastrointestinal: Denies abdominal pain, nausea or vomiting Genitourinary Genitourinary ED: Denies dysuria Musculoskeletal Musculoskeletal: Denies back pain or extremity pain Integumentary Reports Abrasions and other Details: Pruritus ; Denies rash Neurologic Neurologic: Denies headache(s) or weakness Psychiatric Psychiatric: Denies anxiety or depression Allergic/Immunologic Allergic/Immunologic ED: Denies lip swelling or urticaria EXAM Physical Exam Const Vital Signs: 01/30/23 09:14 01/30/23 12:12 Temperature 97.8 F Temperature Source Temporal Pulse Rate 99 92 Respiratory Rate 14 Blood Pressure 151/90 H 158/97 H Blood Pressure Mean 110 117 Pulse Ox 100 Oxygen Delivery Method Room Air Positive well nourished and well developed General Appearance ED: well developed HEENT Reports normocephalic and head/scalp atraumatic Eyes PERRL and EOMs intact bilaterally Eyes Narrative: Scleral icterus Neck supple Chest Wall inspection of chest normal and palpation of chest normal Resp normal respiratory effort and clear to auscultation bilaterally Cardio regular rate and regular rhythm GI GI Narrative: Abdomen soft and nontender. Ventral hernia palpated with no tenderness. Palpation: soft Back/Spine no CVA tenderness Extremity normal to inspection Neuro oriented x3 and no sensory deficits noted Sensorium / Orientation: alert Motor Exam: strength 5/5 throughout Psych mental status grossly normal Skin Skin Narrative: Superficial abrasions noted to the bilateral forearms from scratching. No sign of secondary infection. Mild jaundice noted. MDM MDM MDM Narrative Medical decision making narrative: Patient's lab work and ultrasound from earlier this month is reviewed. Repeat labs obtained at this time along with repeat ultrasound of the right upper quadrant. History & Record Review Discussion w/independent historian: Patient Additional record(s) reviewed:: Prior labs Lab Data Attestation: I reviewed the patient's lab results. Labs: Laboratory Results - last 24 hr 01/30/23 01/30/23 09:43 11:55 WBC 11.0 RBC 4.12 L Hgb 14.7 Hct 43.7 MCV 106.1 H MCH 35.7 H MCHC 33.6 RDW Std Deviation 59.6 H RDW Coeff of Aidan 15.0 H Plt Count 393 MPV 9.4 Immature Gran % (Auto) 2.600 H Neut % (Auto) 72.2 H Lymph % (Auto) 9.7 L [place] % (Auto) 11.9 H Eos % (Auto) 1.8 Baso % (Auto) 1.8 H Absolute Neuts (auto) 7.9 H Absolute Lymphs (auto) 1.06 Nucleated RBC % 0 Sodium 137 Potassium 3.7 Chloride 107 Carbon Dioxide 25.0 Anion Gap 5 BUN 5 L Creatinine 0.86 Estim Creat Clear Calc 96.07 Est GFR (MDRD) Af Amer 116 Est GFR (MDRD) Non-Af 96 BUN/Creatinine Ratio 5.8 L Glucose 104 Calcium 8.3 L Total Bilirubin 19.30 H* Direct Bilirubin 15.18 H AST 135 H ALT 91 H Alkaline Phosphatase 304 H Total Protein 6.0 L Albumin 1.6 L Globulin 4.4 H Lipase 26 Urine Color Sammie Urine Clarity Clear Urine pH 7.0 Ur Specific [place] 1.015 Urine Protein 15 H Urine Glucose (UA) Normal Urine Ketones Negative Urine Occult Blood Negative Urine Nitrite Negative Urine Bilirubin 6 H Urine Urobilinogen 8 H Ur Leukocyte Esterase 25 H Urine RBC 0 SEEN Urine WBC 0-5 SEEN Ur Squamous Epith Cells 0 SEEN Urine Bacteria 1+ Urine Mucus 0 SEEN Radiography Diagnostic Testing: Clinical Impression(s) from Imaging Studies Gallbladder Ultrasound 01/30/23 09:29 IMPRESSION: Hepatomegaly and fatty infiltration of the liver. Solitary gallstone in the neck of the gallbladder. Thickened gallbladder wall. Electronically Signed: Dyllan Goyal MD at 11:55 EDT , Abdomen/Pelvis CT 01/30/23 12:02 IMPRESSION: Hepatomegaly and diffuse fatty infiltration of the liver. Solitary gallstone with thickened gallbladder wall and small amount of pericholecystic fluid. Dilated common bile duct. Small umbilical hernia containing mesenteric fat. Inflammatory changes are seen in the ascending colon and proximal transverse colon with increased markings in the surrounding peritoneal fat in the right pararenal space. Sigmoid diverticulosis with mild inflammatory changes. Electronically Signed: Dyllan Goyal MD at 12:56 EDT , ADDENDUM: 01/30/23 1308 IMPRESSION: undefined ADDENDUM: 01/30/23 1404 IMPRESSION: undefined Treatment and Re-Evaluation :: BC is normal with a white count of 11 and hemoglobin of 14.7. No left shift noted. Chemistry studies largely unremarkable, however LFTs are abnormal. Total bili is 19.3, down from 24 earlier this month. AST is 135 and ALT is 91. These again are slightly improved when compared to prior. Alk phos is 304. Lipase is normal at 26. Urinalysis reveals urine urobilinogen, but no evidence of infection. Right upper quadrant ultrasound is obtained that shows solitary gallstone in the neck of the gallbladder. Slightly thickened gallbladder wall noted. No pericholecystic fluid. Case was discussed with surgery and they recommended a CT of the abdomen and pelvis to evaluate the pancreas. Initial CT reported solitary gallstone and a small amount of pericholecystic fluid. Dilated common bile duct noted. There is an addendum that was then performed that states there is a 2 x 2.7 cm hypodense mass in the pancreas. Correlation with ERCP recommended. I spoke with Dr. Rangel and he evaluated the patient's imaging. I will discuss case with hospitalist for admission and abdominal MRI. He will then need an ERCP. This has been discussed with the patient at bedside. Discharge Plan Triage Chief Complaint: Abd Pain ED Provider: dIa Pizarro Dx/Rx/DC Orders Clinical Impression: Hyperbilirubinemia Prescriptions: No Action gabapentin 600 mg tablet 600 mg PO TID Primary Care Provider: Melyssa Hollingsworth Referrals: Melyssa Hollingsworth, [Primary Care Provider] - Disposition Disposition: Acute Care Hospital [facility] What to do if you have Problems For any increased pain, shortness of breath, bleeding, nausea or vomiting, chestpain, or any unexpected problems, contact your Primary Care Provider. Call [facility] ([phone]) or report to the closest Emergency Room. Call 911 if necessary. 01/31/23 0935 <Electronically signed by Ida Pizarro MD> Cosigner Signature (if applicable): CC: Melyssa Hollingsworth DO ~ Signed [facility] Work Phone: 1(943) 656-306009-27-2023 History and physical note Author Faith Paulino [facility] January 30, 2023 3:18pm Note Date/Time January 30, 2023 2:36pm [facility] Medical Records Department [address] [place] [id number] H&P Exam - Hospitalist 01/30/23 1433 MR#: [id number] Acct: [id number] Name: LAM SANCHEZ Rep #:[id number] : 1960 62 From: Faith Paulino DO PCP: Melyssa Hollingsworth DO Status:ADM I N Location: [place] [address] HPI - General General Date of Admission: 01/30/23 Date of Service: 01/30/23 Chief Complaint: Painless jaundice/pruritus HPI Narrative LAM SANCHEZ, is a 62 M who presented to the emergency department at [facility] on 01/30/2023 after being told by his primary care physician to be evaluated for gallbladder disease. Patient reports that about a month agohe started noticing some decreased energy and extreme fatigue along with jaundice. He also reported some lower extremity swelling has been persistent since that point in time. He states his appetite has been okay but he has had a20 pound weight loss as well. He was seen by his outpatient primary care provider earlier this month and had lab work which revealed significant hyperbilirubinemia and mild transaminitis. An ultrasound was performed and revealed a stone in the neck of the gallbladder as well as adenomyomatosis of the gallbladder wall and the patient was referred to surgery to see Dr. Hernandez however Dr. Hernandez has been out of town he has not yet had an appointment. Patient reported that his primary care physician called this morning and told him to come to the emergency department because he had to have his gallbladder taken out. Patient has not had any abdominal pain, nausea, or vomiting. He only reports mild fatigue, lower extremity swelling, itching, and painless jaundice. Patient has remote history of alcohol abuse and states he drank heavily in his 30s to about 41 but does not drink much at all anymore. He states that he has remote history of tobacco abuse as well but quit 30 years ago. He denies any other substance abuse and reports the only medications he takes is gabapentin for his back and he was utilizing IM injections of testosterone for ED. Vital signs on presentation were overall unremarkable. CBC shows macrocytosis but was otherwise unremarkable. His chemistry panel showed normal electrolytes with normal renal function however his total bilirubin was 19.3 with a direct bilirubin of 15.18. AST was 135 and ALT was 91. His alk phos is 304. His UA is not suggestive of infection. No gallbladder ultrasound reiterates the presence of a stone in the gallbladder neck and a CT of the abdomen pelvis showsa pancreatic mass that is hypodense at 2 x 2.7 cm. [facility] Medical History (Updated 01/30/23 @ 15:[address] Faith Paulino DO) Chronic low back pain Erectile dysfunction Hypertension Lower extremity neuropathy Osteoarthritis Ventral hernia Home Medications gabapentin 600 mg tablet 600 mg PO TID NEUROPATHY 01/30/23 [History Last Taken 01/30/23] Allergy/AdvReac Type Severity Reaction Status Date / Time No Known Allergies Allergy Verified 01/30/23 09:15 no significant family history Surgical History History of knee replacement Previous back surgery Social History (Updated 01/30/23 @ 15:[address] Faith Paulino DO) Smoking Status: Former smoker how long ago did patient quit smoking: Quit 30 years ago alcohol intake: former details: Patient reports he drank heavily until about 41 years of age substance use type: does not use ROS Constitutional Constitutional: Reports change in weight, fatigue and weakness; Denies anorexia,chills, fever(s), malaise, night sweats or other Eyes Eyes: Reports change in eye color; Denies blurry vision, change in vision, discharge from eye(s), double vision, erythema, eye pain, loss of vision or other ENT HEENT: Denies abnormal hearing, dysphagia, ear pain, epistaxis, headache(s), hearing loss, nasal congestion, nasal discharge, post nasal drip, sinus pressure, sore throat or other Cardiovascular Cardiovascular: Denies chest pain, claudication, dyspnea on exertion, edema, lightheadedness, orthopnea, palpitations, paroxysmal nocturnal dyspnea, rapid heart rate, syncope or other Respiratory/Chest Respiratory/Chest: Denies cough, dyspnea, excessive phlegm production, hemoptysis, productive cough, shortness of breath at rest, shortness of breath with exertion, wheezing or other Gastrointestinal Gastrointestinal: Denies abdominal pain, coffee ground emesis, constipation, diarrhea, dyspepsia, hematemesis, hematochezia, loose stools, melena, nausea, vomiting or other Genitourinary Genitourinary: Reports other Details: Dark-colored urine ; Denies burning urination, difficulty urinating, dysuria, hematuria, nocturia, urinary frequency, urinary hesitancy, urinary incontinence or urinary urgency Musculoskeletal Musculoskeletal: Reports back pain and joint pain Neurologic Neurologic: Denies abnormal gait, abnormal speech, confusion, disequilibrium, dizziness, focal weakness, headache(s), numbness, paresthesias, seizure-like activity, seizures, syncope, tingling, tremor(s) or other Hematologic/Lymphatic Hematologic/Lymphatic: Reports easy bruising; Denies anemia, easy bleeding, lymphadenopathy or other Allergic/Immunologic Allergic/Immunologic: Reports other Details: Diffuse itching ; Denies rhinitis, hives, eczemia or asthma Vital Signs Vital Signs Vital Signs: 01/30/23 09:14 01/30/23 12:12 Temperature 97.8 F Temperature Source Temporal Pulse Rate 99 92 Respiratory Rate 14 Blood Pressure 151/90 H 158/97 H Blood Pressure Mean 110 117 Pulse Ox 100 Oxygen Delivery Method Room Air Weight Weight: 99.79 kg Body Mass Index (BMI) 30.7 Physical Exam Const alert, oriented x3, no apparent distress and well nourished Constitutional Narrative: Obese, upper middle-aged, white male, sitting up in bed, mother at bedside, appears comfortable and nontoxic, no signs of distress whatsoever General Appearance: cooperative HEENT normocephalic, head/scalp atraumatic, hearing grossly normal bilaterally and moist oral mucous membranes HEENT Narrative: Mallampati is 2, no thrush Eyes PERRL, EOMs intact bilaterally and conjunctivae normal Eyes Narrative: Significant scleral icterus Neck no lymphadenopathy and supple Neck Narrative: Trachea pain, no thyroid enlargement Resp normal respiratory effort, no retractions, no use of accessory muscles and clearto auscultation bilaterally Auscultation: Negative for rales, rhonchi or wheezes Cardio regular rate, regular rhythm, S1 normal heart sound, S2 normal heart sound, no murmurs, no rub, no gallops and no clicks GI normal to inspection, nondistended, normoactive bowel sounds, soft to palpation and non-tender Extremity Extremity Narrative: Bilateral lower extremity pitting edema up to just above the [id number]+, no clubbing or sign Skin No no rashes or lesions noted, No no wounds, skin turgor normal, No no jaundice,no petechiae and no mottling Skin Narrative: Scattered bruising, few healing wounds on lower extremities with no signs of infection, severe jaundice Neuro oriented x3, CN's II-XII intact bilaterally, moves all extremities and no focal motor deficits Speech: speech normal Psych Psych Narrative: Very anxious, interacts appropriately, eye contact is good Mood & Affect: anxious Results Lab / Micro Data Attestation: I reviewed the patient's lab results. 01/30/23 09:43 01/30/23 09:43 Labs: Laboratory Results - last 24 hr 01/30/23 09:43: WBC 11.0, RBC 4.12 L, Hgb 14.7, Hct 43.7, MCV 106.1 H, MCH 35.7 H, MCHC 33.6, RDW Std Deviation 59.6 H, RDW Coeff of Aidan 15.0 H, Plt Count 393, MPV 9.4, Immature Gran % (Auto) 2.600 H, Neut % (Auto) 72.2 H, Lymph % (Auto) 9.7 L, Sublette % (Auto) 11.9 H, Eos % (Auto) 1.8, Baso % (Auto) 1.8 H, Absolute Neuts (auto) 7.9 H, Absolute Lymphs (auto) 1.06, Nucleated RBC % 0, Sodium 137, Potassium 3.7, Chloride 107, Carbon Dioxide 25.0, Anion Gap 5, BUN 5 L, Creatinine 0.86, Estim Creat Clear Calc 96.07, Est GFR (MDRD) Af Amer 116, Est GFR (MDRD) Non-Af 96, BUN/Creatinine Ratio 5.8 L, Glucose 104, Calcium 8.3 L, Total Bilirubin 19.30 H*, Direct Bilirubin 15.18 H, AST 135 H, ALT 91 H, Alkaline Phosphatase 304 H, Total Protein 6.0 L, Albumin 1.6 L, Globulin 4.4 H, Lipase 26 01/30/23 11:55: Urine Color Sammie, Urine Clarity Clear, Urine pH 7.0, Ur Specific [place] 1.015, Urine Protein 15 H, Urine Glucose (UA) Normal, Urine Ketones Negative, Urine Occult Blood Negative, Urine Nitrite Negative, Urine Bilirubin 6 H, Urine Urobilinogen 8 H, Ur Leukocyte Esterase 25 H, Urine RBC 0 SEEN, Urine WBC 0-5 SEEN, Ur Squamous Epith Cells 0 SEEN, Urine Bacteria 1+, Urine Mucus 0 SEEN Radiology Impression Gallbladder Ultrasound 01/30/23 09:29 IMPRESSION: Hepatomegaly and fatty infiltration of the liver. Solitary gallstone in the neck of the gallbladder. Thickened gallbladder wall. Electronically Signed: Dyllan Goyal MD at 11:55 EDT , Abdomen/Pelvis CT 01/30/23 12:02 IMPRESSION: Hepatomegaly and diffuse fatty infiltration of the liver. Solitary gallstone with thickened gallbladder wall and small amount of pericholecystic fluid. Dilated common bile duct. Small umbilical hernia containing mesenteric fat. Inflammatory changes are seen in the ascending colon and proximal transverse colon with increased markings in the surrounding peritoneal fat in the right pararenal space. Sigmoid diverticulosis with mild inflammatory changes. Electronically Signed: Dyllan Goyal MD at 12:56 EDT , ADDENDUM: 01/30/23 1308 IMPRESSION: undefined ADDENDUM: 01/30/23 1404 IMPRESSION: undefined Assessment & Plan Assessment/Plan (1) Hyperbilirubinemia: (2) Transaminitis: (3) Cholelithiasis: (4) Pancreatic mass: (5) Painless jaundice: (6) Pruritus: (7) Lower extremity edema: PLAN: Plan Hyperbilirubinemia/transaminitis -Patient with painless jaundice and pruritus along with a 20 pound unintentionalweight loss - abdominal ultrasound does show hepatomegaly with fatty infiltration of the liver as well as a solitary gallstone in the neck of the gallbladder with a thickened gallbladder wall but patient is asymptomatic so a highly doubt that this is the etiology for his above symptoms -CT of the abdomen pelvis shows a 2 cm x 2.7 cm hypodense mass in the pancreas as well as inflammatory changes in the ascending, proximal transverse: And sigmoid diverticulosis. -We will start low-dose Zoloft 25 mg daily for pruritus -Rifaximin 550 twice daily for pruritus -Cholestyramine at at bedtime for pruritus -As needed Benadryl for pruritus -MRCP ordered and is pending -Most likely will need ERCP -GI consultation--> Case discussed extensively with Dr. Rangel Pancreatic mass -CA 19-9 is pending -MRCP pending Lower extremity edema-bilateral -Check Dopplers -With the above I am concerned that he may have DVTs -If positive will start heparin drip Cholelithiasis -I doubt this is the etiology of the above findings -Patient is not having any abdominal pain, nausea, or vomiting -Tolerates p.o. 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 Faith Paulino DO; Melyssa Hollingsworth DO~ Signed [facility] Work Phone: Discharge summary Author Oswald Lance [facility] February 01, 2023 9:43am Note Date/Time February 01, 2023 9:39am [facility] Medical Records Department [address] [place] [address] Discharge Summary 02/01/2335 MR#: [id number] Acct: [id number] Name: LAM SANCHEZ Rep #:[id number] : 1960 62 From: Oswald Lance DO PCP: Melyssa Hollingsworth DO Status:ADM I N Location: [place] [address] Providers Date of Admission: 01/30/23 Primary Care Physician: Melyssa Hollingsworth DO Consultations 01/30/23 18:39 Consult: Gastroenterology Routine Consulting Provider: [facility] Reason for Consult: painless jaundice EMERGENT Consult: No MD Notified: Yes Date Notified: 01/30/23 Time Notified: 18:39 Method of Notification: Verbal 02/01/23 08:59 Consult: General Surgery Routine Consulting Provider: Vanna Worley Reason for Consult: possible cholecystitis EMERGENT Consult: No MD Notified: Yes Date Notified: 02/01/23 Time Notified: 08:59 Method of Notification: Verbal Reason For Visit: HYPERBILIRUBINRMIA Diagnosis Discharge Diagnosis (1) Pancreatic mass: Status: Acute Code(s): K86.89 - Other specified diseases of pancreas Plan: MRCP: 2x2.1 cm inferior pancreatic head cyst. GB wall thickening, cholelithiasisand pericholecystic inflammation/edema suggesting acute cholecystitis CT a/p: Hepatomegaly and diffuse fatty infiltration of the liver. Solitary GS with thickened gallbladder wall and small amount pericholecystic fluid. Dilated CBD. Inflammatory changes seen in the ascending colon and proximal transverse colon with increased showed strictures and choledocholithiasis CA 19-9 ZACK Rangel, pt will need outpt EUS w biopsy. (2) Hyperbilirubinemia: Status: Acute Code(s): E80.6 - Other disorders of bilirubin metabolism Plan: Improving post ERCP Obstructive from biliary strictures and choledocholithiasis on cholestyramine Diphenhydramine from 50 every 6 hours as needed. Noted cholecystitis on CT and MRCP. CS general surgery for evaluation. ZACK Worley. Will discharge patient with Augmentin in case there is acute cholecystitis. Patient insist on going home and will have patient follow-up with general surgery as outpatient. 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 Medications at Discharge Home Medications gabapentin 600 mg tablet 600 mg PO TID NEUROPATHY 01/30/23 cholestyramine (with sugar) 4 gram powder for susp in a packet 4 g PO DAILY@1999#60 ea 02/01/23 diphenhydramine HCl 25 mg capsule 25 mg PO Q6H PRN itching #30 caps 02/01/23 Hospital Course Operations None Procedures - (ERCP) Summary of Care Provided Minutes Spent on Discharge: 32 Hospital Course: Patient presents with obstructive jaundice. Patient CAT scan is concerning for a pancreatic mass. MRCP showed a possible pancreatic cyst but difficult to ascertain given the absence of contrast. Patient's bilirubin was 24. Patient underwent ERCP that showed biliary strictures as well as choledocholithiasis. CAT scan MRI also was concerning for possible cholecystitis. Patient had significant pruritus when he presented given his very high bilirubin. Bilirubinis since improved. Patient is adamant about going home as he has things to attend to at home as well as care for family members. I did reach out to general surgery to see him but since patient was insistent on leaving I will have the patient follow-up as outpatient for concern for cholecystitis. Patientfollow-up with general surgery as he will require an endoscopic ultrasound with biopsy of the pancreatic mass. Weight / BMI Weight Weight: 102.058 kg Body Mass Index (BMI) 31.4 ABG / Lab / Microbiology Data 02/01/23 04:45 02/01/23 04:45 Laboratory: Laboratory Results - last 24 hr 01/31/23 05:03: CA 19-9 Antigen 50 H 02/01/23 04:45: WBC 7.3, RBC 3.99 L, Hgb 14.7, Hct 42.8, MCV 107.3 H, MCH 36.8 H, MCHC 34.3, RDW Std Deviation 59.2 H, RDW Coeff of Aidan 14.7 H, Plt Count 405, MPV 9.1, Immature Gran % (Auto) 1.900 H, Neut % (Auto) 88.5 H, Lymph % (Auto) 5.2 L, [place]lette % (Auto) 4.0, Eos % (Auto) 0.0, Baso % (Auto) 0.4, Absolute Neuts (auto) 6.4, Absolute Lymphs (auto) 0.38 L, Nucleated RBC % 0, Differential Comment SCANNED, Sodium 136, Potassium 4.7, Chloride 108 H, Carbon Dioxide 24.0,Anion Gap 4 L, BUN 8, Creatinine 0.79, Estim Creat Clear Calc 104.58, Est GFR (MDRD) Af Amer 128, Est GFR (MDRD) Non-Af 106, BUN/Creatinine Ratio 10.2, Glucose 140 H, Calcium 8.2 L, Total Bilirubin 17.30 H*, AST 137 H, ALT 88 H, Alkaline Phosphatase 284 H, Total Protein 5.9 L, Albumin 1.6 L, Globulin 4.3 H, Albumin/Globulin Ratio 0.4 L Radiography Diagnostic Testing: Radiology Impression ERCP X-Ray 01/31/23 15:30 IMPRESSION: Fluoroscopic guided ERCP Electronically Signed: Norman Iyer MD at 17:27 EDT , D/C Instructions Discharge Diet: No restrictions Call your doctor if you observe: - (Abdominal pain. Increasing jaundice (yellowing of the skin)) Meaningful Use Info Meaningful Use Diagnoses (Choose all that apply): None applicable Discharge Plan Admission Admit Date/Time: 01/30/23 14:23 Primary Reason for Your Visit: Jaundice Attending Provider: Oswald Lance Primary Care Provider: Melyssa Hollingsworth Consulting Providers: Faith Paulino; Vanna Worley Instructions Additional Instructions / Restrictions: You had jaundice due to strictures in your bile duct as well as stones. Dr. Rangel was able to fix that with the procedure on the . You have something on your pancreas that could be a cyst but also could be a mass. Strongly recommend that he follow-up with Dr. Rangel to have a ultrasound and biopsy performed of that. Also concerning that you may have inflammation of your gallbladder. I have you on antibiotics to take for that and I recommend that you follow-up with general surgery to see about having that removed at a later point. Discharge Orders/Prescriptions Prescriptions: New cholestyramine (with sugar) 4 gram Powder In Packet 4 g PO DAILY@1999 Qty: 60 0RF diphenhydramine HCl 25 mg capsule 25 mg PO Q6H PRN (Reason: itching) Qty: 30 0RF Continued gabapentin 600 mg tablet 600 mg PO TID Referrals / Follow Up: [facility] [Provider Group] - Within 1 Month Melyssa Hollingsworth DO [Primary Care Provider] - Within 2 Weeks Vanna Worley MD [Med Staff - Active Staff] - Within 1 Month Disposition Disposition (needs filled in before D/C Order can be placed): Home, Self Care Charges/Coding Visit Charges Inpatient E&M: 09788 Disch Hosp >30min 02/01/23 0943 <Electronically signed by Oswald Lance DO> Cosigner Signature (if applicable): CC: Dr. Oswald Lance DO; Melyssa Hollingsworth DO~ Signed [facility] Work Phone: Evaluation noteNo assessment information available [facility] Work Phone: Evaluation note* Diagnosis Onset Date Resolution Status Cholelithiasis acute Hyperbilirubinemia acute Lower extremity edema acute Painless jaundice acute Pancreatic mass acute Pruritus acute Transaminitis acute [facility] Work Phone: Evaluation note* Diagnosis Mass of head of pancreas- Primary Liver mass Unspecified disorder of liver documented in this encounter [facility] Work Phone: Evaluation note* Diagnosis Jaundice Jaundice, unspecified, not of Mass of head of pancreas Biliary stricture Obstruction of bile duct documented in this encounter [facility] Work Phone: Evaluation note* Diagnosis Jaundice- Primary Jaundice, unspecified, not of Mass of head of pancreas Biliary stricture Obstruction of bile duct documented in this encounter [facility] Work Phone: Evaluation note* Diagnosis Obstruction of bile duct documented in this encounter [facility] Work Phone: Progress note Author Oswald Lance [facility] February 01, 2023 9:35am Note Date/Time February 01, 2023 8:52am [facility] Medical Records Department [address] [place] [id number] Progress Note - Hospitalist 02/01/23 0849 MR#: [id number] Acct: [id number] Name: LAM SANCHEZ Rep #:[id number] : 1960 62 From: Oswald Lance DO PCP: Melyssa Hollingsworth DO Status:ADM I N Location: [place] [address] Reason for Visit Reason for Visit: Diagnoses Other disorders of bilirubin metabolism (01/30/23) Calculus of gallbladder without cholecystitis without obstruction (01/30/23) Other specified diseases of pancreas (01/30/23) Pruritus, unspecified (01/30/23) Unspecified jaundice (01/30/23) Localized edema (01/30/23) Elevation of levels of liver transaminase levels (01/30/23) Subjective Subjective No pain. Feels well. Wants go home. Objective Data Objective Data Vital Signs: Vital Signs Temp Pulse Resp BP Pulse Ox O2 Del Method 36.6 C 100 16 143/91 H 95 Room Air 02/01/23 02:30 02/01/23 02:30 02/01/23 02:30 02/01/23 02:30 02/01/23 07:25 02/01/23 07:25 Oxygen Delivery Method Room Air Weight: 102.058 kg Body Mass Index (BMI) 31.4 Intake & Output: Intake and Output for Last 24 Hours 01/30/23 01/31/23 02/01/23 23:59 23:59 23:59 Intake Total 1000 / 999 3992.5 / 3992.5 1999 Balance 1000 / 1000 3992.5 / 3992.5 1999 Lab / Micro Data 02/01/23 04:45 02/01/23 04:45 Labs: Laboratory Results - last 24 hr 01/31/23 05:03: CA 19-9 Antigen 50 H 02/01/23 04:45: WBC 7.3, RBC 3.99 L, Hgb 14.7, Hct 42.8, MCV 107.3 H, MCH 36.8 H, MCHC 34.3, RDW Std Deviation 59.2 H, RDW Coeff of Aidan 14.7 H, Plt Count 405, MPV 9.1, Immature Gran % (Auto) 1.900 H, Neut % (Auto) 88.5 H, Lymph % (Auto) 5.2 L, [place] % (Auto) 4.0, Eos % (Auto) 0.0, Baso % (Auto) 0.4, Absolute Neuts (auto) 6.4, Absolute Lymphs (auto) 0.38 L, Nucleated RBC % 0, Differential Comment SCANNED, Sodium 136, Potassium 4.7, Chloride 108 H, Carbon Dioxide 24.0,Anion Gap 4 L, BUN 8, Creatinine 0.79, Estim Creat Clear Calc 104.58, Est GFR (MDRD) Af Amer 128, Est GFR (MDRD) Non-Af 106, BUN/Creatinine Ratio 10.2, Glucose 140 H, Calcium 8.2 L, Total Bilirubin 17.30 H*, AST 137 H, ALT 88 H, Alkaline Phosphatase 284 H, Total Protein 5.9 L, Albumin 1.6 L, Globulin 4.3 H, Albumin/Globulin Ratio 0.4 L Radiography Diagnostic Testing: Radiology Impression ERCP X-Ray 01/31/23 15:30 IMPRESSION: Fluoroscopic guided ERCP Electronically Signed: Norman Iyer MD at 17:27 EDT , Physical Exam Const alert and no apparent distress HEENT head/scalp atraumatic and moist oral mucous membranes Skin Skin Narrative: Jaundiced Assessment & Plan Assessment/Plan (1) Pancreatic mass: PLAN: MRCP: 2x2.1 cm inferior pancreatic head cyst. GB wall thickening, cholelithiasis and pericholecystic inflammation/edema suggesting acute cholecystitis CT a/p: Hepatomegaly and diffuse fatty infiltration of the liver. Solitary GS with thickened gallbladder wall and small amount pericholecystic fluid. Dilated CBD. Inflammatory changes seen in the ascending colon and proximal transverse colon with increased showed strictures and choledocholithiasis CA 19-9 ZACK Rangel, pt will need outpt EUS w biopsy. (2) Hyperbilirubinemia: PLAN: Improving post ERCP Obstructive from biliary strictures and choledocholithiasis on cholestyramine Diphenhydramine from 50 every 6 hours as needed. Noted cholecystitis on CT and MRCP. CS general surgery for evaluation. ZACK Worley. Will discharge patient with Augmentin in case there is acute cholecystitis. Patient insist on going home and will have patient follow-up with general surgery as outpatient. (3) Lower extremity edema: PLAN: Duplex ordered PLAN: Plan Chronic conditions: * Ventral hernia: -No current issues-Outpatient follow-up if needed * hypertension-Patient is on no chronic medication-As needed hydralazine for systolic greater than 160-Monitor * Neuropathy secondary to chronic low back pain-We will hold gabapentin for now * Erectile dysfunction-Patient has been getting IM injections of testosterone * Remote history of alcohol and tobacco abuse-Encouraged ongoing cessation DVT prophylaxis-LMWH CODE STATUS-Full code Patient insist on going home as he has many things to do and he has sickly relatives including his mother and sister whom he takes care of. 02/01/23 0935 <Electronically signed by Oswald Lance DO> Cosigner Signature (if applicable): CC: ~ Signed [facility] Work Phone: Progress note Author Zoraida Villegas [facility] Note Date/Time February 01, 2025 10:29am [facility] [address] [place] [address] OFFICE VISIT Date of Service: 02/01/25 MR#: [id number] Acct: [id number] Name: LAM SANCHEZ Rep #: [id number] : 1960 Provider: DAVID Montero Age/Sex: 64/M [place] [facility] [place] Status: Signed Intake Vital Signs 09/09/24 10:25 02/01/25 09:17 Height 5 ft 10 in 5 ft 10 in Weight: 210 lb BMI 30.1 Intake Visit Reasons: LUMBAR SPINE Chief Complaint: Cervical spine MRI review Accompanied by: Mother Is patient in pain?: Yes Pain scale (1-10): 5 Allergies acetaminophen (From Tylenol) Allergy (Severe, Verified 02/01/25 09:21) Nausea Medications ?Medication ?Instructions ?Recorded ?Confirmed ?Type creatine monohydrate 5,000 mg oral mg PO 07/13/2401/05 History powder packet testosterone 25 mg implant pellet mg implant 07/13/24 02/01/25 History trazodone 100 mg tablet 100 mg PO QDAY 08/05/2401/05 History hydrocodone 7.5 mg-acetaminophen 1 tab PO BID 12/31/24 02/01/25 History 325 mg tablet buprenorphine 5 mcg/hour weekly 1 patch transdermal QW INUPIAT 02/01/25 02/01/25 History transdermal patch gabapentin 600 mg tablet 600 mg PO TID #90 tabs 02/0102/01/25 Rx Have you fallen in the past year?: No PFSH Medical History DISH (diffuse idiopathic skeletal hyperostosis) Cervical myelopathy Obesity (BMI 30-39.9) Lower extremity neuropathy Chronic low back pain Osteoarthritis Erectile dysfunction Ventral hernia Hypertension Surgical History History of knee replacement Previous back surgery Social History Smoking Status: Former smoker how long ago did patient quit smoking: Quit 30 years ago alcohol intake: former details: Patient reports he drank heavily until about 41 years of age substance use type: does not use HPI LUMBAR SPINE Details: This documentation accurately reflects the service provided and the decisions made by me, DAVID Montero 02/01/25 0999. Part of today?s visit was documentedby Jae Mercado MA, acting as scribe. LAM SANCHEZ is a 64 year old M here today for cervical spine MRI review. Patient states that his pain is a 5 today. He would like to go over the MRI to discus what the next step would be. Patient states that he has tried injections in his back. He states that the injections didn't work for him. His last injection was about a couple months ago. Patient states that the injection lasted 1 day. He states that Dr. Flores wants to do more injections on him, but he doesn't think that the insurance will cover it. Patient states that he has tried physical therapy. He states that he did 6 weeks of physical therapy at [facility]. Patient states that the physical therapy didn't work for him. He states that the physical therapy made his pain worse. Patient states that he is taking pain medication. He states that the pain medication hasn't really been taking the edge off. The patient says he has no neck pain and says that he has no pain that extends down the arms. Says that he has noticed some mild right sided weakness. He does not feel like his balance is all too off. He denies any dexterity issues in his hands. For his low back pain and leg pain the patient says that he is on a pain patch as well as hydrocodone?acetaminophen. Patient says that he was also taking gabapentin however he ended up taking 4- 600 mg pills at 1 time which he said did make the symptoms better. Patient saysthat he is out of his gabapentin. HPI from 12/31/24: LAM SANCHEZ is a 64 year old M here today for continued lowback pain. He states that he has been having pain for 9 months and is ready for something to be done about it. He has had 2 previous surgeries on his lower back. He states that he has done PT and has had injections with Dr. Flores. He states that he had injection in his groin that didn't give him any relief and one in his lower back. The injection in his lower back only gave him 1 day of relief then the pain returned. He has had x-rays and an MRI of the lumbar spine.He states that his low back pain is equal on both side and at times will radiateinto his hips, groin and anterior legs. He also has numbness in the last 3 toes of his left foot. Patient is very upset that nothing has been done for his lowerback and wants something done nehemiah. Patient is on hydrocodone-acetaminophen 7.5-325 but notes that it does not touch his pain. He reports increased numbness into the left foot. He denies dexterity issues. He does have significant weakness in his right arm. He reports issues with his balance that he notices more when his eyes are closed. He states in the morning the pain is horrible and he is very stiff and it takes him twenty minutes to get out of bed. The painis worse when he bends forward. He used a walker a few weeks ago due to the pain. He denies diabetes. He denies previous strokes. The patient is a 64-year-old male presenting with severe pain and functional limitations due to multiple musculoskeletal issues, including hip and back problems. The patient reports severe osteoarthritis in the left hip, causing significant groin pain and stiffness, particularly when weight-bearing or standing up. The condition has been progressively worsening, and although hip replacement has been suggested, the patient feels other issues are more pressing. The patient has a history of degenerative disc disease with two previous lumbar surgeries approximately 37 years ago for ruptured discs at L2. He experiences chronic back pain, numbness in the toes, and balance issues, which have not improved with physical therapy or epidural injections. The patient also has degenerative scoliosis and diffuse idiopathic skeletal hyperostosis (DISH), contributing to his back pain and limited mobility. Despitevarious interventions, including physical therapy and injections, his symptoms persist. Additionally, cervical spinal stenosis with spinal cord compression has been identified, which is causing weakness in the right arm and significant balance issues. The patient is concerned about the progression of these symptoms and thepotential impact on his mobility. Peripheral neuropathy is also present, with numbness primarily in the feet, further complicating his balance and mobility. - Musculoskeletal: Reports severe pain in the left hip, chronic back pain, and stiffness. Denies improvement with physical therapy or injections. - Neurological: Reports numbness in toes, balance issues, and weakness in the right arm. Denies tremor awareness prior to examination. Attestation: Documentation on this patient encounter was supported using ambient scribe technology/ voice AI technology. The patient consented to recording for the purpose of documenting the encounter. Provider reviewed content of the generatednote prior to signature. 07/13/24: LAM SANCHEZ is a 64 year old M here today for lumbar spine pain. This started on . Went to the ER 05/11/2024. They took xrays of theback. Dr. Ryan stated the xrays showed scar tissue and arthritis. Says that thepain extends down both legs with pain in the hips and anterior thighs he also reports that he gets numb feet bilaterally and swollen ankles. Says that walking increases the pain and he can only walk about 200 to 300 feet before he needs to sit down and lean forward which relieves his pain. He says that he relies on a shopping cart to lean on when grocery shopping. Patient denies physical therapy on the back. He got shots in his back 37 years ago at [facility]. Heat and ice doesn't work. He sates that walking is the worst. It hurts so bad that the pain goes down to the hips and then to the groin, and thengoes all the way down to the knees. He sometimes gets numbness in his feet. The pain is mainly above L4. Patient has to take a sleeping pill to get to bed because the pain is so bad. He would like to have an MRI done. [facility]cectomy [facility] from L4-S1 which is about 37 years ago. He has been taking tramadol from Dr. Ryan for his back pain. He has continued to workout since theonset of his symptoms however he primarily only works out his upper arm since that he has the low back pain. No diabetes, no heart or lung issues, no blood thinners. Ortho Exam General General: Yes no acute distress Neurologic: Yes alert and Yes oriented x3 Psychologic: Yes reasonable and appropriate Spine SPINE TESTING CERVICAL THORACIC LUMBAR Musculoskeletal Strength 0=absent - 5=normal Details: Neurological exam of the lower extremities shows 5x5 power. Normal sensations across all dermatomes. No hyperreflexia. No midline or paraspinal tenderness. Internal and external rotation range of motion of the left hip causes significant pain. Physical examination of the back shows a well-healed midline incision. 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 Rad's negative. Romberg's is positive. Tandem gait shows severe imbalance. No hyperreflexia in lower extremities. Coding Level of Care Code Off vis,est,level 3 Diagnoses Cervical myelopathy G95.9 DISH (diffuse idiopathic skeletal hyperostosis) M48.10 Assessment and Plan Assessment and Plan (1) Cervical myelopathy: Status: Acute (2) DISH (diffuse idiopathic skeletal hyperostosis): Status: Acute Orders: Orders Cerv Spine 4 or 5 Views Today G95.9 - Disease of spinal cord, unspecified Medications: New gabapentin 600 mg PO TID 90 tabs 0RF Plan Again reviewed prior hip x-ray shows severe osteoarthritis in the left hip with significant cartilage space reduction. Lumbar x-ray indicates degenerative scoliosis and DISH. L3-S1 shows autofusion. Postsurgical changes of laminotomyseen at the lower lumbar levels. MRI lumbar spine shows mild degenerative stenosis at almost all lumbar levels. No significant acute disc extrusion at L2-3 or above. Reviewed cervical MRI from 01/20/2025. Cervical MRI shows C3-4 retrolisthesis with facet joint arthropathy resulting in severe bilateral foraminal stenosis and moderate canal stenosis, C4-5 moderate canal stenosis andsevere bilateral foraminal stenosis, C5-6 moderate canal stenosis and severe bilateral foraminal stenosis. C6-7 severe canal stenosis and severe bilateral foraminal stenosis. Also obtained and reviewed cervical x-rays today in the clinic. Cervical x-rays show multilevel disc height loss throughout the cervical spine. There is also a retrolisthesis of C5 on C6, C4 on C5 and C3 on C4 in a stepwise pattern. Because of this spondylolisthesis there is some mild instability on dynamic views. Explained imaging findings in detail. Discussed with the patient that due to the findings on the cervical MRI, he would benefit from an ACDF procedure. Discussed that this would be a multiple level fusion and this would help with the spinal cord pressure which can result in dexterity issues, balance issues, radiculopathy down the arms. The patient says that he is not having any of these and does not think that a cervical surgery would give him any benefit as his main issue is the lower back pain and leg pain. The patient does say that he has some balance issues only when he closes his eyes and extends his head in the shower however he does not think that he has any balance issues outside of this. He denies any dexterity issues in his hand. He denies any arm pain , numbness, tingling. I explained the progressive nature of cervical myelopathy. Discussed that if he starts to notice any worsening dexterity or balance issues that would be a reason to proceed with surgical intervention at that time. The patient continues to live with severe pain and says that the severe pain is decreasing his quality of life and making it difficult for him to do what he wishes to do. This pain is primarily in the lower back that extends down into the legs. The patient has attempted different injections with Dr. Flores at pain management however these have not been beneficial to him. The patient has a buprenorphine patch and takes hydrocodone?acetaminophen daily. He says that these medications only give him very minimal relief. Patient says that he needed a refill of the gabapentin 600 mg. Refill is sent. Discussed if there is any issues with the medication to stop it right away and let me know. Patient says that he has never had any side effects from gabapentin and says that it was beneficial when he took it with the other pain medications. Also discussed the possibility of a spinal cord stimulator. Patient says that he will discuss this option with Dr. Flores at his next follow-up in a couple of weeks. Other than that explained to the patient again that at this time there is no surgical intervention in the lumbar spine from our end. He will follow-upwith us on an as-needed basis for any new or worsening issues. Patient is in agreement to the plan. Clinical Quality Measures Falls Risk Screening/Assistive Devices Have you fallen in the past year?: No 02/01/25 1223 <Electronically signed by Zoraida HERNANDEZ> Date _ Zoraida HERNANDEZ Cosigner Signature: Date (if applicable) CC: Dr. Sage Flores MD; Dr. Bonilla Ryan MD ~ [facility] Work Phone: Progress note Author Víctor Sherwood [facility] Note Date/Time February 15, 2025 1 0:45am [facility] [address] [place] [address] [address] [place] [address] OFFICE VISIT Date of Service: 02/15/25 MR#: [id number] Acct: [id number] Name: LAM SANCHEZ Rep #: [id number] : 1960 Provider: Dr. Cristobal Sherwood DO Age/Sex: 64/M [place] [facility] [place] Status: Signed Intake Vital Signs 02/01/25 09:17 02/15/25 09:48 Height 5 ft 10 in 5 ft 10 in Weight: 210 lb 210 lb BMI 30.1 30.1 Intake Visit Reasons: LEFT HIP Chief Complaint: left hip Accompanied by: Mother Is patient in pain?: Yes (left hip ) Pain scale (1-10): 6 Allergies acetaminophen (From Tylenol) Allergy (Severe, Verified 02/15/25 09:49) Nausea Medications ?Medication ?Instructions ?Recorded ?Confirmed ?Type creatine monohydrate 5,000 mg oral mg PO 07/13/2402/03 History powder packet testosterone 25 mg implant pellet mg implant 07/13/24 02/15/25 History gabapentin 600 mg tablet 600 mg PO TID #90 tabs 02/0102/15/25 Rx PFSH Medical History DISH (diffuse idiopathic skeletal hyperostosis) Cervical myelopathy Obesity (BMI 30-39.9) Lower extremity neuropathy Chronic low back pain Osteoarthritis Erectile dysfunction Ventral hernia Hypertension Surgical History History of knee replacement Previous back surgery Social History Smoking Status: Former smoker how long ago did patient quit smoking: Quit 30 years ago alcohol intake: former details: Patient reports he drank heavily until about 41 years of age substance use type: does not use HPI LEFT HIP Details: This documentation accurately reflects the service provided and the decisions made by me, Dr. Víctor Sherwood, DO 02/15/25 0811. Part of today?s visit was documented by Mara Parks RN, acting as scribe. LAM SANCHEZ is a 64 year old M here today for left hip pain. He complains of left hip pain that radiates down the lateral thigh to the knee. The hip pain also radiates into the groin. He states the pain is a constant 6/10. He has beenseeing Dr. Flores in pain management. He had an injection in his low back three weeks ago he states it helped his pain for 3 days. He has had an injection in the groin he reports long ago and it did not provide any relief. progressively getting worse and he would like to discuss surgery for a hip replacement. 09/09/2024 visit:64 year old M here today for Bilateral hip pain. His left really is not giving him much problem his right is giving him more of an issue. The pain is mostly posterior lateral radiates into the glue and low back, he is starting to have occasional lesser degree groin pain. patient would like to getan MRI done on both hips, to see what the next step is. The right hip is a constant pain. He states that the pain is so bad, he is unable to walk. He did have an injection into both hips by Dr. Flores, and this did not provide him with even temporary relief of his symptoms. He did do physical therapy which made his pain worse. Patient did not have the lumbar spine MRI that was orderedby Cindy Villegas he says it was denied by insurance because he did not do physical therapy he has subsequently done physical therapy and it has not improved his symptoms. He has had x-rays of his lumbar spine demonstrating multilevel degenerative disc disease and severe lumbar spondylosis with symptomsradiating to his feet. Plan:Patient is here today for bilateral hip pain. His pain is mostly posterior lateral glutes and PSIS area and paraspinal musculature I believe thisis most likely coming from his back. He does have x-rays demonstrating left hiparthrosis more significant but it is not really bothering him he has only mild right hip arthrosis on x-rays. His pain is not typical for true hip pathology although he does get some pain with hip range of motion it is not in the groin. He does have radiating pain and numbness however this is chronic and he does have a history of prior back surgeries. He does have significant lumbar spondylosis on imaging he does have decreased reflexes bilaterally Achilles and patellar he has good lower extremity strength. Patient would like an MRI of hiship I will go ahead and order this although I feel most likely his pain is coming from his lumbar spine and I will go ahead and reorder this as well as it was previously denied as he had not completed physical therapy but has subsequently completed and failed physical therapy of note patient did have injections in his hip with Dr. Flores and did not even get transient relief which again would point that the hip sockets are not the source of his pain. Patient had had a trial and failure of physical therapy and steroid injections. At this point I will order an MRI of his right hip and lumbar spine. Patient should follow-up after the MRI. Follow up after the MRI or sooner if pain, swelling, numbness or associated symptoms, or concerns develop. All questions answered. Patient in agreement of plan. 08/05/2024 visit: LAM SANCHEZ is a 64 year old M with medical history significant for but not limited to lumbar stenosis with neurogenic claudication awaiting MRI , pancreatic mass, cholelithiasis, transaminitis, hyperbilirubinemia, on gabapentin, tramadol, trazodone here today for Bilateral hip pain right worse then left. This has been going on since May 2024. He went to the ER 05/11/2024, they did xrays on his back. He got a shot in the butt to help the pain. Patient states he has an appointment tomorrow with Dr. Flores to do an epidural. Denies any hip surgery or prior physical therapy for her back or hips. he does have pain mostly on the lateral side of his hip into the groin as well also radiating into the gluteal low back. Patient has had numbness and tingling going down the legs and the feet and the toes. Sometimes his toes turn purple and then they go away. The hips hurt worse when walking. Pain has progressively gotten worse. History of bilateral TKA. Patient complainsof pain that goes down into the feet. Numbness/tingling in the legs. Patient hashad 2 prior back surgeries. . Plan:Obtained and reviewed hip imaging with the patient today I think he does have some confusion about his medical treatment. I explained to him the MRI that was ordered was an MRI of his lumbar spine by Cindy Villegas. explained that the left hip does show significant arthritis however his right hip does not and it is right hip that is the most symptomatic. He does have significant lumbar spondylosis and MRI was recommended recently ordered for his radicular symptoms , unfortunately was denied since he not do physical therapy. I do recommend he does physical therapy for his back and hips; if after therapy he is not much improved would recommend MRI of his lumbar spine again as he is having symptoms down his both of his legs with numbness and tingling. He states he is scheduled to get hip injections with Dr. Flores . I think this is fine and would help to determine if it is the hip or not, if he does not get any relief is possible his pain is originating mostly from his back if he does get significant relief at all though temporary this would point more towards a femoral acetabular pathology. Follow up in an as needed basis or sooner if pain, swelling, numbness or associated symptoms, or concerns develop. All questions answered. Patient in agreement of plan. 07/13/2024 visit with Cindy Villegas spine physician escrow assistant: Patient is complaining of pain extending down both of his legs in the hips and anterior thighs with numbness in bilateral lower extremities. Stated walking increased his pain can only walk 200 300 feet before he needs to sit down and laid forwardto relieve his pain. Stated he needed to rely on a sharp cart to lean forward when grocery shopping. Admitted to shots in his back 37 years prior at [facility] tried ice and heat without success admitted to numbness in his feet. History of discectomy in the past at [facility] from L4-S1 37 years prior. History of taking tramadol from Dr. Ryan for his pain. MRI lumbar spinewas ordered. Ortho Exam General General: Yes no acute distress Neurologic: Yes alert and Yes oriented x3 Psychologic: Yes reasonable and appropriate Left Hip Skin/Wound: No Ecchymosis, No soft tissue swelling and No Erythema Hip: Absent eccymosis, soft tissue swelling, erythema or tender to palpate - HIP: reproduction of pain on side of hip 8 degree internal rotation, very stiff. Also lateral side pain with 40 degree external rotation. No gross motor or sensory deficits left lower extremity Supplemental Info 01/20/2025 MRI cervical spine: Multilevel degenerate changes, predominantly at C6-C7 where there is severe canal stenosis and severe bilateral foramina stenosis. Moderate canal stenosis and severe bilateral foramina stenosis at C3-C4, C4-C5 and C5-C6. 10/03/2024 MRI lumbar spine:1. Mild canal narrowing at L3-4 from small central protrusion. 2. Left paracentral protrusion at L4-5 with left lateral recess narrowing. Correlate for left L5 radiculopathy 08/05/2024 x-ray bilateral hips: Left hip has severe superior joint space narrowing, right hip mild narrowing 07/13/2024 x-ray lumbar spine:multilevel lumbar spondylosis greatest L3-S1, With moderate disc height loss and osteophytes with possible ankylosis anteriorly Coding Level of Care Code Off vis,est,level 4 Diagnoses Primary osteoarthritis of left hip M16.12 Osteoarthritis type: primary Lumbar stenosis with neurogenic claudication M48.062 Assessment and Plan Assessment and Plan (1) Degenerative joint disease of left hip: Status: Acute Qualifiers: Osteoarthritis type: primary Qualified Code(s): M16.12 - Unilateral primary osteoarthritis, left hip (2) Lumbar stenosis with neurogenic claudication: Status: Acute Plan Details Additional Comments: We discussed that surgery for a left total hip arthroplasty is an option but I cannot guarantee that it is going to take away his pain, we discussed this at length, the fact that he did get 3 days of relief from a back injection and no relief from a hip socket injection in the past is not a good prognostic indicator of a successful total hip arthroplasty. However he does get reproducible pain with hip range of motion on examination . He does have significant lumbar pathology but is been told that there is no surgical option for him . He does have significant hip arthrosis on x-ray although his pain is slightly atypical it is it as it is not involving the groin. we discussed the surgery in detail including risks, benefits, alternatives, post operative restrictions and what to expect after surgery. We discussed that he should avoidnarcotics until his surgery as this will make post operative pain management difficult. He would like to proceed with total hip arthroplasty left surgery at this time. I reviewed the patients previous hip x-rays in detail with the patient. He needsto avoid NSAID's 7 day prior to surgery. He will require clearance from his pcp prior to surgery. Follow up post operatively or sooner if pain, swelling, numbness or associated symptoms, or concerns develop. All questions answered. Patient in agreement of plan. Will need CT scan as well as medical clearance tentative surgery date March 30, 2025 same-day surgery 02/15/25 1209 <Electronically signed by Víctor sanchez DO> Date _ Víctor Bobignjoyce Signature: Date (if applicable) CC: ~ [employer] Work Phone: Reason for referral (narrative)No reason for referral information availableWAvita Health [facility] Work Phone: Summary Purpose Family History No Family History Records FoundNo Family History Records FoundNo Family History Records FoundNo Family History Records FoundNo Family History Records FoundNo Family History Records Found Advance Directives No Advanced Directives Records Found Advance Directive Response Recorded Date/ Time Living Will Yes January 30, 2023 4:53pm Power of Senior Etl Developer No January 4:53pm Hospital Course Note HNO ID: [id number] Author: Blanka herrera (Brenda) Macario Service: Orthopaedic Surgery Author Type: Nurse Practitioner Type: Discharge Summary Filed: 03/20/2019 2:44 PM Note Text: Attestation signed by Mario Cuevas at 03/20/2019 2:51 PM Attending Note I evaluated the patient and personally participated in the walker components. I agree with the resident's findings and plan as documented and have discussed the case and management of the patient's care with the resident. Plan of care discussed with: Provider, RN, Patient. Signature: Mario Cuevas MD Date: March 20, 2019 Time: 2:51 PM Orthopaedic Surgery Discharge Summary Admission Date: 03/18/2019 Discharge Date: 03/20/2019 Attending Physician: Mario Cuevas M.D. Admitting Diagnosis: Knee Patellofemoral Advanced Osteoarthritis Discharge Diagnosis: Same as admitting Additional Diagnoses: (more content not included)... Note HNO ID: [id number] Author: Rebecca Bonner Service: Orthopaedic Surgery Author Type: Resident Type: Brief Op Note Filed: 03/18/2019 1:11 PM Note Text: BRIEF OPERATIVE / PROCEDURE NOTE LOG ID: [id number] SURGERY/PROCEDURE DATE: 03/18/2019 INCISION/PROCEDURE START TIME: 11:34 AM INCISION CLOSE/PROCEDURE END TIME: SURGEON(S)/PROCEDURALIST(S) AND SEWER CONNECTOR(S): Surgeon(s) and Role: Panel 1: * Mario Cuevas - Primary * Lindy Myers - Resident - Assisting * Pepito Bonner - Resident - Assisting Panel 2: * Tanner Chappell - Primary Bilingual [employer]: [employer] SURGERY/PROCEDURE(S): Bilateral Total Knee Arthroplasty ANESTHESIA: General FINDINGS: Severe bilateral knee degenerative changes FLUIDS: 1400 mls ESTIMATED BLOOD LOSS: 500 mls ANTIBIOTICS: Ancef and Vancomycin SPECIMENS: Bone Cuts COMPLICATIONS: None PRE-OP/PRE-PROCEDURE DIAGNOSIS: Primary osteoarthritis of both knees [M17.0] POST-OP/POST-PROCEDURE DIAGNOSIS: Primary osteoarthritis of both knees [M17.0] Post-Operat (more content not included)... Procedure Findings Note HNO ID: [id number] Author: Rebecca Bonner Service: Orthopaedic Surgery Author Type: Resident Type: Brief Op Note Filed: 03/18/2019 1:11 PM Note Text: BRIEF OPERATIVE / PROCEDURE NOTE LOG ID: [id number] SURGERY/PROCEDURE DATE: 03/18/2019 INCISION/PROCEDURE START TIME: 11:34 AM INCISION CLOSE/PROCEDURE END TIME: SURGEON(S)/PROCEDURALIST(S) AND SEWER CONNECTOR(S): Surgeon(s) and Role: Panel 1: * Mario Cuevas - Primary * Lindy Myers - Resident - Assisting * Pepito Bonner - Resident - Assisting Panel 2: * Tanner Chappell - Primary Bilingual [employer]: [employer] SURGERY/PROCEDURE(S): Bilateral Total Knee Arthroplasty ANESTHESIA: General FINDINGS: Severe bilateral knee degenerative changes FLUIDS: 1400 mls ESTIMATED BLOOD LOSS: 500 mls ANTIBIOTICS: Ancef and Vancomycin SPECIMENS: Bone Cuts COMPLICATIONS: None PRE-OP/PRE-PROCEDURE DIAGNOSIS: Primary osteoarthritis of both knees [M17.0] POST-OP/POST-PROCEDURE DIAGNOSIS: Primary osteoarthritis of both knees [M17.0] Post-Operat (more content not included)... Chief Complaint and Reason for Visit Chief Complaint EORDERS JAUNDICE, DK URINE, EASY BLEEDING, ALCOHOL ABUSE Chief Complaint EORDERS JAUNDICE, DK URINE, EASY BLEEDING, ALCOHOL ABUSE HYPERBILIRUBINRMIA HYPERBILIRUBINRMIA HYPERBILIRUBINRMIA HYPERBILIRUBINRMIA HYPERBILIRUBINRMIA Reason for Visit Cholelithiasis Hyperbilirubinemia Lower extremity edema Painless jaundice Pancreatic mass Pruritus Transaminitis Chief Complaint Admit Date LUMBAR SPINE July 13, 2024 10: 29am RM 3 July 13, 2024 10: 54am BL HIP August 05, 2024 8:55 am Room 2 August 05, 2024 9:14 am BACK PAIN/HIP PAIN. RX HERE September 01, 2024 10:00am BILATERAL HIPS September 09, 2024 10:13a m Reason for Visit Admit Date Lumbar stenosis with neurogenic claudica tion July 13, 2024 10:29am Osteoarthritis of left hip July 13 10:29am Degenerative disc disease, lumbar July 13, 2024 10:29am Degenerative joint disease of left hip A pril 2024 8:55am Lumbar stenosis with neurogenic claudica tion August 05, 2024 8:55am Right hip pain August 05, 2024 8:55 am Degenerative joint disease of left hip M ay 2024 10:13am Lumbar stenosis with neurogenic claudica tion September 09, 2024 10:13am Right hip pain September 09, 2024 10:13a m Chief Complaint Admit Date LUMBAR SPINE July 13, 2024 10: 29am RM 3 July 13, 2024 10: 54am BL HIP August 05, 2024 8:55 am Room 2 August 05, 2024 9:14 am BACK PAIN/HIP PAIN. RX HERE September 01, 2024 10:00am BILATERAL HIPS September 09, 2024 10:13a m LUMBAR PAIN October 03, 2024 8:18a m Chief Complaint Admit Date BL HIP August 05, 2024 8:55 am Room 2 August 05, 2024 9:14 am BACK PAIN/HIP PAIN. RX HERE September 01, 2024 10:00am BILATERAL HIPS September 09, 2024 10:13a m LUMBAR PAIN October 03, 2024 8:18a m Reason for Visit Admit Date Degenerative joint disease of left hip A pril 2024 8:55am Lumbar stenosis with neurogenic claudica tion August 05, 2024 8:55am Right hip pain August 05, 2024 8:55 am Degenerative joint disease of left hip M ay 2024 10:13am Lumbar stenosis with neurogenic claudica tion September 09, 2024 10:13am Right hip pain September 09, 2024 10:13a m Chief Complaint Admit Date BILATERAL HIPS September 09, 2024 10:13a m LUMBAR PAIN October 03, 2024 8:18a m LUMBAR SPINE December 31, 2024 9: 06am Reason for Visit Admit Date Degenerative joint disease of left hip M ay 2024 10:13am Lumbar stenosis with neurogenic claudica tion September 09, 2024 10:13am Right hip pain September 09, 2024 10:13a m Cervical myelopathy December 31, 2024 9: 06am Degenerative joint disease of left hip A ugust 2024 9:06am DISH (diffuse idiopathic skeletal hypero stosis) December 31, 2024 9:06am Lumbar stenosis with neurogenic claudica tion December 31, 2024 9:06am Obesity (BMI 30-39.9) December 31, 2024 9:06am Chief Complaint Admit Date LUMBAR SPINE December 31, 2024 9: 06am cervical myelopathy January 20, 2025 3:12pm LUMBAR SPINE February 01, 2025 8:54am Room 5 February 01, 2025 9:45am Reason for Visit Admit Date Cervical myelopathy December 31, 2024 9: 06am Degenerative joint disease of left hip A ugust 2024 9:06am DISH (diffuse idiopathic skeletal hypero stosis) December 31, 2024 9:06am Lumbar stenosis with neurogenic claudica tion December 31, 2024 9:06am Obesity (BMI 30-39.9) December 31, 2024 9:06am Cervical myelopathy February 01, 2025 8:54am DISH (diffuse idiopathic skeletal hypero stosis) February 01, 2025 8:54am Chief Complaint Admit Date LUMBAR SPINE December 31, 2024 9: 06am cervical myelopathy January 20, 2025 3:12pm LUMBAR SPINE February 01, 2025 8:54am Room 5 February 01, 2025 9:45am LEFT HIP February 15, 2025 9 :38am Reason for Visit Admit Date Cervical myelopathy December 31, 2024 9: 06am Degenerative joint disease of left hip A ugust 2024 9:06am DISH (diffuse idiopathic skeletal hypero stosis) December 31, 2024 9:06am Lumbar stenosis with neurogenic claudica tion December 31, 2024 9:06am Obesity (BMI 30-39.9) December 31, 2024 9:06am Cervical myelopathy February 01, 2025 8:54am DISH (diffuse idiopathic skeletal hypero stosis) February 01, 2025 8:54am Degenerative joint disease of left hip O ctober 2024 9:38am Lumbar stenosis with neurogenic claudica tion February 15, 2025 9:38am Reason for Referral Specialty Diagnoses / Procedures Referred By Conteddie t Referred To Contact Radiology Diagnoses Liver mass Procedures IR [place] [address] [place] [address] Referral ID Status Reason Start Date Expiration Date Visits Requested Visits Authorized [id number] Pending Review Perform Procedure 3 02/28/2024 1 1 Specialty Diagnoses / Procedures Referred By Conteddie t Referred To Contact Gastroenterology Diagnoses Mass of head of pancreas Procedures Endoscopic Ultrasound (Upper) [place] [address] [place] [address] Referral ID Status Reason Start Date Expiration Date V isits Requested Visits Authorized [id number] Pending Review 02/28/2023 02/28/2024 1 1 Specialty Diagnoses / Procedures Referred By Contac t Referred To Contact Gastroenterology Diagnoses Jaundice Procedures ERCP Kristen Seth PA-C [address] Department of Surgery-Surgical Oncology [place] [phone] Referral ID Status Reason Start Date Expiration Date V isits Requested Visits Authorized [id number] Authorized 05/02/2023 05/01/2024 1 1 Specialty Diagnoses / Procedures Referred By Contac t Referred To Contact Gastroenterology Diagnoses Jaundice Mass of head of pancreas Biliary stricture Procedures Endoscopic Ultrasound (Upper) w FNA Kristen Seth PA-C [address] [facility] of Surgery-Surgical Oncology [place] [phone] Referral ID Status Reason Start Date Expiration Date V isits Requested Visits Authorized [id number] Authorized 04/12/2023 04/11/2024 1 1 Specialty Diagnoses / Procedures Referred By Contac t Referred To Contact Radiology Diagnoses Obstruction of bile duct [place] [address] [facility], [address] [address] Referral ID Status Reason Start Date Expiration Date Visits Requested Visits Authorized [id number] Pending Review Perform Procedure 3 05/02/2024 1 1 Additional Source Comments (unrecognized sect ion and content) No Status Records FoundNo Status Records FoundNo Status Records FoundNo Status Records FoundNo Status Records FoundNo Status Records Found INFORMATION SOURCE (unrecogn ized section and content) DATE CREATED AUTHOR 03/17/2020 [facility] DATE CREATED AUTHOR AUTHOR'S ORGANIZ ATION 03/17/2020 [facility] DATE CREATED AUTHOR AUTHOR'S ORGANIZ ATION 02/05/2022 [facility] DATE CREATED AUTHOR AUTHOR'S ORGANIZ ATION 04/17/2023 [facility] DATE CREATED AUTHOR AUTHOR'S ORGANIZ ATION 01/25/2024 [facility] DATE CREATED AUTHOR AUTHOR'S ORGANIZ ATION 03/16/2025 [facility] Care Teams (unrecognized sec tion and content) Team Status: Active Member Role Status Dates Melyssa Hollingsworth , DO Primary Care Provider Active Team Status: Active Member Role Status Dates Melyssa Hollingsworth , DO Primary Care Provider Active Dr. Ida Pizarro MD Emergency Provider Active Dr. Faith Paulino , DO Admit Provider, Att ending Provider, Other Provider Active Team Status: Active Member Role Status Dates Melyssa Hollingsworth , DO Primary Care Provider Active Dr. Ida Pizarro MD Emergency Provider Active Dr. Faith Paulino , DO Admit Provider, Other Provider Ac tive Dr. Oswald Lance , DO Attending Provider, Other Provid er Active Team Status: Active Member Role Status Dates Melyssa Hollingsworth DO Primary Care Provider Active Dr. Ida Pizarro MD Emergency Provider Active Dr. Faith Paulino , DO Admit Provider, Other Provider Ac tive Dr. Oswald Lance , Other Provider Active Dr. Margarito Rangel , Attending Provider Active Team Status: Active Member Role Status Dates Melyssa Hollingsworth , Primary Care Provider Active Dr. Margarito Rangel , DO Attending Provider Active Team Status: Active Member Role Status Dates Melyssa Hollingsworth , Primary Care Provider Active Dr. Ida Pizarro MD Emergency Provider Active Dr. Faith Paulino , Admit Provider, Other Provider Ac tive Dr. Oswald Lance , Attending Provider, Other Provid er Active Dr. Vanna Worley MD Other Provider Active Team Status: Inactive Member Role Status Dates Melyssa Hollingsworth , DO Primary Care Provi maribell, Attending Provider, Referring Provider Active Team Status: Inactive Member Role Status Dates Melyssa Hollingsworth , DO Primary Care Provider Active Dr. Ida Pizarro MD Emergency Provider Active Dr. Faith Paulino , DO Admit Provider, Other Provider Ac tive Dr. Oswald Lance , DO Attending Provider Active Dr. 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, [address] [address] PCP - General Hematology and Oncology 02/28/23 [place] [address] [place] [address] Consulting Physician Hematology and Oncology 02/28/23 Team Status: Active Member Role Status Mia Ryan MD Primary Care Provider Active Team Status: Inactive Member Role Status Mia Ryan MD Primary Care Provider Active St art: July 13, 2024 End: July 13, 2024 Bonilla Ryan MD Referring Provider Active Start : July 13, 2024 End: July 13, 2024 DAVID Montero Attending Provider Active Star t: July 13, 2024 End: July 13, 2024 Team Status: Inactive Member Role Status Mia Ryan MD Primary Care Provider Active St art: July 13, 2024 End: July 13, 2024 Dr. Florentino Torres MD Attending Provider Active S tart: July 13, 2024 End: July 13, 2024 Team Status: Inactive Member Role Status Mia Ryan MD Primary Care Provider Active St art: August 05, 2024 End: August 05, 2024 Bonilla Ryan MD Referring Provider Active Start : August 05, 2024 End: August 05, 2024 Dr. Víctor Sherwood DO Attending Provider Active Start: August 05, 2024 End: August 05, 2024 Team Status: Inactive Member Role Status Mia Ryan MD Primary Care Provider Active St art: August 05, 2024 End: August 05, 2024 Dr. Florentino Torres MD Attending Provider Active S tart: August 05, 2024 End: August 05, 2024 Team Status: Inactive Member Role Status Mia Ryan MD Primary Care Provider Active St art: September 01, 2024 End: September 01, 2024 Dr. Sage Flores MD Attending Provider Active Start: September 01, 2024 End: September 01, 2024 Dr. Sage Flores MD Referring Provider Active Start: September 01, 2024 End: September 01, 2024 Team Status: Inactive Member Role Status Mia Ryan MD Primary Care Provider Active St art: September 09, 2024 End: September 09, 2024 Bonilla Ryan MD Referring Provider Active Start : September 09, 2024 End: September 09, 2024 Dr. Víctor Sherwood DO Attending Provider Active Start: September 09, 2024 End: September 09, 2024 Team Status: Inactive Member Role Status Mia Ryan MD Primary Care Provider Active St art: October 03, 2024 End: October 03, 2024 DAVID Montero Attending Provider Active Star t: October 03, 2024 End: October 03, 2024 DAVID Montero Referring Provider Active Star t: October 03, 2024 End: October 03, 2024 Team Status: Active Member Role/Relationship Status Mia Ryan MD Primary Care Provider Active Team Status: Inactive Member Role/Relationship Status Mia Ryan MD Primary Care Provider Active St art: August 05, 2024 End: August 05, 2024 Bonilla Ryan MD Referring Provider Active Start : August 05, 2024 End: August 05, 2024 Dr. Víctor Sherwood DO Attending Provider Active Start: August 05, 2024 End: August 05, 2024 Team Status: Inactive Member Role/Relationship Status Mia Ryan MD Primary Care Provider Active St art: August 05, 2024 End: August 05, 2024 Dr. Florentino Torres MD Attending Provider Active S tart: August 05, 2024 End: August 05, 2024 Team Status: Inactive Member Role/Relationship Status Mia Ryan MD Primary Care Provider Active St art: September 01, 2024 End: September 01, 2024 Dr. Sage Flores MD Attending Provider Active Start: September 01, 2024 End: September 01, 2024 Dr. Sage Flores MD Referring Provider Active Start: September 01, 2024 End: September 01, 2024 Team Status: Inactive Member Role/Relationship Status Mia Ryan MD Primary Care Provider Active St art: September 09, 2024 End: September 09, 2024 Bonilla Ryan MD Referring Provider Active Start : September 09, 2024 End: September 09, 2024 Dr. Víctor Sherwodo DO Attending Provider Active Start: September 09, 2024 End: September 09, 2024 Team Status: Inactive Member Role/Relationship Status Mia Ryan MD Primary Care Provider Active St art: October 03, 2024 End: October 03, 2024 DAVID Montero Attending Provider Active Star t: October 03, 2024 End: October 03, 2024 DAVID Montero Referring Provider Active Star t: October 03, 2024 End: October 03, 2024 Team Status: Inactive Member Role/Relationship Status Mia Ryan MD Primary Care Provider Active St art: November 25, 2024 End: November 25, 2024 Dr. Sage Flores MD Attending Provider Active Start: November 25, 2024 End: November 25, 2024 Dr. Sage Flores MD Referring Provider Active Start: November 25, 2024 End: November 25, 2024 Team Status: Inactive Member Role/Relationship Status Mia Ryan MD Primary Care Provider Active St art: September 09, 2024 End: September 09, 2024 Bonilla Ryan MD Referring Provider Active Start : September 09, 2024 End: September 09, 2024 Dr. Víctor Sherwood DO Attending Provider Active Start: September 09, 2024 End: September 09, 2024 Team Status: Inactive Member Role/Relationship Status Mia Ryan MD Primary Care Provider Active St art: October 03, 2024 End: October 03, 2024 DAVID Montero Attending Provider Active Star t: October 03, 2024 End: October 03, 2024 DAVID Montero Referring Provider Active Star t: October 03, 2024 End: October 03, 2024 Team Status: Inactive Member Role/Relationship Status Mia Ryan MD Primary Care Provider Active St art: November 25, 2024 End: November 25, 2024 Dr. Sage Flores MD Attending Provider Active Start: November 25, 2024 End: November 25, 2024 Dr. Sage Flores MD Referring Provider Active Start: November 25, 2024 End: November 25, 2024 Team Status: Inactive Member Role/Relationship Status Mia Ryan MD Primary Care Provider Active St art: December 31, 2024 End: December 31, 2024 Bonilla Ryan MD Referring Provider Active Start : December 31, 2024 End: December 31, 2024 Dr. Neal Saenz MD Attending Provider Active Start: December 31, 2024 End: December 31, 2024 Team Status: Active Member Role/Relationship Status Mia Ryan MD Primary care physician Active Team Status: Inactive Member Role/Relationship Status Mia Ryan MD Primary care physician Active S tart: November 25, 2024 End: November 25, 2024 Dr. Sage Flores MD Attending physician Active Start: November 25, 2024 End: November 25, 2024 Dr. Sage Flores MD Referring Provider Active Start: November 25, 2024 End: November 25, 2024 Team Status: Inactive Member Role/Relationship Status Mia Ryan MD Primary care physician Active S tart: December 31, 2024 End: December 31, 2024 Bonilla Ryan MD Referring Provider Active Start : December 31, 2024 End: December 31, 2024 Dr. Neal Saenz MD Attending physician Active Start: December 31, 2024 End: December 31, 2024 Team Status: Inactive Member Role/Relationship Status Mia Ryan MD Primary care physician Active S tart: January 20, 2025 End: January 20, 2025 Dr. Neal Saenz MD Attending physician Active Start: January 20, 2025 End: January 20, 2025 Dr. Neal Saenz MD Referring Provider Active Start: January 20, 2025 End: January 20, 2025 Team Status: Inactive Member Role/Relationship Status Mia Ryan MD Primary care physician Active S tart: February 01, 2025 End: February 01, 2025 Bonilla Ryan MD Referring Provider Active Start : February 01, 2025 End: February 01, 2025 DAVID Montero Attending physician Active Sta rt: February 01, 2025 End: February 01, 2025 Team Status: Inactive Member Role/Relationship Status Mia Ryan MD Primary care physician Active S tart: February 01, 2025 End: February 01, 2025 Dr. Florentino Torres MD Attending physician Active Start: February 01, 2025 End: February 01, 2025 Team Status: Inactive Member Role/Relationship Status Mia Ryan MD Primary care physician Active S tart: February 15, 2025 End: February 15, 2025 Bonilla Ryan MD Referring Provider Active Start : February 15, 2025 End: February 15, 2025 Dr. Víctor Borruso , DO Attending physician Active Start: February 15, 2025 End: February 15, 2025 Goals (unrecognized section and content) Goals may be documented in a n alternate sectionGoals may be documented in an alternate sectionGoals may be documented in an alternate sectionGoals may be documented in an alternate sectionGoals may be documented in an alternate sectionGoals may be documented in an alternate sectionGoals may be documented in an alternate sectionGoals may be documented in an alternate sectionGoals may be documented in an alternate sectionGoals may be documented in an alternate section Reason for Visit (unrecogniz ed section and content) Reason Comments Follow-up Reason Comments New Patient Visit New visit Specialty Diagnoses / Procedures Referred By Contac t Referred To Contact Gastroenterology Diagnoses Jaundice Mass of head of pancreas Biliary stricture Procedures ERCP Kristen Seth PA-C [address] Department of Surgery-[place] [address] Referral ID Status Reason Start Date Expiration Date V isits Requested Visits Authorized [id number] Pending Review 04/12/2023 04/11/2024 1 1 Specialty Diagnoses / Procedures Referred By Contac t Referred To Contact Gastroenterology Diagnoses Jaundice Mass of head of pancreas Biliary stricture Procedures Endoscopic Ultrasound (Upper) w FNA Kristen Seth PA-C [address] Department of Surgery-[place] [address] Referral ID Status Reason Start Date Expiration Date V isits Requested Visits Authorized [id number] Authorized 04/12/2023 04/11/2024 1 1 Specialty Diagnoses / Procedures Referred By Contac t Referred To Contact Radiology Diagnoses Obstruction of bile duct [place] [address] [facility], [address], [place] [address] Referral ID Status Reason Start Date Expiration Date Visits Requested Visits Authorized [id number] Pending Review Perform Procedure 05/02/2024 1 1 FOR RECORDS PERTAINING TO PATIENTS WHO ARE OR HAVE BEEN ENROLLED IN A CHEMICAL DEPENDENCY/SUBSTANCEABUSE PROGRAM, SOME INFORMATION MAY BE OMITTED. This clinical summary was aggregated from multiple sources. Caution should be exercised in using it in the provision of clinical care. This summary normalizes information from multiple sources, and as a consequence, information in this document may materially change the coding, format and clinical context of patient data. In addition, data may be omitted in some cases. CLINICAL DECISIONS SHOULD BE BASED ON THE PRIMARY CLINICAL RECORDS. [facility]. provides no warranty or guarantee of the accuracy or completeness of information in this document.
[2025-03-30] MEDS: Scopolamine 1mg/72hr Patch 1 PATCH TD (06:55)
[2025-03-30] MEDS: LR 1,000 ML - BOLUS PREOP 999 ML IV (06:55)
[2025-03-30] MEDS: Magnesium 2 GM for ERAS IV (06:56)
--- NOTE | 2025-03-30 07:15 | PRE.ANES_ITS ---
ASA Classification* ASA Classification ASA Classification: 2 Assessment & Plan Anesthesia* Anesthesia Assessment Anesthesia Assessment: Discussed sedation and/or anesthesia options, risks, benefits, and alternatives with patient/parents/legal guardian/POA. Questions invited. The patient/parents/legal guardian/POA seems to understand and agrees to proceed with anesthesia plan. Reviewed the physical assessment, medical history, allergy history and patient home medications list prior to surgery/procedure/anesthetic and documented any changes. Performed airway and anesthesia risk assessments. Patient had CLEAR ensure at 0330. Anesthesia Type Anesthesia Type: Spinal History Source History Obtained from:: Patient and Chart Anesthesia Focused Assessment* Temperature: 98.4 F Pulse Rate: 85 Blood Pressure: 146/84 Respiratory Rate: 16 Pulse Ox: 97 Oxygen Delivery Method: Room Air Airway Assessment Mouth opens: >3 cm Mallampati Score: II Neck Range of motion (ROM): Full ROM Labs Anesthesia Preop lab: CBC WBC, (4.4-11.0) 6.8 K/mm3 03/18/25, 09:36 RBC, (4.6-6.2) 4.86 M/mm3 03/18/25, 09:36 Hgb, (13.0-16.5) 15.2 g/dL 03/18/25, 09:36 Hct, (40-54) 44.3 % 03/18/25, 09:36 Plt Count, (150-450) 313 K/mm3 03/18/25, 09:36 CHEMISTRY Potassium, (3.3-5.1) 4.2 mmol/L 03/18/25, 09:36 Sodium, (133-145) 137 mmol/L 03/18/25, 09:36 Magnesium, (1.5-2.2) 1.9 mg/dL 03/18/25, 09:36 Phosphorus, (2.5-4.9) 1.9 mg/dL L 01/31/23, 05:03 BUN, (4-19) 13 mg/dL 03/18/25, 09:36 Creatinine, (0.70-1.20) 0.96 mg/dL 03/18/25, 09:36 Glucose, (70-99) 96 mg/dL 03/18/25, 09:36 TSH, (0.358-3.74) 6.55 uIU/mL H 01/31/23, 05:03 COAG PT, (11.7-14.9) 14.5 SECONDS 03/18/25, 09:36 Pre-Assessment Diagnosis/Proposed Procedure Planned Operative Procedure(s): LEFT TOTAL HIP ARTHROPLASTY ROBOTIC ASSISTED Anesthesia History Anesthesia History - performance reporter: Anesthesia History - performance reporter Hx Hospitalization No 03/16/25 13:18 Any Problems With Anesthesia No 03/16/25 13:18 Cholinesterase deficiency No 03/16/25 13:18 You/Your Family Experience No 03/16/25 13:18 fever (hyperthermia) with Relationship Recent Exposure to Contagious No 09/02/24 11:44 Disease Does patient have nerve No 03/16/25 13:18 stimulator Patient instructed to have device shut off --Does patient have Pacemaker No 03/30/25 06:32 or ICD? When Was Last Pacemaker Check QUESTION #4 FULL TEXT: You/Your Family Experience fever (hyperthermia) with Anesthesia Last Oral Intake Last Oral intake: Last Oral Intake NPO since 03:30 03/30/25 06:32 Meds taken in AM with sips of No 03/30/25 06:32 water? Meds patient instructed to take am of surgery PONV PONV - performance reporter: PONV - performance reporter Female No 03/16/25 13:18 HX of Motion Sickness No 03/16/25 13:18 HX of N/V After Surgery No 03/16/25 13:18 Non-Smoker Yes 03/16/25 13:18 Duration of Surgery greater Yes 03/16/25 13:18 than 60 minutes Number of Risk Factors 2 03/16/25 13:18 PONV Score Moderate Risk 03/16/25 13:18 Height & Weight Height & Weight: Anesthesia: Height & Weight Height 5 ft 10 in 03/30/25 06:32 Weight: 89.4 kg 03/30/25 06:32 Body Mass Index (BMI) 28.3 03/30/25 06:32 Respiratory Assessment Respiratory Assessment - performance reporter: Respiratory Tract Infection Hx - performance reporter Hx Respiratory Tract Infection No 03/16/25 13:18 STOP Sleep Apnea STOP Sleep Apnea - performance reporter: STOP Sleep Apnea - performance reporter Hx Hypertension No 03/16/25 13:18 Hx Sleep Apnea No 03/16/25 13:18 CPAP No 09/02/24 11:44 BIPAP Do you snore loudly (louder No 03/16/25 13:18 than talking or can be heard Do you often feel tired/ No 03/16/25 13:18 fatigued/ sleepy during daytime? Has anyone observed you stop No 03/16/25 13:18 breathing during sleep? STOP Results Negative 03/16/25 13:18 QUESTION #5 FULL TEXT : Do you snore loudly (louder than talking or can be heard through closed doors)? 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 Specify any problems Hx of Preganancy in last 3 N/A 03/16/25 13:18 Months Nurse Filling Out Transfusion [email or web address] 03/16/25 13:18 & Questions: Date: 03/16/25 03/16/25 13:18 Time: 13:28 03/16/25 13:18 Patient unable to answer at this time (ie. confused, unrespo /Reproduction History /Reproductive History - performance reporter: /Reproductive Hx- performance reporter Hx Now Gestational Age (in weeks): EDC: Hx Hx Para Hx Section SAB No 09/02/24 11:44 Does the father of the baby or his family experience fever w Father of the baby Malignant Hypertension history comment Active Medications Active Medications: Current Medications Generic Name Dose Route Start Last Admin Trade Name Freq PRN Reason Stop Dose Admin Acetaminophen 1,000 mg 03/30/25 07:30 03/30/25 07:05 Acetaminophen 500 Mg Tablet PO 03/30/25 07:31 Not Given PREOP ONE Celecoxib 400 mg 03/30/25 07:30 03/30/25 06:55 Celecoxib 200 Mg Capsule PO 03/30/25 07:31 400 mg PREOP ONE Administration Dexamethasone Sodium Phosphate 10 mg 03/30/25 07:30 Dexamethasone 10 Mg/Ml Vial IV 03/30/25 07:31 INTRAOP ONE Gabapentin 600 mg 03/30/25 07:30 03/30/25 06:55 Gabapentin 600 Mg Tablet PO 03/30/25 07:31 600 mg PREOP ONE Administration Lactated Ringer's 1,000 mls @ 999 mls/hr 03/30/25 07:30 03/30/25 06:55 IV 03/30/25 08:30 999 mls/hr .Q1H1M BISHOP Administration Cefazolin Sodium 2 gm/ Sodium 110 mls @ 150 mls/hr 03/30/25 07:30 Chloride IV 03/30/25 08:13 INTRAOP ONE Tranexamic Acid 2,000 mg/ 120 mls @ 280 mls/hr 03/30/25 07:30 Sodium Chloride IV 03/30/25 07:55 INTRAOP ONE Lactated Ringer's 1,000 mls @ 125 mls/hr 03/30/25 07:30 IV 03/30/25 15:29 .Q8H BISHOP Magnesium Sulfate 2 gm/ 104 mls @ 208 mls/hr 03/30/25 07:30 03/30/25 06:56 Dextrose IV 03/30/25 07:59 208 mls/hr PREOP ONE Administration Insulin Human Lispro 1 - 6 unit 03/30/25 07:30 Insulin Lispro 100 Unit/Ml Insuln.Pen SC 03/30/25 18:00 Q4H PRN PRN BG>/= 180, SEE PROTOCOL Protocol Scopolamine HBr 1 patch 03/30/25 07:30 03/30/25 06:55 Scopolamine 1mg/72hr Patch TD 03/30/25 07:31 1 patch PREOP ONE Administration PFSH Medical History (Updated 03/16/25 @ 13:35 by Hernando Suresh) Wears glasses Wears contact lenses Wears dentures Testosterone deficiency Arthritis Back pain Gastric reflux Heartburn Former smoker DISH (diffuse idiopathic skeletal hyperostosis) Cervical myelopathy Obesity (BMI 30-39.9) Lower extremity neuropathy Chronic low back pain Osteoarthritis Erectile dysfunction Ventral hernia Hypertension Home Medications ?Medication ?Instructions ?Recorded ?Last Taken ?Type creatine monohydrate 5,000 mg oral 5,000 mg PO DAILY 0 07/13/24 Unknown History powder packet testosterone 25 mg implant pellet 25 mg implant TH 02/27 Unknown History gabapentin 600 mg tablet 600 mg PO TID #90 tabs 02/22 Unknown Rx omeprazole 20 mg capsule,delayed 20 mg PO DAILY PRN RE FLUX 03/16/25 Unknown History release tramadol 100 mg tablet,extended 100 mg PO QHS 03/16/25 Unknown History release 24 hr Allergy/AdvReac Type Severity Reaction Status Date / Time acetaminophen (From Tylenol) Allergy Severe Nausea Verified 03/30/25 06:30 Surgical History (Updated 03/16/25 @ 13:43 by Hernando Suresh) History of ERCP History of knee replacement Previous back surgery Social History Smoking Status: Former smoker how long ago did patient quit smoking: Quit 30 years ago alcohol intake: former details: Patient reports he drank heavily until about 41 years of age substance use type: does not use Review of Systems (Anesthesia) ROS Narrative System reviewed and no additional complaints, except as documented. Physical Exam Const alert, oriented x3 and average body habitus Resp normal respiratory effort, normal air movement and clear to auscultation bilaterally Cardio regular rate, regular rhythm and no murmurs; Negative for diaphoretic
--- NOTE | 2025-03-30 07:22 | PCM.HP.BLA ---
History and Physical Date of Admission: 03/30/25 [facility] Orthoped[facility] [facility] [address] [place] [address] OFFICE VISIT Date of Service: 02/15/25 MR#: [id number] Acct: [id number] Name: LAM SANCHEZ Rep #: [id number] : 1960 Provider: Dr. Víctor Sherwood DO Age/Sex: 64/M Location: [facility] Status: Signed Intake Vital Signs 02/01/2509:17 02/15/2509:48 Height 5 ft 10 in 5 ft 10 in Weight: 210 lb 210 lb BMI 30.1 30.1 Intake Visit Reasons: LEFT HIP Chief Complaint: left hip Accompanied by: Mother Is patient in pain?: Yes (left hip ) Pain scale (1-10): 6 Allergies acetaminophen (From Tylenol) Allergy (Severe, Verified 02/15/25 09:49) Nausea Medications ?Medication ?Instructions ?Recorded ?Confirmed ?Type creatine monohydrate 5,000 mg oral mg PO 07/13/24 02/15/25 History powder packet testosterone 25 mg implant pellet mg implant 07/13/24 02/15/25 History gabapentin 600 mg tablet 600 mg PO TID #90 tabs 02/01/25 02/15/25 Rx PFSH Medical History DISH (diffuse idiopathic skeletal hyperostosis) Cervical myelopathy Obesity (BMI 30-39.9) Lower extremity neuropathy Chronic low back pain Osteoarthritis Erectile dysfunction Ventral hernia Hypertension Surgical History History of knee replacement Previous back surgery Social History Smoking Status: Former smoker how long ago did patient quit smoking: Quit 30 years ago alcohol intake: former details: Patient reports he drank heavily until about 41 years of age substance use type: does not use HPI LEFT HIP Details: This documentation accurately reflects the service provided and the decisions made by me, Dr. Víctor Sherwood DO 02/15/25 0811. Part of today?s visit was documented by Mara Parks RN, acting as scribe. LAM SANCHEZ is a 64 year old M here today for left hip pain. He complains of left hip pain that radiates down the lateral thigh to the knee. The hip pain also radiates into the groin. He states the pain is a constant 6/10. He has been seeing Dr. Flores in pain management. He had an injection in his low back three weeks ago he states it helped his pain for 3 days. He has had an injection in the groin he reports long ago and it did not provide any relief. progressively getting worse and he would like to discuss surgery for a hip replacement. 09/09/2024 visit:64 year old M here today for Bilateral hip pain. His left really is not giving him much problem his right is giving him more of an issue. The pain is mostly posterior lateral radiates into the glue and low back, he is starting to have occasional lesser degree groin pain. patient would like to get an MRI done on both hips, to see what the next step is. The right hip is a constant pain. He states that the pain is so bad, he is unable to walk. He did have an injection into both hips by Dr. Flores, and this did not provide him with even temporary relief of his symptoms. He did do physical therapy which made his pain worse. Patient did not have the lumbar spine MRI that was ordered by Cindy Villegas he says it was denied by insurance because he did not do physical therapy he has subsequently done physical therapy and it has not improved his symptoms. He has had x-rays of his lumbar spine demonstrating multilevel degenerative disc disease and severe lumbar spondylosis with symptoms radiating to his feet. Plan:Patient is here today for bilateral hip pain. His pain is mostly posterior lateral glutes and PSIS area and paraspinal musculature I believe this is most likely coming from his back. He does have x-rays demonstrating left hip arthrosis more significant but it is not really bothering him he has only mild right hip arthrosis on x-rays. His pain is not typical for true hip pathology although he does get some pain with hip range of motion it is not in the groin. He does have radiating pain and numbness however this is chronic and he does have a history of prior back surgeries. He does have significant lumbar spondylosis on imaging he does have decreased reflexes bilaterally Achilles and patellar he has good lower extremity strength. Patient would like an MRI of his hip I will go ahead and order this although I feel most likely his pain is coming from his lumbar spine and I will go ahead and reorder this as well as it was previously denied as he had not completed physical therapy but has subsequently completed and failed physical therapy of note patient did have injections in his hip with Dr. Flores and did not even get transient relief which again would point that the hip sockets are not the source of his pain. Patient had had a trial and failure of physical therapy and steroid injections. At this point I will order an MRI of his right hip and lumbar spine. Patient should follow-up after the MRI. Follow up after the MRI or sooner if pain, swelling, numbness or associated symptoms, or concerns develop. All questions answered. Patient in agreement of plan. 08/05/2024 visit: LAM SANCHEZ is a 64 year old M with medical history significant for but not limited to lumbar stenosis with neurogenic claudication awaiting MRI , pancreatic mass, cholelithiasis, transaminitis, hyperbilirubinemia, on gabapentin, tramadol, trazodone here today for Bilateral hip pain right worse then left. This has been going on since May 2024. He went to the ER 05/11/2024, they did xrays on his back. He got a shot in the butt to help the pain. Patient states he has an appointment tomorrow with Dr. Flores to do an epidural. Denies any hip surgery or prior physical therapy for her back or hips. he does have pain mostly on the lateral side of his hip into the groin as well also radiating into the gluteal low back. Patient has had numbness and tingling going down the legs and the feet and the toes. Sometimes his toes turn purple and then they go away. The hips hurt worse when walking. Pain has progressively gotten worse. History of bilateral TKA. Patient complains of pain that goes down into the feet. Numbness/tingling in the legs. Patient has had 2 prior back surgeries. . Plan:Obtained and reviewed hip imaging with the patient today I think he does have some confusion about his medical treatment. I explained to him the MRI that was ordered was an MRI of his lumbar spine by Cindy Villegas. explained that the left hip does show significant arthritis however his right hip does not and it is right hip that is the most symptomatic. He does have significant lumbar spondylosis and MRI was recommended recently ordered for his radicular symptoms , unfortunately was denied since he not do physical therapy. I do recommend he does physical therapy for his back and hips; if after therapy he is not much improved would recommend MRI of his lumbar spine again as he is having symptoms down his both of his legs with numbness and tingling. He states he is scheduled to get hip injections with Dr. Flores . I think this is fine and would help to determine if it is the hip or not, if he does not get any relief is possible his pain is originating mostly from his back if he does get significant relief at all though temporary this would point more towards a femoral acetabular pathology. Follow up in an as needed basis or sooner if pain, swelling, numbness or associated symptoms, or concerns develop. All questions answered. Patient in agreement of plan. 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 Stated walking increased his pain can only walk 200 300 feet before he needs to sit down and laid forward to relieve his pain. Stated he needed to rely on a sharp cart to lean forward when grocery shopping. Admitted to shots in his back 37 years prior at [facility] tried ice and heat without success admitted to numbness in his feet. History of discectomy in the past at [place] from L4-S1 37 years prior. History of taking tramadol from Dr. Ryan for his pain. MRI lumbar spine was ordered. Ortho Exam General General: Yes no acute distress Neurologic: Yes alert and Yes oriented x3 Psychologic: Yes reasonable and appropriate Left Hip Skin/Wound: No Ecchymosis, No soft tissue swelling and No Erythema Hip: Absent eccymosis, soft tissue swelling, erythema or tender to palpate - HIP: reproduction of pain on side of hip 8 degree internal rotation, very stiff. Also lateral side pain with 40 degree external rotation. No gross motor or sensory deficits left lower extremity Supplemental Info 01/20/2025 MRI cervical spine: Multilevel degenerate changes, predominantly at C6-C7 where there is severe canal stenosis and severe bilateral foramina stenosis. Moderate canal stenosis and severe bilateral foramina stenosis at C3-C4, C4-C5 and C5-C6. 10/03/2024 MRI lumbar spine:1. Mild canal narrowing at L3-4 from small central protrusion. 2. Left paracentral protrusion at L4-5 with left lateral recess narrowing. Correlate for left L5 radiculopathy 08/05/2024 x-ray bilateral hips: Left hip has severe superior joint space narrowing, right hip mild narrowing 07/13/2024 x-ray lumbar spine:multilevel lumbar spondylosis greatest L3-S1, With moderate disc height loss and osteophytes with possible ankylosis anteriorly Coding Level of Care Code Off vis,est,level 4 Diagnoses Primary osteoarthritis of left hip M16.12 Osteoarthritis type: primary Lumbar stenosis with neurogenic claudication M48.062 Assessment and Plan Assessment and Plan (1) Degenerative joint disease of left hip: Status: Acute Qualifiers: Osteoarthritis type: primary Qualified Code(s): M16.12 - Unilateral primary osteoarthritis, left hip (2) Lumbar stenosis with neurogenic claudication: Status: Acute Plan Details Additional Comments: We discussed that surgery for a left total hip arthroplasty is an option but I cannot guarantee that it is going to take away his pain, we discussed this at length, the fact that he did get 3 days of relief from a back injection and no relief from a hip socket injection in the past is not a good prognostic indicator of a successful total hip arthroplasty. However he does get reproducible pain with hip range of motion on examination . He does have significant lumbar pathology but is been told that there is no surgical option for him . He does have significant hip arthrosis on x-ray although his pain is slightly atypical it is it as it is not involving the groin. we discussed the surgery in detail including risks, benefits, alternatives, post operative restrictions and what to expect after surgery. We discussed that he should avoid narcotics until his surgery as this will make post operative pain management difficult. He would like to proceed with total hip arthroplasty left surgery at this time. I reviewed the patients previous hip x-rays in detail with the patient. He needs to avoid NSAID's 7 day prior to surgery. He will require clearance from his pcp prior to surgery. Follow up post operatively or sooner if pain, swelling, numbness or associated symptoms, or concerns develop. All questions answered. Patient in agreement of plan. Will need CT scan as well as medical clearance tentative surgery date March 30, 2025 same-day surgery 02/15/25 1209 <Electronically signed by Víctor Sherwood DO> Date Víctor Sherwood DO I have examined the patient and the H&P has been reviewed. There are no clinical changes since date of exam.
[2025-03-30] MEDS: Midazolam 2 MG/2 ML Syringe IV (08:10)
[2025-03-30] MEDS: Cefazolin 1 GM/5 ML Vial 2 GM IV (08:10)
--- NOTE | 2025-03-30 08:15 | FEM._PTH ---
PATIENT: LAM SANCHEZ LOC: [facility] U#:[id number] AGE/SX: 64/M ROOM: RE03/30/[address]: Dr. Víctor Sherwood DO : 1960 BED: DIS: 03/30/2025 SPEC #: [id number] RECD: 03/30/25 11:06 STATUS: [place] REJustino #: [id number] CASSIDY: 03/30/25 08:[address]: Víctor Sherwood DEPT: SURGICAL PATHOLOGY RECD BY: Tk Hutchison ENTERED: 03/30/25 11:25 SP TYPE: FEM HEAD OTHR DR: Bonilla Ryan MD Tissues: A - Hip, NOS Procedures: Decalcification bone/plaque Surgery Specimen Level III HEADER OPERATION: ERAS, left total hip replacement robotic arm assisted PRE-OP DIAGNOSIS: Primary osteoarthritis of left hip, lumbar stenosis with neurogenic claudication TISSUE SUBMITTED: A- Left hip bone and tissue MICROSCOPIC DIAGNOSIS A. Bone, left hip, left, total hip arthroplasty: - Articular bone with osteoarthritic reactive and degenerative changes, - Trlineage hematopoiesis. MICROSCOPIC DESCRIPTION Slides are reviewed. GROSS DESCRIPTION A. Received in formalin labeled with the patient's name and date of . Designated as left hip bone and tissue is a is a 5.4 x 4.8 x 4.2 cm slightly irregular, ovoid femoral head admixed with numerous bone and soft tissue fragments; and with an attached femoral neck, 1.6 cm in length by 3.4 cm in diameter. The articular cartilage is underwood-red and granular with eburnation and moderate to marked osteophyte formation. Sectioning reveals underwood-yellow, focally erythematous trabeculated medullary bone and a 0.7 x 0.5 cm apparent cyst underlying the eburnation. Plumber'S Assistant sections are submitted in 2 cassettes, following decalcification as follows: A1: Femoral head, including possible cyst underlying eburnationA2: Femoral neck CT 03/30/2025 CPT:[id number]
[2025-03-30] MEDS: Lidocaine 1% (5 ml sdv) 5 ML Vial 8 ML IV (08:32)
[2025-03-30] MEDS: TRANEXAMIC ACID 1,000 MG/10 ML ML 2000 MG IV (08:32)
[2025-03-30] MEDS: fentaNYL 100 MCG/2 ML Ampul 200 MCG IV (09:49)
--- NOTE | 2025-03-30 10:34 | PCM.POST.ANE ---
Anesthesia: Postop Eval I Current Vital Signs Temperature: 97.1 F Pulse Rate: 73 Blood Pressure: 128/69 Respiratory Rate: 16 Pulse Ox: 97 Assessment Airway patent: Yes Spontaneous unlabored respirations: Yes nausea: No Vomiting: No Anesthesia Complication: No Fluid Hydration Crystalloid volume administer (ml): 1,800 Total IV fluid infused: 1,800 Progress Note Anesthesia document: Postop Eval 1 completed: Yes
--- NOTE | 2025-03-30 10:38 | PCM.OPRPT ---
Operative Report (Standard) Operative Information Date of Procedure: 03/30/25 Pre-Operative Diagnosis: Left hip DJD Post-Operative Diagnosis: Same Surgery/Procedure Performed: Left total hip arthroplasty lip and gate builder: Yes Steaming Cabinet Tender: Amarjit Lord Tasks completed by program assistant: Opening & closing and Implanting device Type of Anesthesia: General and Spinal RN Documented Start/Stop Times: Operation Date: 03/30/25 08:15 Case Time Into Pre-Op 03/30/25 06:19 Anesthesia Start 03/30/25 08:10 Into Room 03/30/25 08:10 Procedure Start 03/30/25 08:53 Procedure End 03/30/25 10:22 Anesthesia End 03/30/25 10:26 Out of Room 03/30/25 10:26 Procedure Start Time: 08:53 Procedure Stop Time: 10:22 Select all DRAINS/GRAFTS/IMPLANTS that apply: Implanted device Implanted device details: Allison Estimated Blood Loss: 175 Specimen collected: Yes Description of specimen(s) removed: Femoral head Description of surgery: Preoperative diagnosis: Left hip DJD Postoperative diagnosis: Same Procedure: CT-guided Makoplasty assisted left total hip arthroplasty Implants: Milton Accolade II stem size 5, 127 degree neck angle +2.5 head neck length 54 mm Trident II acetabular shell with 40 mm cancellous screw 36 mm ceramic head, 10 degree Trident X3 polyethylene insert. Anesthesia: Spinal EBL: 175 cc Complications: None Condition: Stable to PACU Paint Factory Worker Amarjit Lord. My physician assistant plant manager was a vital part of this case. He was important in appropriate retraction during the case, and protection of soft tissues during procedure. His intimate knowledge of the case and my steps aided in safe and expedient completion of the procedure as well as appropriate position of the extremity during the case. He was also vital in assisting with closure under my direct supervision. Indication for procedure: This is a 64-year-old male who has had long-standing arthrosis of the hip who has failed conservative treatment and wished to undergo total hip arthroplasty. We did discuss operative versus nonoperative intervention including risks of bleeding, infection , nerve artery tissue damage, need for further surgery, fracture, leg length discrepancy dislocation blood clot and need for postoperative physical therapy and postoperative expectations. An informed consent was signed. Procedure: Patient was met in the preoperative holding area once again the operative extremity was identified by both patient and physician and was marked. Patient was met by anesthesia . Anesthesia was started. patient was then positioned in the lateral decubitus position on a well-padded pegboard with an axillary roll. All bony prominences were checked and padded. The patient was prepped and draped in the usual sterile fashion. A timeout was called to ensure the proper patient procedure and extremity were being contemplated. Anatomic landmarks were palpated and marked for a standard posterior lateral approach. Prior to this the ASIS was palpated and 3 fingerbreadths proximal to this 3 pins were placed at a 45 degree angle into the iliac crest with good purchase, stab incisions were made with a 15 blade into the skin prior to placement. The Makoplasty array was then secured. A 10 blade scalpel was used to make a posterior incision through the skin and subcutaneous tissue. retractors were used and electrocautery was used to maintain meticulous hemostasis and dissect full-thickness flaps until the gluteal fascia was reached. The gluteal fascia was incised in line with the gluteal fibers. The bursal tissue was then freed from the underside and a Charnley retractor was placed. The femoral trochanteric checkpoint was placed and leg length was assessed using the trochanteric checkpoint and an EKG lead that was placed on the knee prior to prepping the leg .the fat pad was then elevated off of the external rotators with electrocautery and the external rotators were dissected off of the greater trochanter including the piriformis and were tagged with #1 Ethibond for later repair. The joint capsule opened with posterior trapdoor technique. The hip was surgically dislocated. The measurement on the preoperative CT from the top of the lesser trochanter to the femoral neck cut was marked Sumanhmann was placed around the lesser trochanter. A neck cutting guide was used to sharron the neck with a Bovie and an oscillating saw was used complete the femoral neck cut. The femoral head was then removed and sized. We then turned our attention to the acetabulum. A Bovie was used to make a perforation in the anterior joint capsule and a Childs retractor was placed this was repeated in the 6 o'clock position and a wide moises was placed there. With a long handled knife the labral and pulvinar tissue were removed. We then registered the acetabulum with the pointing array and confirmed our landmarks. Once the socket was thoroughly prepared and labral tissue and pulvinar was removed we single reamed with the robotic arm. We then used the robotic arm to position the acetabular implant and impacted it into place under robotic guidance. We then proceeded to place a posterior superior screw by drilling first measuring and inserting the screw. We then inserted a trial liner. And turned our attention back to the femur at this point a femoral elevator was used. As well as a pointed wide Hohmann around the lesser trochanter and a Hohmann to help retract the gluteus medius. A box chisel was used to remove excess lateral neck followed by a canal finder and a lateralizing reamer. This was followed by sequential broaches. Attention was made of the version within the canal based on preoperative templating. Once the final broach was seated we then trialed reduced the hip it was determined that a 127 degree neck angle with a +2.5 neck length was the appropriate size. We then checked stability with shuck testing as well as flexion and internal rotation. then proceeded with hip extension and checked leg lengths at the knees and heels as well as with the trochanteric checkpoint and knee EKG lead. At this point trials were removed. A liner was inserted to the cup. The femoral stem was inserted. We re-trialed and then proceeded to impact the femoral head onto the Jeremiah taper. We then surgically reduce the hip check stability again and leg lengths and were satisfied. Betadine rinse was allowed to sit for 5 minutes while everyone changed their gloves. Thorough irrigation was performed. Followed by closure of the external rotators with #2 FiberWire followed by closure of gluteal fascia with #1 Ethibond. 0 Vicryl fat stitches and 2-0 Vicryl subcutaneous stitches and magnolia in the skin. Bent were placed in the skin pin sites over the iliac crest and dressed with a Mepilex dressing. The main incision was dressed with a Mepilex ag dressing and an abduction pillow was placed. Patient tolerated the procedure well there was no intraoperative complications all counts were correct and the patient was brought back to the PACU in stable condition Surgical Findings: DJD Complications Complications: No
--- NOTE | 2025-03-30 10:40 | DCINST_ITS ---
Discharge Instructions Diet Discharge Diet: No restrictions Dressing / Incision Call your doctor if you observe: Shortness of breath and Chest pain Additional Dressing/Incision Instructions:: Do not shower for 72hrs. May Begin daily showering with warm water antibacterial soap postop day #3( 72hrs Post- operatively) and then daily. Leave the dressing on for 72 hours postoperatively then remove prior to first shower and change dressing daily after this until no drainage for 2 consecutive days then may leave open to air. If you decide not shower on Saturday and wish to sponge bath only, then may leave dressing undisturbed for up to 1 week, but must remove prior to first shower. Do not submerge for 3 weeks. If not showering daily after the initial dressing is removed you must clean incision and change dressing daily after the dressing comes off, must come off by 7 days postop. Do not allow animals near the incision area. Keep clean. Follow hip precautions that were reviewed in hospital. Wear compression stockings, may remove at night. Start physical therapy as directed in hospital. Follow prescriptions instructions do not take any other pain medication or differ dosing without consulting your physician. Do not take oral NSAIDs until blood thinner has been completed , then may begin the day after completion if needed . Call Dr. Sherwood's office with any concerns. Follow Up Care Please Follow Up With: Víctor Sherwood DO When: 2 weeks Test Results: Test results from this visit will be discussed in further detail at your follow- up appointment, if applicable. Discharge Plan Admission Primary Reason for Your Visit: Left total hip arthroplasty Attending Provider: Víctor Sherwood Primary Care Provider: Bonilla Ryan Instructions Print Language: Hebrew Discharge Orders/Prescriptions Prescriptions: New acetaminophen 500 mg tablet 1,000 mg PO Q6H Qty: 100 0RF cephalexin 500 mg capsule 1,000 mg PO Q8H Qty: 4 0RF Rx Instructions: Take 2 tabs before you go to bed and 2 tabs after 5 AM morning after surgery when you wake up Eliquis 2.5 mg tablet 2.5 mg PO BID Qty: 42 0RF Rx Instructions: Begin morning after surgery. oxycodone 5 mg tablet 5 - 10 mg PO Q4H PRN (Reason: pain) 7 Days Qty: 60 0RF ondansetron 4 mg tablet,disintegrating 4 mg PO Q4H PRN (Reason: nausea and vomiting) Qty: 10 1RF Continued creatine monohydrate 5,000 mg powder in packet 5,000 mg PO DAILY testosterone 25 mg pellet 25 mg implant TH Patient Comments: injection omeprazole 20 mg capsule,delayed release(DR/EC) 20 mg PO DAILY PRN (Reason: REFLUX) gabapentin 600 mg tablet 600 mg PO TID Qty: 90 0RF Held tramadol 100 mg tablet extended release 24 hr 100 mg PO QHS Hold Instructions: Do not take in combination with postoperative narcotic Referrals / Follow Up: Bonilla Ryan MD [Primary Care Provider, Family Practice] Disposition Disposition (needs filled in before D/C Order can be placed): Home, Self Care
--- NOTE | 2025-03-30 10:50 | RAD_ITS ---
EXAM: XR Left Hip With Pelvis When Performed, 1 View CLINICAL INDICATION: POST OP PACU TECHNIQUE: Frontal view of the left hip with pelvis when performed. COMPARISON: No relevant prior studies available. FINDINGS: BONES/JOINTS: Total hip replacement. Intact hardware. No acute fracture. No dislocation. SOFT TISSUES: Soft tissue emphysema and swelling. RAD/Hip Min 2 Views (Portable) IMPRESSION: 1. Status post total hip replacement in anatomic position. 2. Postoperative changes as above. Reading Location: [id number]
[2025-03-30] MEDS: LR 1,000 ML - 125 ML/HR (POST BOLUS) POST OP 1000 ML IV (10:59)
[2025-03-30] MEDS: LR 1,000 ML - 125 ML/HR (POST BOLUS) POST OP IV (12:54)
[2025-03-30] MEDS: Cefazolin 2 GM in 0.9% Normal Saline (100mL Bag) 100 ML IV (12:54)
--- NOTE | 2025-03-30 13:00 | SUR.PHASEII ---
INCENTIVE SPIROMETER GIVEN TO PATIENT AND HE DEMONSTRATED HE KNEW HOW TO USE IT.
--- NOTE | 2025-03-30 13:39 | POSTOPAN2_ITS ---
Anesthesia Postop Eval I Sum Postop Eval Completion status Anesthesia document: Postop Eval 1 completed: Yes Anesthesia Postop Eval I Summary Anesthesia Postop Eval I Summary: Anesthesia Postop Eval I: Assessment Summary Airway patent Yes 03/30/25 10:34 [email or web address] Spontaneous unlabored Yes 03/30/25 10:34 [email or web address] respirations Mental status nausea No 03/30/25 10:34 [email or web address] Vomiting No 03/30/25 10:34 [email or web address] Anesthesia Postop Eval I: Fluid Summary Crystalloid volume administer 1,800 03/30/25 10:34 [email or web address] [email or web address] (ml) Colloids volume administered ( ml) Blood Product volume administered (ml) Total IV fluid infused 1,800 03/30/25 10:34 [email or web address] Anesthesia Postop Eval I: Summary Notes Anesthesia Complication No 03/30/25 10:34 [email or web address] [email or web address] Anesthesia Complication Comment: Post-operative progress note Anesthesia: Postop Eval II Evaluation Mental status: Awake Pain Level: 0 nausea: No Vomiting: No Complications Anesthesia Complication: No
--- NOTE | 2025-03-30 13:39 | PCM.POSTANE2 ---
Anesthesia Postop Eval I Sum Postop Eval Completion status Anesthesia document: Postop Eval 1 completed: Yes Anesthesia Postop Eval I Summary Anesthesia Postop Eval I Summary: Anesthesia Postop Eval I: Assessment Summary Airway patent Yes 03/30/25 10:34 DATA CONVERSION [email or web address] Spontaneous unlabored Yes 03/30/25 10:34 DATA CONVERSION [email or web address] respirations Mental status nausea No 03/30/25 10:34 DATA CONVERSION [email or web address] Vomiting No 03/30/25 10:34 DATA CONVERSION [email or web address] Anesthesia Postop Eval I: Fluid Summary Crystalloid volume administer 1,800 03/30/25 10:34 DATA CONVERSION [email or web address] (ml) Colloids volume administered ( ml) Blood Product volume administered (ml) Total IV fluid infused 1,800 03/30/25 10:34 DATA CONVERSION [email or web address] Anesthesia Postop Eval I: Summary Notes Anesthesia Complication No 03/30/25 10:34 DATA CONVERSION [email or web address] Anesthesia Complication Comment: Post-operative progress note Anesthesia: Postop Eval II Evaluation Mental status: Awake Pain Level: 0 nausea: No Vomiting: No Complications Anesthesia Complication: No
--- NOTE | 2025-03-30 13:45 | SUR.PHASEII ---
PATIENT STOOD AT THE EDGE OF THE BED AND TOOK TWO STEPS WITH THE WALKER WITHOUT DIFFICULTY. HE DOESN'T NEED TO VOID YET. PHYSICAL THERAPY CALLED.
--- NOTE | 2025-03-30 14:26 | SUR.PHASEII ---
PHYSICAL THERAPY AT THE BEDSIDE WORKING WITH THE PATIENT.
== END 2025-03-30 15:02 | disposition home or self-care (01) ==
LOC: SDC 05:58 → AC 05:59
PROVIDERS: PCP Family Medicine; Referring Provider Orthopaedic Surgery; Visit Provider Orthopaedic Surgery
PROC: 8E0Y0CZ Robotic Assisted Procedure of Lower Extremity, Open Approach (ICD-10-PCS; CPT 27130; principal; 2025-03-30 07:45)
DX: M16.12 Unilateral primary osteoarthritis, left hip (principal); M47.817 Spondylosis without myelopathy or radiculopathy, lumbosacral region; M48.02 Spinal stenosis, cervical region; M54.16 Radiculopathy, lumbar region; M48.062 Spinal stenosis, lumbar region with neurogenic claudication; N52.9 Male erectile dysfunction, unspecified; K21.9 Gastro-esophageal reflux disease without esophagitis; G89.29 Other chronic pain; Z96.653 Presence of artificial knee joint, bilateral; Z79.899 Other long term (current) drug therapy; Z87.891 Personal history of nicotine dependence
CPT/HCPCS: 27130; 01214; 36415; 73502; 80048; 82962; 82985; 83036; 83735; 85025; 85610; 85730; 86850; 86900; 86901; 87081; 88304; 88311; 93005; 97162; C1776; J2405

== ENCOUNTER 2025-04-19 09:30 | Outpatient (RCR) | payer OTHER, SELFPAY ==
--- NOTE | 2025-04-02 12:47 | HP.PTEVAL_ITS ---
Patient's Visit Information Visit Information Visit Information: LAM SANCHEZ is a 64 year old M referred to Physical Therapy by Dr. Víctor Sherwood DO with a diagnosis of L LEISA 03/30/25. Date of Evaluation: 04/02/25 Physical Therapist: Oswald Graham, DPT, OCS, CSCS Visit Plan Frequency: 2-3x /Week Duration: 4-6 Weeks Plan: 2-3x/week for 4-6 weeks for : IE HEP GS, QS, AP all throughout day, LEISA precuations reviewed, Us can to ambulate, frequent movment. Treat with mat hip strngth to HEP, then gym hip strength machines, gait training, scar massage, HS strtches, hip ROM ex within precautions. ice as needed. Subjective Subjective: L LEISA , 03/30/25. Dr. Tony Franco TKA, back surgeries. Went home surgeries, went right home and lives alone, used walker but now cane. Has two steps that he used R leg for and railing. Basic aDLs bedroom upstairs but sleeping on couch. Sleep is OK but not great. HEP: yes 2x/day, startd some standing. 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 Wants to gt back to it. Retired. Enjoys working around house. Hip has hurt for over a year. Pain L hip: Pain Intensity (Out of 10): 2 Pain Intensity Range: 2 and 5 Comment: 5 if on it. Prior hurt worse Objective Objective: Walks into PT with cane, slightly stiff after sitting but ambulate mod I with cane, can walk without it with slightly more L trendelenbrg adn an talgia. Exit chair using UE mod I, stiff and painful L lateral hip. Bed mobility mod I but needs UE to move L LE onto and off of bed. Unable to SLR L but can on R. AROM L knee adn ankle WFL. Positioning is slightly IR until cued on l femur. ankle strength 4/5B, knees 3+ knee ext L and 4 R, knee flexion 4- L and 4 R. hip abd and ext L 3, flexion 3, R side is 4/5. Tender lateral L hip to palpation., incision dressed and healing well. Upper body strength and core WFL and 5/5. Stands without AD with ec without balance deficits steps tries reciprocally but unable safely on L with two rails and painful, taught to use just R on steps for now. Precautions reviewed with patient. He has book at home with HEP in it HS and HC mod tight B at -40 90/90 test. TUG is 10 seconds with cane. Hip PROM L to 90 flexion 35 er, IR NT, neutral ext, 20 abduction. Balance/Special Test Scores WOMAC Total Score: 73 WOMAC Percentatge: 23.9600 Goals Goal 1:: Sleep without waking due to hip pain in own bed. Goal Time Frame: 4-6 Weeks Goal 2:: Walk without AD in community safe adn I. Goal Time Frame: 4-6 Weeks Goal 3:: steps reciprocal with no railing Goal Time Frame: 4-6 Weeks Goal 4:: I appropriate HEP adn gym ex for LE strength at [facility] Goal Time Frame: 4-6 Weeks Goal 5:: Pt feel back to 100% of all activities at home without pain or antalgia Goal Time Frame: 4-6 Weeks Goal 6:: [place] scoare of 15 or less Goal Time Frame: 4-6 Weeks Rehabilitation Potential Physical Therapy Diagnosis: L hip weakness and stiffness. This limits comfortable funciton. Rehabilitation Potential: Good Anticipated Interventions Patient/Client Instruction: Educate patient on: Condition and Plan of Care For the Purpose of:: To decrease pain, To increase ROM, To improve nutrient delivery to tissue, To increase tolerance to activity/condition/position, To improve ability of physical actions for home/community/work/leisure and To improve gait and locomotor functions Therapeutic Exercise to Include: Strength training, Postural training, Flexi bilty training, Gait and locomotor training, Relaxation training, Passive ROM and Active ROM For the Purpose of:: To decrease pain, To increase ROM, To improve nutrient delivery to tissue, To improve muscle performance and motor function, To increase tolerance to activity/condition/position and To improve ability of physical actions for home/community/work/leisure Manual Therapy Techniques to Include: Scar massage and Soft tissue mobilization For the Purpose of:: To decrease pain, To increase ROM, To improve nutrient delivery to tissue and To improve muscle performance and motor function Cryotherapy (ice pack, ice massage): Yes For the Purpose of:: To decrease swelling/inflammation Text: Thank you for the opportunity to evaluate your patient. For Medicare and Medicare HMO plans, please review the plan of care and approve it. It will need to be FAXED BACK to us at [phone] for Medicare purposes. For Medicare only, by signing this I certify the plan of care. Please let me know if there are questions or concerns regarding this plan of care. Physician Signature: Date:
--- NOTE | 2025-04-19 09:37 | HP.PTDCSUM ---
Discharge Summary D/C summary: It has been my pleasure to treat LAM SANCHEZ referred by Dr. Víctor Sherwood DO, with the diagnosis of L LEISA 03/30/25 for a total of 6 visit(s). Discharge Date: 04/19/25 Please see the following information for a summary of their discharge status. Subjective Subjective: back and knee hurt but hip is doing OK, not a surgial candidate. Doing [employer] knee ext adn curls, avoids leg press. Ready to be done adn tire of paying. Will continue leg ex at [employer] with the current HEP. Pain L hip: Pain Intensity (Out of 10): 0 L knee: Pain Intensity (Out of 10): 6 Overall Improvement % Improvement: 100 Objective Objective/Function: walking with L knee antalgia, will always have pain here he says in knee, hip not painful. steps reciprocal without a railing. Goals Goal 1:: Sleep without waking due to hip pain in own bed. Goal Progress: Progressing Goal 2:: Walk without AD in community safe adn I. Goal Progress: Goal Met Goal 3:: steps reciprocal with no railing Goal Progress: Goal Met Goal 4:: I appropriate HEP adn gym ex for LE strength at [place] [facility] Goal Progress: Goal Met Goal 5:: Pt feel back to 100% of all activities at home without pain or antalgia Goal Progress: Goal Met Goal 6:: [place] scoare of 15 or less Plan Plan: d/c to HEP, pt ready to bee donee with PT and paying and familiar enough with gym to do well on his own. D/C Information Discharge Comments: Pt to ctninue HP and gym ex 3x+/wek on own. Familiar with gym and rady to be done. d/c sentence: If there are questions or concerns regarding this patient's physical therapy, please feel free to call me at [phone]. Thank you for the referral of this patient. Sincerely, Oswald Graham, DPT, OCS, CSCS Balance/Gait/Functional tests Balance/Special Test Scores WOMAC Total Score: 2 WOMAC Percentage: 97.9200 Improvement % Improvement: 100
== END 2025-04-19 12:41 | disposition home or self-care (01) ==
LOC: PT 09:30
PROVIDERS: PCP Family Medicine; Referring Provider Orthopaedic Surgery; Visit Provider Orthopaedic Surgery
DX: M16.12 Unilateral primary osteoarthritis, left hip (principal)
CPT/HCPCS: 97110; 97161; 97164